=== PATIENT | male | born 1965 | race Caucasian/White ===

== ENCOUNTER 2020-05-19 10:29 | Inpatient (IN) | payer BC ==
--- NOTE | 2020-05-19 11:16 | ED ---
General Adult HPI - General Chief complaint: Upper Respiratory Infection Stated complaint: fatigue, vomiting Time Seen by Provider: 05/19/20 10:42 Source: patient Mode of arrival: ambulatory Limitations: no limitations - History of Present Illness Initial comments: 55-year-old male patient presents to the emergency department today for evaluation of chest pressure and general malaise. Patient states his been feeling unwell for the last couple of weeks. States that he initially was just feeling very fatigued, chilled, rundown. States he had some episodes of diarrhea early in the illness. States that the symptoms lasted for about a week and then started to improve. Patient states over the last few days his symptoms have worsened. States he's been having heavy chest pressure especially at night. States he does feel short of breath with this. Denies any cough or congestion. Denies any fevers but states he has been chilled. States he did have episode of vomiting last night. Does have a history of diabetes. Has extensive family history of cardiac disease. Patient denies any recent rash, abdominal pain, nausea, vomiting, back pain, numbness, tingling, dizziness, weakness, hematuria, dysuria, urinary urgency, urinary frequency, headache, visual changes, or any other complaints. - Related Data Home Medications Medication Instructions Recorded Confirmed Insulin Aspart [NovoLOG Flexpen] See Protocol SQ AC-TID 05/19/20 05/19/20 Insulin Glargine,Hum.rec.anlog 20 unit SQ DAILY 05/19/20 05/19/20 [Lantus Solostar] Allergies Allergy/AdvReac Type Severity Reaction Status Date / Time No Known Allergies Allergy Verified 05/19/20 13:06 Review of Systems ROS Statement: Those systems with pertinent positive or pertinent negative responses have been documented in the HPI. ROS Other: All systems not noted in ROS Statement are negative. Past Medical History Past Medical History: Diabetes Mellitus History of Any Multi-Drug Resistant Organisms: None Reported Past Surgical History: No Surgical Hx Reported Past Psychological History: No Psychological Hx Reported Smoking Status: Never smoker Past Alcohol Use History: Daily Past Drug Use History: None Reported General Exam Limitations: no limitations General appearance: alert, in no apparent distress, other (This is a well- developed, well-nourished adult male patient in no acute distress. Vital signs upon presentation temperature 98.9F, pulse 107, respirations 20, blood pressure 128/83, pulse ox 98% on room air.) Eye exam: Present: normal appearance, PERRL, EOMI. Absent: scleral icterus, conjunctival injection, periorbital swelling ENT exam: Present: normal exam, normal oropharynx, mucous membranes moist Respiratory exam: Present: normal lung sounds bilaterally. Absent: respiratory distress, wheezes, rales, rhonchi, stridor Cardiovascular Exam: Present: normal rhythm, tachycardia, normal heart sounds. Absent: systolic murmur, diastolic murmur, rubs, gallop, clicks GI/Abdominal exam: Present: soft, normal bowel sounds. Absent: distended, tenderness, guarding, rebound, rigid Neurological exam: Present: alert, oriented X3, CN II-XII intact Psychiatric exam: Present: normal affect, normal mood Skin exam: Present: warm, dry, intact, normal color. Absent: rash Course Vital Signs 05/19/20 05/19/20 10:32 12:47 Temperature 98.9 F Pulse Rate 107 H 105 H Respiratory 20 18 Rate Blood Pressure 128/83 137/92 O2 Sat by Pulse 98 96 Oximetry EKG Findings - EKG Comments: EKG Findings:: EKG obtained at 1122 shows sinus tachycardia with a ventricular rate of 105, WI Interval 176, QRS duration 108, QT 358, QTC 473. No evidence of ST elevation or depression. Medical Decision Making - Medical Decision Making 55-year-old male patient presents to the emergency department today for evaluation of chest pressure and shortness of breath. Patient feeling unwell for the last couple of weeks. Has history of diabetes an extensive family history of coronary artery disease. Physical examination reveals clear equal lung sounds. Abdomen soft and nontender. EKG showed some ST depression in V5 and V4. T-wave inversion in lead 3. Labs reviewed and did reveal elevated troponin 3.1. Patient symptoms and findings are consistent with NSTEMI. He'll be admitted to the hospital for further cardiac evaluation. He was given aspirin and started on heparin drip. Case discussed with my attending Dr. Fontanez. - Lab Data Result diagrams: 05/19/20 11:29 05/19/20 11:29 Lab Results 05/19/20 05/19/20 05/19/20 Range/Units 11:29 11:29 11:29 WBC 7.6 (3.8-10.6) k/uL RBC 4.62 (4.30-5.90) m/uL Hgb 14.6 (13.0-17.5) gm/dL Hct 42.5 (39.0-53.0) % MCV 92.1 (80.0-100.0) fL MCH 31.6 (25.0-35.0) pg MCHC 34.3 (31.0-37.0) g/dL RDW 12.3 (11.5-15.5) % Plt Count 347 (150-450) k/uL MPV 6.4 Neutrophils % 78 % Lymphocytes % 14 % Monocytes % 5 % Eosinophils % 2 % Basophils % 0 % Neutrophils # 6.0 (1.3-7.7) k/uL Lymphocytes # 1.0 (1.0-4.8) k/uL Monocytes # 0.4 (0-1.0) k/uL Eosinophils # 0.1 (0-0.7) k/uL Basophils # 0.0 (0-0.2) k/uL PT 10.2 (9.0-12.0) sec INR 0.9 (<1.2) APTT 23.1 (22.0-30.0) sec D-Dimer 0.59 (<0.60) mg/L FEU Sodium 137 (137-145) mmol/L Potassium 4.4 (3.5-5.1) mmol/L Chloride 102 (98-107) mmol/L Carbon Dioxide 25 (22-30) mmol/L Anion Gap 10 mmol/L BUN 20 (9-20) mg/dL Creatinine 1.02 (0.66-1.25) mg/dL Est GFR (CKD-EPI)AfAm >90 (>60 ml/min/1.73 sqM) Est GFR (CKD-EPI)NonAf 84 (>60 ml/min/1.73 sqM) Glucose 317 H (74-99) mg/dL Calcium 9.0 (8.4-10.2) mg/dL Magnesium 1.9 (1.6-2.3) mg/dL Total Bilirubin 0.5 (0.2-1.3) mg/dL AST 43 (17-59) U/L ALT 17 (4-49) U/L Alkaline Phosphatase 94 (38-126) U/L Troponin I (0.000-0.034) ng/mL NT-Pro-B Natriuret Pep pg/mL Total Protein 7.1 (6.3-8.2) g/dL Albumin 4.0 (3.5-5.0) g/dL Coronavirus (PCR) (Not Detectd) 05/19/20 05/19/20 05/19/20 Range/Units 11:29 11:29 11:29 WBC (3.8-10.6) k/uL RBC (4.30-5.90) m/uL Hgb (13.0-17.5) gm/dL Hct (39.0-53.0) % MCV (80.0-100.0) fL MCH (25.0-35.0) pg MCHC (31.0-37.0) g/dL RDW (11.5-15.5) % Plt Count (150-450) k/uL MPV Neutrophils % % Lymphocytes % % Monocytes % % Eosinophils % % Basophils % % Neutrophils # (1.3-7.7) k/uL Lymphocytes # (1.0-4.8) k/uL Monocytes # (0-1.0) k/uL Eosinophils # (0-0.7) k/uL Basophils # (0-0.2) k/uL PT (9.0-12.0) sec INR (<1.2) APTT (22.0-30.0) sec D-Dimer (<0.60) mg/L FEU Sodium (137-145) mmol/L Potassium (3.5-5.1) mmol/L Chloride (98-107) mmol/L Carbon Dioxide (22-30) mmol/L Anion Gap mmol/L BUN (9-20) mg/dL Creatinine (0.66-1.25) mg/dL Est GFR (CKD-EPI)AfAm (>60 ml/min/1.73 sqM) Est GFR (CKD-EPI)NonAf (>60 ml/min/1.73 sqM) Glucose (74-99) mg/dL Calcium (8.4-10.2) mg/dL Magnesium (1.6-2.3) mg/dL Total Bilirubin (0.2-1.3) mg/dL AST (17-59) U/L ALT (4-49) U/L Alkaline Phosphatase (38-126) U/L Troponin I 3.120 H* (0.000-0.034) ng/mL NT-Pro-B Natriuret Pep 3030 pg/mL Total Protein (6.3-8.2) g/dL Albumin (3.5-5.0) g/dL Coronavirus (PCR) Not Detected (Not Detectd) - EKG Data -: EKG Interpreted by Me EKG Comments: EKG obtained 1122 shows sinus tachycardia with a ventricular rate of 105, WI interval 176, QRS duration 108, QT 358, QTC 473. He has some ST depression noted and V4 and V5. T-wave inversion in lead 3. - Radiology Data Radiology results: report reviewed, image reviewed One view x-ray of the chest is obtained. Report reviewed in its entirety. Impression by Dr. Chaves shows patchy right perihilar infiltrate may reflect developing a morning. Correlate clinically. Disposition Clinical Impression: NSTEMI (non-ST elevated myocardial infarction) Disposition: ADMITTED IP TO THIS [facility] Condition: Serious Decision to Admit Reason: Admit from EC Decision Date: 05/19/20 Decision Time: 12:44
[2020-05-19 11:37] LABS: Basophils % (A) 0 %; Eosinophils # (A) 0.1 k/uL (0-0.7); Eosinophils % (A) 2 %; HCT 42.5 % (39.0-53.0); HGB 14.6 gm/dL (13.0-17.5); Lymphocytes % (A) 14 %; MCH 31.6 pg (25.0-35.0); MCHC 34.3 g/dL (31.0-37.0); MCV 92.1 fL (80.0-100.0); Mean Platelet Volume 6.4; Monocytes # (A) 0.4 k/uL (0-1.0); Monocytes % (A) 5 %; Neutrophils % (A) 78 %; Platelet Count 347 k/uL (150-450); RBC 4.62 m/uL (4.30-5.90); RDW 12.3 % (11.5-15.5); WBC 7.6 k/uL (3.8-10.6)
[2020-05-19 11:48] LABS: ALT 17 U/L (4-49); AST 43 U/L (17-59); African American GFR (CKD) >90 (>60 ml/min/1.73 sqM); Alkaline Phosphatase 94 U/L (38-126); Anion Gap 10 mmol/L; Blood Urea Nitrogen 20 mg/dL (9-20); Carbon Dioxide 25 mmol/L (22-30); Chloride 102 mmol/L (98-107); Glucose 317 mg/dL (74-99); Magnesium 1.9 mg/dL (1.6-2.3); Non-African American GFR(CKD) 84 (>60 ml/min/1.73 sqM); Potassium 4.4 mmol/L (3.5-5.1); Sodium 137 mmol/L (137-145); Total Bilirubin 0.5 mg/dL (0.2-1.3); Total Protein 7.1 g/dL (6.3-8.2)
[2020-05-19 11:51] LABS: D-Dimer 0.59 mg/L FEU (<0.60); INR 0.9 (<1.2); Partial Thromboplastin Time 23.1 sec (22.0-30.0); Prothrombin Time 10.2 sec (9.0-12.0)
--- NOTE | 2020-05-19 12:13 | XR ---
EXAMINATION TYPE: XR chest 1V portable DATE OF EXAM: 05/19/2020 HISTORY: Shortness of breath. COMPARISON: None. TECHNIQUE: Single view of the chest is submitted. FINDINGS: Demonstrated are scattered senescent parenchymal change. Patchy right perihilar infiltrate may reflect developing pneumonia. Correlate clinically progress jazlyn dies are recommended. The heart is stable. Hilar and mediastinal structures are within normal limits. Degenerative changes are seen of the dorsal spine. IMPRESSION: 1. Patchy right perihilar infiltrate may reflect developing pneumonia. Correlate clinically progress studies are recommended.
[2020-05-19] MEDS ORDERED: HEPARIN SODIUM,PORCINE 5,000 UNIT/ML 1 ML VIAL IV PRN (12:17)
[2020-05-19] MEDS ORDERED: HEPARIN SODIUM,PORCINE 5,000 UNIT/ML 1 ML VIAL IV ONE (12:17)
[2020-05-19] MEDS ORDERED: HEPARIN SOD,PORK IN 0.45% NACL 25,000 UNIT in 0.45% NACL 1 250ML.BAG IV SCH (12:30)
[2020-05-19] MEDS ORDERED: ASPIRIN 81 MG PO STA (12:39)
[2020-05-19] MEDS ORDERED: NITROGLYCERIN SL TABS 0.4 MG TAB SUBLINGUAL PRN (12:39)
[2020-05-19] MEDS ORDERED: MELATONIN 3 MG TABLET PO PRN (13:04)
[2020-05-19] MEDS ORDERED: NALOXONE 0.4 MG/ML 1 ML VIAL IV PRN (13:04)
[2020-05-19] MEDS ORDERED: HYDROcodone/APAP 5-325MG 1 EACH TAB PO PRN (13:04)
[2020-05-19] MEDS ORDERED: ACETAMINOPHEN TAB 325 MG TAB PO PRN (13:04)
--- NOTE | 2020-05-19 14:29 | P.HPIM ---
<Sadiq Pepper - Last Filed: 05/19/20 13:35> History of Present Illness H&P Date: 05/19/20 Chief Complaint: Fatigue and chest heaviness History of presenting illness: Patient is a 55-year-old male with a past medical history of insulin-dependent diabetes mellitus. He presented to [facility] with a chief complaint of fatigue and chest heaviness. Patient reports he initially began feeling the symptoms of fatigue on 04/30/20 accompanied by diarrhea, nausea, chills, diaphoresis, and body aches. Pt reports these symptoms lasted for appro ximately one week and then improved. Pt states this improvement only lasted a couple days and then his symptoms came back with a vengeance. Patient reports over the past few days he has felt extremely winded, fatigued, and simply run down. He has had chills and moderate diaphoresis. Patient states in addition to this he has had a constant pressure to his midsternal chest. Patient reports this chest pressure feels like a constant heaviness to his midsternal chest which seems to worsen in the evenings and at night and is accompanied by shortness of breath. Patient denies having any fevers, headache, lightheadedness, dizziness, cough or congestion, abdominal pain, or experiencing any pain/swelling/weakness/tingling in extremities. Patient denies a history of cardiac disease, but reports a significant family history of cardiac disease with both of his brothers and father requiring open heart surgery with bypasses at a young age. Patient denies history of tobacco use, drug use and denies EtOH use/abuse. Patient reports he follows with blending technician Dr. Beckman in [place]. Patient was evaluated in the emergency department found to have an elevated troponin of 3.120 with an EKG showing sinus tachycardia at 105 bpm with T-wave inversion in leads III and aVF, no signs of ST elevation. Patient given aspirin 324 mg in ED 1 dose followed by heparin bolus and infusion per ACS protocol for NSTEMI. Patient admitted under our services for continued close medical management with consult to cardiology. Review of systems: Pertinent positives and negatives as discussed in HPI, a complete review of systems was performed and all other systems are negative. Physical exam: General: non toxic, no distress, appears at stated age Derm: warm, dry Head: atraumatic, normocephalic, symmetric Eyes: EOMI, no lid lag, anicteric sclera Mouth: no lip lesion, mucus membranes moist Cardiovascular: S1S2 normal with regular rate and rhythm. No murmur, gallop, or rub noted. Posterior tibial pulses palpated bilaterally. No lower extremity edema. Lungs: Respirations even, regular, and unlabored on room air. Lungs CTA bilaterally Abdominal: soft, nontender to palpation, no guarding, no appreciable organomegaly Ext: no gross muscle atrophy, no edema, no contractures Neuro: CN II-XI grossly intact, no focal neuro deficits Psych: Alert, oriented, appropriate affect Assessment and Plan of Care: NSTEMI -Troponin 3.120 -EKG showing sinus tachycardia at 105 bpm with T-wave inversion in leads III and aVF, no signs of ST elevation. No previous EKGs available for comparison. -Patient given aspirin 324 mg in ED 1 dose followed by heparin bolus and infusion per ACS protocol for NSTEMI. -Continue heparin infusion, pharmacy to dose. -Cardiology consult. -Telemetry monitoring -Trend troponins every 3 hours 2. -Close monitoring of I's and O's -Heart healthy carb consistent diet, NPO at midnight -Patient being placed on daily aspirin, atorvastatin, and metoprolol. -Lipid profile and Hgb A1c with a.m. labs. Insulin-dependent diabetes mellitus type II -Glycemic protocol with NovoLog sliding scale and continuation of Lantus 20 units daily. -Heart healthy carb consistent diet The patient is admitted with an anticipated greater than 2 midnight stay for evaluation of NSTEMI. Surrogate decision-maker: Self CODE STATUS: Full code DVT prophylaxis: Heparin Discussed with: Patient Anticipated discharge date: Clinical course to determine Anticipated discharge place: Home A total of 45 minutes was spent on the care of this complex patient more than 50% of the time was spent in counseling and care coordination. Past Medical History Past Medical History: Diabetes Mellitus History of Any Multi-Drug Resistant Organisms: None Reported Past Surgical History: No Surgical Hx Reported Past Psychological History: No Psychological Hx Reported Smoking Status: Never smoker Past Alcohol Use History: Daily Past Drug Use History: None Reported Medications and Allergies Home Medications Medication Instructions Recorded Confirmed Type Insulin Aspart [NovoLOG Flexpen] See Protocol SQ AC-TID 05/19/20 05/19/20 History Insulin Glargine,Hum.rec.anlog 20 unit SQ DAILY 05/19/20 05/19/20 History [Hussein Moseley] Allergies Allergy/AdvReac Type Severity Reaction Status Date / Time No Known Allergies Allergy Verified 05/19/20 13:06 Physical Exam Vitals: Vital Signs Temp Pulse Resp BP Pulse Ox 05/19/20 12:47 105 H 18 137/92 96 05/19/20 10:32 98.9 F 107 H 20 128/83 98 Intake and Output 05/18/20 05/19/20 05/19/20 22:59 06:59 14:59 Other: Weight 81.647 kg Results CBC & Chem 7: 05/19/20 11:29 05/19/20 11:29 Labs: Abnormal Lab Results - Last 24 Hours (Table) 05/19/20 05/19/20 Range/Units 11:29 11:29 Glucose 317 H (74-99) mg/dL Troponin I 3.120 H* (0.000-0.034) ng/mL <Gloria House - Last Filed: 05/19/20 20:33> Physical Exam Osteopathic Statement: *. No significant issues noted on an osteopathic structural exam other than those noted in the History and Physical/Consult. Vitals: Vital Signs Temp Pulse Resp BP Pulse Ox 05/19/20 20:00 116 H 18 138/73 91 L 05/19/20 17:37 98.2 F 105 H 18 139/96 93 L 05/19/20 15:50 97 18 138/93 97 05/19/20 12:47 105 H 18 137/92 96 05/19/20 10:32 98.9 F 107 H 20 128/83 98 Intake and Output 05/19/20 05/19/20 05/19/20 06:59 14:59 22:59 Other: Weight 81.647 kg Results CBC & Chem 7: 05/19/20 11:29 05/19/20 11:29 Labs: Abnormal Lab Results - Last 24 Hours (Table) 05/19/20 05/19/20 05/19/20 Range/Units 11:29 11:29 14:09 APTT (22.0-30.0) sec Glucose 317 H (74-99) mg/dL Troponin I 3.120 H* 6.080 H* (0.000-0.034) ng/mL 05/19/20 05/19/20 Range/Units 18:38 18:38 APTT 30.1 H (22.0-30.0) sec Glucose (74-99) mg/dL Troponin I 7.840 H* (0.000-0.034) ng/mL Assessment and Plan Assessment: Patient seen and examined independently. Patient was also seen by Sadiq Pepper NP and case was discussed. I am in agreement with subjective, physical exam, assessment and plan as written above and amended below. Currently chest pain-free. No shortness of breath. No nausea. No vomiting. General: non toxic, no distress, appears at stated age Derm: warm, dry Head: atraumatic, normocephalic, symmetric Eyes: EOMI, no lid lag, anicteric sclera Mouth: no lip lesion, mucus membranes moist Cardiovascular: S1S2 reg, no murmur, positive posterior tibial pulse bilateral, Lungs: CTA bilateral, no rhonchi, no rales , no accessory muscle use Abdominal: soft, nontender to palpation, no guarding, no appreciable organomegaly Ext: no gross muscle atrophy, no edema, no contractures Neuro: CN II-XI grossly intact, no focal neuro deficits Psych: Alert, oriented, appropriate affect Non-STEMI -Heparin drip -Beta holly -Aspirin -Await cardiology recommendations -Patient would like cardiology to discuss his case with his outpatient blending technician. -Nothing by mouth after midnight in anticipation of cardiac catheterization - D/W nursing to alert cardiology of incresaed trop from earlier today.
[2020-05-19] MEDS: INSULIN ASPART (NovoLOG) 100 UNIT/ML VIAL SQ SCH ×2 (19:38→22:32)
[2020-05-19] MEDS ORDERED: ATORVASTATIN 40 MG TAB PO SCH (21:00)
[2020-05-19 22:29] LABS: Glucose,Whole Blood 302 mg/dL (75-99)
[2020-05-19] MEDS: METOPROLOL TARTRATE 25 MG TAB PO SCH (22:32)
[2020-05-20 03:35] LABS: Basophils % (A) 0 %; Eosinophils % (A) 0 %; HCT 36.2 % (39.0-53.0); HGB 12.7 gm/dL (13.0-17.5); Lymphocytes # (A) 1.1 k/uL (1.0-4.8); Lymphocytes % (A) 10 %; MCH 32.2 pg (25.0-35.0); Mean Platelet Volume 6.8; Monocytes # (A) 0.6 k/uL (0-1.0); Monocytes % (A) 5 %; Neutrophils # (A) 8.9 k/uL (1.3-7.7); Neutrophils % (A) 83 %; Platelet Count 345 k/uL (150-450); RBC 3.93 m/uL (4.30-5.90); RDW 11.8 % (11.5-15.5); WBC 10.7 k/uL (3.8-10.6)
[2020-05-20 03:49] LABS: African American GFR (CKD) >90 (>60 ml/min/1.73 sqM); Anion Gap 4 mmol/L; Blood Urea Nitrogen 21 mg/dL (9-20); Calcium 8.2 mg/dL (8.4-10.2); Carbon Dioxide 25 mmol/L (22-30); Chloride 105 mmol/L (98-107); Cholesterol 241 mg/dL (<200); Glucose 278 mg/dL (74-99); HDL Cholesterol 37 mg/dL (40-60); LDL Cholesterol,Calculated 164 mg/dL (0-99); Non-African American GFR(CKD) >90 (>60 ml/min/1.73 sqM); Potassium 4.3 mmol/L (3.5-5.1); Sodium 134 mmol/L (137-145); Triglycerides 200 mg/dL (<150)
[2020-05-20 06:37] LABS: Glucose,Whole Blood 282 mg/dL (75-99)
[2020-05-20] MEDS: INSULIN ASPART (NovoLOG) 100 UNIT/ML VIAL SQ SCH ×4 (06:41→20:17)
[2020-05-20] MEDS ORDERED: ASPIRIN 325 MG TAB PO SCH ×2 (09:00→09:15)
[2020-05-20] MEDS ORDERED: ALPRAZolam 0.5 MG TAB PO PRN (09:07)
[2020-05-20] MEDS ORDERED: ALPRAZolam 0.25 MG TAB PO PRN (09:07)
[2020-05-20] MEDS ORDERED: SODIUM CHLORIDE 0.9% 1,000 ML in EMPTY BAG 1 BAG IV ONE (09:07)
[2020-05-20] MEDS ORDERED: ASPIRIN 325 MG TAB PO ONE (09:08)
[2020-05-20] MEDS: INSULIN DETEMIR (LEVEMIR) 100 UNIT/ML SYR SQ SCH (09:15)
[2020-05-20] MEDS: ATORVASTATIN 80 MG TAB PO SCH (09:15)
[2020-05-20] MEDS ORDERED: fentaNYL (PF) 50 MCG/ML 2 ML AMP ONE (09:16)
[2020-05-20] MEDS ORDERED: VERAPAMIL 2.5 MG/ML 2 ML AMP ONE (09:16)
[2020-05-20] MEDS ORDERED: LIDOCAINE 1% INJ 10MG/ML (20 ML MDV) ONE (09:16)
[2020-05-20] MEDS: ASPIRIN 81 MG PO SCH (09:18)
[2020-05-20] MEDS: METOPROLOL TARTRATE 25 MG TAB PO SCH ×2 (09:22→20:17)
[2020-05-20] MEDS ORDERED: IV FLUID CONTINUATION 800 ML IV ONE (09:26)
[2020-05-20] MEDS ORDERED: HEPARIN SODIUM,PORCINE 10,000 UNIT in SODIUM CHLORIDE 0.9% 1,000 ML IRRIGATION PRN (09:30)
[2020-05-20] MEDS ORDERED: HEPARIN SODIUM,PORCINE 2,500 UNIT in SODIUM CHLORIDE 0.9% 250 ML IRRIGATION PRN (09:30)
[2020-05-20] MEDS ORDERED: fentaNYL (PF) 50 MCG/ML 2 ML AMP IV ONE (09:38)
[2020-05-20] MEDS ORDERED: MIDAZOLAM 2 MG/2 ML VIAL IV ONE (09:39)
[2020-05-20] MEDS ORDERED: LIDOCAINE 1% INJ 10MG/ML (20 ML MDV) SQ ONE (09:40)
[2020-05-20] MEDS ORDERED: HEPARIN SODIUM 1,000 UN/ML (10ML VL) ONE (09:42)
[2020-05-20] MEDS ORDERED: VERAPAMIL SYRINGE (5 MG/10 ML) INTRAARTER ONE (09:42)
[2020-05-20] MEDS ORDERED: HEPARIN SODIUM 1,000 UN/ML (10ML VL) IV ONE (09:43)
[2020-05-20] MEDS ORDERED: NITROGLYCERIN-D5W PMX 50 MG in DEXTROSE/WATER 1 250ML.BAG IV ONE (09:55)
[2020-05-20] MEDS ORDERED: IOPAMIDOL-370 125ML BTL INJ ONE (10:02)
--- NOTE | 2020-05-20 10:47 | P.CARDCATH ---
Description of Procedure: PROCEDURES PERFORMED: Left heart catheterization, bilateral coronary angiography INDICATION: NSTEMI HISTORY: Patient is a pleasant 55-year-old male with history of hypertension, hyperlipidemia, diabetes mellitus type 2 insulin-dependent, and strong family history of coronary artery disease who presents with symptoms of not feeling well for 3 weeks and some GI symptoms with worsened chest pressure over last few days. Patient was found to have non-STEMI and therefore heart catheterization was recommended. CONSENT:I have discussed the risks, benefits and alternative therapies for the above-mentioned procedure and for both sedation/analgesia as well as necessary blood product administration, if indicated, as they pertain to this patient. The patient has indicated understanding and acceptance of the risks and procedures discussed. PROCEDURE: After the risks, benefits and alternatives of the above mentioned procedure explained in detail with the patient, informed consent was obtained. Patient was taken to the catheterization lab and prepped and draped in usual fashion. 1% lidocaine was used to anesthetize the right radial artery. A 6- [place] sheath was placed in the right radial artery using modified Seldinger technique. Left coronary angiography was performed with a 5-[place] JL 3.5 catheter and right coronary angiography was performed with a 5-[place] JR5 catheter in various views. A 5-[place] FR5 catheter was inserted into the left ventricle and pressure measurements were obtained. The right radial sheath was removed and a TR band was placed with hemostasis achieved. The patient tolerated the procedure well. Patient was transported back to the post catheterization holding area in stable condition. Conscious Sedation: Patient was monitored under the direct supervision of vision of myself for conscious sedation using Versed and fentanyl for a total duration of 18 minutes HEMODYNAMICS: Aorta: 122/72 LV: 118/7, LVEDP 17 mmHg SELECTIVE CORONARY ARTERIOGRAPHY: LEFT MAIN: The left main is a large caliber vessel which bifurcates into the LAD and circumflex. There is a distal 20% left main stenosis. LEFT ANTERIOR DESCENDING CORONARY ARTERY: LAD is a moderatecaliber vessel which wraps around to the apex. There is a ostial 85% LAD stenosis, a 60-70% mid LAD stenosis after a diagonal 1 branch and an apical 50% stenosis. Diagonal 1 is a small caliber vessel with a proximal 80% stenosis. Diagonal 2 is small caliber with a proximal 90% stenosis. LEFT CIRCUMFLEX CORONARY ARTERY: Left circumflex is a moderate to large caliber vessel with a mid 50% stenosis and gives off a moderate to large caliber OM1. There are left to right collaterals to the PLV. RIGHT CORONARY ARTERY: The right coronary artery is a small caliber vessel which gives off a PDA and PLV branch and is the dominant vessel. There is a mid RCA 95% stenosis followed by a 100% distal RCA stenosis. FINAL IMPRESSION: 1. Multivessel CAD as described above including ostial LAD 85%, mid LAD 60-70%, apical LAD 50%, diagonal 1 80%, diagonal 2 90%, circumflex 50% stenosis and RCA 90%, 100% stenosis. 2. Mildly elevated left sided filling pressures. PLAN: 1. Aggressive risk factor modification per most recent ACC/AHA guidelines. 2. CABG evaluation.
--- NOTE | 2020-05-20 11:31 | P.PN ---
Subjective Progress Note Date: 05/20/20 Principal diagnosis: NSTEMI Hospital course: Patient is a 55-year-old male with a past medical history of insulin-dependent diabetes mellitus. He presented to [facility] with a chief complaint of fatigue and chest heaviness/pressure. Patient was evaluated in the emergency department found to have an elevated troponin of 3.120 with an EKG showing sinus tachycardia at 105 bpm with T-wave inversion in leads III and aVF, no signs of ST elevation. Patient given aspirin 324 mg in ED 1 dose followed by heparin bolus and infusion per ACS protocol for NSTEMI. Patient admitted under our services for continued close medical management with consult to cardiology. Troponins trended upward with initial troponin is 3.120 with repeats of 6.080 and 7.840. Patient taken for cardiac cath this morning with Dr. Mina. Physical exam: Patient seen and evaluated at the bedside this morning. He reports improvement of chest heaviness/pressure but reports it remains at 3 out of 10 from previous 8 out of 10. Patient scheduled for cardiac cath this morning with Dr. Mina. Patient denies any other complaints at this time including headache, lightheadedness, dizziness, palpitations, shortness of breath, abdominal pain, nausea, or experiencing any pain/tingling/numbness/weakness in extremities. General: non toxic, no distress, appears at stated age Derm: warm, dry Head: atraumatic, normocephalic, symmetric Eyes: EOMI, no lid lag, anicteric sclera Mouth: no lip lesion, mucus membranes moist Cardiovascular: S1S2 normal with regular rate and rhythm. No murmur, gallop, or rub noted. Posterior tibial pulses palpated bilaterally. No lower extremity edema. Lungs: Respirations even, regular, and unlabored on room air. Lungs CTA bilaterally Abdominal: soft, nontender to palpation, no guarding, no appreciable organomegaly Ext: no gross muscle atrophy, no edema, no contractures Neuro: CN II-XI grossly intact, no focal neuro deficits Psych: Alert, oriented, appropriate affect Assessment and Plan of Care: NSTEMI -Troponin 3.120. Troponins trended upward with initial troponin is 3.120 with repeats of 6.080 and 7.840. -EKG showing sinus tachycardia at 105 bpm with T-wave inversion in leads III and aVF, no signs of ST elevation. No previous EKGs available for comparison. -Continue heparin infusion, pharmacy to dose. -Cardiology following, patient scheduled to have cardiac cath done this morning. -Telemetry monitoring. -Trend troponins every 3 hours 2. -Close monitoring of I's and O's. -Heart healthy carb consistent diet, NPO at midnight. -Patient being placed on daily aspirin, atorvastatin, and metoprolol. -Lipid profile revealed elevation of triglycerides 200, cholesterol 241, LDL 1 64, HDL of 37. Atorvastatin increased to 80 mg nightly. -Hemoglobin A1c pending. Insulin-dependent diabetes mellitus type II -Glycemic protocol with NovoLog sliding scale and continuation of Lantus 20 units daily. -Heart healthy carb consistent diet The patient is admitted with an anticipated greater than 2 midnight stay for evaluation of NSTEMI. Surrogate decision-maker: Self CODE STATUS: Full code DVT prophylaxis: Heparin Discussed with: Patient Anticipated discharge date: Clinical course to determine Anticipated discharge place: Home A total of 45 minutes was spent on the care of this complex patient more than 50% of the time was spent in counseling and care coordination. Objective - Vital Signs Vital signs: Vital Signs Temp 99.6 F 05/20/20 08:00 Pulse 91 05/20/20 10:22 Resp 20 05/20/20 10:22 BP 117/70 05/20/20 10:22 Pulse Ox 95 05/20/20 10:22 Intake & Output 05/19/20 05/20/20 05/20/20 18:59 06:59 18:59 Intake Total 171.380 102 Balance 171.380 102 Weight 81.647 kg 84.5 kg Intake: IV 102 Intake, IV Titration 171.380 Amount Heparin Sod,Pork in 0.45% 171.380 NaCl 25,000 unit In 0.45 % NaCl 1 250ml.bag @ 12 UNITS/KG/HR 9.798 mls/hr IV .Q24H [facility] Rx#: [id number] Other: Voiding Method Urinal # Voids 1 - Labs CBC & Chem 7: 05/20/20 02:37 05/20/20 02:37 Labs: Abnormal Lab Results - Last 24 Hours (Table) 05/19/20 05/19/20 05/19/20 Range/Units 11:29 11:29 14:09 WBC (3.8-10.6) k/uL RBC (4.30-5.90) m/uL Hgb (13.0-17.5) gm/dL Hct (39.0-53.0) % Neutrophils # (1.3-7.7) k/uL APTT (22.0-30.0) sec Sodium (137-145) mmol/L BUN (9-20) mg/dL Glucose 317 H (74-99) mg/dL POC Glucose (mg/dL) (75-99) mg/dL Calcium (8.4-10.2) mg/dL Troponin I 3.120 H* 6.080 H* (0.000-0.034) ng/mL Triglycerides (<150) mg/dL Cholesterol (<200) mg/dL LDL Cholesterol, Calc (0-99) mg/dL HDL Cholesterol (40-60) mg/dL 05/19/20 05/19/20 05/19/20 Range/Units 18:38 18:38 22:26 WBC (3.8-10.6) k/uL RBC (4.30-5.90) m/uL Hgb (13.0-17.5) gm/dL Hct (39.0-53.0) % Neutrophils # (1.3-7.7) k/uL APTT 30.1 H (22.0-30.0) sec Sodium (137-145) mmol/L BUN (9-20) mg/dL Glucose (74-99) mg/dL POC Glucose (mg/dL) 302 H (75-99) mg/dL Calcium (8.4-10.2) mg/dL Troponin I 7.840 H* (0.000-0.034) ng/mL Triglycerides (<150) mg/dL Cholesterol (<200) mg/dL LDL Cholesterol, Calc (0-99) mg/dL HDL Cholesterol (40-60) mg/dL 05/20/20 05/20/20 05/20/20 Range/Units 02:37 02:37 02:37 WBC 10.7 H (3.8-10.6) k/uL RBC 3.93 L (4.30-5.90) m/uL Hgb 12.7 L (13.0-17.5) gm/dL Hct 36.2 L (39.0-53.0) % Neutrophils # 8.9 H (1.3-7.7) k/uL APTT 41.2 H (22.0-30.0) sec Sodium 134 L (137-145) mmol/L BUN 21 H (9-20) mg/dL Glucose 278 H (74-99) mg/dL POC Glucose (mg/dL) (75-99) mg/dL Calcium 8.2 L (8.4-10.2) mg/dL Troponin I (0.000-0.034) ng/mL Triglycerides 200 H (<150) mg/dL Cholesterol 241 H (<200) mg/dL LDL Cholesterol, Calc 164 H (0-99) mg/dL HDL Cholesterol 37 L (40-60) mg/dL 05/20/20 05/20/20 05/20/20 Range/Units 06:35 08:24 08:24 WBC (3.8-10.6) k/uL RBC (4.30-5.90) m/uL Hgb (13.0-17.5) gm/dL Hct (39.0-53.0) % Neutrophils # (1.3-7.7) k/uL APTT 41.4 H (22.0-30.0) sec Sodium (137-145) mmol/L BUN (9-20) mg/dL Glucose (74-99) mg/dL POC Glucose (mg/dL) 282 H (75-99) mg/dL Calcium (8.4-10.2) mg/dL Troponin I 7.700 H* (0.000-0.034) ng/mL Triglycerides (<150) mg/dL Cholesterol (<200) mg/dL LDL Cholesterol, Calc (0-99) mg/dL HDL Cholesterol (40-60) mg/dL
--- NOTE | 2020-05-20 11:40 | P.CRDCN ---
History of Present Illness Chief complaint: cp History of present illness: HISTORY OF PRESENTING ILLNESS This is a pleasant 55-year-old male past medical history significant for diabetes mellitus and daily alcohol intake. He follows in the office with Dr. Santos in [place]. We have been asked to see in consultation for NSTEMI. He states for the previous 2 weeks he has been experiencing chest heaviness int ermittently. The symptoms occur typically at rest mostly at night when he lays down and tries to sleep. When he lays down flat he feels a heaviness in his chest with some mild shortness of breath. He denies any symptoms of chest discomfort or shortness of breath with exertion. He has had some intermittent diarrhea. 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 He had no symptoms of chest discomfort throughout the day. The next morning he woke up and went out to breakfast and then had an episode of nausea and vomiting. He was concerned with possible ovarian. He came to the emergency department yesterday afternoon to be tested. We have seen and examined resting comfortably in bed in no acute distress. He has no symptoms of chest discomfort or shortness of breath. DIAGNOSTICS EKG reveals sinus mechanism with inferior deep Twave inversions. Chest xray possible developing right pneumonia. Laboratory reviewed, WBC 10.7, hemoglobin 12.7, platelets 345, d-dimer 0.59, sodium 134, potassium 4.3, creatinine 0.95, magnesium 1.9, troponin 3.12, 6.08, 7.84, 7.7, NT proBNP 3030, LDL 164 and HDL 37. He takes no daily cardiac medications. REVIEW OF SYSTEMS At the time of my exam: CONSTITUTIONAL: Denies fever or chills. CARDIOVASCULAR: Denies chest pain, shortness of breath, orthopnea, PND or palpitations. RESPIRATORY: Denies cough. GASTROINTESTINAL: Denies abdominal pain, diarrhea, constipation, nausea or vomiting. MUSCULOSKELETAL: Denies myalgias. NEUROLOGIC: Denies numbness, tingling, headacbe or weakness. ENDOCRINE: Denies fatigue, weight change, polydipsia or polyurina. GENITOURINARY: Denies burning, hematuria or urgency with micturation. HEMATOLOGIC: Denies history of anemia or bleeding. PHYSICAL EXAMINATION Blood pressure 117/70 heart rate 91 afebrile and maintaining oxygen saturation on nasal cannula. CONSTITUTIONAL: No apparent distress. HEENT: Head is normocephalic. Pupils are equal, round. Sclerae anicteric. Mucous membranes of the mouth are moist. No JVD. No carotid bruit. CHEST EXAMINATION: Lungs are clear to auscultation. No chest wall tenderness is noted on palpation or with deep breathing. HEART EXAMINATION: Regular rate and rhythm. S1, S2 heard. Systolic ejection murmur at the base, no gallops or rub. ABDOMEN: Soft, nontender. Positive bowel sounds. EXTREMITIES: 2+ peripheral pulses, no lower extremity edema and no calf tenderness. NEUROLOGIC EXAMINATION: Patient is awake, alert and oriented x3. ASSESSMENT NSTEMI Diabetes mellitus Daily alcohol intake Dyslipidemia Valvular heart disease PLAN Obtain bedside 2D echocardiogram and doppler study to assess cardiac structure and function. Decrease aspirin to 81 mg daily, increase Lipitor to 80 mg daily and continue Lopressor as previously ordered. Recommend proceeding with cardiac catheterization.I have discussed the risks, benefits and alternative therapies for the above-mentioned procedure and for both sedation/analgesia as well as necessary blood product administration, if indicated, as they pertain to this patient. The patient has indicated understanding and acceptance of the risks and procedures discussed. Questions have been answered properly and he is agreeable to move forward with the above- stated procedure. Further recommendations to follow based upon clinical course. Thank you kindly for this consultation. Nurse Practitioner note has been reviewed, I agree with a documented findings and plan of care. Patient was seen and examined. Past Medical History Past Medical History: Diabetes Mellitus History of Any Multi-Drug Resistant Organisms: None Reported Past Surgical History: No Surgical Hx Reported Past Anesthesia/Blood Transfusion Reactions: No Reported Reaction Past Psychological History: No Psychological Hx Reported Smoking Status: Never smoker Past Alcohol Use History: Daily Past Drug Use History: None Reported - Past Family History Father Family Medical History: Myocardial Infarction (AL) Additional Family Medical History / Comment(s): CABG Brother(s) Family Medical History: Myocardial Infarction (AL) Additional Family Medical History / Comment(s): CABG Medications and Allergies Home Medications Medication Instructions Recorded Confirmed Type Insulin Aspart [NovoLOG Flexpen] See Protocol SQ AC-TID 05/19/20 05/19/20 History Insulin Glargine,Hum.rec.anlog 20 unit SQ DAILY 05/19/20 05/19/20 History [Lantus Solostar] Allergies Allergy/AdvReac Type Severity Reaction Status Date / Time No Known Allergies Allergy Verified 05/19/20 13:06 Physical Exam Vitals: Vital Signs Temp Pulse Pulse Pulse Resp BP BP 05/20/20 08:00 99.6 F 97 97 16 106/59 05/20/20 04:00 98.9 F 95 18 105/56 05/20/20 00:10 98.7 F 115 H 18 135/82 05/19/20 21:10 100.3 F H 110 H 20 134/79 05/19/20 20:00 116 H 18 138/73 05/19/20 17:37 98.2 F 105 H 18 139/96 05/19/20 15:50 97 18 138/93 05/19/20 12:47 105 H 18 137/92 05/19/20 10:32 98.9 F 107 H 20 128/83 Pulse Ox 05/20/20 08:00 05/20/20 04:00 95 05/20/20 00:10 96 05/19/20 21:10 96 05/19/20 20:00 91 L 05/19/20 17:37 93 L 05/19/20 15:50 97 05/19/20 12:47 96 05/19/20 10:32 98 Intake and Output 05/19/20 05/20/20 05/20/20 22:59 06:59 14:59 Intake Total 87.692 83.688 Balance 87.692 83.688 Intake: Intake, IV Titration 87.692 83.688 Amount Heparin Sod,Pork in 0.45% 87.692 83.688 NaCl 25,000 unit In 0.45 % NaCl 1 250ml.bag @ 12 UNITS/KG/HR 9.798 mls/hr IV .Q24H [facility] Rx#: [id number] Other: Voiding Method Urinal # Voids 1 Weight 84.5 kg Results 05/20/20 02:37 05/20/20 02:37 Cardiac Enzymes 05/19/20 05/19/20 05/19/20 Range/Units 11:29 11:29 14:09 AST 43 (17-59) U/L Troponin I 3.120 H* 6.080 H* (0.000-0.034) ng/mL 05/19/20 Range/Units 18:38 AST (17-59) U/L Troponin I 7.840 H* (0.000-0.034) ng/mL Coagulation 05/19/20 05/19/20 05/20/20 Range/Units 11:29 18:38 02:37 PT 10.2 (9.0-12.0) sec APTT 23.1 30.1 H 41.2 H (22.0-30.0) sec Lipids 05/20/20 Range/Units 02:37 Triglycerides 200 H (<150) mg/dL Cholesterol 241 H (<200) mg/dL HDL Cholesterol 37 L (40-60) mg/dL CBC 05/19/20 05/20/20 Range/Units 11:29 02:37 WBC 7.6 10.7 H (3.8-10.6) k/uL RBC 4.62 3.93 L (4.30-5.90) m/uL Hgb 14.6 12.7 L (13.0-17.5) gm/dL Hct 42.5 36.2 L (39.0-53.0) % Plt Count 347 345 (150-450) k/uL Comprehensive Metabolic Panel 05/19/20 05/20/20 Range/Units 11:29 02:37 Sodium 137 134 L (137-145) mmol/L Potassium 4.4 4.3 (3.5-5.1) mmol/L Chloride 102 105 (98-107) mmol/L Carbon Dioxide 25 25 (22-30) mmol/L BUN 20 21 H (9-20) mg/dL Creatinine 1.02 0.95 (0.66-1.25) mg/dL Glucose 317 H 278 H (74-99) mg/dL Calcium 9.0 8.2 L (8.4-10.2) mg/dL AST 43 (17-59) U/L ALT 17 (4-49) U/L Alkaline Phosphatase 94 (38-126) U/L Total Protein 7.1 (6.3-8.2) g/dL Albumin 4.0 (3.5-5.0) g/dL Current Medications Generic Name Dose Route Start Last Admin Trade Name Freq PRN Reason Stop Dose Admin Acetaminophen 650 mg 05/19/20 13:04 03/22/21 22:31 Acetaminophen Tab 325 Mg Tab PO 650 mg Q6HR PRN Administration Mild Pain or Fever > 100.5 Hydrocodone Bitart/Acetaminophen 1 each 05/19/20 13:04 Hydrocodone/Apap 5-325mg 1 Each Tab PO Q4HR PRN Moderate Pain Aspirin 81 mg 05/20/20 09:00 Aspirin 81 Mg PO DAILY [facility] Atorvastatin Calcium 80 mg 05/20/20 09:00 Atorvastatin 80 Mg Tab PO DAILY [facility] Heparin Sodium (Porcine) 0 unit 05/19/20 12:17 05/19/20 21:17 Heparin Sodium,Porcine 5,000 Unit/Ml 1 Ml Vial IV 4,000 unit PER PROTOCOL PRN Administration Low PTT Protocol Heparin Sodium/Sodium Chloride 250 mls @ 9.798 mls/hr 05/19/20 12:30 05/20/20 04:12 25,000 unit/ Sodium Chloride IV 17.45 units/kg/hr .Q24H [facility] 14.247 mls/hr Titration Protocol 12 UNITS/KG/HR Insulin Aspart 0 unit 05/19/20 17:30 05/20/20 06:41 Insulin Aspart (Novolog) 100 Unit/Ml Vial SQ 4 unit ACHS [facility] Administration Protocol Insulin Detemir 20 unit 05/20/20 09:00 Insulin Detemir (Levemir) 100 Unit/Ml Syr SQ DAILY [facility] Melatonin 3 mg 05/19/20 13:04 Melatonin 3 Mg Tablet PO HS PRN Insomnia Metoprolol Tartrate 25 mg 05/19/20 21:00 05/19/20 22:32 Metoprolol Tartrate 25 Mg Tab PO 25 mg BID [facility] Administration Naloxone HCl 0.2 mg 05/19/20 13:04 Naloxone 0.4 Mg/Ml 1 Ml Vial IV Q2M PRN Opioid Reversal Nitroglycerin 0.4 mg 05/19/20 12:39 Nitroglycerin Sl Tabs 0.4 Mg Tab SUBLINGUAL Q5M PRN Chest Pain Intake and Output 05/19/20 05/20/20 05/20/20 22:59 06:59 14:59 Intake Total 87.692 83.688 Balance 87.692 83.688 Intake: Intake, IV Titration 87.692 83.688 Amount Heparin Sod,Pork in 0.45% 87.692 83.688 NaCl 25,000 unit In 0.45 % NaCl 1 250ml.bag @ 12 UNITS/KG/HR 9.798 mls/hr IV .Q24H [facility] Rx#: [id number] Other: Voiding Method Urinal # Voids 1 Weight 84.5 kg 05/20/20 02:37 05/20/20 02:37
--- NOTE | 2020-05-20 11:46 | ECHOF ---
Referral Reason:nstemi MEASUREMENTS -------- HEIGHT: 167.6 cm WEIGHT: 84.4 kg BP: RVIDd: 2.6 cm (< 3.3) IVSd: 1.2 cm (0.6 - 1.1) LVIDd: 5.6 cm (3.9 - 5.3) LVPWd: 1.3 cm (0.6 - 1.1) IVSs: 1.7 cm LVIDs: 4.4 cm LVPWs: 1.7 cm LA Diam: 3.6 cm (2.7 - 3.8) LAESV Index (A-L): 23.11 ml/m Ao Diam: 3.6 cm (2.0 - 3.7) AV Cusp: 2.0 cm (1.5 - 2.6) MV EXCURSION: 20.477 mm (> 18.000) MV EF SLOPE: 165 mm/s (70 - 150) EPSS: 1.3 cm MV E Ralph: 1.09 m/s MV DecT: 231 ms MV A Ralph: 0.52 m/s MV E/A Ratio: 2.10 RAP: 5.00 mmHg RVSP: 31.41 mmHg FINDINGS -------- Sinus rhythm. This was a technically good study. The left ventricular size is normal. There is mild concentric left ventricular hypertrophy. Overa ll left ventricular systolic function is mild-moderately impaired with, an EF between 40 - 45 %.There is generalized hypokinesiaseemed to be more pronounced in the inferobasal, lateral wall and apical s eptal area.Fndings are consistent with ischemic cardiomyopathy The right ventricle is normal in size. Normal LA size by volume 22+/-6 ml/m2. The right atrium is normal in size. Interatrial and interventricular septum intact. Trace amount of aortic regurgitation. Moderate mitral regurgitation is present. Mild tricuspid regurgitation present. There is mild pulmonary hypertension. The right ventricular systolic pressure, as measured by Doppler, is 31.41mmHg. Trace/mild (physiologic) pulmonic regurgitation. The aortic root size is normal. Normal inferior vena cava with normal inspiratory collapse consistent with estimated right atrial pre ssure of 5 mmHg. There is no pericardial effusion. CONCLUSIONS -------- 1. The left ventricular size is normal. 2. There is mild concentric left ventricular hypertrophy. 3. Overall left ventricular systolic function is mild-moderately impaired with, an EF between 40 - 45 %.there appears to be dilated generalized hypokinesia, more pronounced in the inferobasal and latera l and apical septal areas. Findings are consistent with ischemic cardiomyopathy 4. Trace amount of aortic regurgitation. 5. Moderate mitral regurgitation is present. 6. Mild tricuspid regurgitation present. 7. There is mild pulmonary hypertension. 8. The right ventricular systolic pressure, as measured by Doppler, is 31.41mmHg. 9. Trace/mild (physiologic) pulmonic regurgitation. 10. There is no pericardial effusion. [employer]ARDER OPERATOR: Lizzie Hyde RDCS
--- NOTE | 2020-05-20 11:55 | P.GSCN ---
History of Present Illness Consult date: 05/20/20 Reason for Consult: Coronary artery disease, mitral regurgitation Requesting physician: Eliot Mina History of present illness: This is a 55-year-old active gentleman who follows on an outpatient basis with Dr. Tino Krueger for primary care and Dr. Donovan Santos for cardiology. He has a known history of insulin-dependent diabetes for the last 7-8 years along with family history of premature coronary artery disease with father and 2 brothers diagnosed with CAD with subsequent CABG in their early to mid 50s. Apparently he began experiencing chest heaviness approximated 2 weeks ago primarily with laying down at night with resolution upon sitting up. He was pretty active during the day. Subsequently he began to experience generalized malaise and fatigue, diaphoresis, nausea, chills, body aches along with a couple of days of diarrhea. His symptoms did resolve for a couple of days and then returned. He was due to go to [place] and was concerned that he might have Covid so he came into the emergency room for testing which was negative. He was, however, discovered to have EKG changes with T-wave inversion in lead 3 and aVF. Troponins were elevated at 3.1 with max troponin 7.8 and he was ruled in for non-STEMI. BNP was 3030, WBC 7.6, hemoglobin 14.6, negative d-dimer, BUN 20, creatinine 1.02, and lipid panel was elevated. The patient was started on IV heparin and was admitted for evaluation and treatment with consultation placed to cardiology. He was recommended to undergo heart catheterization which was completed today by Dr. Mina and which demonstrated ostial LAD stenosis 85%, mid LAD stenosis 60-70%, first diagonal stenosis 80%, second diagonal stenosis 90%, mid RCA stenosis 95% followed by 100% distal RCA stenosis, and mid circumflex stenosis 50% with left to right collaterals to the PLV. Transthoracic echocardiogram was completed, report not finalized but the patient was noted to have 3+ mitral regurgitation. Due to these findings consultation was placed to Dr. Luna from cardiothoracic surgery for recommendations. Review of Systems - Constitutional Reports as per HPI, Reports chills, Reports fatigue, Reports malaise - Cardiovascular Cardiovascular Comment(s): Chest heaviness Reports as per HPI - Gastrointestinal Reports as per HPI, Reports diarrhea, Reports nausea - Integumentary Integumentary Comment(s): Diaphoresis Reports as per HPI Past Medical History Past Medical History: Diabetes Mellitus History of Any Multi-Drug Resistant Organisms: None Reported Past Surgical History: Tonsillectomy Past Anesthesia/Blood Transfusion Reactions: No Reported Reaction Past Psychological History: No Psychological Hx Reported Smoking Status: Never smoker Past Alcohol Use History: Daily Additional Past Alcohol Use History / Comment(s): Drinks 3-4 drinks most days; has never experienced withdrawal Past Drug Use History: None Reported - Past Family History Father Family Medical History: Coronary Artery Disease (CAD), Myocardial Infarction ([place]) Additional Family Medical History / Comment(s): CABG Brother(s) Family Medical History: Coronary Artery Disease (CAD), Myocardial Infarction ([place]) Additional Family Medical History / Comment(s): CABG Mother Family Medical History: Coronary Artery Disease (CAD) Medications and Allergies Home Medications Medication Instructions Recorded Confirmed Type Insulin Aspart [NovoLOG Flexpen] See Protocol SQ AC-TID 05/19/20 05/19/20 History Insulin Glargine,Hum.rec.anlog 20 unit SQ DAILY 05/19/20 05/19/20 History [Lantus Solostar] Allergies Allergy/AdvReac Type Severity Reaction Status Date / Time No Known Allergies Allergy Verified 05/19/20 13:06 Surgical - Exam Vital Signs Temp Pulse Resp BP Pulse Ox 98.9 F 107 H 20 128/83 98 05/19/20 10:32 05/19/20 10:32 05/19/20 10:32 05/19/20 10:32 05/19/20 10:32 CONSTITUTIONAL: Awake and alert, appears comfortable, cooperative, well-dev eloped, well-nourished, no pain, no acute distress EYES: Pupils equal, round, reactive to light, normal ocular movement ENT: Moist mucous membranes without oral lesions present NECK: No masses, no bruits, trachea midline RESPIRATORY: Lungs sounds clear to auscultation bilaterally. Respirations even, nonlabored. Currently on 2 L nasal cannula with oxygen saturation 95%. Strong cough. No chest wall deformities. No clubbing or cyanosis present CARDIOVASCULAR: S1, S2 present. Regular rate and rhythm, sinus rhythm on telemetry. Palpable peripheral pulses bilaterally. No edema present. No calf pain or tenderness noted. No significant lower extremity varicosities noted. Left radial Micah's test less than 8 seconds. GASTROINTESTINAL: Abdomen soft, nontender, nondistended without masses or organomegaly noted. There is no rebound or guarding present. Active bowel sounds present 4 quadrants. GENITOURINARY: Deferred INTEGUMENTARY: Skin is warm and dry with evidence of good perfusion. NEUROLOGIC: Cranial nerves II through XII intact, normal coordination, no obvious motor or sensory deficits, speech is normal MUSKULOSKELETAL: Able to move all extremities, strength equal bilaterally, normal posture PSYCHIATRIC: Alert and oriented to person place and time, appropriate affect, intact judgment and insight Results - Labs 05/20/20 02:37 05/20/20 02:37 Abnormal Lab Results - Last 24 Hours (Table) 05/19/20 05/19/20 05/19/20 Range/Units 11:29 11:29 14:09 WBC (3.8-10.6) k/uL RBC (4.30-5.90) m/uL Hgb (13.0-17.5) gm/dL Hct (39.0-53.0) % Neutrophils # (1.3-7.7) k/uL APTT (22.0-30.0) sec Sodium (137-145) mmol/L BUN (9-20) mg/dL Glucose 317 H (74-99) mg/dL POC Glucose (mg/dL) (75-99) mg/dL Calcium (8.4-10.2) mg/dL Troponin I 3.120 H* 6.080 H* (0.000-0.034) ng/mL Triglycerides (<150) mg/dL Cholesterol (<200) mg/dL LDL Cholesterol, Calc (0-99) mg/dL HDL Cholesterol (40-60) mg/dL 05/19/20 05/19/20 05/19/20 Range/Units 18:38 18:38 22:26 WBC (3.8-10.6) k/uL RBC (4.30-5.90) m/uL Hgb (13.0-17.5) gm/dL Hct (39.0-53.0) % Neutrophils # (1.3-7.7) k/uL APTT 30.1 H (22.0-30.0) sec Sodium (137-145) mmol/L BUN (9-20) mg/dL Glucose (74-99) mg/dL POC Glucose (mg/dL) 302 H (75-99) mg/dL Calcium (8.4-10.2) mg/dL Troponin I 7.840 H* (0.000-0.034) ng/mL Triglycerides (<150) mg/dL Cholesterol (<200) mg/dL LDL Cholesterol, Calc (0-99) mg/dL HDL Cholesterol (40-60) mg/dL 05/20/20 05/20/20 05/20/20 Range/Units 02:37 02:37 02:37 WBC 10.7 H (3.8-10.6) k/uL RBC 3.93 L (4.30-5.90) m/uL Hgb 12.7 L (13.0-17.5) gm/dL Hct 36.2 L (39.0-53.0) % Neutrophils # 8.9 H (1.3-7.7) k/uL APTT 41.2 H (22.0-30.0) sec Sodium 134 L (137-145) mmol/L BUN 21 H (9-20) mg/dL Glucose 278 H (74-99) mg/dL POC Glucose (mg/dL) (75-99) mg/dL Calcium 8.2 L (8.4-10.2) mg/dL Troponin I (0.000-0.034) ng/mL Triglycerides 200 H (<150) mg/dL Cholesterol 241 H (<200) mg/dL LDL Cholesterol, Calc 164 H (0-99) mg/dL HDL Cholesterol 37 L (40-60) mg/dL 05/20/20 05/20/20 05/20/20 Range/Units 06:35 08:24 08:24 WBC (3.8-10.6) k/uL RBC (4.30-5.90) m/uL Hgb (13.0-17.5) gm/dL Hct (39.0-53.0) % Neutrophils # (1.3-7.7) k/uL APTT 41.4 H (22.0-30.0) sec Sodium (137-145) mmol/L BUN (9-20) mg/dL Glucose (74-99) mg/dL POC Glucose (mg/dL) 282 H (75-99) mg/dL Calcium (8.4-10.2) mg/dL Troponin I 7.700 H* (0.000-0.034) ng/mL Triglycerides (<150) mg/dL Cholesterol (<200) mg/dL LDL Cholesterol, Calc (0-99) mg/dL HDL Cholesterol (40-60) mg/dL Diabetes panel 05/19/20 05/20/20 Range/Units 11:29 02:37 Sodium 137 134 L (137-145) mmol/L Potassium 4.4 4.3 (3.5-5.1) mmol/L Chloride 102 105 (98-107) mmol/L Carbon Dioxide 25 25 (22-30) mmol/L BUN 20 21 H (9-20) mg/dL Creatinine 1.02 0.95 (0.66-1.25) mg/dL Glucose 317 H 278 H (74-99) mg/dL Calcium 9.0 8.2 L (8.4-10.2) mg/dL AST 43 (17-59) U/L ALT 17 (4-49) U/L Alkaline Phosphatase 94 (38-126) U/L Total Protein 7.1 (6.3-8.2) g/dL Albumin 4.0 (3.5-5.0) g/dL Triglycerides 200 H (<150) mg/dL HDL Cholesterol 37 L (40-60) mg/dL Calcium panel 05/19/20 05/20/20 Range/Units 11:29 02:37 Calcium 9.0 8.2 L (8.4-10.2) mg/dL Albumin 4.0 (3.5-5.0) g/dL Pituitary panel 05/19/20 05/20/20 Range/Units 11:29 02:37 Sodium 137 134 L (137-145) mmol/L Potassium 4.4 4.3 (3.5-5.1) mmol/L Chloride 102 105 (98-107) mmol/L Carbon Dioxide 25 25 (22-30) mmol/L BUN 20 21 H (9-20) mg/dL Creatinine 1.02 0.95 (0.66-1.25) mg/dL Glucose 317 H 278 H (74-99) mg/dL Calcium 9.0 8.2 L (8.4-10.2) mg/dL Adrenal panel 05/19/20 05/20/20 Range/Units 11:29 02:37 Sodium 137 134 L (137-145) mmol/L Potassium 4.4 4.3 (3.5-5.1) mmol/L Chloride 102 105 (98-107) mmol/L Carbon Dioxide 25 25 (22-30) mmol/L BUN 20 21 H (9-20) mg/dL Creatinine 1.02 0.95 (0.66-1.25) mg/dL Glucose 317 H 278 H (74-99) mg/dL Calcium 9.0 8.2 L (8.4-10.2) mg/dL Total Bilirubin 0.5 (0.2-1.3) mg/dL AST 43 (17-59) U/L ALT 17 (4-49) U/L Alkaline Phosphatase 94 (38-126) U/L Total Protein 7.1 (6.3-8.2) g/dL Albumin 4.0 (3.5-5.0) g/dL - Imaging Chest x-ray: report reviewed, image reviewed EKG: image reviewed Additional studies: Heart catheterization and echocardiogram films reviewed Assessment and Plan Assessment: 1. Coronary artery disease 2. Mitral regurgitation 3. Insulin-dependent diabetes, hemoglobin A1c pending 4. Hyperlipidemia, cholesterol 241, triglyceride 200, LDL 164 5. Family history of premature coronary artery disease, father and 2 brothers diagnosed with CAD with subsequent CABG in their early to mid 50s 6. EtOH use most days without history of withdrawal Plan: The patient was seen and examined at the bedside with mother present. Chart/diagnostics reviewed. The usual perioperative course of coronary artery bypass surgery as well as mitral valve repair were discussed in detail with the patient and his mother, risks and benefits were reviewed, all questions were answered. The patient is agreeable to preoperative testing which has been ordered. The patient and his mother would prefer his usual snipper, Dr. Santos, to be called and updated with assessment and plan of care. We recommend continuing aspirin, statin, beta holly therapy. The patient will need dental clearance, he does see a dentist on a regular basis and we will attempt to contact them. We will complete 5 m walk test. Risk factor modification discussed with the patient and his mother. The patient will be seen by Dr. Luan. More recommendations to follow once the testing has been completed and the patient has met with Dr. Luna Management of other medical corpora morbidities per primary care service. Thank you Dr. Mina for this consult. Time with Patient: Greater than 30
[2020-05-20 12:33] LABS: Glucose,Whole Blood 204 mg/dL (75-99)
[2020-05-20 12:43] LABS: Hemoglobin A1C 8.2 % (4.0-6.0)
--- NOTE | 2020-05-20 13:21 | US ---
EXAMINATION TYPE: US carotid duplex BILAT DATE OF EXAM: 05/20/2020 COMPARISON: NONE CLINICAL HISTORY: preop cardiac surgery. Diabetic, Pre CABG evaluation; CAD; thick blood and on blood thinner per patient. EXAM MEASUREMENTS: RIGHT: Peak Systolic Velocity (PSV) cm/sec ----- Right CCA: 121.0 ----- Right ICA: 124.2 ----- Right ECA: 140.8 ICA/CCA ratio: 1.0 RIGHT: End Diastole cm/sec ----- Right CCA: 35.4 ----- Right ICA: 48.3 ----- Right ECA: 21.0 LEFT: Peak Systolic Velocity (PSV) cm/sec ----- Left CCA: 60.3 ----- Left ICA: 401.0 bulb ----- Left ECA: 119.7 ICA/CCA ratio: 6.6 LEFT: End Diastole cm/sec ----- Left CCA: 20.8 ----- Left ICA: 142.1 ----- Left ECA: 17.5 VERTEBRALS (direction of flow): Right Vertebral: Antegrade Left Vertebral: Antegrade Rhythm: Normal Severe stenosis is noted at Left ICA proximally with abnormally elevated PSV and EDV. Abnormal Left I CA/ CCA ratio is also documented.Tech findings reported to patient's RN, Ghada, at exam's end. JJ Grayscale, color Doppler, spectral Doppler imaging performed of the carotid arteries. Waveform analys is show significant stenosis of the proximal internal carotid artery on the left, atheromatous change present at the carotid bulbs. There is spectral broadening, loss of the systolic window in the proxi mal internal carotid artery in the left IMPRESSION: Hemodynamic significant stenosis of the proximal internal carotid artery on the left cor responding to greater than 70% diameter reduction by Doppler criteria, an indirect measurement of car otid stenosis Criteria for Assigning % of Stenosis / Diameter reduction (Estimation based on the indirect measurements of the internal carotid artery velocities (ICA PSV). 1. Normal (no stenosis)=ICA PSV < 125 cm/s: ratio < 2.0: ICA EDV<40 cm/s. 2. Less than 50% stenosis=ICA PSV < 125 cm/s: ratio < 2.0: ICA EDV<40 cm/s. 3. 50 to 69% stenosis=ICA PSV of 125 to 230 cm/s: ration 2.0 ? 4.0: ICA EDV 40-100 cm/s. 4. Greater than 70% stenosis to near occlusion= ICA PSV > 230 cm/s: ratio > 4.0: ICA EDV > 100 cm/s. 5. Near occlusion= ICA PSV velocities may be low or undetectable: variable ratio and ICA EDV. 6. Total occlusion=unable to detect flow. A Yellow level critical message alert has been initiated for Concepcion Douglass via the [employer] tical Results System on 05/20/2020 1:18 PM. This message alert has been sent to Concepcion Douglass via the pr eferences provided by the clinician for the receipt of Radiology Critical Findings. Message ID [id number].
[2020-05-20] MEDS: NITROGLYCERIN OINT 1 INCH/GM PACKET TOPICAL SCH ×2 (13:48→17:17)
[2020-05-20] MEDS: HEPARIN SOD,PORK IN 0.45% NACL 25,000 UNIT in 0.45% NACL 1 250ML.BAG IV SCH (14:26)
[2020-05-20 17:01] LABS: Glucose,Whole Blood 292 mg/dL (75-99)
[2020-05-20] MEDS ORDERED: INSULIN ASPART (NovoLOG) 100 UNIT/ML VIAL SQ ONE (17:20)
[2020-05-20 20:14] LABS: Glucose,Whole Blood 153 mg/dL (75-99)
[2020-05-21] MEDS: NITROGLYCERIN OINT 1 INCH/GM PACKET TOPICAL SCH ×4 (00:24→17:40)
[2020-05-21] MEDS: HEPARIN SODIUM,PORCINE 5,000 UNIT/ML 1 ML VIAL IV PRN ×2 (00:24→11:15)
[2020-05-21 06:02] LABS: Appearance,Urine Clear (Clear); Bilirubin,Urine Negative (Negative); Blood,Urine Negative (Negative); Color,Urine Yellow; Glucose,Urine (UA) 4+ (Negative); Ketones,Urine 1+ (Negative); Leukocyte Esterase,Urine Negative (Negative); Nitrite,Urine Negative (Negative); Protein,Urine Trace (Negative); Specific Gravity,Urine 1.034 (1.001-1.035)
[2020-05-21 06:04] LABS: Glucose,Whole Blood 224 mg/dL (75-99)
[2020-05-21] MEDS ORDERED: fentaNYL (PF) 50 MCG/ML 2 ML AMP ONE (07:17)
[2020-05-21] MEDS ORDERED: BENZOCAINE SPRAY 1 CAN MUCOUS MEM ONE ×2 (07:30→07:42)
[2020-05-21] MEDS ORDERED: PROPOFOL 10 MG/ML 20 ML VIAL IV ONE (07:36)
[2020-05-21] MEDS ORDERED: MIDAZOLAM 2 MG/2 ML VIAL ONE (07:36)
--- NOTE | 2020-05-21 07:42 | P.PN ---
Subjective Progress Note Date: 05/21/20 Principal diagnosis: Coronary artery disease, mitral regurgitation. Previous medical history of insulin-dependent diabetes, family history of premature coronary artery disease, EtOH use most days without history of withdrawal, and newly diagnosed hyperlipidemia and left carotid stenosis Patient currently laying in bed in no acute distress. Denies any chest pain or shortness of breath. He is scheduled for TOYIN as well as CTA of the neck today. Planning for surgery continues. All questions answered. No other new concerns. Objective - Vital Signs Vital signs: Vital Signs Temp 99.0 F 05/21/20 06:00 Pulse 89 05/21/20 06:00 Resp 20 05/21/20 06:00 BP 128/75 05/21/20 06:00 Pulse Ox 93 L 05/21/20 06:00 Intake & Output 05/20/20 05/21/20 05/21/20 18:59 06:59 18:59 Intake Total 342 100.293 Output Total 400 Balance 342 -299.707 Weight 86.2 kg Intake: IV 102 Intake, IV Titration 100.293 Amount Heparin Sod,Pork in 0.45% 100.293 NaCl 25,000 unit In 0.45 % NaCl 1 250ml.bag @ 11. 83 UNITS/KG/HR 9.996 mls/ hr IV .Q24H WILLIAM Rx#: [id number] Oral 240 0 Output: Urine 400 Other: Voiding Method Toilet Toilet # Voids 1 1 - Exam CONSTITUTIONAL: Appears comfortable, cooperative, no acute distress RESPIRATORY: Lungs sounds diminished bilaterally. Respirations even, nonlabored. Currently on room air with oxygen saturation 95%. Able to achieve 2500 mL on incentive spirometry. Strong cough. CARDIOVASCULAR: S1, S2 present. Regular rate and rhythm, sinus rhythm on telemetry. Sternum stable. Palpable peripheral pulses bilaterally. No edema present. No calf pain or tenderness noted. GASTROINTESTINAL: Abdomen soft, nontender, nondistended. Active bowel sounds present 4 quadrants. Currently nothing by mouth for TOYIN GENITOURINARY: Continues to void clear, yellow urine. INTEGUMENTARY: Skin is warm and dry with evidence of good perfusion. NEUROLOGIC: Cranial nerves II through XII intact MUSKULOSKELETAL: Able to move all extremities, strength equal bilaterally, gait normal PSYCHIATRIC: Alert and oriented to person place and time, appropriate affect, intact judgment and insight - Labs CBC & Chem 7: 05/20/20 02:37 05/20/20 02:37 Labs: Abnormal Lab Results - Last 24 Hours (Table) 05/20/20 05/20/20 05/20/20 Range/Units 02:37 08:24 08:24 APTT 41.4 H (22.0-30.0) sec POC Glucose (mg/dL) (75-99) mg/dL Hemoglobin A1c 8.2 H (4.0-6.0) % Troponin I 7.700 H* (0.000-0.034) ng/mL Urine Protein (Negative) Urine Glucose (UA) (Negative) Urine Ketones (Negative) 05/20/20 05/20/20 05/20/20 Range/Units 12:22 16:59 20:12 APTT (22.0-30.0) sec POC Glucose (mg/dL) 204 H 292 H 153 H (75-99) mg/dL Hemoglobin A1c (4.0-6.0) % Troponin I (0.000-0.034) ng/mL Urine Protein (Negative) Urine Glucose (UA) (Negative) Urine Ketones (Negative) 05/20/20 05/21/20 05/21/20 Range/Units 21:52 05:50 06:02 APTT 31.1 H (22.0-30.0) sec POC Glucose (mg/dL) 224 H (75-99) mg/dL Hemoglobin A1c (4.0-6.0) % Troponin I (0.000-0.034) ng/mL Urine Protein Trace H (Negative) Urine Glucose (UA) 4+ H (Negative) Urine Ketones 1+ H (Negative) Assessment and Plan Assessment: 1. Coronary artery disease 2. Mitral regurgitation 3. Insulin-dependent diabetes, hemoglobin A1c 8.2% 4. Hyperlipidemia, cholesterol 241, triglyceride 200, LDL 164 5. Left internal carotid artery stenosis, greater than 70% per carotid Doppler 6. Moderate lung disease, FEV1 58% of predicted, lifelong nonsmoker 7. Family history of premature coronary artery disease, father and 2 brothers diagnosed with CAD with subsequent CABG in their early to mid 50s 8. EtOH use most days without history of withdrawal Plan: 1. Continue aspirin, statin, beta holly therapy 2. Encourage incentive spirometry use 3. Increase activity, ambulate as tolerated 4. Continue preoperative teaching 5. Attempted to contact patient's dentist yesterday, will attempt again today 6. Await CTA of neck to determine treatment plans for left carotid stenosis 7. Await TOYIN for definitive treatment of mitral valve 8. Dr. Gallardo consulted for pulmonology management 9. Medical management of other comorbidities per primary care service 10. More recommendations to follow once testing completed, timing of surgery to be determined Time with Patient: Greater than 30
[2020-05-21] MEDS ORDERED: IV FLUID CONTINUATION 600 ML IV ONE (07:43)
--- NOTE | 2020-05-21 08:20 | P.TEE ---
Description of Procedure(s): Procedure performed: Transesophageal Echocardiogram with color flow doppler, pulsed wave doppler and continuous wave doppler Sedation: Patient was given sedation by anesthesia, see anesthesia note for full details. Complications: none Indications: Moderate mitral regurgitation, coronary artery disease with CABG evaluation History: Patient is a pleasant 55-year-old male with history of hypertension, hyperlipidemia, diabetes mellitus type 2 insulin-dependent, and strong family history of coronary artery disease who presents with symptoms of not feeling well for 3 weeks and some GI symptoms with worsened chest pressure over last few days. Patient was found to have non-STEMI and therefore heart catheterization was performed which showed multivessel disease and patient undergoing CABG workup. TTE showed EF 40-45% and moderate mitral regurgitation and therefore TOYIN was recommended. PROCEDURE: After the risks, benefits and alternatives of the above mentioned procedure was explained in detail with the patient, informed consent was obtained. Patient was brought to the lab in a fasting state. Patient was given sedation by anesthesia, see anesthesia note for full details. The throat was sprayed with Hurricane to anesthetize the throat. A lubricated Omni probe was then introduced into the esophagus and stomach and multiple views were obtained. 2D echo with color flow doppler, pulsed wave doppler and continuous wave doppler was utilized. Agitated saline bubbles were injected to assess for any intra-atrial shunt. The probe was then removed. Patient tolerated the procedure well. Patient was transferred to the post procedure area in stable and satisfactory condition. FINDINGS: 1. The aortic valve is tricuspid and function normally. No significant aortic insufficiency. 2. The mitral valve appears be structurally normal. There is mild amount of posterior leaflet tethering from inferior hypokinesis. There is moderate to severe predominantly central secondary mitral regurgitation with an additional smaller second posteriorly directed regurgitant jet related to posterior leaflet tethering. Vena contracta of 0.6cm, PISA estimated EROA of 0.39cm2. Systolic blunting of 3/4 pulmonary veins without any systolic flow reversal noted. 3. Tricuspid valve appears to be normal. 4. The interatrial septum is intact. No evidence of PFO. 5. Left atrial appendage is free of clot. 6. Left ventricular size appears normal. There is basal inferior and anteroseptal hypokinesis with an EF 40-45%. SUMMARY: 1. Moderate to severe central mitral regurgitation. No evidence of flail or prolapse and mitral regurgitation related to secondary mitral regurgitation from cardiomyopathy and mild posterior leaflet tethering. 2. Cardiomyopathy with EF 40-45%.
[2020-05-21 08:49] LABS: Basophils % (A) 0 %; Eosinophils # (A) 0.1 k/uL (0-0.7); Eosinophils % (A) 2 %; HCT 32.9 % (39.0-53.0); HGB 11.4 gm/dL (13.0-17.5); Lymphocytes # (A) 0.8 k/uL (1.0-4.8); Lymphocytes % (A) 16 %; MCH 32.5 pg (25.0-35.0); MCHC 34.7 g/dL (31.0-37.0); MCV 93.6 fL (80.0-100.0); Mean Platelet Volume 6.9; Monocytes # (A) 0.3 k/uL (0-1.0); Monocytes % (A) 6 %; Neutrophils # (A) 3.7 k/uL (1.3-7.7); Neutrophils % (A) 76 %; Platelet Count 257 k/uL (150-450); RBC 3.51 m/uL (4.30-5.90); WBC 4.9 k/uL (3.8-10.6)
[2020-05-21 09:13] LABS: African American GFR (CKD) >90 (>60 ml/min/1.73 sqM); Anion Gap 2 mmol/L; Blood Urea Nitrogen 16 mg/dL (9-20); Calcium 7.7 mg/dL (8.4-10.2); Carbon Dioxide 24 mmol/L (22-30); Chloride 108 mmol/L (98-107); Glucose 231 mg/dL (74-99); Non-African American GFR(CKD) >90 (>60 ml/min/1.73 sqM); Potassium 4.4 mmol/L (3.5-5.1); Sodium 134 mmol/L (137-145)
--- NOTE | 2020-05-21 10:02 | P.VSCSTY ---
Greater Saphenous Vein Mapping This is bilateral lower extremity greater saphenous vein mapping. Date of service: 05/20/2020 Vein quality and ultrasound appearance: We see no intraluminal thrombus or wall changes Rouleau effect noted bilaterally. Note that there are significant branchings in both calves. Vein size groin right : 5.9 x 5.1 groin left: 5.8 x 6.1 High thigh right: 6.5 x 5.2 high thigh left: 6.2 x 4.8 Mid thigh right: 5.8 x 4.5 mid thigh left: 5.7 x 5.3 Above-knee right: 6.1 x 5.3 5. above-knee left: 5.2 x 4.3 Below knee right: 6.4 x 6.0 below-knee left: 5.3 x 4.7 Mid calf right: 4.2 x 3.2 mid calf left: 4.8 x 3.8 Ankle right: 4.7 x 3.6 ankle left: 4.8 x 3.6 Impression: Usable bilateral greater saphenous vein..
[2020-05-21] MEDS: INSULIN ASPART (NovoLOG) 100 UNIT/ML VIAL SQ SCH ×6 (10:12→20:30)
--- NOTE | 2020-05-21 11:01 | CT ---
EXAMINATION TYPE: CT angio neck DATE OF EXAM: 05/21/2020 COMPARISON: HISTORY: carotid stenosis CT DLP: 587.1 mGycm CONTRAST: CTA cervical carotids is performed and with IV Contrast, patient injected with 65 mL of Isovue 370. Contrast CTA of the cervical carotids was performed 3-D reconstruction imaging obtained at a separate workstation. Right carotid system: Mild plaque is seen of the right common carotid artery. There is mild plaque a lso noted at the carotid bulb. There is luminal narrowing noted at the origin of the right ICA estima vidya at 50-60%. ECA is patent. Right vertebral artery appears unremarkable. Left carotid system: Mild plaque is seen of the left common carotid artery. There is severe soft angeli que also noted at the carotid bulb. There is high-grade stenosis involving the origin of the left ICA with luminal narrowing at greater than 90%. ECA is patent. Left vertebral artery appears unremarkabl e. Bilateral pleural effusions are incidentally noted. IMPRESSION: 1. Estimated diameter reduction Right ICA 50-60% 2. Estimated diameter reduction Left ICA greater than 90%
[2020-05-21] MEDS: ATORVASTATIN 80 MG TAB PO SCH (11:02)
[2020-05-21] MEDS: METOPROLOL TARTRATE 25 MG TAB PO SCH ×2 (11:02→20:33)
[2020-05-21] MEDS: ASPIRIN 81 MG PO SCH (11:02)
[2020-05-21] MEDS: HEPARIN SOD,PORK IN 0.45% NACL 25,000 UNIT in 0.45% NACL 1 250ML.BAG IV SCH (11:14)
[2020-05-21] MEDS: INSULIN DETEMIR (LEVEMIR) 100 UNIT/ML SYR SQ SCH (11:16)
[2020-05-21 11:22] LABS: Glucose,Whole Blood 197 mg/dL (75-99)
--- NOTE | 2020-05-21 11:33 | P.CNPUL ---
History of Present Illness Consult date: 05/21/20 Reason for consult: chest pain Chief complaint: Chest pain History of present illness: This is a 55-year-old white male patient with past medical history of diabetes mellitus, insulin dependent, and strong family history of premature coronary artery disease in his father and his brother who had coronary artery bypass g rafting surgeries in their early to mid 50s. Patient presented to the emergency department on 05/19/2020 symptoms of chest heaviness, general malaise, feeling very fatigued, chilled, run down. Patient had been feeling unwell for the last couple of weeks. He has been having chest pressure particularly at nighttime. Patient follows with a crime data specialist in [place]. His EKG showed a sinus mechani sm with inferior deep T-wave inversions, he had troponin elevation with his third troponin peaking at 7.840. Patient underwent cardiac evaluation, and had a heart catheterization on 05/20/2020 which showed ostial LAD lesion of 85%, mid LAD of 60-70%, apical LAD of 50%, diagonal branch 1 of 80%, diagonal 2 was 90%, circumflex of 50%, RCA stenosis of 90-100%. He had mildly elevated left-sided filling pressures with LVEDP of 17. Echocardiogram showed mild concentric LVH, mild to moderately impaired LV function with EF of 40-45%, there was generalized hypokinesis in the inferobasal, lateral and apical septal wall areas. There was mild pulmonary hypertension with right-sided pressure of 31.4 mmHg. ProBNP was elevated at 3030, her chest x-ray showed mild right perihilar infiltrate. No leukocytosis, hemoglobin on admission was 14.6, d-dimer was negative at 0.59 lites and renal profile were unremarkable, was checked for COVID 19 and the PCR was negative, urinalysis showed 4+ glucose and 1+ ketones but no signs of infection. Review of multivessel coronary artery disease CT surgery was consulted us ability of bypass surgery, patient underwent TOYIN today and showed no significant aortic valve insufficiency, mitral valve was structurally normal, with mild amount of posterior leaflet tethering, and there was moderate to severe predominantly central secondary mitral regurgitation. Tricuspid valve appear to be normal. There was no evidence of PFO. Left atrial appendage was free of clot. We are consulted for pulmonary/critical care management in the postoperative period, preop FEV1 was completed, and was in the order of 58% of predicted, and patient denies any chronic lung disease, and he is a lifetime nonsmoker. Patient is undergoing some additional preop testing, he was also found to have 70% stenosis of the proximal internal carotid artery on the left on the Doppler ultrasound of the carotid arteries. CT neck was completed today showing right ICA 50-60%, and left ICA of greater than 90%. During the time of our evaluation patient is sitting up in the recliner, he is on room air, breathing comfortably denies any chest pain, or difficulty breathing, or socks is 96%, he is afebrile, hemodynamically stable. Review of Systems All systems: negative Constitutional: Denies chills, Denies fever Eyes: denies blurred vision, denies pain Ears, nose, mouth and throat: Denies headache, Denies sore throat Cardiovascular: Reports chest pain, Denies shortness of breath Respiratory: Reports dyspnea, Denies cough Gastrointestinal: Denies abdominal pain, Denies diarrhea, Denies nausea, Denies vomiting Musculoskeletal: Denies myalgias Integumentary: Denies pruritus, Denies rash Neurological: Denies numbness, Denies weakness Psychiatric: Denies anxiety, Denies depression Endocrine: Denies fatigue, Denies weight change Past Medical History Past Medical History: Diabetes Mellitus History of Any Multi-Drug Resistant Organisms: None Reported Past Surgical History: Tonsillectomy Past Anesthesia/Blood Transfusion Reactions: No Reported Reaction Past Psychological History: No Psychological Hx Reported Smoking Status: Never smoker Past Alcohol Use History: Daily Additional Past Alcohol Use History / Comment(s): Drinks 3-4 drinks most days; has never experienced withdrawal Past Drug Use History: None Reported - Past Family History Father Family Medical History: Coronary Artery Disease (CAD), Myocardial Infarction (PR) Additional Family Medical History / Comment(s): CABG Brother(s) Family Medical History: Coronary Artery Disease (CAD), Myocardial Infarction (PR) Additional Family Medical History / Comment(s): CABG Mother Family Medical History: Coronary Artery Disease (CAD) Medications and Allergies Home Medications Medication Instructions Recorded Confirmed Type Insulin Aspart [NovoLOG Flexpen] See Protocol SQ AC-TID 05/19/20 05/19/20 History Insulin Glargine,Hum.rec.anlog 20 unit SQ DAILY 05/19/20 05/19/20 History [Lantus Lorelei] Allergies Allergy/AdvReac Type Severity Reaction Status Date / Time No Known Allergies Allergy Verified 05/19/20 13:06 Physical Exam Vitals: Vital Signs Temp Pulse Pulse Resp BP Pulse Ox 05/21/20 08:45 98.8 F 91 22 120/75 05/21/20 08:24 98.7 F 88 18 115/61 96 05/21/20 06:00 99.0 F 89 20 128/75 93 L 05/21/20 04:00 98.2 F 87 16 126/79 95 05/21/20 00:00 98.6 F 86 16 121/74 96 05/20/20 20:00 98.4 F 94 16 122/73 93 L 05/20/20 16:00 63 20 124/73 95 05/20/20 14:07 94 20 113/70 97 05/20/20 13:34 20 05/20/20 13:07 97 20 121/73 98 05/20/20 12:39 97 05/20/20 12:07 92 20 123/70 96 05/20/20 11:37 92 20 123/70 96 Intake and Output 05/20/20 05/21/20 05/21/20 22:59 06:59 14:59 Intake Total 240 100.293 435.001 Output Total 400 Balance 240 -299.707 435.001 Intake: IV 300 Intake, IV Titration 100.293 135.001 Amount Heparin Sod,Pork in 0.45% 100.293 135.001 NaCl 25,000 unit In 0.45 % NaCl 1 250ml.bag @ 11. 83 UNITS/KG/HR 9.996 mls/ hr IV .[facility]H [facility] Rx#: [id number] Oral 240 0 Output: Urine 400 Other: Voiding Method Toilet Toilet # Voids 1 1 Weight 86.2 kg GENERAL EXAM: Alert, very pleasant 55-year-old white male, on room air, with a pulse ox of 95%, sitting up in the recliner, breathing comfortably, comfortable in no apparent distress. HEAD: Normocephalic/atraumatic. EYES: Normal reaction of pupils, equal size. Conjunctiva pink, sclera white. NOSE: Clear with pink turbinates. THROAT: No erythema or exudates. NECK: No masses, no JVD, no thyroid enlargement, no adenopathy. CHEST: No chest wall deformity. Symmetrical expansion. LUNGS: Equal air entry with no crackles, wheeze, rhonchi or dullness. CVS: Regular rate and rhythm, normal S1 and S2, no gallops, no murmurs, no rubs ABDOMEN: Soft, nontender. No hepatosplenomegaly, normal bowel sounds, no guarding or rigidity. EXTREMITIES: No clubbing, no edema, no cyanosis, 2+ pulses and upper and lower extremities. MUSCULOSKELETAL: Muscle strength and tone normal. SPINE: No scoliosis or deformity SKIN: No rashes CENTRAL NERVOUS SYSTEM: Alert and oriented -3. No focal deficits, tone is normal in all 4 extremities. PSYCHIATRIC: Alert and oriented -3. Appropriate affect. Intact judgment and insight. Results - Laboratory Findings CBC and BMP: 05/21/20 08:33 05/21/20 08:33 PT/INR, D-dimer PT 10.2 sec (9.0-12.0) 05/19/20 11:29 INR 0.9 (<1.2) 05/19/20 11:29 D-Dimer 0.59 mg/L FEU (<0.60) 05/19/20 11:29 Abnormal lab findings: Abnormal Labs 05/19/20 05/19/20 05/19/20 11:29 11:29 14:09 WBC RBC Hgb Hct Neutrophils # Lymphocytes # APTT Sodium Chloride BUN Glucose 317 H POC Glucose (mg/dL) Hemoglobin A1c Calcium Troponin I 3.120 H* 6.080 H* Triglycerides Cholesterol LDL Cholesterol, Calc HDL Cholesterol Urine Protein Urine Glucose (UA) Urine Ketones 05/19/20 05/19/20 05/19/20 18:38 18:38 22:26 WBC RBC Hgb Hct Neutrophils # Lymphocytes # APTT 30.1 H Sodium Chloride BUN Glucose POC Glucose (mg/dL) 302 H Hemoglobin A1c Calcium Troponin I 7.840 H* Triglycerides Cholesterol LDL Cholesterol, Calc HDL Cholesterol Urine Protein Urine Glucose (UA) Urine Ketones 05/20/20 05/20/20 05/20/20 02:37 02:37 02:37 WBC 10.7 H RBC 3.93 L Hgb 12.7 L Hct 36.2 L Neutrophils # 8.9 H Lymphocytes # APTT Sodium 134 L Chloride BUN 21 H Glucose 278 H POC Glucose (mg/dL) Hemoglobin A1c 8.2 H Calcium 8.2 L Troponin I Triglycerides 200 H Cholesterol 241 H LDL Cholesterol, Calc 164 H HDL Cholesterol 37 L Urine Protein Urine Glucose (UA) Urine Ketones 05/20/20 05/20/20 05/20/20 02:37 06:35 08:24 WBC RBC Hgb Hct Neutrophils # Lymphocytes # APTT 41.2 H 41.4 H Sodium Chloride BUN Glucose POC Glucose (mg/dL) 282 H Hemoglobin A1c Calcium Troponin I Triglycerides Cholesterol LDL Cholesterol, Calc HDL Cholesterol Urine Protein Urine Glucose (UA) Urine Ketones 05/20/20 05/20/20 05/20/20 08:24 12:22 16:59 WBC RBC Hgb Hct Neutrophils # Lymphocytes # APTT Sodium Chloride BUN Glucose POC Glucose (mg/dL) 204 H 292 H Hemoglobin A1c Calcium Troponin I 7.700 H* Triglycerides Cholesterol LDL Cholesterol, Calc HDL Cholesterol Urine Protein Urine Glucose (UA) Urine Ketones 05/20/20 05/20/20 05/21/20 20:12 21:52 05:50 WBC RBC Hgb Hct Neutrophils # Lymphocytes # APTT 31.1 H Sodium Chloride BUN Glucose POC Glucose (mg/dL) 153 H Hemoglobin A1c Calcium Troponin I Triglycerides Cholesterol LDL Cholesterol, Calc HDL Cholesterol Urine Protein Trace H Urine Glucose (UA) 4+ H Urine Ketones 1+ H 05/21/20 05/21/20 05/21/20 06:02 08:33 08:33 WBC RBC 3.51 L Hgb 11.4 L Hct 32.9 L Neutrophils # Lymphocytes # 0.8 L APTT Sodium 134 L Chloride 108 H BUN Glucose 231 H POC Glucose (mg/dL) 224 H Hemoglobin A1c Calcium 7.7 L Troponin I Triglycerides Cholesterol LDL Cholesterol, Calc HDL Cholesterol Urine Protein Urine Glucose (UA) Urine Ketones 05/21/20 05/21/20 08:33 11:18 WBC RBC Hgb Hct Neutrophils # Lymphocytes # APTT 32.6 H Sodium Chloride BUN Glucose POC Glucose (mg/dL) 197 H Hemoglobin A1c Calcium Troponin I Triglycerides Cholesterol LDL Cholesterol, Calc HDL Cholesterol Urine Protein Urine Glucose (UA) Urine Ketones - Diagnostic Findings Chest x-ray: report reviewed, image reviewed Additional studies: EKG, echocardiogram, cardiac cath report, TOYIN, carotid Doppler, CTA neck results reviewed Assessment and Plan Plan: Assessment: #1. Acute non-ST elevated myocardial infarction #2. Multivessel coronary artery disease, awaiting surgery #3. Moderate to severe mitral regurgitation of 3+, being evaluated for surgery #4. Diabetes mellitus type 2, insulin dependent #5. Lifetime nonsmoker, preop FEV1 58% possibly related to restrictive alveo lar pattern, related to interstitial edema #6. Acute exacerbation of CHF with systolic dysfunction, and mild to moderate impairment of left ventricular systolic function EF of 40-45% #7. Acute ischemic cardiomyopathy EF of 40-45% #8. Left internal carotid stenosis of greater than 70% #9. Regular EtOH intake of 3-4 alcoholic drinks on a daily basis #10. Hyperlipidemia Plan: Continue encouraging deep breathing and coughing, incentive spirometry use, chest x-ray has been reviewed, all diagnostics have been reviewed, reported FEV1 was 58% of predicted, did not physically see the PFT, likely on the basis of interstitial edema. Patient is undergoing additional testing in view of carotid stenosis, we'll continue to follow closely with CT surgery. I performed a history & physical examination of the patient and discussed their management with my nurse practitioner, Felisha Block. I reviewed the nurse practitioner's note and agree with the documented findings and plan of care. Lung sounds are positive for the next breath sounds. The findings and the impression was discussed with the patient. I attest to the documentation by the nurse practitioner. Time with Patient: Greater than 30
[2020-05-21 11:59] LABS: Glucose,Whole Blood 226 mg/dL (75-99)
--- NOTE | 2020-05-21 14:25 | P.PN ---
Subjective HISTORY OF PRESENTING ILLNESS This is a pleasant 55-year-old male past medical history significant for diabetes mellitus and daily alcohol intake. He follows in the office with Dr. Santos in [place]. We have been asked to see in consultation for NSTEMI. He states for the previous 2 weeks he has been experiencing chest heaviness intermittently. The symptoms occur typically at rest mostly at night when he lays down and tries to sleep. When he lays down flat he feels a heaviness in his chest with some mild shortness of breath. He denies any symptoms of chest discomfort or shortness of breath with exertion. He has had some intermittent diarrhea. 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 He had no symptoms of chest discomfort throughout the day. The next morning he woke up and went out to breakfast and then had an episode of nausea and vomiting. He was concerned with possible ovarian. He came to the emergency department yesterday afternoon to be tested. We have seen and examined resting comfortably in bed in no acute distress. He has no symptoms of chest discomfort or shortness of breath. 05/21/2020 Pt seen and examined sitting up in the recliner in no acute distress. He underwent TOYIN today revealing structurally normal mitral valve, mild posterior leaflet tethering from the inferior hypokinesia, moderate-severe central MR. with EF 40-45%. CT angio neck reveals reduction of right ICA 50-60%, left ICA greater than 90%. Laboratory data reviewed, sodium 134, potassium 4.4, creatinine 0.88 and TSH 4.47. Blood pressure 123/75, heart rate 88 and afebrile. He denies any symptoms of chest pain or heaviness, shortness of breath, dizziness or palpitations. PHYSICAL EXAMINATION CONSTITUTIONAL: No apparent distress. HEENT: Head is normocephalic. Pupils are equal, round. Sclerae anicteric. Mucous membranes of the mouth are moist. No JVD. No carotid bruit. CHEST EXAMINATION: Lungs are clear to auscultation. No chest wall tenderness is noted on palpation or with deep breathing. HEART EXAMINATION: Regular rate and rhythm. S1, S2 heard. Systolic ejection mu rmur at the base, no gallops or rub. EXTREMITIES: 2+ peripheral pulses, no lower extremity edema and no calf tenderness. ASSESSMENT NSTEMI Diabetes mellitus Daily alcohol intake Dyslipidemia Valvular heart disease PLAN CT surgery continuing risk stratification and pre-op work-up. Continue heparin infusion, beta blockers, aspirin and atorvastatin as previously ordered. We will initiate an KWADWO/ARB post-operatively. Further recommendations to follow based on clinical course. Nurse Practitioner note has been reviewed, I agree with a documented findings and plan of care. Patient was seen and examined. Objective - Vital Signs Vital signs: Vital Signs Temp 98.8 F 05/21/20 11:47 Pulse 88 05/21/20 11:47 Resp 18 05/21/20 11:47 BP 123/75 05/21/20 11:47 Pulse Ox 95 05/21/20 11:47 Intake & Output 05/20/20 05/21/20 05/21/20 18:59 06:59 18:59 Intake Total 342 100.293 435.001 Output Total 400 Balance 342 -299.707 435.001 Weight 86.2 kg Intake: IV 102 300 Intake, IV Titration 100.293 135.001 Amount Heparin Sod,Pork in 0.45% 100.293 135.001 NaCl 25,000 unit In 0.45 % NaCl 1 250ml.bag @ 11. 83 UNITS/KG/HR 9.996 mls/ hr IV .Q24H [facility] Rx#: [id number] Oral 240 0 Output: Urine 400 Other: Voiding Method Toilet Toilet Toilet # Voids 1 1 - Labs CBC & Chem 7: 05/21/20 08:33 05/21/20 08:33 Labs: Abnormal Lab Results - Last 24 Hours (Table) 05/20/20 05/20/20 05/20/20 Range/Units 16:59 20:12 21:52 RBC (4.30-5.90) m/uL Hgb (13.0-17.5) gm/dL Hct (39.0-53.0) % Lymphocytes # (1.0-4.8) k/uL APTT 31.1 H (22.0-30.0) sec Sodium (137-145) mmol/L Chloride (98-107) mmol/L Glucose (74-99) mg/dL POC Glucose (mg/dL) 292 H 153 H (75-99) mg/dL Calcium (8.4-10.2) mg/dL Urine Protein (Negative) Urine Glucose (UA) (Negative) Urine Ketones (Negative) 05/21/20 05/21/20 05/21/20 Range/Units 05:50 06:02 08:33 RBC 3.51 L (4.30-5.90) m/uL Hgb 11.4 L (13.0-17.5) gm/dL Hct 32.9 L (39.0-53.0) % Lymphocytes # 0.8 L (1.0-4.8) k/uL APTT (22.0-30.0) sec Sodium (137-145) mmol/L Chloride (98-107) mmol/L Glucose (74-99) mg/dL POC Glucose (mg/dL) 224 H (75-99) mg/dL Calcium (8.4-10.2) mg/dL Urine Protein Trace H (Negative) Urine Glucose (UA) 4+ H (Negative) Urine Ketones 1+ H (Negative) 05/21/20 05/21/20 05/21/20 Range/Units 08:33 08:33 11:18 RBC (4.30-5.90) m/uL Hgb (13.0-17.5) gm/dL Hct (39.0-53.0) % Lymphocytes # (1.0-4.8) k/uL APTT 32.6 H (22.0-30.0) sec Sodium 134 L (137-145) mmol/L Chloride 108 H (98-107) mmol/L Glucose 231 H (74-99) mg/dL POC Glucose (mg/dL) 197 H (75-99) mg/dL Calcium 7.7 L (8.4-10.2) mg/dL Urine Protein (Negative) Urine Glucose (UA) (Negative) Urine Ketones (Negative) 05/21/20 Range/Units 11:58 RBC (4.30-5.90) m/uL Hgb (13.0-17.5) gm/dL Hct (39.0-53.0) % Lymphocytes # (1.0-4.8) k/uL APTT (22.0-30.0) sec Sodium (137-145) mmol/L Chloride (98-107) mmol/L Glucose (74-99) mg/dL POC Glucose (mg/dL) 226 H (75-99) mg/dL Calcium (8.4-10.2) mg/dL Urine Protein (Negative) Urine Glucose (UA) (Negative) Urine Ketones (Negative) Microbiology - Last 24 Hours (Table) 05/21/20 05:50 Nasal Screen MRSA/MSSA - Preliminary Nasal Swab
--- NOTE | 2020-05-21 14:57 | P.PN ---
Subjective Progress Note Date: 05/21/20 No new complaints. Plan for CABG on Tuesday. Objective - Vital Signs Vital signs: Vital Signs Temp 98.8 F 05/21/20 11:47 Pulse 88 05/21/20 11:47 Resp 18 05/21/20 11:47 BP 123/75 05/21/20 11:47 Pulse Ox 95 05/21/20 11:47 Intake & Output 05/20/20 05/21/20 05/21/20 18:59 06:59 18:59 Intake Total 342 100.293 435.001 Output Total 400 Balance 342 -299.707 435.001 Weight 86.2 kg Intake: IV 102 300 Intake, IV Titration 100.293 135.001 Amount Heparin Sod,Pork in 0.45% 100.293 135.001 NaCl 25,000 unit In 0.45 % NaCl 1 250ml.bag @ 11. 83 UNITS/KG/HR 9.996 mls/ hr IV .Q24H [facility] Rx#: [id number] Oral 240 0 Output: Urine 400 Other: Voiding Method Toilet Toilet Toilet # Voids 1 1 - Exam Gen: awake, alert HEENT: normocephalic, atraumatic, good hearing acuity, moist mucous membranes Resp: good air exchange, breathing comfortably with no accessory muscle use, clear to auscultation bilaterally without wheezes or crackles CVS: good distal perfusion x 4, regular rate and rhythm without murmurs GI: soft, NTTP, ND, appropriate bowel sounds : no SPT, no CVAT, scott catheter is not present MSK: no pitting edema, no clubbing Neuro: non-focal, moving all extremities Psych: cooperative, euthymic mood - Labs CBC & Chem 7: 05/21/20 08:33 05/21/20 08:33 Labs: Abnormal Lab Results - Last 24 Hours (Table) 05/20/20 05/20/20 05/20/20 Range/Units 16:59 20:12 21:52 RBC (4.30-5.90) m/uL Hgb (13.0-17.5) gm/dL Hct (39.0-53.0) % Lymphocytes # (1.0-4.8) k/uL APTT 31.1 H (22.0-30.0) sec Sodium (137-145) mmol/L Chloride (98-107) mmol/L Glucose (74-99) mg/dL POC Glucose (mg/dL) 292 H 153 H (75-99) mg/dL Calcium (8.4-10.2) mg/dL Urine Protein (Negative) Urine Glucose (UA) (Negative) Urine Ketones (Negative) 05/21/20 05/21/20 05/21/20 Range/Units 05:50 06:02 08:33 RBC 3.51 L (4.30-5.90) m/uL Hgb 11.4 L (13.0-17.5) gm/dL Hct 32.9 L (39.0-53.0) % Lymphocytes # 0.8 L (1.0-4.8) k/uL APTT (22.0-30.0) sec Sodium (137-145) mmol/L Chloride (98-107) mmol/L Glucose (74-99) mg/dL POC Glucose (mg/dL) 224 H (75-99) mg/dL Calcium (8.4-10.2) mg/dL Urine Protein Trace H (Negative) Urine Glucose (UA) 4+ H (Negative) Urine Ketones 1+ H (Negative) 05/21/20 05/21/20 05/21/20 Range/Units 08:33 08:33 11:18 RBC (4.30-5.90) m/uL Hgb (13.0-17.5) gm/dL Hct (39.0-53.0) % Lymphocytes # (1.0-4.8) k/uL APTT 32.6 H (22.0-30.0) sec Sodium 134 L (137-145) mmol/L Chloride 108 H (98-107) mmol/L Glucose 231 H (74-99) mg/dL POC Glucose (mg/dL) 197 H (75-99) mg/dL Calcium 7.7 L (8.4-10.2) mg/dL Urine Protein (Negative) Urine Glucose (UA) (Negative) Urine Ketones (Negative) 05/21/20 Range/Units 11:58 RBC (4.30-5.90) m/uL Hgb (13.0-17.5) gm/dL Hct (39.0-53.0) % Lymphocytes # (1.0-4.8) k/uL APTT (22.0-30.0) sec Sodium (137-145) mmol/L Chloride (98-107) mmol/L Glucose (74-99) mg/dL POC Glucose (mg/dL) 226 H (75-99) mg/dL Calcium (8.4-10.2) mg/dL Urine Protein (Negative) Urine Glucose (UA) (Negative) Urine Ketones (Negative) Microbiology - Last 24 Hours (Table) 05/21/20 05:50 Nasal Screen MRSA/MSSA - Preliminary Nasal Swab Assessment and Plan Assessment: NSTEMI -Troponin 3.120. Troponins trended upward with initial troponin is 3.120 with repeats of 6.080 and 7.840. -EKG showing sinus tachycardia at 105 bpm with T-wave inversion in leads III and aVF, no signs of ST elevation. No previous EKGs available for comparison. -Continue heparin infusion, pharmacy to dose. -Cardiology following, patient scheduled to have cardiac cath done this morning. -Telemetry monitoring. -Trend troponins every 3 hours 2. -Close monitoring of I's and O's. -Heart healthy carb consistent diet, NPO at midnight. -Patient being placed on daily aspirin, atorvastatin, and metoprolol. -Lipid profile revealed elevation of triglycerides 200, cholesterol 241, LDL 164, HDL of 37. Atorvastatin increased to 80 mg nightly. -Hemoglobin A1c = 8.2% Insulin-dependent diabetes mellitus type II -Glycemic protocol with NovoLog sliding scale and continuation of Lantus 20 units daily. -Heart healthy carb consistent diet The patient is admitted with an anticipated greater than 2 midnight stay for ev aluation of NSTEMI. Surrogate decision-maker: Self CODE STATUS: Full code DVT prophylaxis: Heparin Discussed with: Patient Anticipated discharge date: Clinical course to determine Anticipated discharge place: Home
[2020-05-21 17:07] LABS: Glucose,Whole Blood 142 mg/dL (75-99)
[2020-05-21] MEDS: FOLIC ACID 1 MG TAB PO SCH (17:39)
[2020-05-21] MEDS: THIAMINE 100 MG TAB PO SCH (17:39)
[2020-05-21 20:25] LABS: Glucose,Whole Blood 135 mg/dL (75-99)
[2020-05-22] MEDS: NITROGLYCERIN OINT 1 INCH/GM PACKET TOPICAL SCH ×5 (02:33→21:41)
[2020-05-22 06:01] LABS: Glucose,Whole Blood 276 mg/dL (75-99)
[2020-05-22] MEDS: INSULIN ASPART (NovoLOG) 100 UNIT/ML VIAL SQ SCH ×7 (06:47→21:41)
[2020-05-22] MEDS ORDERED: MD COMMUNICATION TO PHARMACY 1 EACH MISC PO ONE (07:37)
[2020-05-22 07:39] LABS: Hepatitis A Antibody IgM Non-Reactive (Non-Reactive); Hepatitis B Core IgM Non-Reactive (Non-Reactive); Hepatitis B Surface Antigen Non-Reactive (Non-Reactive); Hepatitis C IgG Antibody Non-Reactive (Non-Reactive)
[2020-05-22] MEDS: METOPROLOL TARTRATE 25 MG TAB PO SCH ×2 (08:13→20:23)
[2020-05-22] MEDS: ASPIRIN 81 MG PO SCH (08:13)
[2020-05-22] MEDS: ATORVASTATIN 80 MG TAB PO SCH (08:14)
[2020-05-22] MEDS: INSULIN DETEMIR (LEVEMIR) 100 UNIT/ML SYR SQ SCH (08:14)
[2020-05-22] MEDS: THIAMINE 100 MG TAB PO SCH (08:14)
[2020-05-22] MEDS: FOLIC ACID 1 MG TAB PO SCH (08:14)
[2020-05-22 08:43] LABS: Basophils % (A) 0 %; Eosinophils # (A) 0.1 k/uL (0-0.7); Eosinophils % (A) 2 %; HGB 11.7 gm/dL (13.0-17.5); Lymphocytes # (A) 0.7 k/uL (1.0-4.8); Lymphocytes % (A) 19 %; MCH 31.6 pg (25.0-35.0); MCHC 34.4 g/dL (31.0-37.0); MCV 91.9 fL (80.0-100.0); Mean Platelet Volume 7.2; Monocytes # (A) 0.2 k/uL (0-1.0); Monocytes % (A) 6 %; Neutrophils # (A) 2.8 k/uL (1.3-7.7); Neutrophils % (A) 72 %; Platelet Count 266 k/uL (150-450); RDW 12.1 % (11.5-15.5); WBC 3.9 k/uL (3.8-10.6)
[2020-05-22 09:30] LABS: African American GFR (CKD) >90 (>60 ml/min/1.73 sqM); Anion Gap 3 mmol/L; Blood Urea Nitrogen 14 mg/dL (9-20); Calcium 8.4 mg/dL (8.4-10.2); Carbon Dioxide 25 mmol/L (22-30); Chloride 109 mmol/L (98-107); Glucose 176 mg/dL (74-99); Non-African American GFR(CKD) >90 (>60 ml/min/1.73 sqM); Potassium 4.1 mmol/L (3.5-5.1); Sodium 137 mmol/L (137-145)
--- NOTE | 2020-05-22 10:05 | P.PN ---
Subjective Progress Note Date: 05/22/20 Principal diagnosis: Coronary artery disease, mitral regurgitation. Previous medical history of insulin-dependent diabetes, family history of premature coronary artery disease, EtOH use most days without history of withdrawal, and newly diagnosed hyperlipidemia and left carotid stenosis Patient currently sitting up in bed in no acute distress. Denies any chest pain or shortness of breath, has been ambulatory without difficulty. TOYIN and neck CTA reviewed yesterday with Dr. Dominguez. Dr. Dominguez did meet with the patient and his and discussed surgery in great detail, he also contacted the patient's primary tube builder airplane Dr. Jun garrett and all are in agreement for bypass and mitral valve repair tomorrow, left carotid artery stenosis to be tackled in the future. All questions answered. No other new concerns. Objective - Vital Signs Vital signs: Vital Signs Temp 98.6 F 05/22/20 03:20 Pulse 84 05/22/20 08:00 Resp 16 05/22/20 08:00 BP 121/73 05/22/20 08:00 Pulse Ox 96 05/22/20 08:00 Intake & Output 05/21/20 05/22/20 05/22/20 18:59 06:59 18:59 Intake Total 893.001 480 490 Balance 893.001 480 490 Weight 86.5 kg Intake: IV 300 Intake, IV Titration 135.001 250 Amount Heparin Sod,Pork in 0.45% 135.001 250 NaCl 25,000 unit In 0.45 % NaCl 1 250ml.bag @ 11. 83 UNITS/KG/HR 9.996 mls/ hr IV .Q24H [facility] Rx#: [id number] Oral 458 480 240 Other: Voiding Method Toilet Toilet # Voids 2 3 - Exam CONSTITUTIONAL: Appears comfortable, cooperative, no acute distress RESPIRATORY: Lungs sounds diminished bilaterally. Respirations even, no nlabored. Currently on room air with oxygen saturation 95%. Able to achieve 5289-1921 mL on incentive spirometry. Strong cough. CARDIOVASCULAR: S1, S2 present. Regular rate and rhythm, sinus rhythm on telemetry. Sternum stable. Palpable peripheral pulses bilaterally. No edema present. No calf pain or tenderness noted. GASTROINTESTINAL: Abdomen soft, nontender, nondistended. Active bowel sounds present 4 quadrants. Tolerating diet. Positive bowel movement yesterday per patient GENITOURINARY: Continues to void clear, yellow urine. INTEGUMENTARY: Skin is warm and dry with evidence of good perfusion. NEUROLOGIC: Cranial nerves II through XII intact MUSKULOSKELETAL: Able to move all extremities, strength equal bilaterally, gait normal PSYCHIATRIC: Alert and oriented to person place and time, appropriate affect, intact judgment and insight - Labs CBC & Chem 7: 05/22/20 08:28 05/22/20 08:28 Labs: Abnormal Lab Results - Last 24 Hours (Table) 05/21/20 05/21/20 05/21/20 Range/Units 11:18 11:58 17:06 RBC (4.30-5.90) m/uL Hgb (13.0-17.5) gm/dL Hct (39.0-53.0) % Lymphocytes # (1.0-4.8) k/uL APTT (22.0-30.0) sec Chloride (98-107) mmol/L Glucose (74-99) mg/dL POC Glucose (mg/dL) 197 H 226 H 142 H (75-99) mg/dL 05/21/20 05/21/20 05/22/20 Range/Units 17:56 20:24 06:00 RBC (4.30-5.90) m/uL Hgb (13.0-17.5) gm/dL Hct (39.0-53.0) % Lymphocytes # (1.0-4.8) k/uL APTT 47.3 H (22.0-30.0) sec Chloride (98-107) mmol/L Glucose (74-99) mg/dL POC Glucose (mg/dL) 135 H 276 H (75-99) mg/dL 05/22/20 05/22/20 05/22/20 Range/Units 08:28 08:28 08:28 RBC 3.70 L (4.30-5.90) m/uL Hgb 11.7 L (13.0-17.5) gm/dL Hct 34.0 L (39.0-53.0) % Lymphocytes # 0.7 L (1.0-4.8) k/uL APTT 42.2 H (22.0-30.0) sec Chloride 109 H (98-107) mmol/L Glucose 176 H (74-99) mg/dL POC Glucose (mg/dL) (75-99) mg/dL Microbiology - Last 24 Hours (Table) 05/21/20 05:50 Nasal Screen MRSA/MSSA - Preliminary Nasal Swab Assessment and Plan Assessment: 1. Triple-vessel coronary artery disease, non-STEMI this admission 2. Moderate to severe predominantly centrally directed mitral regurgitation 3. Insulin-dependent diabetes, hemoglobin A1c 8.2% 4. Hyperlipidemia, cholesterol 241, triglyceride 200, LDL 164 5. Left internal carotid artery stenosis, greater than 70% per carotid Doppler, greater than 90% per neck CTA 6. Lifelong nonsmoker with FEV1 58% of predicted 7. Family history of premature coronary artery disease, father and 2 brothers d iagnosed with CAD with subsequent CABG in their early to mid 50s 8. EtOH use most days without history of withdrawal Plan: 1. Continue aspirin, statin, beta holly therapy 2. Encourage incentive spirometry use 3. Increase activity, ambulate as tolerated 4. Continue preoperative teaching 5. Our plan is for myocardial revascularization, mitral valve repair possible replacement, left internal mammary artery, left radial artery, endoscopic vein harvest with intraoperative transesophageal echocardiogram and exclusion of the left atrial appendage tomorrow, 05/23/[address] Dominguez 6. NPO after midnight 7. Left carotid stenosis intervention to be completed in the future. In the meantime our plan is to avoid hypotension 8. Dr. Gallardo consulted for pulmonology management 9. Medical management of other comorbidities per primary care service 10. More recommendations to follow Time with Patient: Greater than 30
[2020-05-22] MEDS ORDERED: INSULIN DETEMIR (LEVEMIR) 100 UNIT/ML SYR SQ ONE (10:30)
[2020-05-22] MEDS ORDERED: INSULIN DETEMIR (LEVEMIR) 100 UNIT/ML SYR SQ SCH (11:00)
--- NOTE | 2020-05-22 11:45 | P.PN ---
Subjective Progress Note Date: 05/22/20 No new complaints, sugars are running high Objective - Vital Signs Vital signs: Vital Signs Temp 98.6 F 05/22/20 03:20 Pulse 84 05/22/20 08:00 Resp 16 05/22/20 08:00 BP 121/73 05/22/20 08:00 Pulse Ox 96 05/22/20 08:00 Intake & Output 05/21/20 05/22/20 05/22/20 18:59 06:59 18:59 Intake Total 893.001 480 490 Balance 893.001 480 490 Weight 86.5 kg Intake: IV 300 Intake, IV Titration 135.001 250 Amount Heparin Sod,Pork in 0.45% 135.001 250 NaCl 25,000 unit In 0.45 % NaCl 1 250ml.bag @ 11. 83 UNITS/KG/HR 9.996 mls/ hr IV .Q24H [facility] Rx#: [id number] Oral 458 480 240 Other: Voiding Method Toilet Toilet Toilet # Voids 2 3 - Exam Gen: awake, alert HEENT: normocephalic, atraumatic, good hearing acuity, moist mucous membranes Resp: good air exchange, breathing comfortably with no accessory muscle use, clear to auscultation bilaterally without wheezes or crackles CVS: good distal perfusion x 4, regular rate and rhythm without murmurs GI: soft, NTTP, ND, appropriate bowel sounds : no SPT, no CVAT, scott catheter is not present MSK: no pitting edema, no clubbing Neuro: non-focal, moving all extremities Psych: cooperative, euthymic mood - Labs CBC & Chem 7: 05/22/20 08:28 05/22/20 08:28 Labs: Abnormal Lab Results - Last 24 Hours (Table) 05/21/20 05/21/20 05/21/20 Range/Units 11:58 17:06 17:56 RBC (4.30-5.90) m/uL Hgb (13.0-17.5) gm/dL Hct (39.0-53.0) % Lymphocytes # (1.0-4.8) k/uL APTT 47.3 H (22.0-30.0) sec Chloride (98-107) mmol/L Glucose (74-99) mg/dL POC Glucose (mg/dL) 226 H 142 H (75-99) mg/dL 05/21/20 05/22/20 05/22/20 Range/Units 20:24 06:00 08:28 RBC (4.30-5.90) m/uL Hgb (13.0-17.5) gm/dL Hct (39.0-53.0) % Lymphocytes # (1.0-4.8) k/uL APTT (22.0-30.0) sec Chloride 109 H (98-107) mmol/L Glucose 176 H (74-99) mg/dL POC Glucose (mg/dL) 135 H 276 H (75-99) mg/dL 05/22/20 05/22/20 Range/Units 08:28 08:28 RBC 3.70 L (4.30-5.90) m/uL Hgb 11.7 L (13.0-17.5) gm/dL Hct 34.0 L (39.0-53.0) % Lymphocytes # 0.7 L (1.0-4.8) k/uL APTT 42.2 H (22.0-30.0) sec Chloride (98-107) mmol/L Glucose (74-99) mg/dL POC Glucose (mg/dL) (75-99) mg/dL Microbiology - Last 24 Hours (Table) 05/21/20 05:50 Nasal Screen MRSA/MSSA - Preliminary Nasal Swab Assessment and Plan Assessment: NSTEMI -Troponin 3.120. Troponins trended upward with initial troponin is 3.120 with repeats of 6.080 and 7.840. -EKG showing sinus tachycardia at 105 bpm with T-wave inversion in leads III and aVF, no signs of ST elevation. No previous EKGs available for comparison. -Continue heparin infusion, pharmacy to dose. -Cardiology following, patient scheduled to have cardiac cath = multivessel CAD; - CT surgery consulted, with plan for CABG on 05/22 -Telemetry monitoring. -Trend troponins every 3 hours 2. -Close monitoring of I's and O's. -Heart healthy carb consistent diet, NPO at midnight. -Patient being placed on daily aspirin, atorvastatin, and metoprolol. -Lipid profile revealed elevation of triglycerides 200, cholesterol 241, LDL 164, HDL of 37. Atorvastatin increased to 80 mg nightly. -Hemoglobin A1c = 8.2% Insulin-dependent diabetes mellitus type II -Glycemic protocol with NovoLog sliding scale and continuation of Lantus 20 units daily. -Heart healthy carb consistent diet The patient is admitted with an anticipated greater than 2 midnight stay for ev aluation of NSTEMI. Surrogate decision-maker: Self CODE STATUS: Full code DVT prophylaxis: Heparin Discussed with: Patient Anticipated discharge date: Clinical course to determine Anticipated discharge place: Home
[2020-05-22 12:00] LABS: Glucose,Whole Blood 142 mg/dL (75-99)
--- NOTE | 2020-05-22 12:02 | P.PN ---
Subjective HISTORY OF PRESENTING ILLNESS This is a pleasant 55-year-old male past medical history significant for diabetes mellitus and daily alcohol intake. He follows in the office with Dr. Santos in [place]. We have been asked to see in consultation for NSTEMI. He states for the previous 2 weeks he has been experiencing chest heaviness intermittently. The symptoms occur typically at rest mostly at night when he lays down and tries to sleep. When he lays down flat he feels a heaviness in his chest with some mild shortness of breath. He denies any symptoms of chest discomfort or shortness of breath with exertion. He has had some intermittent diarrhea. 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 He had no symptoms of chest discomfort throughout the day. The next morning he woke up and went out to breakfast and then had an episode of nausea and vomiting. He was concerned with possible ovarian. He came to the emergency department yesterday afternoon to be tested. We have seen and examined resting comfortably in bed in no acute distress. He has no symptoms of chest discomfort or shortness of breath. 05/21/2020 Pt seen and examined sitting up in the recliner in no acute distress. He is scheduled to undergo bypass grafting and mitral valve repair tomorrow. He has no chest pain, shortness of breath, dizziness or palpitations. Blood pressure 121/73 heart rate 84. Labs reviewed. He will undergo carotid intervention after surgery per CT surgeons. PHYSICAL EXAMINATION CONSTITUTIONAL: No apparent distress. HEENT: Head is normocephalic. Pupils are equal, round. Sclerae anicteric. Mucous membranes of the mouth are moist. No JVD. No carotid bruit. CHEST EXAMINATION: Lungs are clear to auscultation. No chest wall tenderness is noted on palpation or with deep breathing. HEART EXAMINATION: Regular rate and rhythm. S1, S2 heard. Systolic ejection murmur at the base, no gallops or rub. EXTREMITIES: 2+ peripheral pulses, no lower extremity edema and no calf tenderness. ASSESSMENT NSTEMI Diabetes mellitus Daily alcohol intake Dyslipidemia Valvular heart disease PLAN Bypass grafting scheduled for tomorrow. Continue heparin infusion, beta blockers, aspirin and atorvastatin as previously ordered. We will initiate an KWADWO/ARB post-operatively. Further recommendations to follow based on clinical course. Nurse Practitioner note has been reviewed, I agree with a documented findings and plan of care. Patient was seen and examined. Objective - Vital Signs Vital signs: Vital Signs Temp 98.6 F 05/22/20 03:20 Pulse 84 05/22/20 08:00 Resp 16 05/22/20 08:00 BP 121/73 05/22/20 08:00 Pulse Ox 96 05/22/20 08:00 Intake & Output 05/21/20 05/22/20 05/22/20 18:59 06:59 18:59 Intake Total 893.001 480 490 Balance 893.001 480 490 Weight 86.5 kg Intake: IV 300 Intake, IV Titration 135.001 250 Amount Heparin Sod,Pork in 0.45% 135.001 250 NaCl 25,000 unit In 0.45 % NaCl 1 250ml.bag @ 11. 83 UNITS/KG/HR 9.996 mls/ hr IV .Q24H [facility] Rx#: [id number] Oral 458 480 240 Other: Voiding Method Toilet Toilet Toilet # Voids 2 3 - Labs CBC & Chem 7: 05/22/20 08:28 05/22/20 08:28 Labs: Abnormal Lab Results - Last 24 Hours (Table) 05/21/20 05/21/20 05/21/20 Range/Units 17:06 17:56 20:24 RBC (4.30-5.90) m/uL Hgb (13.0-17.5) gm/dL Hct (39.0-53.0) % Lymphocytes # (1.0-4.8) k/uL APTT 47.3 H (22.0-30.0) sec Chloride (98-107) mmol/L Glucose (74-99) mg/dL POC Glucose (mg/dL) 142 H 135 H (75-99) mg/dL 05/22/20 05/22/20 05/22/20 Range/Units 06:00 08:28 08:28 RBC 3.70 L (4.30-5.90) m/uL Hgb 11.7 L (13.0-17.5) gm/dL Hct 34.0 L (39.0-53.0) % Lymphocytes # 0.7 L (1.0-4.8) k/uL APTT (22.0-30.0) sec Chloride 109 H (98-107) mmol/L Glucose 176 H (74-99) mg/dL POC Glucose (mg/dL) 276 H (75-99) mg/dL 05/22/20 05/22/20 Range/Units 08:28 11:59 RBC (4.30-5.90) m/uL Hgb (13.0-17.5) gm/dL Hct (39.0-53.0) % Lymphocytes # (1.0-4.8) k/uL APTT 42.2 H (22.0-30.0) sec Chloride (98-107) mmol/L Glucose (74-99) mg/dL POC Glucose (mg/dL) 142 H (75-99) mg/dL Microbiology - Last 24 Hours (Table) 05/21/20 05:50 Nasal Screen MRSA/MSSA - Preliminary Nasal Swab
--- NOTE | 2020-05-22 12:04 | P.PN ---
Subjective Progress Note Date: 05/22/20 This is a 55-year-old white male patient with past medical history of diabetes mellitus, insulin dependent, and strong family history of premature coronary artery disease in his father and his brother who had coronary artery bypass grafting surgeries in their early to mid 50s. Patient presented to the [facility] department on 05/19/2020 symptoms of chest heaviness, general malaise, feeling very fatigued, chilled, run down. Patient had been feeling unwell for the last couple of weeks. He has been having chest pressure particularly at nighttime. Patient follows with a internal medicine physician assistant in [place]. His EKG showed a sinus mechanism with inferior deep T-wave inversions, he had troponin elevation with his third troponin peaking at 7.840. Patient underwent cardiac evaluation, and had a heart catheterization on 05/20/2020 which showed ostial LAD lesion of 85%, mid LAD of 60-70%, apical LAD of 50%, diagonal branch 1 of 80%, diagonal 2 was 90%, circumflex of 50%, RCA stenosis of 90-100%. He had mildly elevated left-sided filling pressures with LVEDP of 17. Echocardiogram showed mild concentric LVH, mild to moderately impaired LV function with EF of 40-45%, there was generalized hypokinesis in the inferobasal, lateral and apical septal wall areas. There was mild pulmonary hypertension with right-sided pressure of 31.4 mmHg. ProBNP was elevated at 3030, her chest x-ray showed mild right perihilar infiltrate. No leukocytosis, hemoglobin on admission was 14.6, d-dimer was negative at 0.59 lites and renal profile were unremarkable, was checked for COVID 19 and the PCR was negative, urinalysis showed 4+ glucose and 1+ ketones but no signs of infection. Review of multivessel coronary artery disease CT surgery was consulted us ability of bypass surgery, patient underwent TOYIN today and showed no significant aortic valve insufficiency, mitral valve was structurally normal, with mild amount of posterior leaflet tethering, and there was moderate to severe predominantly central secondary mitral regurgitation. Tricuspid valve appear to be normal. There was no evidence of PFO. Left atrial appendage was free of clot. We are consulted for pulmonary/critical care management in the postoperative period, preop FEV1 was completed, and was in the order of 58% of predicted, and patient denies any chronic lung disease, and he is a lifetime nonsmoker. Patient is undergoing some additional preop testing, he was also found to have 70% stenosis of the proximal internal carotid artery on the left on the Doppler ultrasound of the carotid arteries. CT neck was completed today showing right ICA 50-60%, and left ICA of greater than 90%. During the time of our evaluation patient is sitting up in the recliner, he is on room air, breathing comfortably denies any chest pain, or difficulty breathing, or socks is 96%, he is afebrile, hemodynamically stable. 05/22/2020 patient seen in follow-up on selective care unit, his increased up in the recliner, in no acute distress, currently on room air, and his pulse ox is 96% on room air, he is breathing comfortable, lung sounds reveal some bibasilar crackles, no repeat chest x-ray today. Patient has been maintaining stable O2 saturations on room air, he's been ambulating in the room, tolerating it well. He is working on incentive spirometer, his creatinine FEV1 showed FEV1 of 58%. He was found to have carotid artery stenosis, the left ICA of 90%, and the right ICA 50-60%. In the plan is for left carotid endarterectomy at a later date. No complaints of chest pain, no shortness of breath, patient is on heparin infusion, no acute events overnight. Objective - Vital Signs Vital signs: Vital Signs Temp 98.6 F 05/22/20 03:20 Pulse 84 05/22/20 08:00 Resp 16 05/22/20 08:00 BP 121/73 05/22/20 08:00 Pulse Ox 96 05/22/20 08:00 Intake & Output 05/21/20 05/22/20 05/22/20 18:59 06:59 18:59 Intake Total 893.001 480 490 Balance 893.001 480 490 Weight 86.5 kg Intake: IV 300 Intake, IV Titration 135.001 250 Amount Heparin Sod,Pork in 0.45% 135.001 250 NaCl 25,000 unit In 0.45 % NaCl 1 250ml.bag @ 11. 83 UNITS/KG/HR 9.996 mls/ hr IV .Q24H [facility] Rx#: [id number] Oral 458 480 240 Other: Voiding Method Toilet Toilet Toilet # Voids 2 3 - Exam GENERAL EXAM: Alert, active, comfortable in no apparent distress. HEAD: Normocephalic/atraumatic. EYES: Normal reaction of pupils, equal size. Conjunctiva pink, sclera white. NOSE: Clear with pink turbinates. THROAT: No erythema or exudates. NECK: No masses, no JVD, no thyroid enlargement, no adenopathy. CHEST: No chest wall deformity. Symmetrical expansion. LUNGS: Equal air entry with no crackles, wheeze, rhonchi or dullness. CVS: Regular rate and rhythm, normal S1 and S2, no gallops, no murmurs, no rubs ABDOMEN: Soft, nontender. No hepatosplenomegaly, normal bowel sounds, no guarding or rigidity. EXTREMITIES: No clubbing, no edema, no cyanosis, 2+ pulses and upper and lower extremities. MUSCULOSKELETAL: Muscle strength and tone normal. SPINE: No scoliosis or deformity SKIN: No rashes CENTRAL NERVOUS SYSTEM: Alert and oriented -3. No focal deficits, tone is normal in all 4 extremities. PSYCHIATRIC: Alert and oriented -3. Appropriate affect. Intact judgment and insight. - Labs CBC & Chem 7: 05/22/20 08:28 05/22/20 08:28 Labs: Abnormal Lab Results - Last 24 Hours (Table) 05/21/20 05/21/20 05/21/20 Range/Units 17:06 17:56 20:24 RBC (4.30-5.90) m/uL Hgb (13.0-17.5) gm/dL Hct (39.0-53.0) % Lymphocytes # (1.0-4.8) k/uL APTT 47.3 H (22.0-30.0) sec Chloride (98-107) mmol/L Glucose (74-99) mg/dL POC Glucose (mg/dL) 142 H 135 H (75-99) mg/dL 05/22/20 05/22/20 05/22/20 Range/Units 06:00 08:28 08:28 RBC 3.70 L (4.30-5.90) m/uL Hgb 11.7 L (13.0-17.5) gm/dL Hct 34.0 L (39.0-53.0) % Lymphocytes # 0.7 L (1.0-4.8) k/uL APTT (22.0-30.0) sec Chloride 109 H (98-107) mmol/L Glucose 176 H (74-99) mg/dL POC Glucose (mg/dL) 276 H (75-99) mg/dL 05/22/20 05/22/20 Range/Units 08:28 11:59 RBC (4.30-5.90) m/uL Hgb (13.0-17.5) gm/dL Hct (39.0-53.0) % Lymphocytes # (1.0-4.8) k/uL APTT 42.2 H (22.0-30.0) sec Chloride (98-107) mmol/L Glucose (74-99) mg/dL POC Glucose (mg/dL) 142 H (75-99) mg/dL Microbiology - Last 24 Hours (Table) 05/21/20 05:50 Nasal Screen MRSA/MSSA - Preliminary Nasal Swab Assessment and Plan Plan: Assessment: #1. Acute non-ST elevated myocardial infarction #2. Multivessel coronary artery disease, awaiting surgery #3. Moderate to severe mitral regurgitation of 3+, being evaluated for surgery #4. Diabetes mellitus type 2, insulin dependent #5. Lifetime nonsmoker, preop FEV1 58% possibly related to restrictive alveolar pattern, related to interstitial edema #6. Acute exacerbation of CHF with systolic dysfunction, and mild to moderate impairment of left ventricular systolic function EF of 40-45% #7. Acute ischemic cardiomyopathy EF of 40-45% #8. Left internal carotid stenosis of greater than 70% #9. Regular EtOH intake of 3-4 alcoholic drinks on a daily basis #10. Hyperlipidemia Plan: Continue current medical treatment, no acute events overnight, creatinine FEV1 was reviewed, patient remains on room air, no completes of worsening dyspnea patient is maintained on room air, for surgery tomorrow, we'll continue to closely follow I performed a history & physical examination of the patient and discussed their management with my nurse practitioner, Felisha Block. I reviewed the nurse practitioner's note and agree with the documented findings and plan of care. Lung sounds are positive for the next breath sounds. The findings and the impression was discussed with the patient. I attest to the documentation by the nurse practitioner. Time with Patient: Less than 30
[2020-05-22] MEDS: MUPIROCIN 2% OINT 22 GM TUBE NASAL SCH ×2 (12:48→21:41)
--- NOTE | 2020-05-22 12:57 | XR ---
EXAMINATION TYPE: XR chest 2V DATE OF EXAM: 05/22/2020 COMPARISON: 05/19/2020 HISTORY: Shortness of breath TECHNIQUE: Frontal and lateral views of the chest are obtained. FINDINGS: Scattered senescent parenchymal changes noted. Hyperinflation compatible with COPD. Patchy density right medial lung base may reflect underlying infiltrate. Correlate clinically. Heart size is stable. Mediastinal structures are stable and grossly unremarkable. No evidence for hilar prominence. Degenerative changes dorsal spine. IMPRESSION: 1. Patchy density right medial lung base may reflect underlying infiltrate. Correlate clinically.
[2020-05-22 16:32] LABS: Glucose,Whole Blood 102 mg/dL (75-99)
[2020-05-22] MEDS: HEPARIN SOD,PORK IN 0.45% NACL 25,000 UNIT in 0.45% NACL 1 250ML.BAG IV SCH (17:14)
[2020-05-22 20:21] LABS: Glucose,Whole Blood 140 mg/dL (75-99)
[2020-05-23] MEDS ORDERED: ALBUMIN HUMAN 5% 500 ML in EMPTY BAG 1 BAG IVPB ONE ×6 (05:00)
[2020-05-23] MEDS ORDERED: PHENYLEPHRINE 10 MG/ML VIAL IV ONE (05:00)
[2020-05-23] MEDS ORDERED: INSULIN REGULAR 100 UNIT in SODIUM CHLORIDE 0.9% 100 ML IV SCH (05:00)
[2020-05-23] MEDS ORDERED: PHENYLEPHRINE 40 MG in SODIUM CHLORIDE 0.9% 250 ML IV ONE (05:00)
[2020-05-23] MEDS ORDERED: HEPARIN SODIUM,PORCINE 5,000 UNIT in SODIUM CHLORIDE 0.9% 500 ML 500 ML IV ONE (05:00)
[2020-05-23] MEDS ORDERED: TRANEXAMIC ACID 2,000 MG in SODIUM CHLORIDE 0.9% 80 ML IV ONE (05:00)
[2020-05-23] MEDS ORDERED: NITROGLYCERIN-D5W PMX 50 MG in DEXTROSE/WATER 1 250ML.BAG IV SCH ×2 (05:00→16:02)
[2020-05-23] MEDS ORDERED: CHLORHEXIDINE GLUCONATE 15 ML CUP MUCOUS MEM ONE (05:00)
[2020-05-23] MEDS ORDERED: CLEVIDIPINE BUTYRATE 25 MG in EMPTY BAG 1 BAG IV SCH ×2 (05:00→16:02)
[2020-05-23] MEDS ORDERED: PROTAMINE SULFATE 250 MG in EMPTY BAG 1 BAG IV ONE (05:00)
[2020-05-23] MEDS ORDERED: METOPROLOL TARTRATE 12.5 MG TAB PO ONE (05:00)
[2020-05-23] MEDS ORDERED: MANNITOL 25% 12.5 GM/50 ML VIAL IV ONE ×2 (05:00)
[2020-05-23] MEDS ORDERED: HEPARIN SODIUM 1,000 UN/ML (10ML VL) IV ONE (05:00)
[2020-05-23] MEDS ORDERED: NITROGLYCERIN-D5W PMX 25 MG/250 ML BTL IV ONE (05:00)
[2020-05-23] MEDS ORDERED: PROTAMINE SULFATE 10 MG/ML 25 ML VIAL IV ONE ×2 (05:00→07:41)
[2020-05-23] MEDS ORDERED: CALCIUM CHLORIDE 100 MG/ML 10 ML SYRINGE IVP ONE (05:00)
[2020-05-23] MEDS ORDERED: ASPIRIN 325 MG TAB PO ONE (05:00)
[2020-05-23] MEDS ORDERED: PAPAVERINE 360 MG in SODIUM CHLORIDE 0.9% 90 ML IV ONE (05:00)
[2020-05-23] MEDS ORDERED: DEXTROSE 5% IN WATER 1,000 ML with POTASSIUM CHLORIDE 25 MEQ, SODIUM CHLORIDE 4MEQ/ML V... IV SCH ×6 (05:00)
[2020-05-23] MEDS ORDERED: MAGNESIUM SULFATE SYG 4.06 MEQ/ML SYRINGE IV ONE (05:00)
[2020-05-23] MEDS ORDERED: DILTIAZEM 125 MG in SODIUM CHLORIDE 0.9% 100 ML IV SCH ×2 (05:00→16:30)
[2020-05-23] MEDS ORDERED: DEXTROSE 5% IN WATER 1,000 ML with POTASSIUM CHLORIDE 110 MEQ, MAGNESIUM SULFATE 16 MEQ... IV SCH ×5 (05:00)
[2020-05-23] MEDS ORDERED: ALBUMIN HUMAN 25% 50 ML in EMPTY BAG 1 BAG IVPB ONE (05:00)
[2020-05-23] MEDS ORDERED: LACTATED RINGERS 1,000 ML IV SCH (05:00)
[2020-05-23] MEDS ORDERED: SODIUM BICARB 8.4% 50 ML SYR (1 MEQ/ML) IV ONE (05:00)
[2020-05-23] MEDS ORDERED: ceFAZolin 1,000 MG in SODIUM CHLORIDE 0.9% IRRIGATIO 1,000 ML IRRIGATION ONE (05:00)
[2020-05-23] MEDS ORDERED: NOREPINEPHRINE 4 MG in SODIUM CHLORIDE 0.9% 250 ML IV SCH (05:00)
[2020-05-23 05:38] LABS: Glucose,Whole Blood 110 mg/dL (75-99)
[2020-05-23] MEDS: ATORVASTATIN 80 MG TAB PO SCH (06:17)
[2020-05-23] MEDS ORDERED: LACTATED RINGERS 1,000 ML IV ONE (06:22)
[2020-05-23 06:50] LABS: Glucose,Whole Blood 132 mg/dL (75-99)
[2020-05-23] MEDS ORDERED: VECURONIUM 10 MG VIAL IV ONE (07:41)
[2020-05-23] MEDS ORDERED: TRANEXAMIC ACID 1,000 MG/10 ML VIAL ONE (07:41)
[2020-05-23] MEDS ORDERED: NITROGLYCERIN-D5W PMX 50 MG/250 ML BOTTLE IV ONE (07:41)
[2020-05-23] MEDS ORDERED: ALBUMIN HUMAN 5% (25gm) 500 ML VIAL IVPB ONE (07:41)
[2020-05-23] MEDS ORDERED: PROPOFOL 10 MG/ML 20 ML VIAL IV ONE (07:41)
[2020-05-23] MEDS ORDERED: HEPARIN SODIUM,PORCINE 5,000 UNIT/ML 1 ML VIAL ONE (07:41)
[2020-05-23] MEDS ORDERED: LIDOCAINE 2% SYG (PF) 100 MG/5 ML ONE (07:41)
[2020-05-23] MEDS ORDERED: MIDAZOLAM 2 MG/2 ML VIAL ONE (07:41)
[2020-05-23] MEDS ORDERED: INSULIN REGULAR 100 UNIT/ML VIAL ONE (07:41)
[2020-05-23] MEDS ORDERED: SODIUM CHLORIDE 0.9% 250 ML BAG ONE (07:41)
[2020-05-23] MEDS ORDERED: MAGNESIUM SULFATE 4 MEQ/ML 10ML VIAL ONE (07:41)
[2020-05-23] MEDS ORDERED: fentaNYL (PF) 50 MCG/ML 50 ML VIAL ONE (07:41)
[2020-05-23] MEDS ORDERED: CALCIUM CHLORIDE 100 MG/ML 10 ML SYRINGE ONE (07:41)
[2020-05-23] MEDS ORDERED: fentaNYL (PF) 50 MCG/ML 2 ML AMP ONE (07:41)
[2020-05-23] MEDS ORDERED: ELECTROLYTE-R (PH 7.4) 1,000 ML IV.SOLN IV ONE (07:41)
[2020-05-23] MEDS ORDERED: SODIUM CHLORIDE 0.9% IRRIG 1,000 ML BTL IRRIGATION ONE (07:41)
[2020-05-23] MEDS ORDERED: METOCLOPRAMIDE 5 MG/ML 2 ML VIAL IVP ONE (08:03)
[2020-05-23 08:36] LABS: ABG Base Excess -0.6 mmol/L; ABG Glucose Whole Blood 154 mg/dL (75-99); ABG HCO3 24 mmol/L (21-25); ABG Hematocrit 33 % (34.0-46.0); ABG Ionized Calcium 4.5 mg/dL (4.5-5.3); ABG Lactic Acid Whole Blood 0.6 mmol/L (0.5-1.6); ABG PCO2 36 mmHg (35-45); ABG PH 7.42 (7.35-7.45); ABG PO2 307 mmHg (83-108); ABG Potassium Whole Blood 3.9 mmol/L (3.4-4.5); ABG Sodium Whole Blood 138 mmol/L (135-146); ABG TCO2 25 mmol/L (19-24)
[2020-05-23] MEDS ORDERED: INSULIN DETEMIR (LEVEMIR) 100 UNIT/ML SYR SQ SCH (09:00)
[2020-05-23 10:38] LABS: ABG Base Excess -0.7 mmol/L; ABG Glucose Whole Blood 171 mg/dL (75-99); ABG HCO3 24 mmol/L (21-25); ABG Hematocrit 30 % (34.0-46.0); ABG Ionized Calcium 4.5 mg/dL (4.5-5.3); ABG Lactic Acid Whole Blood 0.5 mmol/L (0.5-1.6); ABG Oxygen Saturation 99.2 % (94-97); ABG PCO2 37 mmHg (35-45); ABG PH 7.41 (7.35-7.45); ABG PO2 121 mmHg (83-108); ABG Sodium Whole Blood 137 mmol/L (135-146); ABG TCO2 25 mmol/L (19-24)
[2020-05-23 11:37] LABS: ABG Base Excess -1.1 mmol/L; ABG Glucose Whole Blood 183 mg/dL (75-99); ABG HCO3 23 mmol/L (21-25); ABG Hematocrit 31 % (34.0-46.0); ABG Ionized Calcium 4.5 mg/dL (4.5-5.3); ABG Lactic Acid Whole Blood 0.5 mmol/L (0.5-1.6); ABG Oxygen Saturation 99.6 % (94-97); ABG PCO2 38 mmHg (35-45); ABG PO2 142 mmHg (83-108); ABG Potassium Whole Blood 4.2 mmol/L (3.4-4.5); ABG Sodium Whole Blood 137 mmol/L (135-146); ABG TCO2 25 mmol/L (19-24)
[2020-05-23 11:51] LABS: ABG Base Excess -0.8 mmol/L; ABG Glucose Whole Blood 181 mg/dL (75-99); ABG HCO3 24 mmol/L (21-25); ABG Hematocrit 28 % (34.0-46.0); ABG Ionized Calcium 4.3 mg/dL (4.5-5.3); ABG Lactic Acid Whole Blood 0.6 mmol/L (0.5-1.6); ABG PCO2 40 mmHg (35-45); ABG PH 7.39 (7.35-7.45); ABG PO2 371 mmHg (83-108); ABG Potassium Whole Blood 4.1 mmol/L (3.4-4.5); ABG Sodium Whole Blood 138 mmol/L (135-146); ABG TCO2 25 mmol/L (19-24)
[2020-05-23 12:24] LABS: ABG Base Excess -1.8 mmol/L; ABG Glucose Whole Blood 260 mg/dL (75-99); ABG HCO3 24 mmol/L (21-25); ABG Hematocrit 25 % (34.0-46.0); ABG Ionized Calcium 4.2 mg/dL (4.5-5.3); ABG Lactic Acid Whole Blood 0.7 mmol/L (0.5-1.6); ABG PCO2 44 mmHg (35-45); ABG PH 7.34 (7.35-7.45); ABG PO2 292 mmHg (83-108); ABG Potassium Whole Blood 5.2 mmol/L (3.4-4.5); ABG Sodium Whole Blood 133 mmol/L (135-146); ABG TCO2 25 mmol/L (19-24)
[2020-05-23 12:48] LABS: ABG Base Excess -3.2 mmol/L; ABG Glucose Whole Blood 276 mg/dL (75-99); ABG HCO3 23 mmol/L (21-25); ABG Hematocrit 25 % (34.0-46.0); ABG Ionized Calcium 4.3 mg/dL (4.5-5.3); ABG Lactic Acid Whole Blood 0.9 mmol/L (0.5-1.6); ABG PCO2 47 mmHg (35-45); ABG PO2 266 mmHg (83-108); ABG Potassium Whole Blood 4.5 mmol/L (3.4-4.5); ABG Sodium Whole Blood 136 mmol/L (135-146); ABG TCO2 24 mmol/L (19-24)
[2020-05-23 13:24] LABS: ABG Base Excess -2.1 mmol/L; ABG Glucose Whole Blood 311 mg/dL (75-99); ABG HCO3 23 mmol/L (21-25); ABG Hematocrit 25 % (34.0-46.0); ABG Ionized Calcium 4.2 mg/dL (4.5-5.3); ABG Lactic Acid Whole Blood 0.9 mmol/L (0.5-1.6); ABG PCO2 41 mmHg (35-45); ABG PH 7.36 (7.35-7.45); ABG PO2 324 mmHg (83-108); ABG Potassium Whole Blood 4.4 mmol/L (3.4-4.5); ABG Sodium Whole Blood 134 mmol/L (135-146); ABG TCO2 25 mmol/L (19-24)
[2020-05-23 14:05] LABS: ABG Base Excess -1.7 mmol/L; ABG Glucose Whole Blood 301 mg/dL (75-99); ABG HCO3 24 mmol/L (21-25); ABG Ionized Calcium 4.3 mg/dL (4.5-5.3); ABG Lactic Acid Whole Blood 1.2 mmol/L (0.5-1.6); ABG PCO2 41 mmHg (35-45); ABG PH 7.36 (7.35-7.45); ABG PO2 328 mmHg (83-108); ABG Potassium Whole Blood 4.1 mmol/L (3.4-4.5); ABG Sodium Whole Blood 135 mmol/L (135-146); ABG TCO2 25 mmol/L (19-24)
[2020-05-23 14:33] LABS: ABG Base Excess -1.6 mmol/L; ABG Glucose Whole Blood 280 mg/dL (75-99); ABG HCO3 24 mmol/L (21-25); ABG Ionized Calcium 4.3 mg/dL (4.5-5.3); ABG Lactic Acid Whole Blood 1.3 mmol/L (0.5-1.6); ABG PCO2 42 mmHg (35-45); ABG PH 7.36 (7.35-7.45); ABG PO2 294 mmHg (83-108); ABG Potassium Whole Blood 3.9 mmol/L (3.4-4.5); ABG Sodium Whole Blood 135 mmol/L (135-146); ABG TCO2 25 mmol/L (19-24)
[2020-05-23] MEDS ORDERED: Potassium Replacement Protocol 1 EACH MISC MISCELLANE PRN (16:02)
[2020-05-23] MEDS ORDERED: Magnesium Replacement Protocol 1 EACH MISC MISCELLANE PRN (16:02)
[2020-05-23] MEDS ORDERED: DEXTROSE 5% IN WATER 100 ML with AMIODARONE 150 MG IV PRN (16:02)
[2020-05-23] MEDS ORDERED: IPRATROPIUM-ALBUTEROL 3 ML NEB INHALATION PRN (16:02)
[2020-05-23] MEDS ORDERED: CALCIUM GLUCONATE 2 GM in SODIUM CHLORIDE 0.9% 100 ML IVPB PRN (16:02)
[2020-05-23] MEDS ORDERED: METOCLOPRAMIDE 5 MG/ML 2 ML VIAL IVP PRN (16:02)
[2020-05-23] MEDS ORDERED: MORPHINE SULFATE 2 MG/ML SYRINGE IVP PRN (16:02)
[2020-05-23] MEDS ORDERED: AMIODARONE 450 MG in DEXTROSE 5% IN WATER 250 ML IV PRN ×2 (16:02)
[2020-05-23] MEDS ORDERED: AMIODARONE 360 MG in DEXTROSE 5% IN WATER 200 ML IV PRN ×2 (16:02)
[2020-05-23] MEDS ORDERED: Phosphorus Replacement Protoco 1 EACH MISC MISCELLANE PRN (16:02)
[2020-05-23] MEDS ORDERED: BENZOCAINE/MENTHOL LOZENG 1 EACH LOZENGE MUCOUS MEM PRN (16:02)
[2020-05-23 16:11] LABS: ABG Hematocrit 24 % (34.0-46.0)
[2020-05-23 16:12] LABS: ABG Hematocrit 24 % (34.0-46.0)
[2020-05-23] MEDS ORDERED: ALBUMIN HUMAN 5% 250 ML IVPB ONE (16:13)
[2020-05-23] MEDS: FOLIC ACID 1 MG TAB PO SCH (16:14)
[2020-05-23] MEDS: THIAMINE 100 MG TAB PO SCH (16:14)
[2020-05-23] MEDS: HEPARIN SOD,PORK IN 0.45% NACL 25,000 UNIT in 0.45% NACL 1 250ML.BAG IV SCH (16:15)
[2020-05-23] MEDS ORDERED: DEXMEDETOMIDINE/0.9% NACL(PMX) 400 MCG in EMPTY BAG 1 BAG IV SCH (16:30)
[2020-05-23 16:44] LABS: Glucose,Whole Blood 183 mg/dL (75-99)
[2020-05-23] MEDS: SODIUM CHLORIDE 0.9% 1,000 ML IV SCH (16:45)
[2020-05-23] MEDS: MILRINONE-D5W PMX 20 MG in DEXTROSE/WATER 1 100ML.BAG IV SCH (16:45)
[2020-05-23 16:59] LABS: Basophils % (A) 0 %; Eosinophils % (A) 1 %; HCT 28.3 % (39.0-53.0); Lymphocytes % (A) 12 %; MCH 31.9 pg (25.0-35.0); MCHC 34.5 g/dL (31.0-37.0); MCV 92.3 fL (80.0-100.0); Mean Platelet Volume 7.3; Monocytes # (A) 0.5 k/uL (0-1.0); Monocytes % (A) 6 %; Neutrophils # (A) 6.3 k/uL (1.3-7.7); Neutrophils % (A) 80 %; Platelet Count 168 k/uL (150-450); RBC 3.06 m/uL (4.30-5.90); RDW 12.8 % (11.5-15.5); WBC 7.9 k/uL (3.8-10.6)
--- NOTE | 2020-05-23 17:01 | P.PN ---
Subjective Progress Note Date: 05/23/20 Pt intubated and sedated, doing well s/p 4v CABG, mitral repair and left appendage clipping; has mediastinal chest tube in diaphragmatic position, draining well, [place]-marisol in good place. Objective - Vital Signs Vital signs: Vital Signs Temp 99.3 F 05/23/20 06:23 Pulse 86 05/23/20 06:23 Resp 18 05/23/20 06:23 BP 149/90 05/23/20 06:23 Pulse Ox 97 05/23/20 06:23 Intake & Output 05/22/20 05/23/20 05/23/20 18:59 06:59 18:59 Intake Total 1510 390 53 Output Total 600 3500 Balance 910 390 -3447 Weight 85.8 kg Intake: IV 100 53 Intake, IV Titration 250 Amount Heparin Sod,Pork in 0.45% 250 NaCl 25,000 unit In 0.45 % NaCl 1 250ml.bag @ 11. 83 UNITS/KG/HR 9.996 mls/ hr IV .Q24H [facility] Rx#: [id number] Oral 1260 290 Output: Urine 600 1500 Estimated Blood Loss 2000 Other: Voiding Method Toilet Toilet # Voids 3 - Exam Gen: intubated, sedated HEENT: normocephalic, atraumatic, moist mucous membranes Resp: vent - AC, 100%, 500, PEEP 5 CVS: good distal perfusion x 4, regular rate and rhythm without murmurs GI: soft, NTTP, ND, appropriate bowel sounds : no SPT, no CVAT, scott catheter is present MSK: no pitting edema, no clubbing Neuro: non-focal, moving all extremities - Labs CBC & Chem 7: 05/22/20 08:28 05/22/20 08:28 Labs: Abnormal Lab Results - Last 24 Hours (Table) 05/22/20 05/22/20 05/23/20 Range/Units 08:28 20:20 05:18 ABG pH (7.35-7.45) ABG pCO2 (35-45) mmHg ABG pO2 (83-108) mmHg ABG Total CO2 (19-24) mmol/L ABG O2 Saturation (94-97) % ABG Hematocrit (34.0-46.0) % ABG Sodium (135-146) mmol/L ABG Potassium (3.4-4.5) mmol/L ABG Ionized Calcium (4.5-5.3) mg/dL ABG Glucose (75-99) mg/dL Hemoglobin (13.0-17.5) gm/dL POC Glucose (mg/dL) 140 H 110 H (75-99) mg/dL Arterial Blood Potassium (3.4-4.5) mmol/L Arterial Blood Glucose (75-99) mg/dL Crossmatch See Detail 05/23/20 05/23/20 05/23/20 Range/Units 06:48 08:38 10:39 ABG pH (7.35-7.45) ABG pCO2 (35-45) mmHg ABG pO2 307 H 121 H (83-108) mmHg ABG Total CO2 25 H 25 H (19-24) mmol/L ABG O2 Saturation 100.0 H 99.2 H (94-97) % ABG Hematocrit 33 L 30 L (34.0-46.0) % ABG Sodium (135-146) mmol/L ABG Potassium (3.4-4.5) mmol/L ABG Ionized Calcium (4.5-5.3) mg/dL ABG Glucose 154 H 171 H (75-99) mg/dL Hemoglobin 10.8 L 9.9 L (13.0-17.5) gm/dL POC Glucose (mg/dL) 132 H (75-99) mg/dL Arterial Blood Potassium (3.4-4.5) mmol/L Arterial Blood Glucose 154 H 171 H (75-99) mg/dL Crossmatch 05/23/20 05/23/20 05/23/20 Range/Units 11:38 11:52 12:25 ABG pH 7.34 L (7.35-7.45) ABG pCO2 (35-45) mmHg ABG pO2 142 H 371 H 292 H (83-108) mmHg ABG Total CO2 25 H 25 H 25 H (19-24) mmol/L ABG O2 Saturation 99.6 H 100.0 H 100.0 H (94-97) % ABG Hematocrit 31 L 28 L 25 L (34.0-46.0) % ABG Sodium 133 L (135-146) mmol/L ABG Potassium 5.2 H (3.4-4.5) mmol/L ABG Ionized Calcium 4.3 L 4.2 L (4.5-5.3) mg/dL ABG Glucose 183 H 181 H 260 H (75-99) mg/dL Hemoglobin 10.1 L 9.3 L 8.2 L (13.0-17.5) gm/dL POC Glucose (mg/dL) (75-99) mg/dL Arterial Blood Potassium 5.2 H (3.4-4.5) mmol/L Arterial Blood Glucose 183 H 181 H 260 H (75-99) mg/dL Crossmatch 05/23/20 05/23/20 05/23/20 Range/Units 12:49 13:25 14:06 ABG pH 7.30 L (7.35-7.45) ABG pCO2 47 H (35-45) mmHg ABG pO2 266 H 324 H 328 H (83-108) mmHg ABG Total CO2 25 H 25 H (19-24) mmol/L ABG O2 Saturation 100.0 H 100.0 H 100.0 H (94-97) % ABG Hematocrit 25 L 25 L 24 L (34.0-46.0) % ABG Sodium 134 L (135-146) mmol/L ABG Potassium (3.4-4.5) mmol/L ABG Ionized Calcium 4.3 L 4.2 L 4.3 L (4.5-5.3) mg/dL ABG Glucose 276 H 311 H 301 H (75-99) mg/dL Hemoglobin 8.2 L 8.0 L 7.8 L (13.0-17.5) gm/dL POC Glucose (mg/dL) (75-99) mg/dL Arterial Blood Potassium (3.4-4.5) mmol/L Arterial Blood Glucose 276 H 311 H 301 H (75-99) mg/dL Crossmatch 05/23/20 05/23/20 Range/Units 14:33 16:43 ABG pH (7.35-7.45) ABG pCO2 (35-45) mmHg ABG pO2 294 H (83-108) mmHg ABG Total CO2 25 H (19-24) mmol/L ABG O2 Saturation 100.0 H (94-97) % ABG Hematocrit 24 L (34.0-46.0) % ABG Sodium (135-146) mmol/L ABG Potassium (3.4-4.5) mmol/L ABG Ionized Calcium 4.3 L (4.5-5.3) mg/dL ABG Glucose 280 H (75-99) mg/dL Hemoglobin 7.8 L (13.0-17.5) gm/dL POC Glucose (mg/dL) 183 H (75-99) mg/dL Arterial Blood Potassium (3.4-4.5) mmol/L Arterial Blood Glucose 280 H (75-99) mg/dL Crossmatch Assessment and Plan Assessment: NSTEMI -Troponin 3.120. Troponins trended upward with initial troponin is 3.120 with repeats of 6.080 and 7.840. -EKG showing sinus tachycardia at 105 bpm with T-wave inversion in leads III and aVF, no signs of ST elevation. No previous EKGs available for comparison. -Continue heparin infusion, pharmacy to dose. -Cardiology following, patient scheduled to have cardiac cath = multivessel CAD; - CT surgery consulted, s/p CABG 05/23 -Telemetry monitoring. -Close monitoring of I's and O's. -Patient being placed on daily aspirin, atorvastatin, and metoprolol. -Lipid profile revealed elevation of triglycerides 200, cholesterol 241, LDL 164, HDL of 37. Atorvastatin increased to 80 mg nightly. - currently on milrinone gtt, nitro gtt; has been off-titrated levophed gtt Insulin-dependent diabetes mellitus type II -Glycemic protocol with NovoLog sliding scale and continuation of Lantus 20 units daily. -Hemoglobin A1c = 8.2% The patient is admitted with an anticipated greater than 2 midnight stay for evaluation of NSTEMI. Surrogate decision-maker: Self CODE STATUS: Full code DVT prophylaxis: Heparin Discussed with: Patient Anticipated discharge date: Clinical course to determine Anticipated discharge place: Home
[2020-05-23 17:07] LABS: INR 1.2 (<1.2); Partial Thromboplastin Time 24.5 sec (22.0-30.0); Prothrombin Time 12.2 sec (9.0-12.0)
[2020-05-23 17:09] LABS: HGB 9.8 gm/dL (13.0-17.5)
[2020-05-23 17:10] LABS: Glucose,Whole Blood 171 mg/dL (75-99)
[2020-05-23 17:10] LABS: Ionized Calcium 5.2 mg/dL (4.5-5.3)
[2020-05-23] MEDS: INSULIN REGULAR 100 UNIT in SODIUM CHLORIDE 0.9% 100 ML IV SCH (17:11)
[2020-05-23] MEDS: ALBUMIN HUMAN 5% 250 ML in EMPTY BAG 1 BAG IVPB PRN ×2 (17:22→18:50)
[2020-05-23 17:34] LABS: ALT 16 U/L (4-49); AST 58 U/L (17-59); African American GFR (CKD) >90 (>60 ml/min/1.73 sqM); Albumin 2.4 g/dL (3.5-5.0); Alkaline Phosphatase 34 U/L (38-126); Anion Gap 3 mmol/L; Blood Urea Nitrogen 9 mg/dL (9-20); Calcium 7.9 mg/dL (8.4-10.2); Carbon Dioxide 26 mmol/L (22-30); Chloride 107 mmol/L (98-107); Glucose 173 mg/dL (74-99); Magnesium 2.7 mg/dL (1.6-2.3); Non-African American GFR(CKD) >90 (>60 ml/min/1.73 sqM); Potassium 4.3 mmol/L (3.5-5.1); Sodium 136 mmol/L (137-145); Total Bilirubin 0.6 mg/dL (0.2-1.3); Total Protein 4.3 g/dL (6.3-8.2)
--- NOTE | 2020-05-23 17:38 | XR ---
EXAMINATION TYPE: XR chest 1V portable DATE OF EXAM: 05/23/2020 COMPARISON: 05/22/2020 HISTORY: Postoperative cardiac surgery. TECHNIQUE: Single frontal view of the chest is obtained. FINDINGS: There are interval cardiothoracic postsurgical changes. There is placement of right IJ [place] catheter with tip overlying the right pulmonary artery, endotracheal tube terminating 3.4 cm a grabiel the eric, nasogastric tube with tip overlying the stomach and left lower chest tube. There is moderate pulmonary edema with associated hazy opacity. There are small right and trace left pleural e ffusions. No pneumothorax. Cardiomegaly is seen. IMPRESSION: Status post cardiothoracic surgery and support apparatus placement as above.
--- NOTE | 2020-05-23 17:42 | P.PN ---
Subjective Progress Note Date: 05/23/20 This is a 55-year-old white male patient with past medical history of diabetes mellitus, insulin dependent, and strong family history of premature coronary artery disease in his father and his brother who had coronary artery bypass grafting surgeries in their early to mid 50s. Patient presented to the [facility] on 05/19/2020 symptoms of chest heaviness, general malaise, feeling very fatigued, chilled, run down. Patient had been feeling unwell for the last couple of weeks. He has been having chest pressure particularly at nighttime. 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 His EKG showed a sinus mechanism with inferior deep T-wave inversions, he had troponin elevation with his third troponin peaking at 7.840. Patient underwent cardiac evaluation, and had a heart catheterization on 05/20/2020 which showed ostial LAD lesion of 85%, mid LAD of 60-70%, apical LAD of 50%, diagonal branch 1 of 80%, diagonal 2 was 90%, circumflex of 50%, RCA stenosis of 90-100%. He had mildly elevated left-sided filling pressures with LVEDP of 17. Echocardiogram showed mild concentric LVH, mild to moderately impaired LV function with EF of 40-45%, there was generalized hypokinesis in the inferobasal, lateral and apical septal wall areas. There was mild pulmonary hypertension with right-sided pressure of 31.4 mmHg. ProBNP was elevated at 3030, her chest x-ray showed mild right perihilar infiltrate. No leukocytosis, hemoglobin on admission was 14.6, d-dimer was negative at 0.59 lites and renal profile were unremarkable, was checked for COVID 19 and the PCR was negative, urinalysis showed 4+ glucose and 1+ ketones but no signs of infection. Review of multivessel coronary artery disease CT surgery was consulted us ability of bypass surgery, patient underwent TOYIN today and showed no significant aortic valve insufficiency, mitral valve was structurally normal, with mild amount of posterior leaflet tethering, and there was moderate to severe predominantly central secondary mitral regurgitation. Tricuspid valve appear to be normal. There was no evidence of PFO. Left atrial appendage was free of clot. We are consulted for pulmonary/critical care management in the postoperative period, preop FEV1 was completed, and was in the order of 58% of predicted, and patient denies any chronic lung disease, and he is a lifetime nonsmoker. Patient is undergoing some additional preop testing, he was also found to have 70% stenosis of the proximal internal carotid artery on the left on the Doppler ultrasound of the carotid arteries. CT neck was completed today showing right ICA 50-60%, and left ICA of greater than 90%. During the time of our evaluation patient is sitting up in the recliner, he is on room air, breathing comfortably denies any chest pain, or difficulty breathing, or socks is 96%, he is afebrile, hemodynamically stable. 05/22/2020 patient seen in follow-up on selective care unit, his increased up in the recliner, in no acute distress, currently on room air, and his pulse ox is 96% on room air, he is breathing comfortable, lung sounds reveal some bibasilar crackles, no repeat chest x-ray today. Patient has been maintaining stable O2 saturations on room air, he's been ambulating in the room, tolerating it well. He is working on incentive spirometer, his creatinine FEV1 showed FEV1 of 58%. He was found to have carotid artery stenosis, the left ICA of 90%, and the right ICA 50-60%. In the plan is for left carotid endarterectomy at a later date. No complaints of chest pain, no shortness of breath, patient is on heparin infusion, no acute events overnight. On 05/23/2020 patient is seen in follow-up in the intensive care unit following his bypass surgery with ZELAYA to the LAD, left radial artery graft to the circumflex, SVG to the diagonal, SVG to the RCA mitral valve repair, and left atrial appendage exclusion. Patient is sedated, on mechanical ventilator, current vent settings are assist-control with a rate of 12, tidal volume is 550, FiO2 of 100%, and PEEP of 5. Awaiting a blood gas. Chest x-ray has been completed, ET tube, [place]-Noé catheter, chest tubes are in appropriate positions. And there are persistent mild to moderate left greater than right bibasilar opacities. No significant pleural effusions or pneumothorax. Hemodynamically patient is stable, he is on 0.9 normal saline at 50 ML per hour, Primacor is at 0.25 mics per kilo per minute, nitroglycerin is a 5 mics per kilo per minute, Diprivan is at 25 mics per kilo per minute. He is in sinus mechanism with a rate of 87, AV wires in place, connected to an external pacemaker. Cardiac output is 7.2, and cardiac index is 3.5, PA pressures 20/16, with CVP of 7. Patient has [address] 2 mediastinal and one left pleural, there is 250 out of mediastinal chest tubes of single is output, and about 70 mL of cigarettes output in the left pleural. Estimated blood loss Intra-Op was around 2 L, patient received 550 in the Cell Saver. Objective - Vital Signs Vital signs: Vital Signs Temp 99.3 F 05/23/20 06:23 Pulse 86 05/23/20 06:23 Resp 18 05/23/20 06:23 BP 149/90 05/23/20 06:23 Pulse Ox 97 05/23/20 06:23 Intake & Output 05/22/20 05/23/20 05/23/20 18:59 06:59 18:59 Intake Total 1510 390 53 Output Total 600 3500 Balance 910 390 -3447 Weight 85.8 kg Intake: IV 100 53 Intake, IV Titration 250 Amount Heparin Sod,Pork in 0.45% 250 NaCl 25,000 unit In 0.45 % NaCl 1 250ml.bag @ 11. 83 UNITS/KG/HR 9.996 mls/ hr IV .Q24H [facility] Rx#: [id number] Oral 1260 290 Output: Urine 600 1500 Estimated Blood Loss 1999 Other: Voiding Method Toilet Toilet # Voids 3 - Exam GENERAL EXAM: Sedated, intubated on assist control mode of ventilation white male, 55 years old, comfortable, in no acute distress HEAD: Normocephalic/atraumatic. EYES: Normal reaction of pupils, equal size. Conjunctiva pink, sclera white. NOSE: Clear with pink turbinates. THROAT: No erythema or exudates. NECK: No masses, no JVD, no thyroid enlargement, no adenopathy. CHEST: No chest wall deformity. Symmetrical expansion. Midsternal incision is clean dry and intact, 2 mediastinal and one left pleural chest tubes in place, no air leak, there is 270 mL in the Pleur-evac connected to the 2 mediastinal chest tubes and about 70 out of the left pleural chest tube of the sanguinous output. AV wires in place, connected to an external pacemaker, intrinsic rhythm is sinus rhythm with a rate of 87 LUNGS: Equal air entry with no crackles, wheeze, rhonchi or dullness. CVS: Regular rate and rhythm, normal S1 and S2, no gallops, no murmurs, no rubs ABDOMEN: Soft, nontender. No hepatosplenomegaly, normal bowel sounds, no guarding or rigidity. EXTREMITIES: No clubbing, no edema, no cyanosis, 2+ pulses and upper and lower extremities. MUSCULOSKELETAL: Muscle strength and tone normal. Left radial artery graft site is wrapped with Damir wrapped, dated the ALCIDES drain with minimal sanguinous output, bilateral legs are Damir wrapped, and SCDs are on SPINE: No scoliosis or deformity SKIN: No rashes CENTRAL NERVOUS SYSTEM: Sedated, intubated No focal deficits, tone is normal in all 4 extremities. - Labs CBC & Chem 7: 05/23/20 16:45 05/22/20 08:28 Labs: Abnormal Lab Results - Last 24 Hours (Table) 05/22/20 05/22/20 05/23/20 Range/Units 08:28 20:20 05:18 ABG pH (7.35-7.45) ABG pCO2 (35-45) mmHg ABG pO2 (83-108) mmHg ABG Total CO2 (19-24) mmol/L ABG O2 Saturation (94-97) % ABG Hematocrit (34.0-46.0) % ABG Sodium (135-146) mmol/L ABG Potassium (3.4-4.5) mmol/L ABG Ionized Calcium (4.5-5.3) mg/dL ABG Glucose (75-99) mg/dL Hemoglobin (13.0-17.5) gm/dL POC Glucose (mg/dL) 140 H 110 H (75-99) mg/dL Arterial Blood Potassium (3.4-4.5) mmol/L Arterial Blood Glucose (75-99) mg/dL Crossmatch See Detail 05/23/20 05/23/20 05/23/20 Range/Units 06:48 08:38 10:39 ABG pH (7.35-7.45) ABG pCO2 (35-45) mmHg ABG pO2 307 H 121 H (83-108) mmHg ABG Total CO2 25 H 25 H (19-24) mmol/L ABG O2 Saturation 100.0 H 99.2 H (94-97) % ABG Hematocrit 33 L 30 L (34.0-46.0) % ABG Sodium (135-146) mmol/L ABG Potassium (3.4-4.5) mmol/L ABG Ionized Calcium (4.5-5.3) mg/dL ABG Glucose 154 H 171 H (75-99) mg/dL Hemoglobin 10.8 L 9.9 L (13.0-17.5) gm/dL POC Glucose (mg/dL) 132 H (75-99) mg/dL Arterial Blood Potassium (3.4-4.5) mmol/L Arterial Blood Glucose 154 H 171 H (75-99) mg/dL Crossmatch 05/23/20 05/23/20 05/23/20 Range/Units 11:38 11:52 12:25 ABG pH 7.34 L (7.35-7.45) ABG pCO2 (35-45) mmHg ABG pO2 142 H 371 H 292 H (83-108) mmHg ABG Total CO2 25 H 25 H 25 H (19-24) mmol/L ABG O2 Saturation 99.6 H 100.0 H 100.0 H (94-97) % ABG Hematocrit 31 L 28 L 25 L (34.0-46.0) % ABG Sodium 133 L (135-146) mmol/L ABG Potassium 5.2 H (3.4-4.5) mmol/L ABG Ionized Calcium 4.3 L 4.2 L (4.5-5.3) mg/dL ABG Glucose 183 H 181 H 260 H (75-99) mg/dL Hemoglobin 10.1 L 9.3 L 8.2 L (13.0-17.5) gm/dL POC Glucose (mg/dL) (75-99) mg/dL Arterial Blood Potassium 5.2 H (3.4-4.5) mmol/L Arterial Blood Glucose 183 H 181 H 260 H (75-99) mg/dL Crossmatch 05/23/20 05/23/20 05/23/20 Range/Units 12:49 13:25 14:06 ABG pH 7.30 L (7.35-7.45) ABG pCO2 47 H (35-45) mmHg ABG pO2 266 H 324 H 328 H (83-108) mmHg ABG Total CO2 25 H 25 H (19-24) mmol/L ABG O2 Saturation 100.0 H 100.0 H 100.0 H (94-97) % ABG Hematocrit 25 L 25 L 24 L (34.0-46.0) % ABG Sodium 134 L (135-146) mmol/L ABG Potassium (3.4-4.5) mmol/L ABG Ionized Calcium 4.3 L 4.2 L 4.3 L (4.5-5.3) mg/dL ABG Glucose 276 H 311 H 301 H (75-99) mg/dL Hemoglobin 8.2 L 8.0 L 7.8 L (13.0-17.5) gm/dL POC Glucose (mg/dL) (75-99) mg/dL Arterial Blood Potassium (3.4-4.5) mmol/L Arterial Blood Glucose 276 H 311 H 301 H (75-99) mg/dL Crossmatch 05/23/20 05/23/20 Range/Units 14:33 16:43 ABG pH (7.35-7.45) ABG pCO2 (35-45) mmHg ABG pO2 294 H (83-108) mmHg ABG Total CO2 25 H (19-24) mmol/L ABG O2 Saturation 100.0 H (94-97) % ABG Hematocrit 24 L (34.0-46.0) % ABG Sodium (135-146) mmol/L ABG Potassium (3.4-4.5) mmol/L ABG Ionized Calcium 4.3 L (4.5-5.3) mg/dL ABG Glucose 280 H (75-99) mg/dL Hemoglobin 7.8 L (13.0-17.5) gm/dL POC Glucose (mg/dL) 183 H (75-99) mg/dL Arterial Blood Potassium (3.4-4.5) mmol/L Arterial Blood Glucose 280 H (75-99) mg/dL Crossmatch Assessment and Plan Plan: Assessment: #1. Multivessel coronary artery disease, status post four-vessel coronary artery bypass grafting, with ZELAYA to the LAD, left radial artery graft to the circumflex, SVG to the diagonal, SVG to the PDA, and mitral valve repair, and left atrial appendage exclusion, postoperative day #0 #2. Routine postoperative ventilator management #3. Acute non-ST elevated myocardial infarction #4. Multivessel coronary artery disease, awaiting surgery #5. Moderate to severe mitral regurgitation of 3+, being evaluated for surgery #6. Diabetes mellitus type 2, insulin dependent #7. Lifetime nonsmoker, preop FEV1 58% possibly related to restrictive alveolar pattern, related to interstitial edema #8. Acute exacerbation of CHF with systolic dysfunction, and mild to moderate impairment of left ventricular systolic function EF of 40-45% #9. Acute ischemic cardiomyopathy EF of 40-45% #10. Left internal carotid stenosis of greater than 70% #11. Regular EtOH intake of 3-4 alcoholic drinks on a daily basis #12. Hyperlipidemia Plan: Increase the rate to 20 breaths per minute, continue weaning FiO2 per protocol, awaiting postoperative blood gas, hemodynamically patient is stable, not on any vasopressor support, no significant bleeding from the chest tubes, postoperative lab work and chest x-ray reviewed. Breathing treatments every 4 hours [id number] while on the ventilator, creased to 4 times daily once patient extubated, incentive spirometer to the bedside, encourage deep breathing and coughing, anticipate fast weaning and extubation. Follow-up labs and chest x- ray in the morning, we'll continue to closely follow with cardiothoracic surgery. GI and DVT prophylaxis per cardiothoracic surgery. Close blood sugar monitoring I performed a history & physical examination of the patient and discussed their management with my nurse practitioner, Felisha Block. I reviewed the nurse practitioner's note and agree with the documented findings and plan of care. Lung sounds are positive for the next breath sounds. The findings and the impression was discussed with the patient. I attest to the documentation by the nurse practitioner. Time with Patient: Greater than 30
[2020-05-23] MEDS: NOREPINEPHRINE 4 MG in SODIUM CHLORIDE 0.9% 250 ML IV SCH ×2 (18:06→19:57)
[2020-05-23 18:14] LABS: Glucose,Whole Blood 132 mg/dL (75-99)
[2020-05-23] MEDS: ACETAMINOPHEN IV (For NPO) 1,000 MG in EMPTY BAG 1 BAG IVPB SCH ×2 (18:19→23:44)
[2020-05-23] MEDS: KETOROLAC 15 MG/ML 1 ML VIAL IVP SCH ×2 (18:34→23:45)
--- NOTE | 2020-05-23 18:38 | OP ---
OPERATIVE REPORT DATE OF SURGERY: 05/23/2020 SURGEON: Dr. Kati Dominguez. ASSISTANTS: 1. Mark Gramajo, CAMILA. 2. CAMILA Bradley. 3. CAMILA Mehta. PREOPERATIVE DIAGNOSES: 1. Triple-vessel coronary artery disease. 2. Moderate left ventricular dysfunction. 3. Moderate to severe mitral valve regurgitation. 4. Severe left internal carotid artery stenosis. 5. Diabetes mellitus. 6. Hyperlipidemia. 7. Strong family history of coronary artery disease. POSTOPERATIVE DIAGNOSES: 1. Triple-vessel coronary artery disease. 2. Moderate left ventricular dysfunction. 3. Moderate to severe mitral valve regurgitation. 4. Severe left internal carotid artery stenosis. 5. Diabetes mellitus. 6. Hyperlipidemia. 7. Strong family history of coronary artery disease. 8. Diffuse coronary artery disease. PROCEDURE: 1. Quadruple coronary artery bypass grafting using the left internal mammary artery to the left anterior descending artery, reverse saphenous vein graft from the aorta to the first diagonal artery, left radial artery taken proximally from the previous vein graft and anastomosed distally to the distal circumflex artery, reverse saphenous vein graft from the aorta to the right coronary artery. 2. Mitral valve repair with posterior annuloplasty using a 28 mm incomplete AnnuloFlex ring. 3. Exclusion of the left atrial appendage using a 35 mm AtriClip. 4. Intraoperative graft flow measurements using the Craft Dragon system. 5. Endoscopic harvesting of the left radial artery. 6. Endoscopic harvesting of left greater saphenous vein. 7. Intraoperative transesophageal echocardiogram and epiaortic scanning. INDICATION FOR SURGERY: Patient is a 55-year-old gentleman with the above comorbidities with a very strong family history who had been complaining of malaise for several days. He came into the emergency room to rule out COVID. However, he was found to have positive troponin and EKG changes. The patient was ruled in for [id number]-[id number] myocardial infarction. Echo and cardiac catheterization as well as TOYIN concluded diffuse triple-vessel coronary artery disease, moderate left ventricular dysfunction and moderate to severe ischemic mitral valve regurgitation. The patient was optimized over several days, and at this point he has been taken for coronary artery bypass grafting as well as mitral valve repair. His carotid duplex as well as a CTA head showed 80% to 90% stenosis that is asymptomatic of the left internal carotid artery. That was discussed with his primary copy coordinator and the decision was made not to address the carotid in the same setting. That has been explained to the patient and the family. They understood all the risks and have agreed to proceed. DESCRIPTION OF PROCEDURE: With the patient in supine position, right internal jugular [place]-Noé catheter and right radial arterial line were placed. His cardiac index was 2.4 and his PA pressure was 48/28. Subsequently he was brought to the operating room, where general endotracheal anesthesia was induced uneventfully. A Preciado catheter was inserted. The chest, abdomen, both lower extremities and the left upper extremity were prepped and draped using ChloraPrep. Ioban was used to cover the skin. Patient received 2 grams of cefazolin intravenously. Midline sternotomy was performed and no bone wax was used. We used BoneSeal. The bone was mildly osteoporotic in its lower third. The left hemisternum was elevated and left internal mammary artery was harvested in a somewhat skeletonized fashion. The left pleura was intentionally opened in this process and was drained with a 19-Swiss Kip drain. The patient was given 5000 units of heparin. The mammary artery was clipped distally and transected. It had an excellent pulsatile flow in it and was around 2 mm in diameter. In the same setting, left radial artery endoscopic harvesting took place. It was initially exposed at the wrist and a clamping trial revealed preserved signal in the left index plethysmography probe. So the artery was harvested endoscopically, initially without tourniquet. Then at the end, as there was proximal branch bleeding, a tourniquet was inflated for a brief period and the proximal stump controlled. The forearm incision was closed over a drain. The radial artery was prepared by incising the fascia all along its volar aspect and clipping all its branches. It was of good quality, around 2.5 mm in diameter. Also in the same setting, the left greater saphenous vein was harvested endoscopically from groin to just below knee level. The leg incisions were closed over a drain. The vein was prepared and it had large varicosities in its lower aspect. However, we had a reasonable quality segment in the thigh level to use. Michael mitral retractor was used. Mediastinal fat was transected between 2 ties. Epiaortic scanning revealed concentric intimal thickening but no protruding atheroma in the ascending aorta. Pericardium was opened in an inverted T-fashion and a pericardial cradle was created. Findings included a normal soft aorta and enlarged heart. There was diffuse coronary artery disease. After systemic heparinization, after placement of respective pledgeted pursestrings, aortic cannulation in the proximal arch with a 21-Swiss Soft flow cannula, direct SVC cannulation with a 28-Swiss right-angle cannula and IVC cannulation at the junction with the right atrium with a 32-Swiss straight cannula were performed. Antegrade as well as retrograde cardioplegia catheters were placed. Cardiopulmonary bypass was initiated and patient's temperature was allowed to drift down to 34 degrees Celsius. With the heart empty and beating, we looked at the target. The LAD, as known on cath, was diffusely diseased. I elected to do it between the 2 diagonal arteries where it was of good caliber and thin-walled in its mid aspect. The first diagonal artery was identified before it went intramyocardial beyond the diseased segment and would be a site for bypass. The distal circumflex artery also was identified after coming off an intramyocardial course and had diffuse disease in it. Looking at the inferior wall, there was an early rising PDA and a good-sized right coronary artery leading into it. The PDA was diffusely diseased. I elected to do the soft segment of RCA. Both cavae were encircled with umbilical tape. Aorta was clamped, and during aortic clamping myocardial protection was achieved. Initial dose of 1 L of antegrade cold blood cardioplegia was followed by 500 mL of retrograde cold blood cardioplegia. All subsequent doses were given retrograde at 15- to 20-minute intervals. The first distal anastomosis was between a segment of vein of around 5 mm in diameter (however, uniform) and the 2 mm right coronary artery in its distal aspect where it was thin-walled using Prolene 7-0 in continuous fashion. When I opened the right coronary artery, I was able to pass a 1 mm probe into the PDA. The second distal anastomosis was between the radial artery and the distal obtuse marginal artery, which when opened was around 1.25 mm in diameter, thin-walled. I placed a shunt in it. Beyond the anastomosis, there was eccentric plaque. The radial artery was anastomosed to that OM using Prolene 7-0 in continuous fashion. The third distal anastomosis was between another segment of vein of reasonable quality and the 1.25 thin-walled segment of the proximal first diagonal artery using Prolene 7-0 in continuous fashion. The fourth and last distal anastomosis was between the left internal mammary artery and the mid aspect of the left anterior descending artery which when opened was around 1.75 mm in diameter with a posterior plaque; however, thin anterior and lateral wall, using Prolene 7-0 in continuous fashion. At this point, attention was moved to the mitral valve repair part. A standard transverse left atriotomy was performed. It was a bit hard to expose the mitral valve. We eventually were able to pass a total of 8 TiCron 2-0 non-pledgeted sutures from trigone to trigone posteriorly, and a 28 mm AnnuloFlex ring was used in its posterior segment only. The sutures were passed into the ring, which seated nicely. The needles were cut and the suture tied using the Core-knot device. Testing of the valve revealed no leak at this point. The left atriotomy was closed in one layer using Prolene 4-0 pledgeted on each corner and meeting in the midline. CO2 was flowing over the field as long as the left atrium was opened, and de-airing maneuvers were done before completing closure of atriotomy. Left atrial appendage had been excluded with a 35 mm AtriClip deployed at its base. At this point, rewarming was started. We punched out 2 buttons of the ascending aorta, and the 2 vein graft were anastomosed using Prolene 6-0 in a continuous fashion. The radial artery, being that it went to the distal circumflex artery in a gentleman with a short forearm, would not reach the aorta. I elected to take it as inflow from the vein graft going to the first diagonal artery. A venotomy was made around 3 cm proximal to the vein geronimo and the aorta, and the radial artery was anastomosed to that area over the pulmonary artery using Prolene 7-0 in continuous fashion. De-airing was performed. One liter of retrograde blood was given as we were performing the last anastomosis. Patient was given lidocaine and magnesium. The patient was placed in Trendelenburg position and de-airing maneuvers were performed again one more time and the aorta was unclamped. The patient regained spontaneous sinus rhythm. All anastomoses appeared hemostatic. After around 15 minutes of reperfusion and after half load of Primacor, we were able to wean off cardiopulmonary bypass with low-dose Levophed and low- dose Primacor. Echo showed improved LV function. No mitral valve regurgitation. De-airing maneuver was guided by TOYIN and it was eventually satisfactory. Eventually again we weaned off cardiopulmonary bypass. All suckers were stopped, as we gave test- dose then full-dose protamine. Decannulation followed. No reinforcement sutures were required. Two monopolar atrial pacing wires were affixed to the respective pursestrings of the right atrium and one bipolar ventricular pacing wire was driven via the inferior aspect of the right ventricle. Two 19-Swiss Kip drains were left substernally. A groove was made in the left pleuropericardial fat to accommodate the mammary artery medial to the lung and away from the posterior sternal table. The right graft coursed over the AV groove. Pericardial fat was approximated over the heart and the aorta. After ensuring adequate hemostasis and hemodynamics and after correct sponge, instrument and needle counts, the sternum was closed using 5 [id number] [place] cables after interposing Fibrillar between the sternal edges. Thorough irrigation with cefazolin followed. The rest of the closure proceeded in layers. Skin glue was applied. Patient's cardiac index was 3 and PA pressure was 40/20 with normal sinus rhythm at 80 and mean arterial pressure of 73 on low-dose Primacor and Levophed. Patient did not receive any blood bank products but received 550 mL of Cell Saver blood. MMODL / IJN: [id number] / MTDD
[2020-05-23] MEDS: IPRATROPIUM-ALBUTEROL 3 ML NEB INHALATION SCH ×3 (18:52→21:12)
[2020-05-23 18:57] LABS: Glucose,Whole Blood 133 mg/dL (75-99)
[2020-05-23 19:04] LABS: Basophils % (A) 0 %; Eosinophils % (A) 1 %; HCT 26.5 % (39.0-53.0); HGB 9.1 gm/dL (13.0-17.5); Lymphocytes # (A) 0.4 k/uL (1.0-4.8); Lymphocytes % (A) 5 %; MCH 31.5 pg (25.0-35.0); MCHC 34.4 g/dL (31.0-37.0); MCV 91.6 fL (80.0-100.0); Mean Platelet Volume 8.7; Monocytes # (A) 0.6 k/uL (0-1.0); Monocytes % (A) 8 %; Neutrophils # (A) 6.5 k/uL (1.3-7.7); Neutrophils % (A) 86 %; Platelet Count 187 k/uL (150-450); Poikilocytosis Slight; RBC 2.89 m/uL (4.30-5.90); RDW 12.9 % (11.5-15.5); WBC 7.6 k/uL (3.8-10.6)
[2020-05-23 20:08] LABS: Glucose,Whole Blood 161 mg/dL (75-99)
[2020-05-23] MEDS ORDERED: LORazepam 2 MG/ML INJ IV PRN ×3 (20:12)
[2020-05-23] MEDS: CLOPIDOGREL 75 MG TAB PO SCH (20:16)
[2020-05-23] MEDS: ASPIRIN 325 MG TAB PO SCH (20:17)
[2020-05-23] MEDS: MUPIROCIN 2% OINT 22 GM TUBE NASAL SCH (20:17)
[2020-05-23] MEDS ORDERED: METOPROLOL TARTRATE 25 MG TAB PO SCH (21:00)
[2020-05-23 21:01] LABS: Glucose,Whole Blood 152 mg/dL (75-99)
[2020-05-23 21:15] LABS: Basophils % (A) 0 %; Eosinophils % (A) 0 %; HCT 24.8 % (39.0-53.0); HGB 8.4 gm/dL (13.0-17.5); Lymphocytes # (A) 0.4 k/uL (1.0-4.8); Lymphocytes % (A) 5 %; MCH 31.1 pg (25.0-35.0); MCHC 34.1 g/dL (31.0-37.0); MCV 91.4 fL (80.0-100.0); Mean Platelet Volume 8.1; Monocytes # (A) 0.6 k/uL (0-1.0); Monocytes % (A) 7 %; Neutrophils # (A) 7.9 k/uL (1.3-7.7); Neutrophils % (A) 87 %; Platelet Count 224 k/uL (150-450); Poikilocytosis Slight; RBC 2.71 m/uL (4.30-5.90); RDW 12.8 % (11.5-15.5); WBC 9.1 k/uL (3.8-10.6)
[2020-05-23 22:04] LABS: Glucose,Whole Blood 167 mg/dL (75-99)
[2020-05-23 22:06] LABS: ABG Base Excess -0.4 mmol/L; ABG HCO3 25 mmol/L (21-25); ABG Oxygen Saturation 99.2 % (94-97); ABG PCO2 43 mmHg (35-45); ABG PH 7.37 (7.35-7.45); ABG PO2 155 mmHg (83-108); ABG TCO2 26 mmol/L (19-24); Allen Test Performed? Yes
[2020-05-23 22:08] LABS: ABG Base Excess -0.1 mmol/L; ABG HCO3 24 mmol/L (21-25); ABG Oxygen Saturation 98.6 % (94-97); ABG PCO2 37 mmHg (35-45); ABG PH 7.42 (7.35-7.45); ABG PO2 104 mmHg (83-108); ABG TCO2 26 mmol/L (19-24); Allen Test Performed? Yes
[2020-05-23 23:04] LABS: Glucose,Whole Blood 144 mg/dL (75-99)
[2020-05-23] MEDS: HEPARIN SODIUM,PORCINE 5,000 UNIT/ML 1 ML VIAL SQ SCH (23:46)
[2020-05-23] MEDS: HYDROcodone/APAP 5-325MG 1 EACH TAB PO PRN (23:58)
[2020-05-24 00:08] LABS: Glucose,Whole Blood 131 mg/dL (75-99)
[2020-05-24 01:10] LABS: Glucose,Whole Blood 133 mg/dL (75-99)
[2020-05-24] MEDS: MILRINONE-D5W PMX 20 MG in DEXTROSE/WATER 1 100ML.BAG IV SCH (03:56)
[2020-05-24] MEDS: HYDROcodone/APAP 5-325MG 1 EACH TAB PO PRN ×5 (03:57→20:51)
[2020-05-24 04:06] LABS: Glucose,Whole Blood 123 mg/dL (75-99)
[2020-05-24 04:21] LABS: Basophils % (A) 0 %; Eosinophils % (A) 0 %; HCT 24.9 % (39.0-53.0); HGB 8.8 gm/dL (13.0-17.5); Lymphocytes # (A) 0.8 k/uL (1.0-4.8); Lymphocytes % (A) 8 %; MCH 32.1 pg (25.0-35.0); MCHC 35.4 g/dL (31.0-37.0); MCV 90.6 fL (80.0-100.0); Mean Platelet Volume 8.7; Monocytes # (A) 0.7 k/uL (0-1.0); Monocytes % (A) 7 %; Neutrophils % (A) 84 %; Platelet Count 228 k/uL (150-450); Poikilocytosis Slight; RBC 2.74 m/uL (4.30-5.90); RDW 12.3 % (11.5-15.5); WBC 9.6 k/uL (3.8-10.6)
[2020-05-24 04:24] LABS: Ionized Calcium 4.7 mg/dL (4.5-5.3)
[2020-05-24 04:30] LABS: ALT 23 U/L (4-49); AST 77 U/L (17-59); African American GFR (CKD) >90 (>60 ml/min/1.73 sqM); Albumin 2.8 g/dL (3.5-5.0); Alkaline Phosphatase 38 U/L (38-126); Anion Gap 4 mmol/L; Blood Urea Nitrogen 13 mg/dL (9-20); Calcium 7.6 mg/dL (8.4-10.2); Carbon Dioxide 23 mmol/L (22-30); Chloride 108 mmol/L (98-107); Glucose 117 mg/dL (74-99); Magnesium 2.2 mg/dL (1.6-2.3); Non-African American GFR(CKD) >90 (>60 ml/min/1.73 sqM); Potassium 5.4 mmol/L (3.5-5.1); Sodium 135 mmol/L (137-145); Total Bilirubin 0.4 mg/dL (0.2-1.3); Total Protein 4.7 g/dL (6.3-8.2)
[2020-05-24] MEDS: ONDANSETRON 4 MG/2 ML VIAL IVP PRN (05:08)
[2020-05-24 05:12] LABS: Glucose,Whole Blood 129 mg/dL (75-99)
[2020-05-24] MEDS: ALBUMIN HUMAN 5% 250 ML in EMPTY BAG 1 BAG IVPB PRN ×2 (06:10→06:49)
[2020-05-24] MEDS: KETOROLAC 15 MG/ML 1 ML VIAL IVP SCH ×4 (06:11→23:12)
[2020-05-24] MEDS: NOREPINEPHRINE 4 MG in SODIUM CHLORIDE 0.9% 250 ML IV SCH ×3 (06:12→18:25)
--- NOTE | 2020-05-24 06:54 | XR ---
EXAMINATION TYPE: XR chest 1V portable DATE OF EXAM: 05/24/2020 COMPARISON: 05/23/2020 HISTORY: Shortness of breath TECHNIQUE: Single frontal view of the chest is obtained. FINDINGS: There has been interval decrease in the prominent interstitial markings seen on the prior study likel y reflecting a decrease in interstitial edema. There is a moderate retrocardiac partially consolidati ve opacity which is unchanged. There is a small focal opacity in the right lung base/infrahilar regio n which is stable. There is been interval removal of the ET tube and NG tube. The [place]-Noé catheter is unchanged in pos ition. No pneumothorax. The osseous structures are grossly intact. IMPRESSION: Interval improvement in the interstitial markings in the prior study likely reflecting decreased inte rstitial edema. Bibasilar opacities are unchanged.
--- NOTE | 2020-05-24 07:03 | P.PN ---
Subjective Progress Note Date: 05/24/20 On today's evaluation of 05/24/2020, the patient is postop day #1. The patient was brought into the intensive care unit and he was hemodynamically stable and was extubated at around 9:15 PM yesterday. This morning, the patient is able to sit up on a recliner. He remains extubated. He remains on oxygen at 2 L per minute nasal cannula. Note that since his surgery, the patient initially received 500 mL bolus of albumin 5%, after sitting up on a chair his blood pressure dropped again and we had to give another bolus of 500 mL of albumin. His urine output is improving. Overnight, he was taken off the Primacor and he was started on levo fed initially 0.05 g and currently he is running at 0.11 mcg/kg per minute. Urine output is adequate for now. BP is showing a systolic of 100-110. Cardiac output is 5.4 with an index of 2.7. No cardiac arrhythmias. No atrial fibrillation. His cardiac rhythm is sinus. Chest tubes are still in place. Output from the mediastinal was 500 mL yesterday and left pleural is 300. The patient has a total of 3 chest tubes left pleural, mediastinal 2. The patient otherwise is doing well. He did have a bout of blurred vision in his left eye yesterday without any neurologic deficit and currently is neurologically intact. No aphasia. No headaches. No altered mentation. Insulin drip is running at 1.5 units an hour and nitroglycerin drip drip is running at 5 units an hour regarding his radial artery harvest. Otherwise, no other significant events. Chest x-ray shows adequate expansion of both lungs. No evidence of any pneumothorax. There is a gastric bubble. [place]- Noé catheter is still in place. Hemoglobin today is at 8.8. Rest of the blood work is all within normal limits. Objective - Vital Signs Vital signs: Vital Signs Temp 99.5 F 05/24/20 06:00 Pulse 80 05/24/20 06:00 Resp 19 05/24/20 06:00 BP 96/63 05/24/20 06:00 Pulse Ox 97 05/24/20 06:00 Intake & Output 05/23/20 05/23/20 05/24/20 06:59 18:59 06:59 Intake Total 390 155.309 5014.583 Output Total 4340 852 Balance 390 -3865.307 660.583 Weight 85.8 kg 89.9 kg Intake: IV 100 72 918 .9NS Pressure Bag 9 108 Cardiac Output 10 160 Sodium Chloride 0.9% 1, 550 000 ml @ 50 mls/hr IV . Q20H [facility] Rx#:[id number] ceFAZolin 2 gm In Sodium 100 Chloride 0.9% 50 ml @ 100 mls/hr IVPB Q8HR [facility] Rx# :[id number] Intake, IV Titration 402.693 594.583 Amount Albumin Human 5% 250 ml @ 250 250 0 mls/hr IVPB .[facility] Rx#:[id number] Insulin Regular 100 unit 2.693 23.533 In Sodium Chloride 0.9% 100 ml @ Per Protocol IV .Q0M [facility] Rx#:[id number] Milrinone-D5w Pmx 20 mg 54.805 In Dextrose/Water 1 100ml .bag @ 0.25 MCG/KG/MIN 6. 435 mls/hr IV .[id number] [facility] Rx#:[id number] Norepinephrine 4 mg In 216.245 Sodium Chloride 0.9% 250 ml @ 0.05 MCG/KG/MIN 16. 345 mls/hr IV .[id number] [facility] Rx#:[id number] Sodium Chloride 0.9% 1, 100 50 000 ml @ 50 mls/hr IV . Q20H [facility] Rx#:[id number] ceFAZolin 2 gm In Sodium 50 Chloride 0.9% 50 ml @ 100 mls/hr IVPB Q8HR [facility] Rx# :[id number] Oral 290 Output: Chest Tube Drainage 360 422 Left Pleural Chest tube 120 182 Mediastinal Chest Tubes X 240 240 2 Drainage 0 Left Wrist 0 Urine 1980 430 Estimated Blood Loss 1999 Other: Voiding Method Toilet Indwelling Catheter # Voids 3 ABP, PAP, CO, CI - Last Documented Arterial Blood Pressure 107/58 Pulmonary Artery Pressure 43/22 Cardiac Output 5.4 Cardiac Index 2.7 - Exam Gen. appearance, comfortable not in acute distress, sitting up on a chair, communicating, no signs of any respiratory distress. The patient has a right IJ Cordis and [place]-Noé catheter in place. He is extubated. Neck was supple and without jugular venous distension, thyromegaly, or carotid bruits. Carotids were easily palpable bilaterally. There was no adenopathy. The patient has a right IJ [place]-Noé catheter in place. Lungs sounds are diminished bilaterally. The patient has 3 chest tubes, left pleural and 2 mediastinal chest tubes and all of them are in place. Sternum is stable clean and intact. Cardiac exam revealed the PMI to be normally situated and sized. The rhythm was regular and no extrasystoles were noted during several minutes of auscultation. The first and second heart sounds were normal and physiologic splitting of the second heart sound was noted. There were no murmurs, rubs, clicks, or gallops. Abdominal exam revealed normal bowel sounds. The abdomen was soft, non-tender, and without masses, organomegaly, or appreciable enlargement of the abdominal aorta. Examination of the extremities revealed easily palpable radial, femoral and pedal pulses. There was no cyanosis, clubbing or edema. Surgical wound site over the left radial area is dry clean and intact. There is a ALCIDES drain in place without any significant output. Surgical wound site over the lower extremity are also dry clean and intact. Examination of the skin revealed no evidence of significant rashes, suspicious appearing nevi or other concerning lesions. Neurologically, the patient is awake and alert and the patient does not have any focal neurological deficit. Cranial nerves are essentially intact. - Labs CBC & Chem 7: 05/24/20 04:17 05/24/20 04:17 Labs: Abnormal Lab Results - Last 24 Hours (Table) 05/22/20 05/23/20 05/23/20 Range/Units 08:28 08:38 10:39 RBC (4.30-5.90) m/uL Hgb (13.0-17.5) gm/dL Hct (39.0-53.0) % Neutrophils # (1.3-7.7) k/uL Lymphocytes # (1.0-4.8) k/uL PT (9.0-12.0) sec INR (<1.2) ABG pH (7.35-7.45) ABG pCO2 (35-45) mmHg ABG pO2 307 H 121 H (83-108) mmHg ABG Total CO2 25 H 25 H (19-24) mmol/L ABG O2 Saturation 100.0 H 99.2 H (94-97) % ABG Hematocrit 33 L 30 L (34.0-46.0) % ABG Sodium (135-146) mmol/L ABG Potassium (3.4-4.5) mmol/L ABG Ionized Calcium (4.5-5.3) mg/dL ABG Glucose 154 H 171 H (75-99) mg/dL Hemoglobin 10.8 L 9.9 L (13.0-17.5) gm/dL Sodium (137-145) mmol/L Potassium (3.5-5.1) mmol/L Chloride (98-107) mmol/L Creatinine (0.66-1.25) mg/dL Glucose (74-99) mg/dL POC Glucose (mg/dL) (75-99) mg/dL Calcium (8.4-10.2) mg/dL Magnesium (1.6-2.3) mg/dL AST (17-59) U/L Alkaline Phosphatase (38-126) U/L Total Protein (6.3-8.2) g/dL Albumin (3.5-5.0) g/dL Arterial Blood Potassium (3.4-4.5) mmol/L Arterial Blood Glucose 154 H 171 H (75-99) mg/dL Crossmatch See Detail 05/23/20 05/23/20 05/23/20 Range/Units 11:38 11:52 12:25 RBC (4.30-5.90) m/uL Hgb (13.0-17.5) gm/dL Hct (39.0-53.0) % Neutrophils # (1.3-7.7) k/uL Lymphocytes # (1.0-4.8) k/uL PT (9.0-12.0) sec INR (<1.2) ABG pH 7.34 L (7.35-7.45) ABG pCO2 (35-45) mmHg ABG pO2 142 H 371 H 292 H (83-108) mmHg ABG Total CO2 25 H 25 H 25 H (19-24) mmol/L ABG O2 Saturation 99.6 H 100.0 H 100.0 H (94-97) % ABG Hematocrit 31 L 28 L 25 L (34.0-46.0) % ABG Sodium 133 L (135-146) mmol/L ABG Potassium 5.2 H (3.4-4.5) mmol/L ABG Ionized Calcium 4.3 L 4.2 L (4.5-5.3) mg/dL ABG Glucose 183 H 181 H 260 H (75-99) mg/dL Hemoglobin 10.1 L 9.3 L 8.2 L (13.0-17.5) gm/dL Sodium (137-145) mmol/L Potassium (3.5-5.1) mmol/L Chloride (98-107) mmol/L Creatinine (0.66-1.25) mg/dL Glucose (74-99) mg/dL POC Glucose (mg/dL) (75-99) mg/dL Calcium (8.4-10.2) mg/dL Magnesium (1.6-2.3) mg/dL AST (17-59) U/L Alkaline Phosphatase (38-126) U/L Total Protein (6.3-8.2) g/dL Albumin (3.5-5.0) g/dL Arterial Blood Potassium 5.2 H (3.4-4.5) mmol/L Arterial Blood Glucose 183 H 181 H 260 H (75-99) mg/dL Crossmatch 05/23/20 05/23/20 05/23/20 Range/Units 12:49 13:25 14:06 RBC (4.30-5.90) m/uL Hgb (13.0-17.5) gm/dL Hct (39.0-53.0) % Neutrophils # (1.3-7.7) k/uL Lymphocytes # (1.0-4.8) k/uL PT (9.0-12.0) sec INR (<1.2) ABG pH 7.30 L (7.35-7.45) ABG pCO2 47 H (35-45) mmHg ABG pO2 266 H 324 H 328 H (83-108) mmHg ABG Total CO2 25 H 25 H (19-24) mmol/L ABG O2 Saturation 100.0 H 100.0 H 100.0 H (94-97) % ABG Hematocrit 25 L 25 L 24 L (34.0-46.0) % ABG Sodium 134 L (135-146) mmol/L ABG Potassium (3.4-4.5) mmol/L ABG Ionized Calcium 4.3 L 4.2 L 4.3 L (4.5-5.3) mg/dL ABG Glucose 276 H 311 H 301 H (75-99) mg/dL Hemoglobin 8.2 L 8.0 L 7.8 L (13.0-17.5) gm/dL Sodium (137-145) mmol/L Potassium (3.5-5.1) mmol/L Chloride (98-107) mmol/L Creatinine (0.66-1.25) mg/dL Glucose (74-99) mg/dL POC Glucose (mg/dL) (75-99) mg/dL Calcium (8.4-10.2) mg/dL Magnesium (1.6-2.3) mg/dL AST (17-59) U/L Alkaline Phosphatase (38-126) U/L Total Protein (6.3-8.2) g/dL Albumin (3.5-5.0) g/dL Arterial Blood Potassium (3.4-4.5) mmol/L Arterial Blood Glucose 276 H 311 H 301 H (75-99) mg/dL Crossmatch 05/23/20 05/23/20 05/23/20 Range/Units 14:33 16:43 16:45 RBC 3.06 L (4.30-5.90) m/uL Hgb 9.8 L D (13.0-17.5) gm/dL Hct 28.3 L (39.0-53.0) % Neutrophils # (1.3-7.7) k/uL Lymphocytes # (1.0-4.8) k/uL PT (9.0-12.0) sec INR (<1.2) ABG pH (7.35-7.45) ABG pCO2 (35-45) mmHg ABG pO2 294 H (83-108) mmHg ABG Total CO2 25 H (19-24) mmol/L ABG O2 Saturation 100.0 H (94-97) % ABG Hematocrit 24 L (34.0-46.0) % ABG Sodium (135-146) mmol/L ABG Potassium (3.4-4.5) mmol/L ABG Ionized Calcium 4.3 L (4.5-5.3) mg/dL ABG Glucose 280 H (75-99) mg/dL Hemoglobin 7.8 L (13.0-17.5) gm/dL Sodium (137-145) mmol/L Potassium (3.5-5.1) mmol/L Chloride (98-107) mmol/L Creatinine (0.66-1.25) mg/dL Glucose (74-99) mg/dL POC Glucose (mg/dL) 183 H (75-99) mg/dL Calcium (8.4-10.2) mg/dL Magnesium (1.6-2.3) mg/dL AST (17-59) U/L Alkaline Phosphatase (38-126) U/L Total Protein (6.3-8.2) g/dL Albumin (3.5-5.0) g/dL Arterial Blood Potassium (3.4-4.5) mmol/L Arterial Blood Glucose 280 H (75-99) mg/dL Crossmatch 05/23/20 05/23/20 05/23/20 Range/Units 16:45 16:45 17:09 RBC (4.30-5.90) m/uL Hgb (13.0-17.5) gm/dL Hct (39.0-53.0) % Neutrophils # (1.3-7.7) k/uL Lymphocytes # (1.0-4.8) k/uL PT 12.2 H (9.0-12.0) sec INR 1.2 H (<1.2) ABG pH (7.35-7.45) ABG pCO2 (35-45) mmHg ABG pO2 (83-108) mmHg ABG Total CO2 (19-24) mmol/L ABG O2 Saturation (94-97) % ABG Hematocrit (34.0-46.0) % ABG Sodium (135-146) mmol/L ABG Potassium (3.4-4.5) mmol/L ABG Ionized Calcium (4.5-5.3) mg/dL ABG Glucose (75-99) mg/dL Hemoglobin (13.0-17.5) gm/dL Sodium 136 L (137-145) mmol/L Potassium (3.5-5.1) mmol/L Chloride (98-107) mmol/L Creatinine 0.63 L (0.66-1.25) mg/dL Glucose 173 H (74-99) mg/dL POC Glucose (mg/dL) 171 H (75-99) mg/dL Calcium 7.9 L (8.4-10.2) mg/dL Magnesium 2.7 H (1.6-2.3) mg/dL AST (17-59) U/L Alkaline Phosphatase 34 L (38-126) U/L Total Protein 4.3 L (6.3-8.2) g/dL Albumin 2.4 L (3.5-5.0) g/dL Arterial Blood Potassium (3.4-4.5) mmol/L Arterial Blood Glucose (75-99) mg/dL Crossmatch 05/23/20 05/23/20 05/23/20 Range/Units 17:27 18:13 18:56 RBC (4.30-5.90) m/uL Hgb (13.0-17.5) gm/dL Hct (39.0-53.0) % Neutrophils # (1.3-7.7) k/uL Lymphocytes # (1.0-4.8) k/uL PT (9.0-12.0) sec INR (<1.2) ABG pH (7.35-7.45) ABG pCO2 (35-45) mmHg ABG pO2 155 H (83-108) mmHg ABG Total CO2 26 H (19-24) mmol/L ABG O2 Saturation 99.2 H (94-97) % ABG Hematocrit (34.0-46.0) % ABG Sodium (135-146) mmol/L ABG Potassium (3.4-4.5) mmol/L ABG Ionized Calcium (4.5-5.3) mg/dL ABG Glucose (75-99) mg/dL Hemoglobin (13.0-17.5) gm/dL Sodium (137-145) mmol/L Potassium (3.5-5.1) mmol/L Chloride (98-107) mmol/L Creatinine (0.66-1.25) mg/dL Glucose (74-99) mg/dL POC Glucose (mg/dL) 132 H 133 H (75-99) mg/dL Calcium (8.4-10.2) mg/dL Magnesium (1.6-2.3) mg/dL AST (17-59) U/L Alkaline Phosphatase (38-126) U/L Total Protein (6.3-8.2) g/dL Albumin (3.5-5.0) g/dL Arterial Blood Potassium (3.4-4.5) mmol/L Arterial Blood Glucose (75-99) mg/dL Crossmatch 05/23/20 05/23/20 05/23/20 Range/Units 18:57 20:06 20:55 RBC 2.89 L (4.30-5.90) m/uL Hgb 9.1 L (13.0-17.5) gm/dL Hct 26.5 L (39.0-53.0) % Neutrophils # (1.3-7.7) k/uL Lymphocytes # 0.4 L (1.0-4.8) k/uL PT (9.0-12.0) sec INR (<1.2) ABG pH (7.35-7.45) ABG pCO2 (35-45) mmHg ABG pO2 (83-108) mmHg ABG Total CO2 26 H (19-24) mmol/L ABG O2 Saturation 98.6 H (94-97) % ABG Hematocrit (34.0-46.0) % ABG Sodium (135-146) mmol/L ABG Potassium (3.4-4.5) mmol/L ABG Ionized Calcium (4.5-5.3) mg/dL ABG Glucose (75-99) mg/dL Hemoglobin (13.0-17.5) gm/dL Sodium (137-145) mmol/L Potassium (3.5-5.1) mmol/L Chloride (98-107) mmol/L Creatinine (0.66-1.25) mg/dL Glucose (74-99) mg/dL POC Glucose (mg/dL) 161 H (75-99) mg/dL Calcium (8.4-10.2) mg/dL Magnesium (1.6-2.3) mg/dL AST (17-59) U/L Alkaline Phosphatase (38-126) U/L Total Protein (6.3-8.2) g/dL Albumin (3.5-5.0) g/dL Arterial Blood Potassium (3.4-4.5) mmol/L Arterial Blood Glucose (75-99) mg/dL Crossmatch 05/23/20 05/23/20 05/23/20 Range/Units 20:57 20:59 22:03 RBC 2.71 L (4.30-5.90) m/uL Hgb 8.4 L (13.0-17.5) gm/dL Hct 24.8 L (39.0-53.0) % Neutrophils # 7.9 H (1.3-7.7) k/uL Lymphocytes # 0.4 L (1.0-4.8) k/uL PT (9.0-12.0) sec INR (<1.2) ABG pH (7.35-7.45) ABG pCO2 (35-45) mmHg ABG pO2 (83-108) mmHg ABG Total CO2 (19-24) mmol/L ABG O2 Saturation (94-97) % ABG Hematocrit (34.0-46.0) % ABG Sodium (135-146) mmol/L ABG Potassium (3.4-4.5) mmol/L ABG Ionized Calcium (4.5-5.3) mg/dL ABG Glucose (75-99) mg/dL Hemoglobin (13.0-17.5) gm/dL Sodium (137-145) mmol/L Potassium (3.5-5.1) mmol/L Chloride (98-107) mmol/L Creatinine (0.66-1.25) mg/dL Glucose (74-99) mg/dL POC Glucose (mg/dL) 152 H 167 H (75-99) mg/dL Calcium (8.4-10.2) mg/dL Magnesium (1.6-2.3) mg/dL AST (17-59) U/L Alkaline Phosphatase (38-126) U/L Total Protein (6.3-8.2) g/dL Albumin (3.5-5.0) g/dL Arterial Blood Potassium (3.4-4.5) mmol/L Arterial Blood Glucose (75-99) mg/dL Crossmatch 05/23/20 05/24/20 05/24/20 Range/Units 23:02 00:06 01:09 RBC (4.30-5.90) m/uL Hgb (13.0-17.5) gm/dL Hct (39.0-53.0) % Neutrophils # (1.3-7.7) k/uL Lymphocytes # (1.0-4.8) k/uL PT (9.0-12.0) sec INR (<1.2) ABG pH (7.35-7.45) ABG pCO2 (35-45) mmHg ABG pO2 (83-108) mmHg ABG Total CO2 (19-24) mmol/L ABG O2 Saturation (94-97) % ABG Hematocrit (34.0-46.0) % ABG Sodium (135-146) mmol/L ABG Potassium (3.4-4.5) mmol/L ABG Ionized Calcium (4.5-5.3) mg/dL ABG Glucose (75-99) mg/dL Hemoglobin (13.0-17.5) gm/dL Sodium (137-145) mmol/L Potassium (3.5-5.1) mmol/L Chloride (98-107) mmol/L Creatinine (0.66-1.25) mg/dL Glucose (74-99) mg/dL POC Glucose (mg/dL) 144 H 131 H 133 H (75-99) mg/dL Calcium (8.4-10.2) mg/dL Magnesium (1.6-2.3) mg/dL AST (17-59) U/L Alkaline Phosphatase (38-126) U/L Total Protein (6.3-8.2) g/dL Albumin (3.5-5.0) g/dL Arterial Blood Potassium (3.4-4.5) mmol/L Arterial Blood Glucose (75-99) mg/dL Crossmatch 05/24/20 05/24/20 05/24/20 Range/Units 04:05 04:17 04:17 RBC 2.74 L (4.30-5.90) m/uL Hgb 8.8 L (13.0-17.5) gm/dL Hct 24.9 L (39.0-53.0) % Neutrophils # 8.0 H (1.3-7.7) k/uL Lymphocytes # 0.8 L (1.0-4.8) k/uL PT (9.0-12.0) sec INR (<1.2) ABG pH (7.35-7.45) ABG pCO2 (35-45) mmHg ABG pO2 (83-108) mmHg ABG Total CO2 (19-24) mmol/L ABG O2 Saturation (94-97) % ABG Hematocrit (34.0-46.0) % ABG Sodium (135-146) mmol/L ABG Potassium (3.4-4.5) mmol/L ABG Ionized Calcium (4.5-5.3) mg/dL ABG Glucose (75-99) mg/dL Hemoglobin (13.0-17.5) gm/dL Sodium 135 L (137-145) mmol/L Potassium 5.4 H (3.5-5.1) mmol/L Chloride 108 H (98-107) mmol/L Creatinine (0.66-1.25) mg/dL Glucose 117 H (74-99) mg/dL POC Glucose (mg/dL) 123 H (75-99) mg/dL Calcium 7.6 L (8.4-10.2) mg/dL Magnesium (1.6-2.3) mg/dL AST 77 H (17-59) U/L Alkaline Phosphatase (38-126) U/L Total Protein 4.7 L (6.3-8.2) g/dL Albumin 2.8 L (3.5-5.0) g/dL Arterial Blood Potassium (3.4-4.5) mmol/L Arterial Blood Glucose (75-99) mg/dL Crossmatch 05/24/20 Range/Units 05:11 RBC (4.30-5.90) m/uL Hgb (13.0-17.5) gm/dL Hct (39.0-53.0) % Neutrophils # (1.3-7.7) k/uL Lymphocytes # (1.0-4.8) k/uL PT (9.0-12.0) sec INR (<1.2) ABG pH (7.35-7.45) ABG pCO2 (35-45) mmHg ABG pO2 (83-108) mmHg ABG Total CO2 (19-24) mmol/L ABG O2 Saturation (94-97) % ABG Hematocrit (34.0-46.0) % ABG Sodium (135-146) mmol/L ABG Potassium (3.4-4.5) mmol/L ABG Ionized Calcium (4.5-5.3) mg/dL ABG Glucose (75-99) mg/dL Hemoglobin (13.0-17.5) gm/dL Sodium (137-145) mmol/L Potassium (3.5-5.1) mmol/L Chloride (98-107) mmol/L Creatinine (0.66-1.25) mg/dL Glucose (74-99) mg/dL POC Glucose (mg/dL) 129 H (75-99) mg/dL Calcium (8.4-10.2) mg/dL Magnesium (1.6-2.3) mg/dL AST (17-59) U/L Alkaline Phosphatase (38-126) U/L Total Protein (6.3-8.2) g/dL Albumin (3.5-5.0) g/dL Arterial Blood Potassium (3.4-4.5) mmol/L Arterial Blood Glucose (75-99) mg/dL Crossmatch Assessment and Plan Plan: #1. Multivessel coronary artery disease, status post four-vessel coronary artery bypass grafting, with ZELAYA to the LAD, left radial artery graft to the circumflex, SVG to the diagonal, SVG to the PDA, and mitral valve repair, and le ft atrial appendage exclusion, postoperative day #1 the patient was extubated on 9:15 PM. He is doing well. He is hemodynamically requiring some pressors and is currently on norepinephrine infusion and symptom is receiving IV albumin another 500 mL bolus. His cardiac output is at 5.7 with an index of 2.7. Adequate urine output for now. Output from the chest tubes are minimal. Neurologically intact. He did have a episodes of blurred vision and is being monitored. His vision is improved. Cardiac rhythm is still sinus for now. The patient is also on a nitroglycerin drip running at 5 g per minute and norepinephrine infusion running at 0.1 mcg/kg per minute. Note that the patient has a carotid artery stenosis on 70% and the vision impairment of hurting on the left could be related to low flow state or lower blood pressure in the setting of bypass and carotid artery stenosis. #2. Thoracotomy, chest tubes are all in place. Currently on 2 L about 2 by nasal cannula. Using I asked pulling approximately 7 50 mL. #3. Acute non-ST elevated myocardial infarction #4. Multivessel coronary artery disease, #5. Moderate to severe mitral regurgitation of 3+, posterior repair #6. Diabetes mellitus type 2, insulin dependent, currently on insulin drip at 1.5 units an hour #7. Lifetime nonsmoker, preop FEV1 58% possibly related to restrictive alveolar pattern, related to interstitial edema #8. CHF with systolic dysfunction, and mild to moderate impairment of left ve ntricular systolic function EF of 40-45% #9. Anemia with a postoperative drop in hemoglobin down to 8.8, expected outcome of surgery #10. Left internal carotid stenosis of greater than 70% #11. Regular EtOH intake of 3-4 alcoholic drinks on a daily basis and no signs of any delirium tremens for now #12. Hyperlipidemia Plan Complete the bolus with albumin Monitor blood pressure and urine output. Maintain a systolic blood pressure was around 110 above and monitor the neurologic function including the liver's vision that occurred earlier He is on aspirin and Plavix for now Gradually wean off norepinephrine infusion and Metamucil drip can be discontinued today [place]-Noé management per cardiothoracic surgery. Hemodynamic parameters are adequate for now and a cardiac rhythm is sinus Keep the chest tubes in place for today Continue with insulin drip for today. Encouraged use of incentive spirometer Monitor the output from the ALCIDES drain [facility] for pain control and continue using incentive spirometer Obviously give the patient ICU for today. Chest x-ray was noted. Critically care evaluation, > 30 min Time with Patient: Greater than 30
[2020-05-24 07:08] LABS: Glucose,Whole Blood 171 mg/dL (75-99)
[2020-05-24] MEDS ORDERED: CLOPIDOGREL 75 MG TAB PO STA (07:54)
[2020-05-24 08:09] LABS: Glucose,Whole Blood 171 mg/dL (75-99)
[2020-05-24] MEDS: CLOPIDOGREL 75 MG TAB PO SCH (08:31)
[2020-05-24] MEDS: HEPARIN SODIUM,PORCINE 5,000 UNIT/ML 1 ML VIAL SQ SCH ×3 (08:31→23:11)
[2020-05-24] MEDS: ATORVASTATIN 80 MG TAB PO SCH (08:32)
[2020-05-24] MEDS: FOLIC ACID 1 MG TAB PO SCH (08:32)
[2020-05-24] MEDS: ASPIRIN 325 MG TAB PO SCH (08:32)
[2020-05-24] MEDS: METOPROLOL TARTRATE 12.5 MG TAB PO SCH ×2 (08:33→20:51)
[2020-05-24] MEDS: IPRATROPIUM-ALBUTEROL 3 ML NEB INHALATION SCH ×4 (08:33→20:29)
[2020-05-24] MEDS: THIAMINE 100 MG TAB PO SCH (08:36)
--- NOTE | 2020-05-24 08:36 | P.PN ---
Subjective Progress Note Date: 05/24/20 Principal diagnosis: Coronary artery disease, mitral regurgitation. Previous medical history of insulin-dependent diabetes, family history of premature coronary artery disease, EtOH use most days without history of withdrawal, and newly diagnosed hyperlipidemia and left carotid stenosis POD #1 coronary artery bypass grafting 4 vessels with the left internal mammary artery to the left anterior descending artery, left radial artery to the distal circumflex, reverse saphenous vein graft from the aorta to the first diagonal artery, reverse saphenous vein graft from the aorta to the right coronary artery, mitral valve repair with #28 [employer] AnnuloFlex ring, exclusion of the left atrial appendage with a 35 mm AtriClip, graft flow measurements using the Medistim system, left radial artery and left endoscopic vein harvest, intraoperative transesophageal echocardiogram and epi-aortic scanning. Postoperative acute blood loss anemia, expected given hemodilution and ca rdiopulmonary bypass pump Patient currently sitting up in bed in a recliner in the intensive care unit no acute distress. He was successfully extubated last night at 21:15. Complains of postoperative chest pain with difficulty taking a deep breath, actively attempting incentive spirometry. Currently in sinus rhythm. Did have a bit of hypotension this morning when getting up to chair due to expected fluid shifts post cardiac surgery, was initiated on IV levo and given volume resuscitation, c urrently normotensive. Did complain of seeing some spots this morning when getting up to chair, currently resolved. Mediastinal chest tubes, left pleural chest tube, right internal jugular [place]/Cordis, right radial arterial line, left arm ALCIDES drain all remain present. No other new concerns. Objective - Vital Signs Vital signs: Vital Signs Temp 99.5 F 05/24/20 06:00 Pulse 75 05/24/20 07:00 Resp 21 05/24/20 07:00 BP 96/63 05/24/20 06:00 Pulse Ox 93 L 05/24/20 07:00 Intake & Output 05/23/20 05/24/20 05/24/20 18:59 06:59 18:59 Intake Total 390.643 2677.583 313.57 Output Total 4340 852 20 Balance -3865.307 910.583 293.57 Weight 89.9 kg Intake: IV 72 918 59 .9NS Pressure Bag 9 108 9 Cardiac Output 10 160 Sodium Chloride 0.9% 1, 550 50 000 ml @ 50 mls/hr IV . Q20H [facility] Rx#:[id number] ceFAZolin 2 gm In Sodium 100 Chloride 0.9% 50 ml @ 100 mls/hr IVPB Q8HR [facility] Rx# :[id number] Intake, IV Titration 402.693 844.583 254.57 Amount Albumin Human 5% 250 ml @ 250 500 250 0 mls/hr IVPB .[facility] Rx#:[id number] Insulin Regular 100 unit 2.693 23.533 4.57 In Sodium Chloride 0.9% 100 ml @ Per Protocol IV .Q0M [facility] Rx#:[id number] Milrinone-D5w Pmx 20 mg 54.805 In Dextrose/Water 1 100ml .bag @ 0.25 MCG/KG/MIN 6. 435 mls/hr IV .[id number] [facility] Rx#:[id number] Norepinephrine 4 mg In 216.245 Sodium Chloride 0.9% 250 ml @ 0.05 MCG/KG/MIN 16. 345 mls/hr IV .[id number] [facility] Rx#:[id number] Sodium Chloride 0.9% 1, 100 50 000 ml @ 50 mls/hr IV . Q20H [facility] Rx#:[id number] ceFAZolin 2 gm In Sodium 50 Chloride 0.9% 50 ml @ 100 mls/hr IVPB Q8HR [facility] Rx# :[id number] Output: Chest Tube Drainage 360 422 0 Left Pleural Chest tube 120 182 0 Mediastinal Chest Tubes X 240 240 0 2 Drainage 0 0 Left Wrist 0 0 Urine 1980 430 20 Estimated Blood Loss 1999 Other: Voiding Method Indwelling Catheter ABP, PAP, CO, CI - Last Documented Arterial Blood Pressure 106/62 Pulmonary Artery Pressure 46/22 Cardiac Output 5.4 Cardiac Index 2.7 - Exam CONSTITUTIONAL: Appears comfortable, cooperative, no acute distress RESPIRATORY: Lungs sounds diminished bilaterally. Respirations even, nonlabored. Currently on 2 L nasal cannula with oxygen saturation 99%. Able to achieve 500-600 mL on incentive spirometry. Strong cough. CARDIOVASCULAR: S1, S2 present. Regular rate and rhythm, sinus rhythm on telemetry. Sternum stable. Palpable peripheral pulses bilaterally. Generalized edema present. No calf pain or tenderness noted. Heart hugger in place with patient demonstrating appropriate use. Antiembolism stockings, SCDs present. GASTROINTESTINAL: Abdomen soft, nontender, nondistended. Hypoactive bowel sounds present 4 quadrants. Tolerating clear liquid diet. Positive belching, negative flatus. GENITOURINARY: Preciado present draining clear, yellow urine. Output overnight 20-30 mL per hour INTEGUMENTARY: Skin is warm and dry with evidence of good perfusion. Anterior chest incision well approximated and covered with dry intact dressing. EVH site well approximated without redness or drainage. 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 NEUROLOGIC: Cranial nerves II through XII intact MUSKULOSKELETAL: Able to move all extremities, strength equal bilaterally PSYCHIATRIC: Alert and oriented to person place and time, appropriate affect, intact judgment and insight INVASIVE LINES AND TUBES: Mediastinal/left/right pleural chest tubes present a nd connected to wall suction, no air leaks present. Mediastinal tube with 170 mL serosanguineous drainage overnight, 520 mL since surgery. Left pleural chest tube with 125 mL serosanguineous drainage overnight, 320 mL since surgery. A/V epicardial pacemaker wires present, connected to generator, backup rate 50 bpm. Right internal jugular [place]/Cordis, right radial arterial line present. Last C O/CI 5.4/2.7, PA 39/18, CVP 18. - Labs CBC & Chem 7: 05/24/20 04:17 05/24/20 04:17 Labs: Abnormal Lab Results - Last 24 Hours (Table) 05/22/20 05/23/20 05/23/20 Range/Units 08:28 08:38 10:39 RBC (4.30-5.90) m/uL Hgb (13.0-17.5) gm/dL Hct (39.0-53.0) % Neutrophils # (1.3-7.7) k/uL Lymphocytes # (1.0-4.8) k/uL PT (9.0-12.0) sec INR (<1.2) ABG pH (7.35-7.45) ABG pCO2 (35-45) mmHg ABG pO2 307 H 121 H (83-108) mmHg ABG Total CO2 25 H 25 H (19-24) mmol/L ABG O2 Saturation 100.0 H 99.2 H (94-97) % ABG Hematocrit 33 L 30 L (34.0-46.0) % ABG Sodium (135-146) mmol/L ABG Potassium (3.4-4.5) mmol/L ABG Ionized Calcium (4.5-5.3) mg/dL ABG Glucose 154 H 171 H (75-99) mg/dL Hemoglobin 10.8 L 9.9 L (13.0-17.5) gm/dL Sodium (137-145) mmol/L Potassium (3.5-5.1) mmol/L Chloride (98-107) mmol/L Creatinine (0.66-1.25) mg/dL Glucose (74-99) mg/dL POC Glucose (mg/dL) (75-99) mg/dL Calcium (8.4-10.2) mg/dL Magnesium (1.6-2.3) mg/dL AST (17-59) U/L Alkaline Phosphatase (38-126) U/L Total Protein (6.3-8.2) g/dL Albumin (3.5-5.0) g/dL Arterial Blood Potassium (3.4-4.5) mmol/L Arterial Blood Glucose 154 H 171 H (75-99) mg/dL Crossmatch See Detail 05/23/20 05/23/20 05/23/20 Range/Units 11:38 11:52 12:25 RBC (4.30-5.90) m/uL Hgb (13.0-17.5) gm/dL Hct (39.0-53.0) % Neutrophils # (1.3-7.7) k/uL Lymphocytes # (1.0-4.8) k/uL PT (9.0-12.0) sec INR (<1.2) ABG pH 7.34 L (7.35-7.45) ABG pCO2 (35-45) mmHg ABG pO2 142 H 371 H 292 H (83-108) mmHg ABG Total CO2 25 H 25 H 25 H (19-24) mmol/L ABG O2 Saturation 99.6 H 100.0 H 100.0 H (94-97) % ABG Hematocrit 31 L 28 L 25 L (34.0-46.0) % ABG Sodium 133 L (135-146) mmol/L ABG Potassium 5.2 H (3.4-4.5) mmol/L ABG Ionized Calcium 4.3 L 4.2 L (4.5-5.3) mg/dL ABG Glucose 183 H 181 H 260 H (75-99) mg/dL Hemoglobin 10.1 L 9.3 L 8.2 L (13.0-17.5) gm/dL Sodium (137-145) mmol/L Potassium (3.5-5.1) mmol/L Chloride (98-107) mmol/L Creatinine (0.66-1.25) mg/dL Glucose (74-99) mg/dL POC Glucose (mg/dL) (75-99) mg/dL Calcium (8.4-10.2) mg/dL Magnesium (1.6-2.3) mg/dL AST (17-59) U/L Alkaline Phosphatase (38-126) U/L Total Protein (6.3-8.2) g/dL Albumin (3.5-5.0) g/dL Arterial Blood Potassium 5.2 H (3.4-4.5) mmol/L Arterial Blood Glucose 183 H 181 H 260 H (75-99) mg/dL Crossmatch 05/23/20 05/23/20 05/23/20 Range/Units 12:49 13:25 14:06 RBC (4.30-5.90) m/uL Hgb (13.0-17.5) gm/dL Hct (39.0-53.0) % Neutrophils # (1.3-7.7) k/uL Lymphocytes # (1.0-4.8) k/uL PT (9.0-12.0) sec INR (<1.2) ABG pH 7.30 L (7.35-7.45) ABG pCO2 47 H (35-45) mmHg ABG pO2 266 H 324 H 328 H (83-108) mmHg ABG Total CO2 25 H 25 H (19-24) mmol/L ABG O2 Saturation 100.0 H 100.0 H 100.0 H (94-97) % ABG Hematocrit 25 L 25 L 24 L (34.0-46.0) % ABG Sodium 134 L (135-146) mmol/L ABG Potassium (3.4-4.5) mmol/L ABG Ionized Calcium 4.3 L 4.2 L 4.3 L (4.5-5.3) mg/dL ABG Glucose 276 H 311 H 301 H (75-99) mg/dL Hemoglobin 8.2 L 8.0 L 7.8 L (13.0-17.5) gm/dL Sodium (137-145) mmol/L Potassium (3.5-5.1) mmol/L Chloride (98-107) mmol/L Creatinine (0.66-1.25) mg/dL Glucose (74-99) mg/dL POC Glucose (mg/dL) (75-99) mg/dL Calcium (8.4-10.2) mg/dL Magnesium (1.6-2.3) mg/dL AST (17-59) U/L Alkaline Phosphatase (38-126) U/L Total Protein (6.3-8.2) g/dL Albumin (3.5-5.0) g/dL Arterial Blood Potassium (3.4-4.5) mmol/L Arterial Blood Glucose 276 H 311 H 301 H (75-99) mg/dL Crossmatch 05/23/20 05/23/20 05/23/20 Range/Units 14:33 16:43 16:45 RBC 3.06 L (4.30-5.90) m/uL Hgb 9.8 L D (13.0-17.5) gm/dL Hct 28.3 L (39.0-53.0) % Neutrophils # (1.3-7.7) k/uL Lymphocytes # (1.0-4.8) k/uL PT (9.0-12.0) sec INR (<1.2) ABG pH (7.35-7.45) ABG pCO2 (35-45) mmHg ABG pO2 294 H (83-108) mmHg ABG Total CO2 25 H (19-24) mmol/L ABG O2 Saturation 100.0 H (94-97) % ABG Hematocrit 24 L (34.0-46.0) % ABG Sodium (135-146) mmol/L ABG Potassium (3.4-4.5) mmol/L ABG Ionized Calcium 4.3 L (4.5-5.3) mg/dL ABG Glucose 280 H (75-99) mg/dL Hemoglobin 7.8 L (13.0-17.5) gm/dL Sodium (137-145) mmol/L Potassium (3.5-5.1) mmol/L Chloride (98-107) mmol/L Creatinine (0.66-1.25) mg/dL Glucose (74-99) mg/dL POC Glucose (mg/dL) 183 H (75-99) mg/dL Calcium (8.4-10.2) mg/dL Magnesium (1.6-2.3) mg/dL AST (17-59) U/L Alkaline Phosphatase (38-126) U/L Total Protein (6.3-8.2) g/dL Albumin (3.5-5.0) g/dL Arterial Blood Potassium (3.4-4.5) mmol/L Arterial Blood Glucose 280 H (75-99) mg/dL Crossmatch 05/23/20 05/23/20 05/23/20 Range/Units 16:45 16:45 17:09 RBC (4.30-5.90) m/uL Hgb (13.0-17.5) gm/dL Hct (39.0-53.0) % Neutrophils # (1.3-7.7) k/uL Lymphocytes # (1.0-4.8) k/uL PT 12.2 H (9.0-12.0) sec INR 1.2 H (<1.2) ABG pH (7.35-7.45) ABG pCO2 (35-45) mmHg ABG pO2 (83-108) mmHg ABG Total CO2 (19-24) mmol/L ABG O2 Saturation (94-97) % ABG Hematocrit (34.0-46.0) % ABG Sodium (135-146) mmol/L ABG Potassium (3.4-4.5) mmol/L ABG Ionized Calcium (4.5-5.3) mg/dL ABG Glucose (75-99) mg/dL Hemoglobin (13.0-17.5) gm/dL Sodium 136 L (137-145) mmol/L Potassium (3.5-5.1) mmol/L Chloride (98-107) mmol/L Creatinine 0.63 L (0.66-1.25) mg/dL Glucose 173 H (74-99) mg/dL POC Glucose (mg/dL) 171 H (75-99) mg/dL Calcium 7.9 L (8.4-10.2) mg/dL Magnesium 2.7 H (1.6-2.3) mg/dL AST (17-59) U/L Alkaline Phosphatase 34 L (38-126) U/L Total Protein 4.3 L (6.3-8.2) g/dL Albumin 2.4 L (3.5-5.0) g/dL Arterial Blood Potassium (3.4-4.5) mmol/L Arterial Blood Glucose (75-99) mg/dL Crossmatch 05/23/20 05/23/20 05/23/20 Range/Units 17:27 18:13 18:56 RBC (4.30-5.90) m/uL Hgb (13.0-17.5) gm/dL Hct (39.0-53.0) % Neutrophils # (1.3-7.7) k/uL Lymphocytes # (1.0-4.8) k/uL PT (9.0-12.0) sec INR (<1.2) ABG pH (7.35-7.45) ABG pCO2 (35-45) mmHg ABG pO2 155 H (83-108) mmHg ABG Total CO2 26 H (19-24) mmol/L ABG O2 Saturation 99.2 H (94-97) % ABG Hematocrit (34.0-46.0) % ABG Sodium (135-146) mmol/L ABG Potassium (3.4-4.5) mmol/L ABG Ionized Calcium (4.5-5.3) mg/dL ABG Glucose (75-99) mg/dL Hemoglobin (13.0-17.5) gm/dL Sodium (137-145) mmol/L Potassium (3.5-5.1) mmol/L Chloride (98-107) mmol/L Creatinine (0.66-1.25) mg/dL Glucose (74-99) mg/dL POC Glucose (mg/dL) 132 H 133 H (75-99) mg/dL Calcium (8.4-10.2) mg/dL Magnesium (1.6-2.3) mg/dL AST (17-59) U/L Alkaline Phosphatase (38-126) U/L Total Protein (6.3-8.2) g/dL Albumin (3.5-5.0) g/dL Arterial Blood Potassium (3.4-4.5) mmol/L Arterial Blood Glucose (75-99) mg/dL Crossmatch 05/23/20 05/23/20 05/23/20 Range/Units 18:57 20:06 20:55 RBC 2.89 L (4.30-5.90) m/uL Hgb 9.1 L (13.0-17.5) gm/dL Hct 26.5 L (39.0-53.0) % Neutrophils # (1.3-7.7) k/uL Lymphocytes # 0.4 L (1.0-4.8) k/uL PT (9.0-12.0) sec INR (<1.2) ABG pH (7.35-7.45) ABG pCO2 (35-45) mmHg ABG pO2 (83-108) mmHg ABG Total CO2 26 H (19-24) mmol/L ABG O2 Saturation 98.6 H (94-97) % ABG Hematocrit (34.0-46.0) % ABG Sodium (135-146) mmol/L ABG Potassium (3.4-4.5) mmol/L ABG Ionized Calcium (4.5-5.3) mg/dL ABG Glucose (75-99) mg/dL Hemoglobin (13.0-17.5) gm/dL Sodium (137-145) mmol/L Potassium (3.5-5.1) mmol/L Chloride (98-107) mmol/L Creatinine (0.66-1.25) mg/dL Glucose (74-99) mg/dL POC Glucose (mg/dL) 161 H (75-99) mg/dL Calcium (8.4-10.2) mg/dL Magnesium (1.6-2.3) mg/dL AST (17-59) U/L Alkaline Phosphatase (38-126) U/L Total Protein (6.3-8.2) g/dL Albumin (3.5-5.0) g/dL Arterial Blood Potassium (3.4-4.5) mmol/L Arterial Blood Glucose (75-99) mg/dL Crossmatch 05/23/20 05/23/20 05/23/20 Range/Units 20:57 20:59 22:03 RBC 2.71 L (4.30-5.90) m/uL Hgb 8.4 L (13.0-17.5) gm/dL Hct 24.8 L (39.0-53.0) % Neutrophils # 7.9 H (1.3-7.7) k/uL Lymphocytes # 0.4 L (1.0-4.8) k/uL PT (9.0-12.0) sec INR (<1.2) ABG pH (7.35-7.45) ABG pCO2 (35-45) mmHg ABG pO2 (83-108) mmHg ABG Total CO2 (19-24) mmol/L ABG O2 Saturation (94-97) % ABG Hematocrit (34.0-46.0) % ABG Sodium (135-146) mmol/L ABG Potassium (3.4-4.5) mmol/L ABG Ionized Calcium (4.5-5.3) mg/dL ABG Glucose (75-99) mg/dL Hemoglobin (13.0-17.5) gm/dL Sodium (137-145) mmol/L Potassium (3.5-5.1) mmol/L Chloride (98-107) mmol/L Creatinine (0.66-1.25) mg/dL Glucose (74-99) mg/dL POC Glucose (mg/dL) 152 H 167 H (75-99) mg/dL Calcium (8.4-10.2) mg/dL Magnesium (1.6-2.3) mg/dL AST (17-59) U/L Alkaline Phosphatase (38-126) U/L Total Protein (6.3-8.2) g/dL Albumin (3.5-5.0) g/dL Arterial Blood Potassium (3.4-4.5) mmol/L Arterial Blood Glucose (75-99) mg/dL Crossmatch 05/23/20 05/24/20 05/24/20 Range/Units 23:02 00:06 01:09 RBC (4.30-5.90) m/uL Hgb (13.0-17.5) gm/dL Hct (39.0-53.0) % Neutrophils # (1.3-7.7) k/uL Lymphocytes # (1.0-4.8) k/uL PT (9.0-12.0) sec INR (<1.2) ABG pH (7.35-7.45) ABG pCO2 (35-45) mmHg ABG pO2 (83-108) mmHg ABG Total CO2 (19-24) mmol/L ABG O2 Saturation (94-97) % ABG Hematocrit (34.0-46.0) % ABG Sodium (135-146) mmol/L ABG Potassium (3.4-4.5) mmol/L ABG Ionized Calcium (4.5-5.3) mg/dL ABG Glucose (75-99) mg/dL Hemoglobin (13.0-17.5) gm/dL Sodium (137-145) mmol/L Potassium (3.5-5.1) mmol/L Chloride (98-107) mmol/L Creatinine (0.66-1.25) mg/dL Glucose (74-99) mg/dL POC Glucose (mg/dL) 144 H 131 H 133 H (75-99) mg/dL Calcium (8.4-10.2) mg/dL Magnesium (1.6-2.3) mg/dL AST (17-59) U/L Alkaline Phosphatase (38-126) U/L Total Protein (6.3-8.2) g/dL Albumin (3.5-5.0) g/dL Arterial Blood Potassium (3.4-4.5) mmol/L Arterial Blood Glucose (75-99) mg/dL Crossmatch 05/24/20 05/24/20 05/24/20 Range/Units 04:05 04:17 04:17 RBC 2.74 L (4.30-5.90) m/uL Hgb 8.8 L (13.0-17.5) gm/dL Hct 24.9 L (39.0-53.0) % Neutrophils # 8.0 H (1.3-7.7) k/uL Lymphocytes # 0.8 L (1.0-4.8) k/uL PT (9.0-12.0) sec INR (<1.2) ABG pH (7.35-7.45) ABG pCO2 (35-45) mmHg ABG pO2 (83-108) mmHg ABG Total CO2 (19-24) mmol/L ABG O2 Saturation (94-97) % ABG Hematocrit (34.0-46.0) % ABG Sodium (135-146) mmol/L ABG Potassium (3.4-4.5) mmol/L ABG Ionized Calcium (4.5-5.3) mg/dL ABG Glucose (75-99) mg/dL Hemoglobin (13.0-17.5) gm/dL Sodium 135 L (137-145) mmol/L Potassium 5.4 H (3.5-5.1) mmol/L Chloride 108 H (98-107) mmol/L Creatinine (0.66-1.25) mg/dL Glucose 117 H (74-99) mg/dL POC Glucose (mg/dL) 123 H (75-99) mg/dL Calcium 7.6 L (8.4-10.2) mg/dL Magnesium (1.6-2.3) mg/dL AST 77 H (17-59) U/L Alkaline Phosphatase (38-126) U/L Total Protein 4.7 L (6.3-8.2) g/dL Albumin 2.8 L (3.5-5.0) g/dL Arterial Blood Potassium (3.4-4.5) mmol/L Arterial Blood Glucose (75-99) mg/dL Crossmatch 05/24/20 05/24/20 Range/Units 05:11 07:07 RBC (4.30-5.90) m/uL Hgb (13.0-17.5) gm/dL Hct (39.0-53.0) % Neutrophils # (1.3-7.7) k/uL Lymphocytes # (1.0-4.8) k/uL PT (9.0-12.0) sec INR (<1.2) ABG pH (7.35-7.45) ABG pCO2 (35-45) mmHg ABG pO2 (83-108) mmHg ABG Total CO2 (19-24) mmol/L ABG O2 Saturation (94-97) % ABG Hematocrit (34.0-46.0) % ABG Sodium (135-146) mmol/L ABG Potassium (3.4-4.5) mmol/L ABG Ionized Calcium (4.5-5.3) mg/dL ABG Glucose (75-99) mg/dL Hemoglobin (13.0-17.5) gm/dL Sodium (137-145) mmol/L Potassium (3.5-5.1) mmol/L Chloride (98-107) mmol/L Creatinine (0.66-1.25) mg/dL Glucose (74-99) mg/dL POC Glucose (mg/dL) 129 H 171 H (75-99) mg/dL Calcium (8.4-10.2) mg/dL Magnesium (1.6-2.3) mg/dL AST (17-59) U/L Alkaline Phosphatase (38-126) U/L Total Protein (6.3-8.2) g/dL Albumin (3.5-5.0) g/dL Arterial Blood Potassium (3.4-4.5) mmol/L Arterial Blood Glucose (75-99) mg/dL Crossmatch Assessment and Plan Assessment: 1. Triple-vessel coronary artery disease, non-STEMI this admission, status post four-vessel CABG 2. Moderate to severe predominantly centrally directed mitral regurgitation, status post mitral valve repair 3. Insulin-dependent diabetes, hemoglobin A1c 8.2% 4. Hyperlipidemia, cholesterol 241, triglyceride 200, LDL 164 5. Left internal carotid artery stenosis, greater than 70% per carotid Doppler, greater than 90% per neck CTA 6. Lifelong nonsmoker with FEV1 58% of predicted 7. Family history of premature coronary artery disease, father and 2 brothers diagnosed with CAD with subsequent CABG in their early to mid 50s 8. EtOH use most days without history of withdrawal 9. Postoperative acute blood loss anemia, expected Plan: 1. Continue aspirin, statin, Plavix, beta holly therapy. Will increase beta holly therapy as tolerated. Will give extra Plavix today secondary to left carotid stenosis 2. Wean levo as tolerated 3. Will discontinue IV nitro and add oral CCB for radial artery spasm 4. Wean O2 as tolerated. Encourage incentive spirometry use 10 times every hour while awake 5. Increase activity, ambulate as tolerated. PT/OT/cardiac rehab consulted 6. Will monitor daily labs and x-rays. Electrolyte replacement per protocol. No transfusion 7. GI/DVT prophylaxis 8. Pain control with current medication regimen 9. Insulin management per primary care service. Patient to remain on insulin drip for 24 hours minimum. Needs tight blood sugar control for healing 10. [facility] protocol to monitor for alcohol withdrawal. Continue thiamine, folic acid 11. Left carotid stenosis intervention to be completed in the future. Avoid hypotension 12. Discontinue [place]. Connect Cordis to continue CVP monitoring 13. Will discontinue left forearm ALCIDES drain. Continue mediastinal, left pleural chest tubes for 24 hours 14. Continue Preciado for another 24 hours for strict accurate intake and output. Daily weights. 15. More recommendations to follow depending on patient's progress Time with Patient: Greater than 30
[2020-05-24] MEDS: MUPIROCIN 2% OINT 22 GM TUBE NASAL SCH ×2 (08:47→20:51)
[2020-05-24] MEDS ORDERED: bisacodyL 10 MG SUPP RECTAL PRN (09:00)
[2020-05-24] MEDS ORDERED: PANTOPRAZOLE 40 MG/10 ML VIAL IVP SCH (09:00)
[2020-05-24] MEDS ORDERED: METOPROLOL TARTRATE 12.5 MG TAB PO SCH (09:00)
[2020-05-24] MEDS ORDERED: CLOPIDOGREL 75 MG TAB PO SCH (09:00)
[2020-05-24] MEDS ORDERED: ASPIRIN 325 MG TAB PO SCH (09:00)
[2020-05-24 09:21] LABS: Glucose,Whole Blood 247 mg/dL (75-99)
[2020-05-24 10:15] LABS: Glucose,Whole Blood 206 mg/dL (75-99)
[2020-05-24] MEDS ORDERED: FUROSEMIDE 10 MG/ML 2 ML VIAL IV ONE (10:30)
[2020-05-24] MEDS ORDERED: ALBUMIN HUMAN 25% 50 ML in EMPTY BAG 1 BAG IVPB ONE (10:30)
[2020-05-24 11:08] LABS: Glucose,Whole Blood 173 mg/dL (75-99)
[2020-05-24] MEDS: amLODIPine 2.5 MG TAB PO SCH (11:55)
--- NOTE | 2020-05-24 12:34 | P.PN ---
Subjective Progress Note Date: 05/24/20 HISTORY OF PRESENT ILLNESS: Patient is status post CABG 4: left internal mammary artery to the left anterior descending artery, left radial artery to the distal circumflex, reverse saphenous vein graft from the aorta to the first diagonal artery, reverse saphenous vein graft from the aorta to the right coronary artery. patient examined this morning the intensive care unit. Patient was extubated yesterday. He is currently sitting up in the chair. Patient did become slightly h ypotensive this morning and is on vasopressors. Patient reports mild surgical discomfort in the chest. He states his breathing does not feel labored. He does not get short of breath. Patient does report difficulty taking a deep breath due to pain. He is pulling 5007 150 mL on his incentive spirometer. he is maintaining sinus mechanism on telemetry. PHYSICAL EXAM: VITAL SIGNS: Reviewed. GENERAL: Well-developed in no acute distress. NECK: Supple. No JVD or thyromegaly LUNGS: Respirations even and unlabored. Lung sounds diminished bilaterally HEART: Regular rate and rhythm. S1 and S2 heard. Chest tubes noted. EXTREMITIES: Normal range of motion. No clubbing or cyanosis. Peripheral pulses intact. trace bilateral lower extremity edema ASSESSMENT: Non-STEMI, triple vessel coronary artery disease status post CABG 4 Moderate to severe mitral regurgitation, status post mitral valve repair Left internal carotid artery stenosis, greater than 70% per carotid Doppler, greater than 90% per neck CTA Diabetes mellitus Daily alcohol intake Dyslipidemia Family history of premature coronary artery disease Acute blood loss anemia PLAN: Continue postoperative management per CTS wean vasopressors as tolerated amlodipine added per CTS Continue aspirin, plavix, metoprolol, and atorvastatin increase activity as tolerated Encourage use of incentive spirometry further recommendations pending patient's course Nurse practitioner note has been reviewed by physician. Signing provider agrees with the documented findings, assessment, and plan of care. Objective - Vital Signs Vital signs: Vital Signs Temp 37.2 F L 05/24/20 08:00 Pulse 73 05/24/20 11:00 Resp 11 L 05/24/20 11:00 BP 104/69 05/24/20 10:15 Pulse Ox 96 05/24/20 11:00 Intake & Output 05/23/20 05/24/20 05/24/20 18:59 06:59 18:59 Intake Total 509.079 5873.583 887.840 Output Total 4340 852 227 Balance -3865.307 910.583 660.840 Weight 89.9 kg 89.9 kg Intake: IV 72 918 395 .9NS Pressure Bag 9 108 45 Cardiac Output 10 160 50 Sodium Chloride 0.9% 1, 550 250 000 ml @ 20 mls/hr IV . Q24H [facility] Rx#:[id number] ceFAZolin 2 gm In Sodium 100 50 Chloride 0.9% 50 ml @ 100 mls/hr IVPB Q8HR [facility] Rx# :[id number] Intake, IV Titration 402.693 844.583 372.840 Amount Albumin Human 5% 250 ml @ 250 500 250 0 mls/hr IVPB [facility] Rx#:[id number] Insulin Regular 100 unit 2.693 23.533 26.622 In Sodium Chloride 0.9% 100 ml @ Per Protocol IV .Q0M [facility] Rx#:[id number] Milrinone-D5w Pmx 20 mg 54.805 In Dextrose/Water 1 100ml .bag @ 0.25 MCG/KG/MIN 6. 435 mls/hr IV .[id number] [facility] Rx#:[id number] Norepinephrine 4 mg In 216.245 96.218 Sodium Chloride 0.9% 250 ml @ 0.05 MCG/KG/MIN 16. 345 mls/hr IV .[id number] [facility] Rx#:[id number] Sodium Chloride 0.9% 1, 100 50 000 ml @ 20 mls/hr IV . Q24H [facility] Rx#:[id number] ceFAZolin 2 gm In Sodium 50 Chloride 0.9% 50 ml @ 100 mls/hr IVPB Q8HR [facility] Rx# :[id number] Oral 120 Output: Chest Tube Drainage 360 422 120 Left Pleural Chest tube 120 182 100 Mediastinal Chest Tubes X 240 240 20 2 Drainage 0 0 Left Wrist 0 0 Urine 1980 430 107 Estimated Blood Loss 1999 Other: Voiding Method Indwelling Catheter Indwelling Catheter ABP, PAP, CO, CI - Last Documented Arterial Blood Pressure 91/45 Pulmonary Artery Pressure 27/7 Cardiac Output 4.4 Cardiac Index 2.2 - Labs CBC & Chem 7: 05/24/20 04:17 05/24/20 04:17 Labs: Abnormal Lab Results - Last 24 Hours (Table) 05/22/20 05/23/20 05/23/20 Range/Units 08:28 08:38 10:39 RBC (4.30-5.90) m/uL Hgb (13.0-17.5) gm/dL Hct (39.0-53.0) % Neutrophils # (1.3-7.7) k/uL Lymphocytes # (1.0-4.8) k/uL PT (9.0-12.0) sec INR (<1.2) ABG pH (7.35-7.45) ABG pCO2 (35-45) mmHg ABG pO2 307 H 121 H (83-108) mmHg ABG Total CO2 25 H 25 H (19-24) mmol/L ABG O2 Saturation 100.0 H 99.2 H (94-97) % ABG Hematocrit 33 L 30 L (34.0-46.0) % ABG Sodium (135-146) mmol/L ABG Potassium (3.4-4.5) mmol/L ABG Ionized Calcium (4.5-5.3) mg/dL ABG Glucose 154 H 171 H (75-99) mg/dL Hemoglobin 10.8 L 9.9 L (13.0-17.5) gm/dL Sodium (137-145) mmol/L Potassium (3.5-5.1) mmol/L Chloride (98-107) mmol/L Creatinine (0.66-1.25) mg/dL Glucose (74-99) mg/dL POC Glucose (mg/dL) (75-99) mg/dL Calcium (8.4-10.2) mg/dL Magnesium (1.6-2.3) mg/dL AST (17-59) U/L Alkaline Phosphatase (38-126) U/L Total Protein (6.3-8.2) g/dL Albumin (3.5-5.0) g/dL Arterial Blood Potassium (3.4-4.5) mmol/L Arterial Blood Glucose 154 H 171 H (75-99) mg/dL Crossmatch See Detail 05/23/20 05/23/20 05/23/20 Range/Units 11:38 11:52 12:25 RBC (4.30-5.90) m/uL Hgb (13.0-17.5) gm/dL Hct (39.0-53.0) % Neutrophils # (1.3-7.7) k/uL Lymphocytes # (1.0-4.8) k/uL PT (9.0-12.0) sec INR (<1.2) ABG pH 7.34 L (7.35-7.45) ABG pCO2 (35-45) mmHg ABG pO2 142 H 371 H 292 H (83-108) mmHg ABG Total CO2 25 H 25 H 25 H (19-24) mmol/L ABG O2 Saturation 99.6 H 100.0 H 100.0 H (94-97) % ABG Hematocrit 31 L 28 L 25 L (34.0-46.0) % ABG Sodium 133 L (135-146) mmol/L ABG Potassium 5.2 H (3.4-4.5) mmol/L ABG Ionized Calcium 4.3 L 4.2 L (4.5-5.3) mg/dL ABG Glucose 183 H 181 H 260 H (75-99) mg/dL Hemoglobin 10.1 L 9.3 L 8.2 L (13.0-17.5) gm/dL Sodium (137-145) mmol/L Potassium (3.5-5.1) mmol/L Chloride (98-107) mmol/L Creatinine (0.66-1.25) mg/dL Glucose (74-99) mg/dL POC Glucose (mg/dL) (75-99) mg/dL Calcium (8.4-10.2) mg/dL Magnesium (1.6-2.3) mg/dL AST (17-59) U/L Alkaline Phosphatase (38-126) U/L Total Protein (6.3-8.2) g/dL Albumin (3.5-5.0) g/dL Arterial Blood Potassium 5.2 H (3.4-4.5) mmol/L Arterial Blood Glucose 183 H 181 H 260 H (75-99) mg/dL Crossmatch 05/23/20 05/23/20 05/23/20 Range/Units 12:49 13:25 14:06 RBC (4.30-5.90) m/uL Hgb (13.0-17.5) gm/dL Hct (39.0-53.0) % Neutrophils # (1.3-7.7) k/uL Lymphocytes # (1.0-4.8) k/uL PT (9.0-12.0) sec INR (<1.2) ABG pH 7.30 L (7.35-7.45) ABG pCO2 47 H (35-45) mmHg ABG pO2 266 H 324 H 328 H (83-108) mmHg ABG Total CO2 25 H 25 H (19-24) mmol/L ABG O2 Saturation 100.0 H 100.0 H 100.0 H (94-97) % ABG Hematocrit 25 L 25 L 24 L (34.0-46.0) % ABG Sodium 134 L (135-146) mmol/L ABG Potassium (3.4-4.5) mmol/L ABG Ionized Calcium 4.3 L 4.2 L 4.3 L (4.5-5.3) mg/dL ABG Glucose 276 H 311 H 301 H (75-99) mg/dL Hemoglobin 8.2 L 8.0 L 7.8 L (13.0-17.5) gm/dL Sodium (137-145) mmol/L Potassium (3.5-5.1) mmol/L Chloride (98-107) mmol/L Creatinine (0.66-1.25) mg/dL Glucose (74-99) mg/dL POC Glucose (mg/dL) (75-99) mg/dL Calcium (8.4-10.2) mg/dL Magnesium (1.6-2.3) mg/dL AST (17-59) U/L Alkaline Phosphatase (38-126) U/L Total Protein (6.3-8.2) g/dL Albumin (3.5-5.0) g/dL Arterial Blood Potassium (3.4-4.5) mmol/L Arterial Blood Glucose 276 H 311 H 301 H (75-99) mg/dL Crossmatch 05/23/20 05/23/20 05/23/20 Range/Units 14:33 16:43 16:45 RBC 3.06 L (4.30-5.90) m/uL Hgb 9.8 L D (13.0-17.5) gm/dL Hct 28.3 L (39.0-53.0) % Neutrophils # (1.3-7.7) k/uL Lymphocytes # (1.0-4.8) k/uL PT (9.0-12.0) sec INR (<1.2) ABG pH (7.35-7.45) ABG pCO2 (35-45) mmHg ABG pO2 294 H (83-108) mmHg ABG Total CO2 25 H (19-24) mmol/L ABG O2 Saturation 100.0 H (94-97) % ABG Hematocrit 24 L (34.0-46.0) % ABG Sodium (135-146) mmol/L ABG Potassium (3.4-4.5) mmol/L ABG Ionized Calcium 4.3 L (4.5-5.3) mg/dL ABG Glucose 280 H (75-99) mg/dL Hemoglobin 7.8 L (13.0-17.5) gm/dL Sodium (137-145) mmol/L Potassium (3.5-5.1) mmol/L Chloride (98-107) mmol/L Creatinine (0.66-1.25) mg/dL Glucose (74-99) mg/dL POC Glucose (mg/dL) 183 H (75-99) mg/dL Calcium (8.4-10.2) mg/dL Magnesium (1.6-2.3) mg/dL AST (17-59) U/L Alkaline Phosphatase (38-126) U/L Total Protein (6.3-8.2) g/dL Albumin (3.5-5.0) g/dL Arterial Blood Potassium (3.4-4.5) mmol/L Arterial Blood Glucose 280 H (75-99) mg/dL Crossmatch 05/23/20 05/23/20 05/23/20 Range/Units 16:45 16:45 17:09 RBC (4.30-5.90) m/uL Hgb (13.0-17.5) gm/dL Hct (39.0-53.0) % Neutrophils # (1.3-7.7) k/uL Lymphocytes # (1.0-4.8) k/uL PT 12.2 H (9.0-12.0) sec INR 1.2 H (<1.2) ABG pH (7.35-7.45) ABG pCO2 (35-45) mmHg ABG pO2 (83-108) mmHg ABG Total CO2 (19-24) mmol/L ABG O2 Saturation (94-97) % ABG Hematocrit (34.0-46.0) % ABG Sodium (135-146) mmol/L ABG Potassium (3.4-4.5) mmol/L ABG Ionized Calcium (4.5-5.3) mg/dL ABG Glucose (75-99) mg/dL Hemoglobin (13.0-17.5) gm/dL Sodium 136 L (137-145) mmol/L Potassium (3.5-5.1) mmol/L Chloride (98-107) mmol/L Creatinine 0.63 L (0.66-1.25) mg/dL Glucose 173 H (74-99) mg/dL POC Glucose (mg/dL) 171 H (75-99) mg/dL Calcium 7.9 L (8.4-10.2) mg/dL Magnesium 2.7 H (1.6-2.3) mg/dL AST (17-59) U/L Alkaline Phosphatase 34 L (38-126) U/L Total Protein 4.3 L (6.3-8.2) g/dL Albumin 2.4 L (3.5-5.0) g/dL Arterial Blood Potassium (3.4-4.5) mmol/L Arterial Blood Glucose (75-99) mg/dL Crossmatch 05/23/20 05/23/20 05/23/20 Range/Units 17:27 18:13 18:56 RBC (4.30-5.90) m/uL Hgb (13.0-17.5) gm/dL Hct (39.0-53.0) % Neutrophils # (1.3-7.7) k/uL Lymphocytes # (1.0-4.8) k/uL PT (9.0-12.0) sec INR (<1.2) ABG pH (7.35-7.45) ABG pCO2 (35-45) mmHg ABG pO2 155 H (83-108) mmHg ABG Total CO2 26 H (19-24) mmol/L ABG O2 Saturation 99.2 H (94-97) % ABG Hematocrit (34.0-46.0) % ABG Sodium (135-146) mmol/L ABG Potassium (3.4-4.5) mmol/L ABG Ionized Calcium (4.5-5.3) mg/dL ABG Glucose (75-99) mg/dL Hemoglobin (13.0-17.5) gm/dL Sodium (137-145) mmol/L Potassium (3.5-5.1) mmol/L Chloride (98-107) mmol/L Creatinine (0.66-1.25) mg/dL Glucose (74-99) mg/dL POC Glucose (mg/dL) 132 H 133 H (75-99) mg/dL Calcium (8.4-10.2) mg/dL Magnesium (1.6-2.3) mg/dL AST (17-59) U/L Alkaline Phosphatase (38-126) U/L Total Protein (6.3-8.2) g/dL Albumin (3.5-5.0) g/dL Arterial Blood Potassium (3.4-4.5) mmol/L Arterial Blood Glucose (75-99) mg/dL Crossmatch 05/23/20 05/23/20 05/23/20 Range/Units 18:57 20:06 20:55 RBC 2.89 L (4.30-5.90) m/uL Hgb 9.1 L (13.0-17.5) gm/dL Hct 26.5 L (39.0-53.0) % Neutrophils # (1.3-7.7) k/uL Lymphocytes # 0.4 L (1.0-4.8) k/uL PT (9.0-12.0) sec INR (<1.2) ABG pH (7.35-7.45) ABG pCO2 (35-45) mmHg ABG pO2 (83-108) mmHg ABG Total CO2 26 H (19-24) mmol/L ABG O2 Saturation 98.6 H (94-97) % ABG Hematocrit (34.0-46.0) % ABG Sodium (135-146) mmol/L ABG Potassium (3.4-4.5) mmol/L ABG Ionized Calcium (4.5-5.3) mg/dL ABG Glucose (75-99) mg/dL Hemoglobin (13.0-17.5) gm/dL Sodium (137-145) mmol/L Potassium (3.5-5.1) mmol/L Chloride (98-107) mmol/L Creatinine (0.66-1.25) mg/dL Glucose (74-99) mg/dL POC Glucose (mg/dL) 161 H (75-99) mg/dL Calcium (8.4-10.2) mg/dL Magnesium (1.6-2.3) mg/dL AST (17-59) U/L Alkaline Phosphatase (38-126) U/L Total Protein (6.3-8.2) g/dL Albumin (3.5-5.0) g/dL Arterial Blood Potassium (3.4-4.5) mmol/L Arterial Blood Glucose (75-99) mg/dL Crossmatch 05/23/20 05/23/20 05/23/20 Range/Units 20:57 20:59 22:03 RBC 2.71 L (4.30-5.90) m/uL Hgb 8.4 L (13.0-17.5) gm/dL Hct 24.8 L (39.0-53.0) % Neutrophils # 7.9 H (1.3-7.7) k/uL Lymphocytes # 0.4 L (1.0-4.8) k/uL PT (9.0-12.0) sec INR (<1.2) ABG pH (7.35-7.45) ABG pCO2 (35-45) mmHg ABG pO2 (83-108) mmHg ABG Total CO2 (19-24) mmol/L ABG O2 Saturation (94-97) % ABG Hematocrit (34.0-46.0) % ABG Sodium (135-146) mmol/L ABG Potassium (3.4-4.5) mmol/L ABG Ionized Calcium (4.5-5.3) mg/dL ABG Glucose (75-99) mg/dL Hemoglobin (13.0-17.5) gm/dL Sodium (137-145) mmol/L Potassium (3.5-5.1) mmol/L Chloride (98-107) mmol/L Creatinine (0.66-1.25) mg/dL Glucose (74-99) mg/dL POC Glucose (mg/dL) 152 H 167 H (75-99) mg/dL Calcium (8.4-10.2) mg/dL Magnesium (1.6-2.3) mg/dL AST (17-59) U/L Alkaline Phosphatase (38-126) U/L Total Protein (6.3-8.2) g/dL Albumin (3.5-5.0) g/dL Arterial Blood Potassium (3.4-4.5) mmol/L Arterial Blood Glucose (75-99) mg/dL Crossmatch 05/23/20 05/24/20 05/24/20 Range/Units 23:02 00:06 01:09 RBC (4.30-5.90) m/uL Hgb (13.0-17.5) gm/dL Hct (39.0-53.0) % Neutrophils # (1.3-7.7) k/uL Lymphocytes # (1.0-4.8) k/uL PT (9.0-12.0) sec INR (<1.2) ABG pH (7.35-7.45) ABG pCO2 (35-45) mmHg ABG pO2 (83-108) mmHg ABG Total CO2 (19-24) mmol/L ABG O2 Saturation (94-97) % ABG Hematocrit (34.0-46.0) % ABG Sodium (135-146) mmol/L ABG Potassium (3.4-4.5) mmol/L ABG Ionized Calcium (4.5-5.3) mg/dL ABG Glucose (75-99) mg/dL Hemoglobin (13.0-17.5) gm/dL Sodium (137-145) mmol/L Potassium (3.5-5.1) mmol/L Chloride (98-107) mmol/L Creatinine (0.66-1.25) mg/dL Glucose (74-99) mg/dL POC Glucose (mg/dL) 144 H 131 H 133 H (75-99) mg/dL Calcium (8.4-10.2) mg/dL Magnesium (1.6-2.3) mg/dL AST (17-59) U/L Alkaline Phosphatase (38-126) U/L Total Protein (6.3-8.2) g/dL Albumin (3.5-5.0) g/dL Arterial Blood Potassium (3.4-4.5) mmol/L Arterial Blood Glucose (75-99) mg/dL Crossmatch 05/24/20 05/24/20 05/24/20 Range/Units 04:05 04:17 04:17 RBC 2.74 L (4.30-5.90) m/uL Hgb 8.8 L (13.0-17.5) gm/dL Hct 24.9 L (39.0-53.0) % Neutrophils # 8.0 H (1.3-7.7) k/uL Lymphocytes # 0.8 L (1.0-4.8) k/uL PT (9.0-12.0) sec INR (<1.2) ABG pH (7.35-7.45) ABG pCO2 (35-45) mmHg ABG pO2 (83-108) mmHg ABG Total CO2 (19-24) mmol/L ABG O2 Saturation (94-97) % ABG Hematocrit (34.0-46.0) % ABG Sodium (135-146) mmol/L ABG Potassium (3.4-4.5) mmol/L ABG Ionized Calcium (4.5-5.3) mg/dL ABG Glucose (75-99) mg/dL Hemoglobin (13.0-17.5) gm/dL Sodium 135 L (137-145) mmol/L Potassium 5.4 H (3.5-5.1) mmol/L Chloride 108 H (98-107) mmol/L Creatinine (0.66-1.25) mg/dL Glucose 117 H (74-99) mg/dL POC Glucose (mg/dL) 123 H (75-99) mg/dL Calcium 7.6 L (8.4-10.2) mg/dL Magnesium (1.6-2.3) mg/dL AST 77 H (17-59) U/L Alkaline Phosphatase (38-126) U/L Total Protein 4.7 L (6.3-8.2) g/dL Albumin 2.8 L (3.5-5.0) g/dL Arterial Blood Potassium (3.4-4.5) mmol/L Arterial Blood Glucose (75-99) mg/dL Crossmatch 05/24/20 05/24/20 05/24/20 Range/Units 05:11 07:07 08:07 RBC (4.30-5.90) m/uL Hgb (13.0-17.5) gm/dL Hct (39.0-53.0) % Neutrophils # (1.3-7.7) k/uL Lymphocytes # (1.0-4.8) k/uL PT (9.0-12.0) sec INR (<1.2) ABG pH (7.35-7.45) ABG pCO2 (35-45) mmHg ABG pO2 (83-108) mmHg ABG Total CO2 (19-24) mmol/L ABG O2 Saturation (94-97) % ABG Hematocrit (34.0-46.0) % ABG Sodium (135-146) mmol/L ABG Potassium (3.4-4.5) mmol/L ABG Ionized Calcium (4.5-5.3) mg/dL ABG Glucose (75-99) mg/dL Hemoglobin (13.0-17.5) gm/dL Sodium (137-145) mmol/L Potassium (3.5-5.1) mmol/L Chloride (98-107) mmol/L Creatinine (0.66-1.25) mg/dL Glucose (74-99) mg/dL POC Glucose (mg/dL) 129 H 171 H 171 H (75-99) mg/dL Calcium (8.4-10.2) mg/dL Magnesium (1.6-2.3) mg/dL AST (17-59) U/L Alkaline Phosphatase (38-126) U/L Total Protein (6.3-8.2) g/dL Albumin (3.5-5.0) g/dL Arterial Blood Potassium (3.4-4.5) mmol/L Arterial Blood Glucose (75-99) mg/dL Crossmatch 05/24/20 05/24/20 05/24/20 Range/Units 09:19 10:15 11:07 RBC (4.30-5.90) m/uL Hgb (13.0-17.5) gm/dL Hct (39.0-53.0) % Neutrophils # (1.3-7.7) k/uL Lymphocytes # (1.0-4.8) k/uL PT (9.0-12.0) sec INR (<1.2) ABG pH (7.35-7.45) ABG pCO2 (35-45) mmHg ABG pO2 (83-108) mmHg ABG Total CO2 (19-24) mmol/L ABG O2 Saturation (94-97) % ABG Hematocrit (34.0-46.0) % ABG Sodium (135-146) mmol/L ABG Potassium (3.4-4.5) mmol/L ABG Ionized Calcium (4.5-5.3) mg/dL ABG Glucose (75-99) mg/dL Hemoglobin (13.0-17.5) gm/dL Sodium (137-145) mmol/L Potassium (3.5-5.1) mmol/L Chloride (98-107) mmol/L Creatinine (0.66-1.25) mg/dL Glucose (74-99) mg/dL POC Glucose (mg/dL) 247 H 206 H 173 H (75-99) mg/dL Calcium (8.4-10.2) mg/dL Magnesium (1.6-2.3) mg/dL AST (17-59) U/L Alkaline Phosphatase (38-126) U/L Total Protein (6.3-8.2) g/dL Albumin (3.5-5.0) g/dL Arterial Blood Potassium (3.4-4.5) mmol/L Arterial Blood Glucose (75-99) mg/dL Crossmatch
[2020-05-24 13:21] LABS: Glucose,Whole Blood 146 mg/dL (75-99)
[2020-05-24 14:03] LABS: Glucose,Whole Blood 154 mg/dL (75-99)
[2020-05-24 15:19] LABS: Glucose,Whole Blood 138 mg/dL (75-99)
--- NOTE | 2020-05-24 15:51 | P.PN ---
Subjective Progress Note Date: 05/24/20 Principal diagnosis: Myocardial infarction Patient feeling well. He denied chest pain or shortness of breath. No fevers or chills. No other complaints. No overnight events. Objective - Vital Signs Vital signs: Vital Signs Temp 37.2 F L 05/24/20 08:00 Pulse 84 05/24/20 15:00 Resp 15 05/24/20 15:00 BP 104/69 05/24/20 10:15 Pulse Ox 96 05/24/20 15:00 Intake & Output 05/23/20 05/24/20 05/24/20 18:59 06:59 18:59 Intake Total 179.645 8620.583 1381.760 Output Total 4340 852 502 Balance -3865.307 910.583 879.760 Weight 89.9 kg 89.9 kg Intake: IV 72 918 601 .9NS Pressure Bag 9 108 81 Cardiac Output 10 160 50 Sodium Chloride 0.9% 1, 550 420 000 ml @ 20 mls/hr IV . Q24H [facility] Rx#:[id number] ceFAZolin 2 gm In Sodium 100 50 Chloride 0.9% 50 ml @ 100 mls/hr IVPB Q8HR [facility] Rx# :[id number] Intake, IV Titration 402.693 844.583 540.760 Amount Albumin Human 5% 250 ml @ 250 500 250 0 mls/hr IVPB .[facility] Rx#:[id number] Insulin Regular 100 unit 2.693 23.533 48.093 In Sodium Chloride 0.9% 100 ml @ Per Protocol IV .Q0M [facility] Rx#:[id number] Milrinone-D5w Pmx 20 mg 54.805 In Dextrose/Water 1 100ml .bag @ 0.25 MCG/KG/MIN 6. 435 mls/hr IV .[id number] [facility] Rx#:[id number] Norepinephrine 4 mg In 216.245 242.667 Sodium Chloride 0.9% 250 ml @ 0.05 MCG/KG/MIN 16. 345 mls/hr IV .[id number] [facility] Rx#:[id number] Sodium Chloride 0.9% 1, 100 50 000 ml @ 20 mls/hr IV . Q24H [facility] Rx#:[id number] ceFAZolin 2 gm In Sodium 50 Chloride 0.9% 50 ml @ 100 mls/hr IVPB Q8HR [facility] Rx# :[id number] Oral 240 Output: Chest Tube Drainage 360 422 140 Left Pleural Chest tube 120 182 110 Mediastinal Chest Tubes X 240 240 30 2 Drainage 0 0 Left Wrist 0 0 Urine 1980 430 362 Estimated Blood Loss 1999 Other: Voiding Method Indwelling Catheter Indwelling Catheter ABP, PAP, CO, CI - Last Documented Arterial Blood Pressure 114/53 Pulmonary Artery Pressure 28/10 Cardiac Output 4.4 Cardiac Index 2.2 - Exam Gen: No acute distress, extubated HEENT: normocephalic, atraumatic, moist mucous membranes Resp: Clear bilaterally CVS: good distal perfusion x 4, regular rate and rhythm without murmurs GI: soft, NTTP, ND, appropriate bowel sounds : no SPT, no CVAT, scott catheter is present MSK: no pitting edema, no clubbing Neuro: non-focal, moving all extremities - Labs CBC & Chem 7: 05/24/20 04:17 05/24/20 04:17 Labs: Abnormal Lab Results - Last 24 Hours (Table) 05/22/20 05/23/20 05/23/20 Range/Units 08:28 12:49 13:25 RBC (4.30-5.90) m/uL Hgb (13.0-17.5) gm/dL Hct (39.0-53.0) % Neutrophils # (1.3-7.7) k/uL Lymphocytes # (1.0-4.8) k/uL PT (9.0-12.0) sec INR (<1.2) ABG pH 7.30 L (7.35-7.45) ABG pCO2 47 H (35-45) mmHg ABG pO2 266 H 324 H (83-108) mmHg ABG Total CO2 25 H (19-24) mmol/L ABG O2 Saturation 100.0 H 100.0 H (94-97) % ABG Hematocrit 25 L 25 L (34.0-46.0) % ABG Sodium 134 L (135-146) mmol/L ABG Ionized Calcium 4.3 L 4.2 L (4.5-5.3) mg/dL ABG Glucose 276 H 311 H (75-99) mg/dL Hemoglobin 8.2 L 8.0 L (13.0-17.5) gm/dL Sodium (137-145) mmol/L Potassium (3.5-5.1) mmol/L Chloride (98-107) mmol/L Creatinine (0.66-1.25) mg/dL Glucose (74-99) mg/dL POC Glucose (mg/dL) (75-99) mg/dL Calcium (8.4-10.2) mg/dL Magnesium (1.6-2.3) mg/dL AST (17-59) U/L Alkaline Phosphatase (38-126) U/L Total Protein (6.3-8.2) g/dL Albumin (3.5-5.0) g/dL Arterial Blood Glucose 276 H 311 H (75-99) mg/dL Crossmatch See Detail 05/23/20 05/23/20 05/23/20 Range/Units 14:06 14:33 16:43 RBC (4.30-5.90) m/uL Hgb (13.0-17.5) gm/dL Hct (39.0-53.0) % Neutrophils # (1.3-7.7) k/uL Lymphocytes # (1.0-4.8) k/uL PT (9.0-12.0) sec INR (<1.2) ABG pH (7.35-7.45) ABG pCO2 (35-45) mmHg ABG pO2 328 H 294 H (83-108) mmHg ABG Total CO2 25 H 25 H (19-24) mmol/L ABG O2 Saturation 100.0 H 100.0 H (94-97) % ABG Hematocrit 24 L 24 L (34.0-46.0) % ABG Sodium (135-146) mmol/L ABG Ionized Calcium 4.3 L 4.3 L (4.5-5.3) mg/dL ABG Glucose 301 H 280 H (75-99) mg/dL Hemoglobin 7.8 L 7.8 L (13.0-17.5) gm/dL Sodium (137-145) mmol/L Potassium (3.5-5.1) mmol/L Chloride (98-107) mmol/L Creatinine (0.66-1.25) mg/dL Glucose (74-99) mg/dL POC Glucose (mg/dL) 183 H (75-99) mg/dL Calcium (8.4-10.2) mg/dL Magnesium (1.6-2.3) mg/dL AST (17-59) U/L Alkaline Phosphatase (38-126) U/L Total Protein (6.3-8.2) g/dL Albumin (3.5-5.0) g/dL Arterial Blood Glucose 301 H 280 H (75-99) mg/dL Crossmatch 05/23/20 05/23/20 05/23/20 Range/Units 16:45 16:45 16:45 RBC 3.06 L (4.30-5.90) m/uL Hgb 9.8 L D (13.0-17.5) gm/dL Hct 28.3 L (39.0-53.0) % Neutrophils # (1.3-7.7) k/uL Lymphocytes # (1.0-4.8) k/uL PT 12.2 H (9.0-12.0) sec INR 1.2 H (<1.2) ABG pH (7.35-7.45) ABG pCO2 (35-45) mmHg ABG pO2 (83-108) mmHg ABG Total CO2 (19-24) mmol/L ABG O2 Saturation (94-97) % ABG Hematocrit (34.0-46.0) % ABG Sodium (135-146) mmol/L ABG Ionized Calcium (4.5-5.3) mg/dL ABG Glucose (75-99) mg/dL Hemoglobin (13.0-17.5) gm/dL Sodium 136 L (137-145) mmol/L Potassium (3.5-5.1) mmol/L Chloride (98-107) mmol/L Creatinine 0.63 L (0.66-1.25) mg/dL Glucose 173 H (74-99) mg/dL POC Glucose (mg/dL) (75-99) mg/dL Calcium 7.9 L (8.4-10.2) mg/dL Magnesium 2.7 H (1.6-2.3) mg/dL AST (17-59) U/L Alkaline Phosphatase 34 L (38-126) U/L Total Protein 4.3 L (6.3-8.2) g/dL Albumin 2.4 L (3.5-5.0) g/dL Arterial Blood Glucose (75-99) mg/dL Crossmatch 05/23/20 05/23/20 05/23/20 Range/Units 17:09 17:27 18:13 RBC (4.30-5.90) m/uL Hgb (13.0-17.5) gm/dL Hct (39.0-53.0) % Neutrophils # (1.3-7.7) k/uL Lymphocytes # (1.0-4.8) k/uL PT (9.0-12.0) sec INR (<1.2) ABG pH (7.35-7.45) ABG pCO2 (35-45) mmHg ABG pO2 155 H (83-108) mmHg ABG Total CO2 26 H (19-24) mmol/L ABG O2 Saturation 99.2 H (94-97) % ABG Hematocrit (34.0-46.0) % ABG Sodium (135-146) mmol/L ABG Ionized Calcium (4.5-5.3) mg/dL ABG Glucose (75-99) mg/dL Hemoglobin (13.0-17.5) gm/dL Sodium (137-145) mmol/L Potassium (3.5-5.1) mmol/L Chloride (98-107) mmol/L Creatinine (0.66-1.25) mg/dL Glucose (74-99) mg/dL POC Glucose (mg/dL) 171 H 132 H (75-99) mg/dL Calcium (8.4-10.2) mg/dL Magnesium (1.6-2.3) mg/dL AST (17-59) U/L Alkaline Phosphatase (38-126) U/L Total Protein (6.3-8.2) g/dL Albumin (3.5-5.0) g/dL Arterial Blood Glucose (75-99) mg/dL Crossmatch 05/23/20 05/23/20 05/23/20 Range/Units 18:56 18:57 20:06 RBC 2.89 L (4.30-5.90) m/uL Hgb 9.1 L (13.0-17.5) gm/dL Hct 26.5 L (39.0-53.0) % Neutrophils # (1.3-7.7) k/uL Lymphocytes # 0.4 L (1.0-4.8) k/uL PT (9.0-12.0) sec INR (<1.2) ABG pH (7.35-7.45) ABG pCO2 (35-45) mmHg ABG pO2 (83-108) mmHg ABG Total CO2 (19-24) mmol/L ABG O2 Saturation (94-97) % ABG Hematocrit (34.0-46.0) % ABG Sodium (135-146) mmol/L ABG Ionized Calcium (4.5-5.3) mg/dL ABG Glucose (75-99) mg/dL Hemoglobin (13.0-17.5) gm/dL Sodium (137-145) mmol/L Potassium (3.5-5.1) mmol/L Chloride (98-107) mmol/L Creatinine (0.66-1.25) mg/dL Glucose (74-99) mg/dL POC Glucose (mg/dL) 133 H 161 H (75-99) mg/dL Calcium (8.4-10.2) mg/dL Magnesium (1.6-2.3) mg/dL AST (17-59) U/L Alkaline Phosphatase (38-126) U/L Total Protein (6.3-8.2) g/dL Albumin (3.5-5.0) g/dL Arterial Blood Glucose (75-99) mg/dL Crossmatch 05/23/20 05/23/20 05/23/20 Range/Units 20:55 20:57 20:59 RBC 2.71 L (4.30-5.90) m/uL Hgb 8.4 L (13.0-17.5) gm/dL Hct 24.8 L (39.0-53.0) % Neutrophils # 7.9 H (1.3-7.7) k/uL Lymphocytes # 0.4 L (1.0-4.8) k/uL PT (9.0-12.0) sec INR (<1.2) ABG pH (7.35-7.45) ABG pCO2 (35-45) mmHg ABG pO2 (83-108) mmHg ABG Total CO2 26 H (19-24) mmol/L ABG O2 Saturation 98.6 H (94-97) % ABG Hematocrit (34.0-46.0) % ABG Sodium (135-146) mmol/L ABG Ionized Calcium (4.5-5.3) mg/dL ABG Glucose (75-99) mg/dL Hemoglobin (13.0-17.5) gm/dL Sodium (137-145) mmol/L Potassium (3.5-5.1) mmol/L Chloride (98-107) mmol/L Creatinine (0.66-1.25) mg/dL Glucose (74-99) mg/dL POC Glucose (mg/dL) 152 H (75-99) mg/dL Calcium (8.4-10.2) mg/dL Magnesium (1.6-2.3) mg/dL AST (17-59) U/L Alkaline Phosphatase (38-126) U/L Total Protein (6.3-8.2) g/dL Albumin (3.5-5.0) g/dL Arterial Blood Glucose (75-99) mg/dL Crossmatch 05/23/20 05/23/20 05/24/20 Range/Units 22:03 23:02 00:06 RBC (4.30-5.90) m/uL Hgb (13.0-17.5) gm/dL Hct (39.0-53.0) % Neutrophils # (1.3-7.7) k/uL Lymphocytes # (1.0-4.8) k/uL PT (9.0-12.0) sec INR (<1.2) ABG pH (7.35-7.45) ABG pCO2 (35-45) mmHg ABG pO2 (83-108) mmHg ABG Total CO2 (19-24) mmol/L ABG O2 Saturation (94-97) % ABG Hematocrit (34.0-46.0) % ABG Sodium (135-146) mmol/L ABG Ionized Calcium (4.5-5.3) mg/dL ABG Glucose (75-99) mg/dL Hemoglobin (13.0-17.5) gm/dL Sodium (137-145) mmol/L Potassium (3.5-5.1) mmol/L Chloride (98-107) mmol/L Creatinine (0.66-1.25) mg/dL Glucose (74-99) mg/dL POC Glucose (mg/dL) 167 H 144 H 131 H (75-99) mg/dL Calcium (8.4-10.2) mg/dL Magnesium (1.6-2.3) mg/dL AST (17-59) U/L Alkaline Phosphatase (38-126) U/L Total Protein (6.3-8.2) g/dL Albumin (3.5-5.0) g/dL Arterial Blood Glucose (75-99) mg/dL Crossmatch 05/24/20 05/24/20 05/24/20 Range/Units 01:09 04:05 04:17 RBC 2.74 L (4.30-5.90) m/uL Hgb 8.8 L (13.0-17.5) gm/dL Hct 24.9 L (39.0-53.0) % Neutrophils # 8.0 H (1.3-7.7) k/uL Lymphocytes # 0.8 L (1.0-4.8) k/uL PT (9.0-12.0) sec INR (<1.2) ABG pH (7.35-7.45) ABG pCO2 (35-45) mmHg ABG pO2 (83-108) mmHg ABG Total CO2 (19-24) mmol/L ABG O2 Saturation (94-97) % ABG Hematocrit (34.0-46.0) % ABG Sodium (135-146) mmol/L ABG Ionized Calcium (4.5-5.3) mg/dL ABG Glucose (75-99) mg/dL Hemoglobin (13.0-17.5) gm/dL Sodium (137-145) mmol/L Potassium (3.5-5.1) mmol/L Chloride (98-107) mmol/L Creatinine (0.66-1.25) mg/dL Glucose (74-99) mg/dL POC Glucose (mg/dL) 133 H 123 H (75-99) mg/dL Calcium (8.4-10.2) mg/dL Magnesium (1.6-2.3) mg/dL AST (17-59) U/L Alkaline Phosphatase (38-126) U/L Total Protein (6.3-8.2) g/dL Albumin (3.5-5.0) g/dL Arterial Blood Glucose (75-99) mg/dL Crossmatch 05/24/20 05/24/20 05/24/20 Range/Units 04:17 05:11 07:07 RBC (4.30-5.90) m/uL Hgb (13.0-17.5) gm/dL Hct (39.0-53.0) % Neutrophils # (1.3-7.7) k/uL Lymphocytes # (1.0-4.8) k/uL PT (9.0-12.0) sec INR (<1.2) ABG pH (7.35-7.45) ABG pCO2 (35-45) mmHg ABG pO2 (83-108) mmHg ABG Total CO2 (19-24) mmol/L ABG O2 Saturation (94-97) % ABG Hematocrit (34.0-46.0) % ABG Sodium (135-146) mmol/L ABG Ionized Calcium (4.5-5.3) mg/dL ABG Glucose (75-99) mg/dL Hemoglobin (13.0-17.5) gm/dL Sodium 135 L (137-145) mmol/L Potassium 5.4 H (3.5-5.1) mmol/L Chloride 108 H (98-107) mmol/L Creatinine (0.66-1.25) mg/dL Glucose 117 H (74-99) mg/dL POC Glucose (mg/dL) 129 H 171 H (75-99) mg/dL Calcium 7.6 L (8.4-10.2) mg/dL Magnesium (1.6-2.3) mg/dL AST 77 H (17-59) U/L Alkaline Phosphatase (38-126) U/L Total Protein 4.7 L (6.3-8.2) g/dL Albumin 2.8 L (3.5-5.0) g/dL Arterial Blood Glucose (75-99) mg/dL Crossmatch 05/24/20 05/24/20 05/24/20 Range/Units 08:07 09:19 10:15 RBC (4.30-5.90) m/uL Hgb (13.0-17.5) gm/dL Hct (39.0-53.0) % Neutrophils # (1.3-7.7) k/uL Lymphocytes # (1.0-4.8) k/uL PT (9.0-12.0) sec INR (<1.2) ABG pH (7.35-7.45) ABG pCO2 (35-45) mmHg ABG pO2 (83-108) mmHg ABG Total CO2 (19-24) mmol/L ABG O2 Saturation (94-97) % ABG Hematocrit (34.0-46.0) % ABG Sodium (135-146) mmol/L ABG Ionized Calcium (4.5-5.3) mg/dL ABG Glucose (75-99) mg/dL Hemoglobin (13.0-17.5) gm/dL Sodium (137-145) mmol/L Potassium (3.5-5.1) mmol/L Chloride (98-107) mmol/L Creatinine (0.66-1.25) mg/dL Glucose (74-99) mg/dL POC Glucose (mg/dL) 171 H 247 H 206 H (75-99) mg/dL Calcium (8.4-10.2) mg/dL Magnesium (1.6-2.3) mg/dL AST (17-59) U/L Alkaline Phosphatase (38-126) U/L Total Protein (6.3-8.2) g/dL Albumin (3.5-5.0) g/dL Arterial Blood Glucose (75-99) mg/dL Crossmatch 05/24/20 05/24/20 05/24/20 Range/Units 11:07 13:19 14:02 RBC (4.30-5.90) m/uL Hgb (13.0-17.5) gm/dL Hct (39.0-53.0) % Neutrophils # (1.3-7.7) k/uL Lymphocytes # (1.0-4.8) k/uL PT (9.0-12.0) sec INR (<1.2) ABG pH (7.35-7.45) ABG pCO2 (35-45) mmHg ABG pO2 (83-108) mmHg ABG Total CO2 (19-24) mmol/L ABG O2 Saturation (94-97) % ABG Hematocrit (34.0-46.0) % ABG Sodium (135-146) mmol/L ABG Ionized Calcium (4.5-5.3) mg/dL ABG Glucose (75-99) mg/dL Hemoglobin (13.0-17.5) gm/dL Sodium (137-145) mmol/L Potassium (3.5-5.1) mmol/L Chloride (98-107) mmol/L Creatinine (0.66-1.25) mg/dL Glucose (74-99) mg/dL POC Glucose (mg/dL) 173 H 146 H 154 H (75-99) mg/dL Calcium (8.4-10.2) mg/dL Magnesium (1.6-2.3) mg/dL AST (17-59) U/L Alkaline Phosphatase (38-126) U/L Total Protein (6.3-8.2) g/dL Albumin (3.5-5.0) g/dL Arterial Blood Glucose (75-99) mg/dL Crossmatch 05/24/20 Range/Units 15:17 RBC (4.30-5.90) m/uL Hgb (13.0-17.5) gm/dL Hct (39.0-53.0) % Neutrophils # (1.3-7.7) k/uL Lymphocytes # (1.0-4.8) k/uL PT (9.0-12.0) sec INR (<1.2) ABG pH (7.35-7.45) ABG pCO2 (35-45) mmHg ABG pO2 (83-108) mmHg ABG Total CO2 (19-24) mmol/L ABG O2 Saturation (94-97) % ABG Hematocrit (34.0-46.0) % ABG Sodium (135-146) mmol/L ABG Ionized Calcium (4.5-5.3) mg/dL ABG Glucose (75-99) mg/dL Hemoglobin (13.0-17.5) gm/dL Sodium (137-145) mmol/L Potassium (3.5-5.1) mmol/L Chloride (98-107) mmol/L Creatinine (0.66-1.25) mg/dL Glucose (74-99) mg/dL POC Glucose (mg/dL) 138 H (75-99) mg/dL Calcium (8.4-10.2) mg/dL Magnesium (1.6-2.3) mg/dL AST (17-59) U/L Alkaline Phosphatase (38-126) U/L Total Protein (6.3-8.2) g/dL Albumin (3.5-5.0) g/dL Arterial Blood Glucose (75-99) mg/dL Crossmatch Assessment and Plan Plan: NSTEMI -Troponin 3.120. Troponins trended upward with initial troponin is 3.120 with repeats of 6.080 and 7.840. -EKG showing sinus tachycardia at 105 bpm with T-wave inversion in leads III and aVF, no signs of ST elevation. No previous EKGs available for comparison. -Continue heparin infusion, pharmacy to dose. 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 -Close monitoring of I's and O's. -Continue daily aspirin, atorvastatin, and metoprolol. -Lipid profile revealed elevation of triglycerides 200, cholesterol 241, LDL 164, HDL of 37. Atorvastatin increased to 80 mg nightly. Insulin-dependent diabetes mellitus type II -Glycemic protocol with insulin drip -Will resume home NovoLog sliding scale and continuation of Lantus 20 units daily once more stable and able to eat.. -Hemoglobin A1c = 8.2% CODE STATUS: Full code DVT prophylaxis: Heparin Discussed with: Patient Anticipated discharge date: Clinical course to determine Anticipated discharge place: Home
[2020-05-24 16:21] LABS: Glucose,Whole Blood 145 mg/dL (75-99)
[2020-05-24 17:13] LABS: Glucose,Whole Blood 156 mg/dL (75-99)
[2020-05-24 18:31] LABS: Glucose,Whole Blood 194 mg/dL (75-99)
[2020-05-24] MEDS: INSULIN REGULAR 100 UNIT in SODIUM CHLORIDE 0.9% 100 ML IV SCH (19:08)
[2020-05-24] MEDS: SODIUM CHLORIDE 0.9% 1,000 ML IV SCH (19:10)
[2020-05-24] MEDS: SENNOSIDES-DOCUSATE SODIUM 1 EACH TAB PO SCH (20:51)
[2020-05-24 20:58] LABS: Glucose,Whole Blood 160 mg/dL (75-99)
[2020-05-24 23:25] LABS: Glucose,Whole Blood 141 mg/dL (75-99)
[2020-05-25] MEDS: HYDROcodone/APAP 5-325MG 1 EACH TAB PO PRN ×6 (01:03→21:26)
[2020-05-25 01:08] LABS: Glucose,Whole Blood 132 mg/dL (75-99)
[2020-05-25] MEDS: SODIUM CHLORIDE 0.9% 1,000 ML IV SCH (01:11)
[2020-05-25] MEDS: NOREPINEPHRINE 4 MG in SODIUM CHLORIDE 0.9% 250 ML IV SCH (01:17)
[2020-05-25 03:43] LABS: Glucose,Whole Blood 133 mg/dL (75-99)
[2020-05-25 04:10] LABS: Basophils % (A) 0 %; Eosinophils # (A) 0.1 k/uL (0-0.7); Eosinophils % (A) 1 %; HCT 22.2 % (39.0-53.0); HGB 7.8 gm/dL (13.0-17.5); Lymphocytes % (A) 10 %; MCH 32.2 pg (25.0-35.0); MCHC 34.9 g/dL (31.0-37.0); MCV 92.1 fL (80.0-100.0); Mean Platelet Volume 8.2; Monocytes # (A) 0.6 k/uL (0-1.0); Monocytes % (A) 6 %; Neutrophils % (A) 81 %; Platelet Count 193 k/uL (150-450); Poikilocytosis Slight; RBC 2.41 m/uL (4.30-5.90); RDW 12.7 % (11.5-15.5); WBC 9.8 k/uL (3.8-10.6)
[2020-05-25 04:14] LABS: Ionized Calcium 4.5 mg/dL (4.5-5.3)
[2020-05-25 04:27] LABS: Calcium 7.5 mg/dL (8.4-10.2); Potassium 4.6 mmol/L (3.5-5.1); Total Bilirubin 0.8 mg/dL (0.2-1.3); Total Protein 5.2 g/dL (6.3-8.2)
[2020-05-25] MEDS: PANTOPRAZOLE 40 MG TABLET PO SCH (05:04)
[2020-05-25] MEDS: KETOROLAC 15 MG/ML 1 ML VIAL IVP SCH ×3 (05:30→17:27)
[2020-05-25 06:22] LABS: Glucose,Whole Blood 148 mg/dL (75-99)
[2020-05-25] MEDS: IPRATROPIUM-ALBUTEROL 3 ML NEB INHALATION SCH ×4 (07:05→20:23)
--- NOTE | 2020-05-25 07:22 | XR ---
EXAMINATION TYPE: XR chest 1V portable DATE OF EXAM: 05/25/2020 HISTORY: Shortness of breath. COMPARISON: 05/24/2020 TECHNIQUE: Single view of the chest is submitted. FINDINGS: [place] catheter has been removed. Left basilar chest tube is in place. No evidence for pneumothora x. Changes of median sternotomy. Cardiomegaly. Mild pulmonary venous congestion with basilar atelectasis and possible small left effusion. Hilar and mediastinal structures are within normal limits. Degenerative changes are seen of the dorsal spine. IMPRESSION: 1. Postoperative changes as noted.
--- NOTE | 2020-05-25 07:34 | P.PN ---
Subjective Progress Note Date: 05/25/20 Principal diagnosis: Triple vessel diffuse coronary artery disease, moderate to severe mitral regurgitation, moderate left ventricular dysfunction. Previous medical history of insulin-dependent diabetes, family history of premature coronary artery disease, EtOH use most days without history of withdrawal, and newly diagnosed hyperlipidemia and severe left carotid stenosis POD #2 coronary artery bypass grafting 4 vessels with the left internal mammary artery to the left anterior descending artery, reverse saphenous vein graft from the aorta to the first diagonal artery, left radial artery taken proximally from the previous vein graft and anastomosed distally to the distal circumflex artery, reverse saphenous vein graft from the aorta to the right coronary artery, mitral valve repair with posterior annuloplasty using a #28 incomplete AnnuloFlex ring, exclusion of the left atrial appendage with a 35 mm AtriClip, graft flow measurements using the [employer] system, endoscopic harvesting of the left radial artery, endoscopic harvesting of the left greater saphenous vein from the groin to just below the knee level, intraoperative transesophageal echocardiogram and epi-aortic scanning. Postoperative acute blood loss anemia, expected given hemodilution and cardiopul monary bypass pump Patient currently sitting up in bed in a recliner in the intensive care unit no acute distress. Complains of postoperative chest pain with difficulty taking a deep breath, actively attempting incentive spirometry, strong productive cough. Remains in sinus rhythm. Remains on low-dose levo for blood pressure. Mediastinal chest tubes, left pleural chest tube, right internal jugular Cordis, right radial arterial line remain. Patient needs a lot of encouragement to cough and deep breathe, ambulate. No other new concerns. Objective - Vital Signs Vital signs: Vital Signs Temp 98 F 05/25/20 04:00 Pulse 81 05/25/20 07:06 Resp 18 05/25/20 07:06 BP 103/70 05/25/20 06:00 Pulse Ox 98 05/25/20 07:06 Intake & Output 05/24/20 05/25/20 05/25/20 18:59 06:59 18:59 Intake Total 1830.688 502.571 Output Total 652 570 Balance 1178.688 -67.429 Weight 89.9 kg 88.6 kg Intake: IV 788 312 .9NS Pressure Bag 108 72 Cardiac Output 90 Sodium Chloride 0.9% 1, 540 240 000 ml @ 20 mls/hr IV . Q24H [facility] Rx#:[id number] ceFAZolin 2 gm In Sodium 50 Chloride 0.9% 50 ml @ 100 mls/hr IVPB Q8HR [facility] Rx# :[id number] Intake, IV Titration 802.688 190.571 Amount Albumin Human 5% 250 ml @ 250 0 mls/hr IVPB .[facility] Rx#:[id number] Insulin Regular 100 unit 56.021 63.571 In Sodium Chloride 0.9% 100 ml @ Per Protocol IV .Q0M [facility] Rx#:[id number] Norepinephrine 4 mg In 496.667 127.000 Sodium Chloride 0.9% 250 ml @ 0.05 MCG/KG/MIN 16. 345 mls/hr IV .[id number] [facility] Rx#:[id number] Oral 240 Output: Chest Tube Drainage 180 280 Left Pleural Chest tube 130 250 Mediastinal Chest Tubes X 50 30 2 Drainage 0 Left Wrist 0 Urine 472 290 Other: Voiding Method Indwelling Catheter Indwelling Catheter ABP, PAP, CO, CI - Last Documented Arterial Blood Pressure 109/55 Pulmonary Artery Pressure 30/15 Cardiac Output 5.3 Cardiac Index 2.6 - Exam CONSTITUTIONAL: Appears comfortable, cooperative, no acute distress RESPIRATORY: Lungs sounds diminished bilaterally. Respirations even, nonla bored. Currently on 2 L nasal cannula with oxygen saturation 97%. Able to achieve 750-1000 mL on incentive spirometry. Strong productive cough. CARDIOVASCULAR: S1, S2 present. Regular rate and rhythm, sinus rhythm on telemetry. Sternum stable. Palpable peripheral pulses bilaterally. Gener alized edema present. No calf pain or tenderness noted. Heart hugger in place with patient demonstrating appropriate use. Antiembolism stockings, SCDs present. GASTROINTESTINAL: Abdomen soft, nontender, nondistended. Hypoactive bowel sounds present 4 quadrants. Tolerating diet. Positive flatus. GENITOURINARY: Preciado present draining clear, yellow urine. Output overnight 20-40 mL per hour INTEGUMENTARY: Skin is warm and dry with evidence of good perfusion. Anterior chest incision well approximated and covered with dry intact dressing. EVH site well approximated without redness or drainage. 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 NEUROLOGIC: Cranial nerves II through XII intact MUSKULOSKELETAL: Able to move all extremities, strength equal bilaterally PSYCHIATRIC: Alert and oriented to person place and time, appropriate affect, intact judgment and insight INVASIVE LINES AND TUBES: Mediastinal/left/right pleural chest tubes present and connected to wall suction, no air leaks present. Mediastinal tube with 10 mL serosanguineous drainage overnight, 100 mL in the last 24 hours. Left pleural chest tube with 110 mL serosanguineous drainage overnight, 700 mL in the last 24 hours. A/V epicardial pacemaker wires present, connected to generator, backup rate 50 bpm. Right internal jugular Cordis, right radial arterial line present. Last CVP 10. - Labs CBC & Chem 7: 05/25/20 03:46 05/25/20 03:46 Labs: Abnormal Lab Results - Last 24 Hours (Table) 05/24/20 05/24/20 05/24/20 Range/Units 08:07 09:19 10:15 RBC (4.30-5.90) m/uL Hgb (13.0-17.5) gm/dL Hct (39.0-53.0) % Neutrophils # (1.3-7.7) k/uL Sodium (137-145) mmol/L Chloride (98-107) mmol/L Carbon Dioxide (22-30) mmol/L BUN (9-20) mg/dL Glucose (74-99) mg/dL POC Glucose (mg/dL) 171 H 247 H 206 H (75-99) mg/dL Calcium (8.4-10.2) mg/dL Total Protein (6.3-8.2) g/dL Albumin (3.5-5.0) g/dL 05/24/20 05/24/20 05/24/20 Range/Units 11:07 13:19 14:02 RBC (4.30-5.90) m/uL Hgb (13.0-17.5) gm/dL Hct (39.0-53.0) % Neutrophils # (1.3-7.7) k/uL Sodium (137-145) mmol/L Chloride (98-107) mmol/L Carbon Dioxide (22-30) mmol/L BUN (9-20) mg/dL Glucose (74-99) mg/dL POC Glucose (mg/dL) 173 H 146 H 154 H (75-99) mg/dL Calcium (8.4-10.2) mg/dL Total Protein (6.3-8.2) g/dL Albumin (3.5-5.0) g/dL 05/24/20 05/24/20 05/24/20 Range/Units 15:17 16:19 17:11 RBC (4.30-5.90) m/uL Hgb (13.0-17.5) gm/dL Hct (39.0-53.0) % Neutrophils # (1.3-7.7) k/uL Sodium (137-145) mmol/L Chloride (98-107) mmol/L Carbon Dioxide (22-30) mmol/L BUN (9-20) mg/dL Glucose (74-99) mg/dL POC Glucose (mg/dL) 138 H 145 H 156 H (75-99) mg/dL Calcium (8.4-10.2) mg/dL Total Protein (6.3-8.2) g/dL Albumin (3.5-5.0) g/dL 05/24/20 05/24/20 05/24/20 Range/Units 18:29 20:57 23:24 RBC (4.30-5.90) m/uL Hgb (13.0-17.5) gm/dL Hct (39.0-53.0) % Neutrophils # (1.3-7.7) k/uL Sodium (137-145) mmol/L Chloride (98-107) mmol/L Carbon Dioxide (22-30) mmol/L BUN (9-20) mg/dL Glucose (74-99) mg/dL POC Glucose (mg/dL) 194 H 160 H 141 H (75-99) mg/dL Calcium (8.4-10.2) mg/dL Total Protein (6.3-8.2) g/dL Albumin (3.5-5.0) g/dL 05/25/20 05/25/20 05/25/20 Range/Units 01:07 03:42 03:46 RBC 2.41 L (4.30-5.90) m/uL Hgb 7.8 L (13.0-17.5) gm/dL Hct 22.2 L (39.0-53.0) % Neutrophils # 8.0 H (1.3-7.7) k/uL Sodium (137-145) mmol/L Chloride (98-107) mmol/L Carbon Dioxide (22-30) mmol/L BUN (9-20) mg/dL Glucose (74-99) mg/dL POC Glucose (mg/dL) 132 H 133 H (75-99) mg/dL Calcium (8.4-10.2) mg/dL Total Protein (6.3-8.2) g/dL Albumin (3.5-5.0) g/dL 05/25/20 05/25/20 Range/Units 03:46 06:22 RBC (4.30-5.90) m/uL Hgb (13.0-17.5) gm/dL Hct (39.0-53.0) % Neutrophils # (1.3-7.7) k/uL Sodium 136 L (137-145) mmol/L Chloride 108 H (98-107) mmol/L Carbon Dioxide 21 L (22-30) mmol/L BUN 21 H (9-20) mg/dL Glucose 126 H (74-99) mg/dL POC Glucose (mg/dL) 148 H (75-99) mg/dL Calcium 7.5 L (8.4-10.2) mg/dL Total Protein 5.2 L (6.3-8.2) g/dL Albumin 3.0 L (3.5-5.0) g/dL - Imaging and Cardiology Chest x-ray: image reviewed Assessment and Plan Assessment: 1. Triple-vessel diffuse coronary artery disease, non-STEMI this admission, status post four-vessel CABG 2. Moderate to severe predominantly centrally directed mitral regurgitation, status post mitral valve repair 3. Insulin-dependent diabetes, hemoglobin A1c 8.2% 4. Hyperlipidemia, cholesterol 241, triglyceride 200, LDL 164 5. Left internal carotid artery stenosis, greater than 70% per carotid Doppler, greater than 90% per neck CTA 6. Lifelong nonsmoker with FEV1 58% of predicted 7. Family history of premature coronary artery disease, father and 2 brothers diagnosed with CAD with subsequent CABG in their early to mid 50s 8. EtOH use most days without history of withdrawal 9. Postoperative acute blood loss anemia, expected Plan: 1. Continue aspirin, statin, Plavix, beta holly therapy. Will increase beta holly therapy as tolerated. 2. Wean levo as tolerated 3. Continue low-dose CCB for radial artery spasm 4. Wean O2 as tolerated. Encourage incentive spirometry use 10 times every hour while awake 5. Increase activity, ambulate as tolerated. PT/OT/cardiac rehab consulted 6. Will monitor daily labs and x-rays. Electrolyte replacement per protocol. No transfusion 7. GI/DVT prophylaxis 8. Pain control with current medication regimen 9. Insulin management per primary care service. Needs tight blood sugar control for healing 10. [facility] protocol to monitor for alcohol withdrawal. Continue thiamine, folic acid 11. Left carotid stenosis intervention to be completed in the future. Avoid hypotension 12. Will discontinue mediastinal chest tubes, continue left pleural chest tubes for 24 hours 13. Discontinue Preciado. May bladder scan and straight cath for greater than 300 mL residual 14. Strict accurate intake and output. Daily weights. 15. More recommendations to follow depending on patient's progress Time with Patient: Greater than 30
--- NOTE | 2020-05-25 07:39 | P.PN ---
Subjective Progress Note Date: 05/25/20 On today's evaluation of 05/24/2020, the patient is postop day #1. The patient was brought into the intensive care unit and he was hemodynamically stable and was extubated at around 9:15 PM yesterday. This morning, the patient is able to sit up on a recliner. He remains extubated. He remains on oxygen at 2 L per minute nasal cannula. Note that since his surgery, the patient initially received 500 mL bolus of albumin 5%, after sitting up on a chair his blood pressure dropped again and we had to give another bolus of 500 mL of albumin. His urine output is improving. Overnight, he was taken off the Primacor and he was started on levo fed initially 0.05 g and currently he is running at 0.11 mcg/kg per minute. Urine output is adequate for now. BP is showing a systolic of 100-110. Cardiac output is 5.4 with an index of 2.7. No cardiac arrhythmias. No atrial fibrillation. His cardiac rhythm is sinus. Chest tubes are still in place. Output from the mediastinal was 500 mL yesterday and left pleural is 300. The patient has a total of 3 chest tubes left pleural, mediastinal 2. The patient otherwise is doing well. He did have a bout of blurred vision in his left eye yesterday without any neurologic deficit and currently is neurologically intact. No aphasia. No headaches. No altered mentation. Insulin drip is running at 1.5 units an hour and nitroglycerin drip drip is running at 5 units an hour regarding his radial artery harvest. Otherwise, no other significant events. Chest x-ray shows adequate expansion of both lungs. No evidence of any pneumothorax. There is a gastric bubble. Concord- Noé catheter is still in place. Hemoglobin today is at 8.8. Rest of the blood work is all within normal limits. On 05/25/2020 the patient is postop day #1. Is able to sit up on a chair. The Concord-Noé catheter has been removed. The patient has the lower limb mediastinal chest tubes still in place and output has been noted and output has considerably dropped since yesterday. He is hemodynamically requiring some pressors still and the patient is on 0.04 g kilogram per minute of norepinephrine infusion. Urine output is in order of 20 mL an hour. The patient remains on insulin drip at 4.5 units an hour. Blood sugars of been under adequate control. Pulmonary status is stable. He is on oxygen at 2 L, and he was transitioned to room air oxygen. He has adequate pain control for now and this morning he refers this pain as being around 7 out of 10. The chest x-ray from today showing a small pleural effusion on the left. Right lung is showing some fluid within the fissure. No consolidation. No pneumothorax. Chest tubes are all in place. There is some gastric bubble and the patient is passing gas and he is tolerating his diet without any major difficulties. Hemoglobin from today is 7.8 Objective - Vital Signs Vital signs: Vital Signs Temp 98 F 05/25/20 04:00 Pulse 86 05/25/20 07:18 Resp 20 05/25/20 07:18 BP 103/70 05/25/20 06:00 Pulse Ox 98 05/25/20 07:06 Intake & Output 05/24/20 05/25/20 05/25/20 18:59 06:59 18:59 Intake Total 1830.688 502.571 26 Output Total 652 570 20 Balance 1178.688 -67.429 6 Weight 89.9 kg 88.6 kg Intake: IV 788 312 26 .9NS Pressure Bag 108 72 6 Cardiac Output 90 Sodium Chloride 0.9% 1, 540 240 20 000 ml @ 20 mls/hr IV . Q24H [facility] Rx#:[id number] ceFAZolin 2 gm In Sodium 50 Chloride 0.9% 50 ml @ 100 mls/hr IVPB Q8HR [facility] Rx# :[id number] Intake, IV Titration 802.688 190.571 Amount Albumin Human 5% 250 ml @ 250 0 mls/hr IVPB .[facility] Rx#:[id number] Insulin Regular 100 unit 56.021 63.571 In Sodium Chloride 0.9% 100 ml @ Per Protocol IV .Q0M [facility] Rx#:[id number] Norepinephrine 4 mg In 496.667 127.000 Sodium Chloride 0.9% 250 ml @ 0.05 MCG/KG/MIN 16. 345 mls/hr IV .[id number] [facility] Rx#:[id number] Oral 240 Output: Chest Tube Drainage 180 280 Left Pleural Chest tube 130 250 Mediastinal Chest Tubes X 50 30 2 Drainage 0 Left Wrist 0 Urine 472 290 20 Other: Voiding Method Indwelling Catheter Indwelling Catheter ABP, PAP, CO, CI - Last Documented Arterial Blood Pressure 126/58 Pulmonary Artery Pressure 30/15 Cardiac Output 5.3 Cardiac Index 2.6 - Exam Gen. appearance, comfortable not in acute distress, sitting up on a chair, communicating, no signs of any respiratory distress. The patient has a right IJ Cordis and Concord-Noé catheter was removed and the patient is currently on room air oxygen Neck was supple and without jugular venous distension, thyromegaly, or carotid bruits. Carotids were easily palpable bilaterally. There was no adenopathy. The patient has a right IJ Concord-Noé catheter in place. Lungs sounds are diminished bilaterally. The patient has 3 chest tubes, left pleural and 2 mediastinal chest tubes and all of them are in place. Sternum is stable clean and intact. Cardiac exam revealed the PMI to be normally situated and sized. The rhythm was regular and no extrasystoles were noted during several minutes of auscultation. The first and second heart sounds were normal and physiologic splitting of the second heart sound was noted. There were no murmurs, rubs, clicks, or gallops. Abdominal exam revealed normal bowel sounds. The abdomen was soft, non-tender, and without masses, organomegaly, or appreciable enlargement of the abdominal aorta. Examination of the extremities revealed easily palpable radial, femoral and pedal pulses. There was no cyanosis, clubbing or edema. Surgical wound site over the left radial area is dry clean and intact. There is a ALCIDES drain in place without any significant output. Surgical wound site over the lower extremity are also dry clean and intact. Examination of the skin revealed no evidence of significant rashes, suspicious appearing nevi or other concerning lesions. Neurologically, the patient is awake and alert and the patient does not have any focal neurological deficit. Cranial nerves are essentially intact. - Labs CBC & Chem 7: 05/25/20 03:46 05/25/20 03:46 Labs: Abnormal Lab Results - Last 24 Hours (Table) 05/24/20 05/24/20 05/24/20 Range/Units 08:07 09:19 10:15 RBC (4.30-5.90) m/uL Hgb (13.0-17.5) gm/dL Hct (39.0-53.0) % Neutrophils # (1.3-7.7) k/uL Sodium (137-145) mmol/L Chloride (98-107) mmol/L Carbon Dioxide (22-30) mmol/L BUN (9-20) mg/dL Glucose (74-99) mg/dL POC Glucose (mg/dL) 171 H 247 H 206 H (75-99) mg/dL Calcium (8.4-10.2) mg/dL Total Protein (6.3-8.2) g/dL Albumin (3.5-5.0) g/dL 05/24/20 05/24/20 05/24/20 Range/Units 11:07 13:19 14:02 RBC (4.30-5.90) m/uL Hgb (13.0-17.5) gm/dL Hct (39.0-53.0) % Neutrophils # (1.3-7.7) k/uL Sodium (137-145) mmol/L Chloride (98-107) mmol/L Carbon Dioxide (22-30) mmol/L BUN (9-20) mg/dL Glucose (74-99) mg/dL POC Glucose (mg/dL) 173 H 146 H 154 H (75-99) mg/dL Calcium (8.4-10.2) mg/dL Total Protein (6.3-8.2) g/dL Albumin (3.5-5.0) g/dL 05/24/20 05/24/20 05/24/20 Range/Units 15:17 16:19 17:11 RBC (4.30-5.90) m/uL Hgb (13.0-17.5) gm/dL Hct (39.0-53.0) % Neutrophils # (1.3-7.7) k/uL Sodium (137-145) mmol/L Chloride (98-107) mmol/L Carbon Dioxide (22-30) mmol/L BUN (9-20) mg/dL Glucose (74-99) mg/dL POC Glucose (mg/dL) 138 H 145 H 156 H (75-99) mg/dL Calcium (8.4-10.2) mg/dL Total Protein (6.3-8.2) g/dL Albumin (3.5-5.0) g/dL 0305/24/20 05/24/20 Range/Units 18:29 20:57 23:24 RBC (4.30-5.90) m/uL Hgb (13.0-17.5) gm/dL Hct (39.0-53.0) % Neutrophils # (1.3-7.7) k/uL Sodium (137-145) mmol/L Chloride (98-107) mmol/L Carbon Dioxide (22-30) mmol/L BUN (9-20) mg/dL Glucose (74-99) mg/dL POC Glucose (mg/dL) 194 H 160 H 141 H (75-99) mg/dL Calcium (8.4-10.2) mg/dL Total Protein (6.3-8.2) g/dL Albumin (3.5-5.0) g/dL 05/25/20 05/25/20 05/25/20 Range/Units 01:07 03:42 03:46 RBC 2.41 L (4.30-5.90) m/uL Hgb 7.8 L (13.0-17.5) gm/dL Hct 22.2 L (39.0-53.0) % Neutrophils # 8.0 H (1.3-7.7) k/uL Sodium (137-145) mmol/L Chloride (98-107) mmol/L Carbon Dioxide (22-30) mmol/L BUN (9-20) mg/dL Glucose (74-99) mg/dL POC Glucose (mg/dL) 132 H 133 H (75-99) mg/dL Calcium (8.4-10.2) mg/dL Total Protein (6.3-8.2) g/dL Albumin (3.5-5.0) g/dL 05/25/20 05/25/20 Range/Units 03:46 06:22 RBC (4.30-5.90) m/uL Hgb (13.0-17.5) gm/dL Hct (39.0-53.0) % Neutrophils # (1.3-7.7) k/uL Sodium 136 L (137-145) mmol/L Chloride 108 H (98-107) mmol/L Carbon Dioxide 21 L (22-30) mmol/L BUN 21 H (9-20) mg/dL Glucose 126 H (74-99) mg/dL POC Glucose (mg/dL) 148 H (75-99) mg/dL Calcium 7.5 L (8.4-10.2) mg/dL Total Protein 5.2 L (6.3-8.2) g/dL Albumin 3.0 L (3.5-5.0) g/dL Assessment and Plan Plan: #1. Multivessel coronary artery disease, status post four-vessel coronary artery bypass grafting, with ZELAYA to the LAD, left radial artery graft to the circumflex, SVG to the diagonal, SVG to the PDA, and mitral valve repair, and left atrial appendage exclusion, postoperative day #2 the patient was extubated , currently on room air oxygen. The patient did have some low cardiac output postop which gradually improved and the patient's Concord-Noé catheter was removed and is running a very low dose of norepinephrine feeding infusion for now which will be hopefully weaned off and removed. His blood pressure has improved. Is producing adequate amount of urine output. He is able to sit up on a chair. No active issues for now Chest x-ray was reviewed and the chest tube output was noted. #2. Thoracotomy, chest tubes are all in place. Currently on RA. IS pulling approximately 7 50 mL-1000cc #3. Acute non-ST elevated myocardial infarction #4. Multivessel coronary artery disease, #5. Moderate to severe mitral regurgitation of 3+, posterior repair #6. Diabetes mellitus type 2, insulin dependent, currently on insulin drip at 4.5 units an hour #7. Lifetime nonsmoker, preop FEV1 58% possibly related to restrictive alveolar pattern, related to interstitial edema #8. CHF with systolic dysfunction, and mild to moderate impairment of left ventricular systolic function EF of 40-45% #9. Anemia with a postoperative drop in hemoglobin down to 8.8, expected outcome of surgery #10. Left internal carotid stenosis of greater than 70% #11. Regular EtOH intake of 3-4 alcoholic drinks on a daily basis and no signs of any delirium tremens for now #12. Hyperlipidemia Plan Monitor blood pressure and urine output. Wean off norepinephrine for now. Would like to keep systolic above 110. No issues with any focal neurological deficit at this point in time. He is on aspirin and Plavix for now Gradually wean off norepinephrine infusion and Metamucil drip can be discontinued today Hemodynamic parameters are adequate for now and a cardiac rhythm is sinus chest tubes management per surgery Continue with insulin drip for today. Encouraged use of incentive spirometer Holden for pain control and continue using incentive spirometer Vital breakfast, start the patient on 20 units of Lantus insulin plus a scale and discontinue the insulin drip Obviously keep the patient ICU for today. Chest x-ray was noted.
[2020-05-25] MEDS: ASPIRIN 325 MG TAB PO SCH (08:07)
[2020-05-25] MEDS: HEPARIN SODIUM,PORCINE 5,000 UNIT/ML 1 ML VIAL SQ SCH ×2 (08:07→15:57)
[2020-05-25] MEDS: ATORVASTATIN 80 MG TAB PO SCH (08:11)
[2020-05-25] MEDS: FOLIC ACID 1 MG TAB PO SCH (08:11)
[2020-05-25] MEDS: CLOPIDOGREL 75 MG TAB PO SCH (08:11)
[2020-05-25] MEDS: MUPIROCIN 2% OINT 22 GM TUBE NASAL SCH ×2 (08:14→21:26)
[2020-05-25] MEDS: THIAMINE 100 MG TAB PO SCH (08:17)
[2020-05-25] MEDS ORDERED: INSULIN DETEMIR (LEVEMIR) 100 UNIT/ML SYR SQ ONE (09:00)
[2020-05-25] MEDS: METOPROLOL TARTRATE 12.5 MG TAB PO SCH ×2 (09:02→21:25)
[2020-05-25] MEDS: INSULIN ASPART (NovoLOG) 100 UNIT/ML VIAL SQ SCH ×6 (09:10→22:00)
[2020-05-25] MEDS: ONDANSETRON 4 MG/2 ML VIAL IVP PRN (10:09)
[2020-05-25 11:55] LABS: Glucose,Whole Blood 244 mg/dL (75-99)
[2020-05-25] MEDS: amLODIPine 2.5 MG TAB PO SCH (12:23)
--- NOTE | 2020-05-25 13:06 | P.PN ---
Subjective Progress Note Date: 05/25/20 HISTORY OF PRESENT ILLNESS: 05/24/2020 Patient is status post CABG 4: left internal mammary artery to the left anterior descending artery, left radial artery to the distal circumflex, reverse saphenous vein graft from the aorta to the first diagonal artery, reverse saphenous vein graft from the aorta to the right coronary artery. patient examined this morning the intensive care unit. Patient was extubated yesterday. He is currently sitting up in the chair. Patient did become slightly hypotensive this morning and is on vasopressors. Patient reports mild surgical discomfort in the chest. He states his breathing does not feel labored. He does not get short of breath. Patient does report difficulty taking a deep breath due to pain. He is pulling 5007 150 mL on his incentive spirometer. he is maintaining sinus mechanism on telemetry. 05/25/2020 Patient examined this morning in the intensive care unit. Patient is sitting up in the chair. He continues to report post surgical pain but states it is tolerable at this time. He reports using his incentive spirometer and pulling 653841 mL. He remains in sinus mechanism on telemetry. He has been weaned off of his vasopressors. PHYSICAL EXAM: VITAL SIGNS: Reviewed. GENERAL: Well-developed in no acute distress. NECK: Supple. No JVD or thyromegaly LUNGS: Respirations even and unlabored. Lung sounds diminished bilaterally HEART: Regular rate and rhythm. S1 and S2 heard. Chest tubes noted. EXTREMITIES: Normal range of motion. No clubbing or cyanosis. Peripheral pulses intact. trace bilateral lower extremity edema ASSESSMENT: Non-STEMI, triple vessel coronary artery disease status post CABG 4 Moderate to severe mitral regurgitation, status post mitral valve repair Left internal carotid artery stenosis, greater than 70% per carotid Doppler, greater than 90% per neck CTA Diabetes mellitus Daily alcohol intake Dyslipidemia Family history of premature coronary artery disease Acute blood loss anemia PLAN: Continue postoperative management per CTS Continue aspirin, plavix, metoprolol, atorvastatin, and amlodipine increase activity as tolerated Encourage use of incentive spirometry further recommendations pending patient's course Nurse practitioner note has been reviewed by physician. Signing provider agrees with the documented findings, assessment, and plan of care. Objective - Vital Signs Vital signs: Vital Signs Temp 98.3 F 05/25/20 07:30 Pulse 84 05/25/20 11:08 Resp 15 05/25/20 11:08 BP 106/71 05/25/20 11:00 Pulse Ox 99 05/25/20 11:00 Intake & Output 05/24/20 05/25/20 05/25/20 18:59 06:59 18:59 Intake Total 1830.688 502.571 124 Output Total 652 570 183 Balance 1178.688 -67.429 -59 Weight 89.9 kg 88.6 kg Intake: IV 788 312 124 .9NS Pressure Bag 108 72 24 Cardiac Output 90 Sodium Chloride 0.9% 1, 540 240 100 000 ml @ 20 mls/hr IV . Q24H [facility] Rx#:[id number] ceFAZolin 2 gm In Sodium 50 Chloride 0.9% 50 ml @ 100 mls/hr IVPB Q8HR [facility] Rx# :[id number] Intake, IV Titration 802.688 190.571 Amount Albumin Human 5% 250 ml @ 250 0 mls/hr IVPB [facility] Rx#:[id number] Insulin Regular 100 unit 56.021 63.571 In Sodium Chloride 0.9% 100 ml @ Per Protocol IV .Q0M [facility] Rx#:[id number] Norepinephrine 4 mg In 496.667 127.000 Sodium Chloride 0.9% 250 ml @ 0.05 MCG/KG/MIN 16. 345 mls/hr IV .[id number] [facility] Rx#:[id number] Oral 240 Output: Chest Tube Drainage 180 280 80 Left Pleural Chest tube 130 250 80 Mediastinal Chest Tubes X 50 30 0 2 Drainage 0 Left Wrist 0 Urine 472 290 103 Other: Voiding Method Indwelling Catheter Indwelling Catheter ABP, PAP, CO, CI - Last Documented Arterial Blood Pressure 81/54 Pulmonary Artery Pressure 30/15 Cardiac Output 5.3 Cardiac Index 2.6 - Labs CBC & Chem 7: 05/25/20 03:46 05/25/20 03:46 Labs: Abnormal Lab Results - Last 24 Hours (Table) 05/24/20 05/24/20 05/24/20 Range/Units 13:19 14:02 15:17 RBC (4.30-5.90) m/uL Hgb (13.0-17.5) gm/dL Hct (39.0-53.0) % Neutrophils # (1.3-7.7) k/uL Sodium (137-145) mmol/L Chloride (98-107) mmol/L Carbon Dioxide (22-30) mmol/L BUN (9-20) mg/dL Glucose (74-99) mg/dL POC Glucose (mg/dL) 146 H 154 H 138 H (75-99) mg/dL Calcium (8.4-10.2) mg/dL Total Protein (6.3-8.2) g/dL Albumin (3.5-5.0) g/dL 05/24/20 05/24/20 05/24/20 Range/Units 16:19 17:11 18:29 RBC (4.30-5.90) m/uL Hgb (13.0-17.5) gm/dL Hct (39.0-53.0) % Neutrophils # (1.3-7.7) k/uL Sodium (137-145) mmol/L Chloride (98-107) mmol/L Carbon Dioxide (22-30) mmol/L BUN (9-20) mg/dL Glucose (74-99) mg/dL POC Glucose (mg/dL) 145 H 156 H 194 H (75-99) mg/dL Calcium (8.4-10.2) mg/dL Total Protein (6.3-8.2) g/dL Albumin (3.5-5.0) g/dL 05/24/20 05/24/20 05/25/20 Range/Units 20:57 23:24 01:07 RBC (4.30-5.90) m/uL Hgb (13.0-17.5) gm/dL Hct (39.0-53.0) % Neutrophils # (1.3-7.7) k/uL Sodium (137-145) mmol/L Chloride (98-107) mmol/L Carbon Dioxide (22-30) mmol/L BUN (9-20) mg/dL Glucose (74-99) mg/dL POC Glucose (mg/dL) 160 H 141 H 132 H (75-99) mg/dL Calcium (8.4-10.2) mg/dL Total Protein (6.3-8.2) g/dL Albumin (3.5-5.0) g/dL 05/25/20 05/25/20 05/25/20 Range/Units 03:42 03:46 03:46 RBC 2.41 L (4.30-5.90) m/uL Hgb 7.8 L (13.0-17.5) gm/dL Hct 22.2 L (39.0-53.0) % Neutrophils # 8.0 H (1.3-7.7) k/uL Sodium 136 L (137-145) mmol/L Chloride 108 H (98-107) mmol/L Carbon Dioxide 21 L (22-30) mmol/L BUN 21 H (9-20) mg/dL Glucose 126 H (74-99) mg/dL POC Glucose (mg/dL) 133 H (75-99) mg/dL Calcium 7.5 L (8.4-10.2) mg/dL Total Protein 5.2 L (6.3-8.2) g/dL Albumin 3.0 L (3.5-5.0) g/dL 05/25/20 05/25/20 Range/Units 06:22 11:53 RBC (4.30-5.90) m/uL Hgb (13.0-17.5) gm/dL Hct (39.0-53.0) % Neutrophils # (1.3-7.7) k/uL Sodium (137-145) mmol/L Chloride (98-107) mmol/L Carbon Dioxide (22-30) mmol/L BUN (9-20) mg/dL Glucose (74-99) mg/dL POC Glucose (mg/dL) 148 H 244 H (75-99) mg/dL Calcium (8.4-10.2) mg/dL Total Protein (6.3-8.2) g/dL Albumin (3.5-5.0) g/dL
--- NOTE | 2020-05-25 13:50 | P.PN ---
Subjective Progress Note Date: 05/25/20 Principal diagnosis: Myocardial infarction Feeling well. No complaints. No pain or sob. No overnight events. He was taken off levo gtt today per nursing. Objective - Vital Signs Vital signs: Vital Signs Temp 98 F 05/25/20 12:00 Pulse 86 05/25/20 13:00 Resp 17 05/25/20 13:00 BP 110/64 05/25/20 13:00 Pulse Ox 90 L 05/25/20 13:00 Intake & Output 05/24/20 05/25/20 05/25/20 18:59 06:59 18:59 Intake Total 1830.688 502.571 170 Output Total 652 570 265 Balance 1178.688 -67.429 -95 Weight 89.9 kg 88.6 kg Intake: IV 788 312 170 .9NS Pressure Bag 108 72 30 Cardiac Output 90 Sodium Chloride 0.9% 1, 540 240 140 000 ml @ 20 mls/hr IV . Q24H [facility] Rx#:[id number] ceFAZolin 2 gm In Sodium 50 Chloride 0.9% 50 ml @ 100 mls/hr IVPB Q8HR [facility] Rx# :[id number] Intake, IV Titration 802.688 190.571 Amount Albumin Human 5% 250 ml @ 250 0 mls/hr IVPB [facility] Rx#:[id number] Insulin Regular 100 unit 56.021 63.571 In Sodium Chloride 0.9% 100 ml @ Per Protocol IV .Q0M [facility] Rx#:[id number] Norepinephrine 4 mg In 496.667 127.000 Sodium Chloride 0.9% 250 ml @ 0.05 MCG/KG/MIN 16. 345 mls/hr IV .[id number] [facility] Rx#:[id number] Oral 240 Output: Chest Tube Drainage 180 280 100 Left Pleural Chest tube 130 250 100 Mediastinal Chest Tubes X 50 30 0 2 Drainage 0 Left Wrist 0 Urine 472 290 165 Other: Voiding Method Indwelling Catheter Indwelling Catheter ABP, PAP, CO, CI - Last Documented Arterial Blood Pressure 81/54 Pulmonary Artery Pressure 30/15 Cardiac Output 5.3 Cardiac Index 2.6 - Exam Gen: No acute distress, extubated HEENT: normocephalic, atraumatic, moist mucous membranes Resp: Clear bilaterally CVS: good distal perfusion x 4, regular rate and rhythm without murmurs GI: soft, NTTP, ND, appropriate bowel sounds : no SPT, no CVAT, scott catheter is present MSK: no pitting edema, no clubbing Neuro: non-focal, moving all extremities - Labs CBC & Chem 7: 05/25/20 03:46 05/25/20 03:46 Labs: Abnormal Lab Results - Last 24 Hours (Table) 05/24/20 05/24/20 05/24/20 Range/Units 14:02 15:17 16:19 RBC (4.30-5.90) m/uL Hgb (13.0-17.5) gm/dL Hct (39.0-53.0) % Neutrophils # (1.3-7.7) k/uL Sodium (137-145) mmol/L Chloride (98-107) mmol/L Carbon Dioxide (22-30) mmol/L BUN (9-20) mg/dL Glucose (74-99) mg/dL POC Glucose (mg/dL) 154 H 138 H 145 H (75-99) mg/dL Calcium (8.4-10.2) mg/dL Total Protein (6.3-8.2) g/dL Albumin (3.5-5.0) g/dL 05/24/20 05/24/20 05/24/20 Range/Units 17:11 18:29 20:57 RBC (4.30-5.90) m/uL Hgb (13.0-17.5) gm/dL Hct (39.0-53.0) % Neutrophils # (1.3-7.7) k/uL Sodium (137-145) mmol/L Chloride (98-107) mmol/L Carbon Dioxide (22-30) mmol/L BUN (9-20) mg/dL Glucose (74-99) mg/dL POC Glucose (mg/dL) 156 H 194 H 160 H (75-99) mg/dL Calcium (8.4-10.2) mg/dL Total Protein (6.3-8.2) g/dL Albumin (3.5-5.0) g/dL 05/24/20 05/25/20 05/25/20 Range/Units 23:24 01:07 03:42 RBC (4.30-5.90) m/uL Hgb (13.0-17.5) gm/dL Hct (39.0-53.0) % Neutrophils # (1.3-7.7) k/uL Sodium (137-145) mmol/L Chloride (98-107) mmol/L Carbon Dioxide (22-30) mmol/L BUN (9-20) mg/dL Glucose (74-99) mg/dL POC Glucose (mg/dL) 141 H 132 H 133 H (75-99) mg/dL Calcium (8.4-10.2) mg/dL Total Protein (6.3-8.2) g/dL Albumin (3.5-5.0) g/dL 05/25/20 05/25/20 05/25/20 Range/Units 03:46 03:46 06:22 RBC 2.41 L (4.30-5.90) m/uL Hgb 7.8 L (13.0-17.5) gm/dL Hct 22.2 L (39.0-53.0) % Neutrophils # 8.0 H (1.3-7.7) k/uL Sodium 136 L (137-145) mmol/L Chloride 108 H (98-107) mmol/L Carbon Dioxide 21 L (22-30) mmol/L BUN 21 H (9-20) mg/dL Glucose 126 H (74-99) mg/dL POC Glucose (mg/dL) 148 H (75-99) mg/dL Calcium 7.5 L (8.4-10.2) mg/dL Total Protein 5.2 L (6.3-8.2) g/dL Albumin 3.0 L (3.5-5.0) g/dL 05/25/20 Range/Units 11:53 RBC (4.30-5.90) m/uL Hgb (13.0-17.5) gm/dL Hct (39.0-53.0) % Neutrophils # (1.3-7.7) k/uL Sodium (137-145) mmol/L Chloride (98-107) mmol/L Carbon Dioxide (22-30) mmol/L BUN (9-20) mg/dL Glucose (74-99) mg/dL POC Glucose (mg/dL) 244 H (75-99) mg/dL Calcium (8.4-10.2) mg/dL Total Protein (6.3-8.2) g/dL Albumin (3.5-5.0) g/dL Assessment and Plan Plan: NSTEMI S/P CABGX4 05/23 -Cardio and CT surgery following -Telemetry monitoring. -Continue daily aspirin, atorvastatin, and metoprolol. -Lipid profile revealed elevation of triglycerides 200, cholesterol 241, LDL 164, HDL of 37. Atorvastatin increased to 80 mg nightly. Insulin-dependent diabetes mellitus type II -D/c insulin drip -Start SSI and lantus 20 units daily -Hemoglobin A1c = 8.2% CODE STATUS: Full code DVT prophylaxis: Heparin Discussed with: Patient Anticipated discharge date: 3-[address]: Home
[2020-05-25 17:25] LABS: Glucose,Whole Blood 302 mg/dL (75-99)
[2020-05-25 20:05] LABS: Glucose,Whole Blood 287 mg/dL (75-99)
[2020-05-25] MEDS: SENNOSIDES-DOCUSATE SODIUM 1 EACH TAB PO SCH (21:26)
[2020-05-26] MEDS: HEPARIN SODIUM,PORCINE 5,000 UNIT/ML 1 ML VIAL SQ SCH ×4 (00:04→22:53)
[2020-05-26] MEDS: KETOROLAC 15 MG/ML 1 ML VIAL IVP SCH (00:04)
[2020-05-26 03:42] LABS: Glucose,Whole Blood 218 mg/dL (75-99)
--- NOTE | 2020-05-26 04:24 | CT ---
EXAM: CT Head Without Intravenous Contrast CLINICAL HISTORY: ITS.REASON CT Reason: Neuro deficit, acute, stroke suspected TECHNIQUE: Axial computed tomography images of the head/brain without intravenous contrast. CTDI is 14.5 mGy and DLP is 607.7 mGy-cm. This CT exam was performed using one or more of the following dose reduction techniques: automated exposure control, adjustment of the mA and/or kV according to patient size, and/or use of iterative reconstruction technique. COMPARISON: No relevant prior studies available. FINDINGS: Brain: No hemorrhage or mass effect. Ventricles: No hydrocephalus. Bones/joints: Unremarkable. Soft tissues: Unremarkable. Sinuses: Unremarkable. Mastoid air cells: Clear. IMPRESSION: No acute hemorrhage, hydrocephalus, or mass effect.
--- NOTE | 2020-05-26 04:28 | CT ---
EXAM: CT Angiography Head With Intravenous Contrast CLINICAL HISTORY: ITS.REASON CT Reason: CODE STROKE TECHNIQUE: Axial computed tomographic angiography images of the head with intravenous contrast. CTDI is 14.5 mGy and DLP is 607.7 mGy-cm. This CT exam was performed using one or more of the following dose reduction techniques: automated exposure control, adjustment of the mA and/or kV according to patient size, and/or use of iterative reconstruction technique. MIP reconstructed images were created and reviewed. COMPARISON: No relevant prior studies available. FINDINGS: Right internal carotid artery: Intracranial segment is patent with no significant stenosis. No aneurysm. Right anterior cerebral artery: No occlusion or significant stenosis. No aneurysm. Right middle cerebral artery: No occlusion or significant stenosis. No aneurysm. Right posterior cerebral artery: No occlusion or significant stenosis. No aneurysm. Right vertebral artery: Unremarkable. Left internal carotid artery: Intracranial segment is patent with no significant stenosis. No aneurysm. Left anterior cerebral artery: No occlusion or significant stenosis. No aneurysm. Left middle cerebral artery: No occlusion or significant stenosis. No aneurysm. Left posterior cerebral artery: No occlusion or significant stenosis. No aneurysm. Left vertebral artery: Unremarkable. Basilar artery: No occlusion or significant stenosis. No aneurysm. IMPRESSION: No significant stenosis. EXAM: CT Angiography Neck With Intravenous Contrast CLINICAL HISTORY: ITS.REASON CT Reason: CODE STROKE TECHNIQUE: Axial computed tomographic angiography images of the neck with intravenous contrast. CTDI is 14.5 mGy and DLP is 607.7 mGy-cm. This CT exam was performed using one or more of the following dose reduction techniques: automated exposure control, adjustment of the mA and/or kV according to patient size, and/or use of iterative reconstruction technique. MIP reconstructed images were created and reviewed. COMPARISON: 05/21/2020 FINDINGS: VASCULATURE: Right common carotid artery: No significant stenosis. No dissection. Right internal carotid artery: No significant stenosis. No dissection. Right vertebral artery: No significant stenosis. No dissection. Left common carotid artery: No significant stenosis. No dissection. Left internal carotid artery: Severe left proximal ICA stenosis. No dissection. Left vertebral artery: No significant stenosis. No dissection. NECK: Bones/joints: No acute fracture. No dislocation. Soft tissue emphysema along the chest wall. Worsened right-sided pleural effusion. Trace left apical pneumothorax. Median sternotomy wires are in place. CAROTID STENOSIS REFERENCE USING NASCET CRITERIA: % ICA stenosis = (1 - narrowest ICA diameter/diameter of distal cervical ICA) x 100. Mild - <50% stenosis. Moderate - 50-69% stenosis. Severe - 70-94% stenosis. Near occlusion - 95-99% stenosis. Occluded - 100% stenosis. IMPRESSION: 1. Unchanged severe left proximal ICA stenosis. 2. Postsurgical changes with soft tissue emphysema along the anterior chest wall, worsened right-sided pleural effusion, and trace left apical pneumothorax.
[2020-05-26 04:45] LABS: Basophils % (A) 0 %; Eosinophils # (A) 0.1 k/uL (0-0.7); Eosinophils % (A) 2 %; HCT 20.5 % (39.0-53.0); Lymphocytes # (A) 0.5 k/uL (1.0-4.8); Lymphocytes % (A) 9 %; MCH 32.5 pg (25.0-35.0); MCHC 34.2 g/dL (31.0-37.0); Mean Platelet Volume 7.6; Monocytes # (A) 0.3 k/uL (0-1.0); Monocytes % (A) 5 %; Neutrophils # (A) 5.3 k/uL (1.3-7.7); Neutrophils % (A) 83 %; Platelet Count 154 k/uL (150-450); Poikilocytosis Slight; RBC 2.16 m/uL (4.30-5.90); RDW 12.9 % (11.5-15.5); WBC 6.3 k/uL (3.8-10.6)
--- NOTE | 2020-05-26 04:53 | P.EN ---
Code stroke note Code stroke activated at 3:33 am. Arrived on the scene shortly after. Last well known time was 2 am. The patient's RN noted that upon entering the room, she noted that he had a slight R facial droop. He was also slurring his words and subsequently noted to be confused with R arm weakness. NIH score was calculated to be 7. The patient underwent a stat CTA head and neck revealed no acute changes. Following the CT scan, the patient's NIH improved to 5. Neuro- rivet machine operator was notified. The patient reported feeling okay with no active complaints with neglect noted. Upon examination, the patient is an obese M in NAD. Chest hugger in place. EOMI with anisocoria R pupil 3 mm and L pupil 2.5 mm. Head atraumatic normocephalic. Strength 5/5 throughout with sensation intact to light touch throughout. R facial droop was noted. CN II-XII intact aside from facial droop and anisocoria. Finger to nose wnl. Patient alert, oriented to person and place only. Blood glucose 218 at bedside. Assessment/Plan Evolving non-major vessel CVA -Neurochecks ordered. Neurology consult placed -Aspiration and fall precautions -Patient receiving Aspirin and Plavix -Neuro rivet machine operator noted that patient not a candidate for tPA. Recommended continuing ASA and Plavix.
[2020-05-26 04:57] LABS: Prothrombin Time 10.8 sec (9.0-12.0)
[2020-05-26] MEDS: ASPIRIN 325 MG TAB PO SCH (05:32)
[2020-05-26] MEDS: CLOPIDOGREL 75 MG TAB PO SCH (05:32)
[2020-05-26 05:39] LABS: Albumin 2.9 g/dL (3.5-5.0); Calcium 7.4 mg/dL (8.4-10.2); Potassium 4.9 mmol/L (3.5-5.1); Total Bilirubin 0.6 mg/dL (0.2-1.3); Total Protein 5.1 g/dL (6.3-8.2)
[2020-05-26] MEDS ORDERED: CLOPIDOGREL 75 MG TAB PO STA (05:50)
[2020-05-26 06:10] LABS: Glucose,Whole Blood 218 mg/dL (75-99)
[2020-05-26] MEDS: HYDROcodone/APAP 5-325MG 1 EACH TAB PO PRN ×3 (06:59→14:38)
[2020-05-26] MEDS: PANTOPRAZOLE 40 MG TABLET PO SCH (06:59)
--- NOTE | 2020-05-26 07:34 | XR ---
EXAMINATION TYPE: XR chest 1V portable DATE OF EXAM: 05/26/2020 Comparison: 05/25/2020 Clinical History: 55-year-old male post cardiac surgery Findings: Median sternotomy wires with postoperative clips in the mediastinum. Heart remains mildly enlarged. M ild interstitial prominence similar. Left basilar chest tube remains in place. No appreciable pneumot horax. Impression: Stable exam. Left basilar chest tube. No appreciable pneumothorax. There may be similar mild pulmonar y vascular congestion.
--- NOTE | 2020-05-26 07:47 | P.PN ---
Subjective Progress Note Date: 05/26/20 Principal diagnosis: Triple vessel diffuse coronary artery disease, moderate to severe mitral regurgitation, moderate left ventricular dysfunction. Previous medical history of insulin-dependent diabetes, family history of premature coronary artery disease, EtOH use most days without history of withdrawal, and newly diagnosed hyperlipidemia and severe left carotid stenosis. Preop nasal swab positive for MSSA POD #3 coronary artery bypass grafting 4 vessels with the left internal mammary artery to the left anterior descending artery, reverse saphenous vein graft from the aorta to the first diagonal artery, left radial artery taken proximally from the previous vein graft and anastomosed distally to the distal circumflex artery, reverse saphenous vein graft from the aorta to the right coronary artery, mitral valve repair with posterior annuloplasty using a #28 incomplete AnnuloFlex ring, exclusion of the left atrial appendage with a 35 mm AtriClip, graft flow measurements using the Fixes 4 Kids[employer] system, endoscopic harvesting of the left radial artery, endoscopic harvesting of the left greater saphenous vein from the groin to just below the knee level, intraoperative transesophageal echocardiogram and epi-aortic scanning. Postoperative acute blood loss anemia, expected given hemodilution and cardiopulmonary bypass pump Patient currently sitting up in bed on the cardiac stepdown unit no acute distress. Complains of postoperative chest pain controlled with current medication regimen, actively using incentive spirometry, strong productive cough. Remains in sinus rhythm, hemodynamically stable. Left pleural chest tube, epicardial pacemaker wires remain. Apparently this morning patient had an episode of right-sided facial droop, slurring of words, and right arm weakness. Code stroke was called, patient had stat CT of the brain and CTA of the head and neck demonstrating no acute changes. Neuro-interventionalist was contacted, recommendations were made for no thrombolytics. Patient did receive his a.m. dose of aspirin and Plavix early. Currently he is completely neurologically intact, no facial droop is present, he is oriented 3, and his speech is appropriate. Neurology and speech therapy were consulted, patient remains nothing by mouth for swallow evaluation. Objective - Vital Signs Vital signs: Vital Signs Temp 98.7 F 05/26/20 00:00 Pulse 86 05/26/20 00:00 Resp 18 05/26/20 00:00 BP 100/60 05/26/20 00:00 Pulse Ox 95 05/26/20 00:00 Intake & Output 05/25/20 05/26/20 05/26/20 18:59 06:59 18:59 Intake Total 476 Output Total 370 800 Balance 106 -800 Intake: IV 236 .9NS Pressure Bag 36 Sodium Chloride 0.9% 1, 200 000 ml @ 20 mls/hr IV . Q24H [facility] Rx#:[id number] Oral 240 Output: Chest Tube Drainage 100 200 Left Pleural Chest tube 100 200 Mediastinal Chest Tubes X 0 2 Urine 270 600 Other: Voiding Method Indwelling Catheter Indwelling Catheter ABP, PAP, CO, CI - Last Documented Arterial Blood Pressure 81/54 Pulmonary Artery Pressure 30/15 Cardiac Output 5.3 Cardiac Index 2.6 - Exam CONSTITUTIONAL: Appears comfortable, cooperative, no acute distress RESPIRATORY: Lungs sounds diminished bilaterally. Respirations even, nonlabored. Currently on 2 L nasal cannula with oxygen saturation 95%. Able to achieve 750-1000 mL on incentive spirometry. Strong productive cough. CARDIOVASCULAR: S1, S2 present. Regular rate and rhythm, sinus rhythm on telemetry. Sternum stable. Palpable peripheral pulses bilaterally. Generalized edema present. No calf pain or tenderness noted. Heart hugger in place with patient demonstrating appropriate use. Antiembolism stockings, SCDs present. GASTROINTESTINAL: Abdomen soft, nontender, nondistended. Hypoactive bowel sounds present 4 quadrants. Currently NPO. Positive flatus. GENITOURINARY: [place] present draining clear, yellow urine. Output overnight 600 mL INTEGUMENTARY: Skin is warm and dry with evidence of good perfusion. Anterior chest incision well approximated and covered with dry intact dressing. EVH site well approximated without redness or drainage. Left radial artery harvest site well approximated, patient denies numbness or tingling, able to wiggle all fingers and shoe stainer appropriately, good cap refill. NEUROLOGIC: Cranial nerves II through XII intact MUSKULOSKELETAL: Able to move all extremities, strength equal bilaterally PSYCHIATRIC: Alert and oriented to person place and time, appropriate affect, intact judgment and insight INVASIVE LINES AND TUBES: Left pleural chest tube present and connected to wall suction, no air leak present. Left pleural chest tube with 200 mL serosanguineous drainage overnight, 300 mL in the last 24 hours. A/V epicardial pacemaker wires present, grounded. - Allied health notes Allied health notes reviewed: nursing - Labs CBC & Chem 7: 05/26/20 04:26 05/26/20 04:26 Labs: Abnormal Lab Results - Last 24 Hours (Table) 05/25/20 05/25/20 05/25/20 Range/Units 11:53 17:24 20:01 RBC (4.30-5.90) m/uL Hgb (13.0-17.5) gm/dL Hct (39.0-53.0) % Lymphocytes # (1.0-4.8) k/uL Sodium (137-145) mmol/L Carbon Dioxide (22-30) mmol/L BUN (9-20) mg/dL Creatinine (0.66-1.25) mg/dL Glucose (74-99) mg/dL POC Glucose (mg/dL) 244 H 302 H 287 H (75-99) mg/dL Calcium (8.4-10.2) mg/dL Troponin I (0.000-0.034) ng/mL Total Protein (6.3-8.2) g/dL Albumin (3.5-5.0) g/dL 05/26/20 05/26/20 05/26/20 Range/Units 03:31 04:26 04:26 RBC 2.16 L (4.30-5.90) m/uL Hgb 7.0 L (13.0-17.5) gm/dL Hct 20.5 L (39.0-53.0) % Lymphocytes # 0.5 L (1.0-4.8) k/uL Sodium 131 L (137-145) mmol/L Carbon Dioxide 18 L (22-30) mmol/L BUN 36 H (9-20) mg/dL Creatinine 1.55 H (0.66-1.25) mg/dL Glucose 214 H (74-99) mg/dL POC Glucose (mg/dL) 218 H (75-99) mg/dL Calcium 7.4 L (8.4-10.2) mg/dL Troponin I (0.000-0.034) ng/mL Total Protein 5.1 L (6.3-8.2) g/dL Albumin 2.9 L (3.5-5.0) g/dL 05/26/20 05/26/20 Range/Units 04:26 06:06 RBC (4.30-5.90) m/uL Hgb (13.0-17.5) gm/dL Hct (39.0-53.0) % Lymphocytes # (1.0-4.8) k/uL Sodium (137-145) mmol/L Carbon Dioxide (22-30) mmol/L BUN (9-20) mg/dL Creatinine (0.66-1.25) mg/dL Glucose (74-99) mg/dL POC Glucose (mg/dL) 218 H (75-99) mg/dL Calcium (8.4-10.2) mg/dL Troponin I 4.180 H* (0.000-0.034) ng/mL Total Protein (6.3-8.2) g/dL Albumin (3.5-5.0) g/dL - Imaging and Cardiology Chest x-ray: report reviewed, image reviewed Assessment and Plan Assessment: 1. Triple-vessel diffuse coronary artery disease, non-STEMI this admission, status post four-vessel CABG 2. Moderate to severe predominantly centrally directed mitral regurgitation, status post mitral valve repair 3. Insulin-dependent diabetes, hemoglobin A1c 8.2% 4. Hyperlipidemia, cholesterol 241, triglyceride 200, LDL 164 5. Left internal carotid artery stenosis, greater than 70% per carotid Doppler, greater than 90% per neck CTA 6. Lifelong nonsmoker with FEV1 58% of predicted 7. Family history of premature coronary artery disease, father and 2 brothers diagnosed with CAD with subsequent CABG in their early to mid 50s 8. EtOH use most days without history of withdrawal 9. Preop nasal swab positive for MSSA 10. Postoperative acute blood loss anemia, expected Plan: 1. Continue aspirin, statin, beta holly therapy. Will increase beta holly therapy as tolerated. Change Plavix to brilinta 2. Will stop norvasc 3. Wean O2 as tolerated. Encourage incentive spirometry use 10 times every hour while awake 4. Increase activity, ambulate as tolerated. PT/OT/cardiac rehab consulted 5. Will monitor daily labs and x-rays. Electrolyte replacement per protocol. Will transfuse 1 unit prbc followed by lasix 6. GI/DVT prophylaxis 7. Pain control with current medication regimen 8. Insulin management per primary care service. Needs tight blood sugar control for healing 9. [facility] protocol to monitor for alcohol withdrawal. Continue thiamine, folic acid 10. Left carotid stenosis intervention to be completed in the future. Avoid hypotension 11. Likely will discontinue left pleural chest tubes 12. Continue neuro checks 13. Strict accurate intake and output. Daily weights. 14. More recommendations to follow depending on patient's progress Time with Patient: Greater than 30
[2020-05-26] MEDS: IPRATROPIUM-ALBUTEROL 3 ML NEB INHALATION SCH ×4 (08:10→21:42)
[2020-05-26] MEDS: INSULIN DETEMIR (LEVEMIR) 100 UNIT/ML SYR SQ SCH (08:17)
[2020-05-26] MEDS: FOLIC ACID 1 MG TAB PO SCH (08:17)
[2020-05-26] MEDS: ATORVASTATIN 80 MG TAB PO SCH (08:17)
[2020-05-26] MEDS: THIAMINE 100 MG TAB PO SCH (08:18)
[2020-05-26 08:21] LABS: Glucose,Whole Blood 279 mg/dL (75-99)
[2020-05-26] MEDS ORDERED: METOCLOPRAMIDE 5 MG/ML 2 ML VIAL IVP STA (10:06)
[2020-05-26] MEDS ORDERED: FUROSEMIDE 10 MG/ML 2 ML VIAL IV ONE (10:21)
[2020-05-26] MEDS: INSULIN ASPART (NovoLOG) 100 UNIT/ML VIAL SQ SCH ×8 (10:34→21:02)
[2020-05-26] MEDS: METOPROLOL TARTRATE 12.5 MG TAB PO SCH ×2 (10:39→21:03)
--- NOTE | 2020-05-26 11:00 | P.CNNES ---
History of Present Illness Consult date: 05/26/20 Requesting physician: Mateusz Mason Reason for Consult: right facial droop, arm weakness and slurring speech History of Present Illness: This is a 55-year-old gentleman with medical history of insulin-dependent diabetes, multiple vessel CAD, alcohol use, newly diagnosed hyperlipidemia who presented to the emgeregeny department on 05/19/2020 for chest heaviness, general malaise, fatigue. neurology is consulted for stroke. During hopsital stay patient underwent CABG on 05/23/2020. On 05/26/2020 at around 3:33 AM stroke code was activated since the patient's nurse noted that the patient had the slight right facial droop, right arm weakness and slurring the speech. NIH stroke scale was a 7. The patient underwent a CT of the head it is reported as no acute hemorrhage, hydrocephalus or mass effect. CT angiography of the head and neck was reported as unchanged severe left proximal internal carotid artery stenosis. Postsurgical changes with a soft tissue emphysema along the anterior chest wall, worsened the right side the pleural effusion, and trace left apical pneumothorax. Patient NIH stroke scale improved down to a 5. Was noted that the patient had neglect. Was felt the patient had right pupil 3 mm and left pupil 2.5 mm but that's normal. The patient's weakness resolved except for the right facial droop as well as decreased sensation to touch. Patient blood glucose was 218 at bedside. Stroke attending stated the patient is not TPA candidate. And to continue aspirin and Plavix. He has currently on aspirin 325, Plavix 75 mg a daily, and Lipitor 80 mg daily. Upon seeing the patient today, he feels better compared to yesterday but has generalized weakness. She stated that yesterday he had an episode that he could not get the words out even though he knew what he wanted to say. Per the nurse she feels the patient is back to baseline. Patient denies tobacco use. But drink 3-4 cans of beers/daily. Patient is not on any antiplatelets at home or anticoagulation. Patient stated he is not on statin at home. Patient underwent left heart catheterization as well as bilateral coronary angio graphy on 05/20/2020 which showed multiple vessel coronary artery disease as well as mildly elevated left-sided that filling pressure. Patient had a transesophageal echocardiogram on 05/21/2020 and a showed moderate to severe central mitral regurgitation. Cardiomyopathy with ejection fraction of 40-45%. Left atrial appendage was free of clot. No evidence of PFO. The intra-atrial septum is intact. During the hospital stay the patient was on aspirin as well as Plavix. Seems that the patient had the coronary artery bypass grafting on 05/23/2020. It is noted that the patient had carotid stenosis on the left ICA was 90% and the right was 50-60%. Also during the hospital stay it shows that the patient had left internal carotid artery stenosis greater than 70% per carotid Doppler (05/20/20), greater than 90% per CTA and right ICA is 50-60%. As documented that the plan was for left carotid endarterectomy at a later date. Lipid panel:TG 200, cholesterol 241, LDL is 164, HDL is 37. TSH is 4.47 which is normal. Hemoglobin A1c is 8.2. The patient blood sugar during the hospital stay has b een in the range and the last 24 hours between 210 and 302. Of note patient has family history of premature coronary artery disease. Review of Systems Review of system: The 12 point system was reviewed and apparent positive and negative per HPI. Past Medical History Past Medical History: Diabetes Mellitus History of Any Multi-Drug Resistant Organisms: None Reported Past Surgical History: Tonsillectomy Past Anesthesia/Blood Transfusion Reactions: No Reported Reaction Past Psychological History: No Psychological Hx Reported Smoking Status: Never smoker Past Alcohol Use History: Daily Additional Past Alcohol Use History / Comment(s): Drinks 3-4 drinks most days; has never experienced withdrawal Past Drug Use History: None Reported - Past Family History Father Family Medical History: Coronary Artery Disease (CAD), Myocardial Infarction ([place]) Additional Family Medical History / Comment(s): CABG Brother(s) Family Medical History: Coronary Artery Disease (CAD), Myocardial Infarction ([place]) Additional Family Medical History / Comment(s): CABG Mother Family Medical History: Coronary Artery Disease (CAD) Medications and Allergies Home Medications Medication Instructions Recorded Confirmed Type Insulin Aspart [NovoLOG Flexpen] See Protocol SQ AC-TID 05/19/20 05/19/20 History Insulin Glargine,Hum.rec.anlog 20 unit SQ DAILY 05/19/20 05/19/20 History [Lantus Solostar] Allergies Allergy/AdvReac Type Severity Reaction Status Date / Time No Known Allergies Allergy Verified 05/19/20 13:06 Physical Examination - Vital Signs Vital Signs: Vital Signs Temp Pulse Pulse Pulse Resp BP BP 05/26/20 08:21 82 05/26/20 08:13 86 05/26/20 08:10 99 F 88 20 05/26/20 04:00 05/26/20 03:39 18 05/26/20 03:28 93 18 05/26/20 00:00 98.7 F 86 18 100/60 05/25/20 21:20 108/60 05/25/20 20:34 78 05/25/20 20:23 80 05/25/20 20:00 98.4 F 84 18 97/61 05/25/20 16:32 98.1 F 89 18 110/58 05/25/20 16:00 90 19 96/63 05/25/20 15:52 22 05/25/20 15:40 86 22 05/25/20 15:29 81 19 05/25/20 15:00 81 23 100/65 05/25/20 14:00 84 16 98/59 05/25/20 13:00 86 17 110/64 05/25/20 12:00 98 F 90 16 102/83 05/25/20 11:08 84 15 05/25/20 11:00 82 21 106/71 05/25/20 10:58 82 23 05/25/20 10:00 86 22 91/60 BP Pulse Ox 05/26/20 08:21 05/26/20 08:13 05/26/20 08:10 133/69 97 05/26/20 04:00 150/65 98 05/26/20 03:39 126/71 97 05/26/20 03:28 105/60 88 L 05/26/20 00:00 95 05/25/20 21:20 05/25/20 20:34 05/25/20 20:23 05/25/20 20:00 96 05/25/20 16:32 94 L 05/25/20 16:00 99 05/25/20 15:52 05/25/20 15:40 05/25/20 15:29 05/25/20 15:00 97 05/25/20 14:00 97 05/25/20 13:00 90 L 05/25/20 12:00 95 05/25/20 11:08 05/25/20 11:00 99 05/25/20 10:58 05/25/20 10:00 100 Intake and Output 05/25/20 05/26/20 05/26/20 22:59 06:59 14:59 Intake Total 43 Output Total 670 200 Balance -627 -200 Intake: IV 43 .9NS Pressure Bag 3 Sodium Chloride 0.9% 1, 40 000 ml @ 20 mls/hr IV . Q24H [facility] Rx#:[id number] Output: Chest Tube Drainage 200 Left Pleural Chest tube 200 Urine 670 Other: Voiding Method Indwelling Catheter Indwelling Catheter GENERAL: The patient is lying in bed and is not in acute distress. CHEST: The heart rate is regular rate rhythm. No murmurs to auscultation. Left carotid bruit over the left. LUNG: Clear to auscultation bilaterally no wheezing noted throughout. Not labored breathing. ABDOMEN/GI: Bowel sounds present in all 4 quadrants. No tenderness to palpation throughout. NEUROLOGICAL: Higher mental function: The patient is awake, alert, oriented to self, place and time. Patient is following commands. No aphasia and no neglect. Cranial nerves: The pupils are round, equal and reactive to light and accommodation. Visual gates are full to confrontation throughout. Extraocular movement is intact no nystagmus is noted. Facial sensation is normal to touch throughout. The facial strength is right nasolabial flattening. Hearing is normal bilaterally to hand rub. Tongue is midline and moved [id number] without any difficulty. No dysarthria is noted. Shoulder shrug is normal bilaterally. Motor: Gait is deferred. The strength is rigth elbow flexion is 5-. Otherwise 5/5 in upper. Lower is bilateral above gravity and had 4+ bilaterally (limited because of pain). Normal tone and bulk. Cerebellum: Normal finger to nose bilaterally. Sensation: Sensation is normal to touch throughout. Reflexes (right/left): 1+ throughout. Plantars are mute bilaterally. Results Last coagulation study: PT of 10.4, INR is 1.0, PTT of 25.0. Hyman virus PCR is nondetected. - Laboratory Findings CBC and BMP: 05/26/20 04:26 05/26/20 04:26 Abnormal Lab Findings: Abnormal Labs 05/19/20 05/19/20 05/19/20 11:29 11:29 14:09 WBC RBC Hgb Hct Neutrophils # Lymphocytes # PT INR APTT ABG pH ABG pCO2 ABG pO2 ABG Total CO2 ABG O2 Saturation ABG Hematocrit ABG Sodium ABG Potassium ABG Ionized Calcium ABG Glucose Hemoglobin Sodium Potassium Chloride Carbon Dioxide BUN Creatinine Glucose 317 H POC Glucose (mg/dL) Hemoglobin A1c Calcium Magnesium AST Alkaline Phosphatase Troponin I 3.120 H* 6.080 H* Total Protein Albumin Triglycerides Cholesterol LDL Cholesterol, Calc HDL Cholesterol Arterial Blood Potassium Arterial Blood Glucose Urine Protein Urine Glucose (UA) Urine Ketones Crossmatch 05/19/20 05/19/20 05/19/20 18:38 18:38 22:26 WBC RBC Hgb Hct Neutrophils # Lymphocytes # PT INR APTT 30.1 H ABG pH ABG pCO2 ABG pO2 ABG Total CO2 ABG O2 Saturation ABG Hematocrit ABG Sodium ABG Potassium ABG Ionized Calcium ABG Glucose Hemoglobin Sodium Potassium Chloride Carbon Dioxide BUN Creatinine Glucose POC Glucose (mg/dL) 302 H Hemoglobin A1c Calcium Magnesium AST Alkaline Phosphatase Troponin I 7.840 H* Total Protein Albumin Triglycerides Cholesterol LDL Cholesterol, Calc HDL Cholesterol Arterial Blood Potassium Arterial Blood Glucose Urine Protein Urine Glucose (UA) Urine Ketones Crossmatch 05/20/20 05/20/20 05/20/20 02:37 02:37 02:37 WBC 10.7 H RBC 3.93 L Hgb 12.7 L Hct 36.2 L Neutrophils # 8.9 H Lymphocytes # PT INR APTT ABG pH ABG pCO2 ABG pO2 ABG Total CO2 ABG O2 Saturation ABG Hematocrit ABG Sodium ABG Potassium ABG Ionized Calcium ABG Glucose Hemoglobin Sodium 134 L Potassium Chloride Carbon Dioxide BUN 21 H Creatinine Glucose 278 H POC Glucose (mg/dL) Hemoglobin A1c 8.2 H Calcium 8.2 L Magnesium AST Alkaline Phosphatase Troponin I Total Protein Albumin Triglycerides 200 H Cholesterol 241 H LDL Cholesterol, Calc 164 H HDL Cholesterol 37 L Arterial Blood Potassium Arterial Blood Glucose Urine Protein Urine Glucose (UA) Urine Ketones Crossmatch 05/20/20 05/20/20 05/20/20 02:37 06:35 08:24 WBC RBC Hgb Hct Neutrophils # Lymphocytes # PT INR APTT 41.2 H 41.4 H ABG pH ABG pCO2 ABG pO2 ABG Total CO2 ABG O2 Saturation ABG Hematocrit ABG Sodium ABG Potassium ABG Ionized Calcium ABG Glucose Hemoglobin Sodium Potassium Chloride Carbon Dioxide BUN Creatinine Glucose POC Glucose (mg/dL) 282 H Hemoglobin A1c Calcium Magnesium AST Alkaline Phosphatase Troponin I Total Protein Albumin Triglycerides Cholesterol LDL Cholesterol, Calc HDL Cholesterol Arterial Blood Potassium Arterial Blood Glucose Urine Protein Urine Glucose (UA) Urine Ketones Crossmatch 05/20/20 05/20/20 05/20/20 08:24 12:22 16:59 WBC RBC Hgb Hct Neutrophils # Lymphocytes # PT INR APTT ABG pH ABG pCO2 ABG pO2 ABG Total CO2 ABG O2 Saturation ABG Hematocrit ABG Sodium ABG Potassium ABG Ionized Calcium ABG Glucose Hemoglobin Sodium Potassium Chloride Carbon Dioxide BUN Creatinine Glucose POC Glucose (mg/dL) 204 H 292 H Hemoglobin A1c Calcium Magnesium AST Alkaline Phosphatase Troponin I 7.700 H* Total Protein Albumin Triglycerides Cholesterol LDL Cholesterol, Calc HDL Cholesterol Arterial Blood Potassium Arterial Blood Glucose Urine Protein Urine Glucose (UA) Urine Ketones Crossmatch 05/20/20 05/20/20 05/21/20 20:12 21:52 05:50 WBC RBC Hgb Hct Neutrophils # Lymphocytes # PT INR APTT 31.1 H ABG pH ABG pCO2 ABG pO2 ABG Total CO2 ABG O2 Saturation ABG Hematocrit ABG Sodium ABG Potassium ABG Ionized Calcium ABG Glucose Hemoglobin Sodium Potassium Chloride Carbon Dioxide BUN Creatinine Glucose POC Glucose (mg/dL) 153 H Hemoglobin A1c Calcium Magnesium AST Alkaline Phosphatase Troponin I Total Protein Albumin Triglycerides Cholesterol LDL Cholesterol, Calc HDL Cholesterol Arterial Blood Potassium Arterial Blood Glucose Urine Protein Trace H Urine Glucose (UA) 4+ H Urine Ketones 1+ H Crossmatch 05/21/20 05/21/20 05/21/20 06:02 08:33 08:33 WBC RBC 3.51 L Hgb 11.4 L Hct 32.9 L Neutrophils # Lymphocytes # 0.8 L PT INR APTT ABG pH ABG pCO2 ABG pO2 ABG Total CO2 ABG O2 Saturation ABG Hematocrit ABG Sodium ABG Potassium ABG Ionized Calcium ABG Glucose Hemoglobin Sodium 134 L Potassium Chloride 108 H Carbon Dioxide BUN Creatinine Glucose 231 H POC Glucose (mg/dL) 224 H Hemoglobin A1c Calcium 7.7 L Magnesium AST Alkaline Phosphatase Troponin I Total Protein Albumin Triglycerides Cholesterol LDL Cholesterol, Calc HDL Cholesterol Arterial Blood Potassium Arterial Blood Glucose Urine Protein Urine Glucose (UA) Urine Ketones Crossmatch 05/21/20 05/21/20 05/21/20 08:33 11:18 11:58 WBC RBC Hgb Hct Neutrophils # Lymphocytes # PT INR APTT 32.6 H ABG pH ABG pCO2 ABG pO2 ABG Total CO2 ABG O2 Saturation ABG Hematocrit ABG Sodium ABG Potassium ABG Ionized Calcium ABG Glucose Hemoglobin Sodium Potassium Chloride Carbon Dioxide BUN Creatinine Glucose POC Glucose (mg/dL) 197 H 226 H Hemoglobin A1c Calcium Magnesium AST Alkaline Phosphatase Troponin I Total Protein Albumin Triglycerides Cholesterol LDL Cholesterol, Calc HDL Cholesterol Arterial Blood Potassium Arterial Blood Glucose Urine Protein Urine Glucose (UA) Urine Ketones Crossmatch 05/21/20 05/21/20 05/21/20 17:06 17:56 20:24 WBC RBC Hgb Hct Neutrophils # Lymphocytes # PT INR APTT 47.3 H ABG pH ABG pCO2 ABG pO2 ABG Total CO2 ABG O2 Saturation ABG Hematocrit ABG Sodium ABG Potassium ABG Ionized Calcium ABG Glucose Hemoglobin Sodium Potassium Chloride Carbon Dioxide BUN Creatinine Glucose POC Glucose (mg/dL) 142 H 135 H Hemoglobin A1c Calcium Magnesium AST Alkaline Phosphatase Troponin I Total Protein Albumin Triglycerides Cholesterol LDL Cholesterol, Calc HDL Cholesterol Arterial Blood Potassium Arterial Blood Glucose Urine Protein Urine Glucose (UA) Urine Ketones Crossmatch 05/22/20 05/22/20 05/22/20 06:00 08:28 08:28 WBC RBC Hgb Hct Neutrophils # Lymphocytes # PT INR APTT ABG pH ABG pCO2 ABG pO2 ABG Total CO2 ABG O2 Saturation ABG Hematocrit ABG Sodium ABG Potassium ABG Ionized Calcium ABG Glucose Hemoglobin Sodium Potassium Chloride 109 H Carbon Dioxide BUN Creatinine Glucose 176 H POC Glucose (mg/dL) 276 H Hemoglobin A1c Calcium Magnesium AST Alkaline Phosphatase Troponin I Total Protein Albumin Triglycerides Cholesterol LDL Cholesterol, Calc HDL Cholesterol Arterial Blood Potassium Arterial Blood Glucose Urine Protein Urine Glucose (UA) Urine Ketones Crossmatch See Detail 05/22/20 05/22/20 05/22/20 08:28 08:28 11:59 WBC RBC 3.70 L Hgb 11.7 L Hct 34.0 L Neutrophils # Lymphocytes # 0.7 L PT INR APTT 42.2 H ABG pH ABG pCO2 ABG pO2 ABG Total CO2 ABG O2 Saturation ABG Hematocrit ABG Sodium ABG Potassium ABG Ionized Calcium ABG Glucose Hemoglobin Sodium Potassium Chloride Carbon Dioxide BUN Creatinine Glucose POC Glucose (mg/dL) 142 H Hemoglobin A1c Calcium Magnesium AST Alkaline Phosphatase Troponin I Total Protein Albumin Triglycerides Cholesterol LDL Cholesterol, Calc HDL Cholesterol Arterial Blood Potassium Arterial Blood Glucose Urine Protein Urine Glucose (UA) Urine Ketones Crossmatch 05/22/20 05/22/20 05/22/20 16:01 16:30 20:20 WBC RBC Hgb Hct Neutrophils # Lymphocytes # PT INR APTT 47.2 H ABG pH ABG pCO2 ABG pO2 ABG Total CO2 ABG O2 Saturation ABG Hematocrit ABG Sodium ABG Potassium ABG Ionized Calcium ABG Glucose Hemoglobin Sodium Potassium Chloride Carbon Dioxide BUN Creatinine Glucose POC Glucose (mg/dL) 102 H 140 H Hemoglobin A1c Calcium Magnesium AST Alkaline Phosphatase Troponin I Total Protein Albumin Triglycerides Cholesterol LDL Cholesterol, Calc HDL Cholesterol Arterial Blood Potassium Arterial Blood Glucose Urine Protein Urine Glucose (UA) Urine Ketones Crossmatch 05/23/20 05/23/20 05/23/20 05:18 06:48 08:38 WBC RBC Hgb Hct Neutrophils # Lymphocytes # PT INR APTT ABG pH ABG pCO2 ABG pO2 307 H ABG Total CO2 25 H ABG O2 Saturation 100.0 H ABG Hematocrit 33 L ABG Sodium ABG Potassium ABG Ionized Calcium ABG Glucose 154 H Hemoglobin 10.8 L Sodium Potassium Chloride Carbon Dioxide BUN Creatinine Glucose POC Glucose (mg/dL) 110 H 132 H Hemoglobin A1c Calcium Magnesium AST Alkaline Phosphatase Troponin I Total Protein Albumin Triglycerides Cholesterol LDL Cholesterol, Calc HDL Cholesterol Arterial Blood Potassium Arterial Blood Glucose 154 H Urine Protein Urine Glucose (UA) Urine Ketones Crossmatch 05/23/20 05/23/20 05/23/20 10:39 11:38 11:52 WBC RBC Hgb Hct Neutrophils # Lymphocytes # PT INR APTT ABG pH ABG pCO2 ABG pO2 121 H 142 H 371 H ABG Total CO2 25 H 25 H 25 H ABG O2 Saturation 99.2 H 99.6 H 100.0 H ABG Hematocrit 30 L 31 L 28 L ABG Sodium ABG Potassium ABG Ionized Calcium 4.3 L ABG Glucose 171 H 183 H 181 H Hemoglobin 9.9 L 10.1 L 9.3 L Sodium Potassium Chloride Carbon Dioxide BUN Creatinine Glucose POC Glucose (mg/dL) Hemoglobin A1c Calcium Magnesium AST Alkaline Phosphatase Troponin I Total Protein Albumin Triglycerides Cholesterol LDL Cholesterol, Calc HDL Cholesterol Arterial Blood Potassium Arterial Blood Glucose 171 H 183 H 181 H Urine Protein Urine Glucose (UA) Urine Ketones Crossmatch 05/23/20 05/23/20 05/23/20 12:25 12:49 13:25 WBC RBC Hgb Hct Neutrophils # Lymphocytes # PT INR APTT ABG pH 7.34 L 7.30 L ABG pCO2 47 H ABG pO2 292 H 266 H 324 H ABG Total CO2 25 H 25 H ABG O2 Saturation 100.0 H 100.0 H 100.0 H ABG Hematocrit 25 L 25 L 25 L ABG Sodium 133 L 134 L ABG Potassium 5.2 H ABG Ionized Calcium 4.2 L 4.3 L 4.2 L ABG Glucose 260 H 276 H 311 H Hemoglobin 8.2 L 8.2 L 8.0 L Sodium Potassium Chloride Carbon Dioxide BUN Creatinine Glucose POC Glucose (mg/dL) Hemoglobin A1c Calcium Magnesium AST Alkaline Phosphatase Troponin I Total Protein Albumin Triglycerides Cholesterol LDL Cholesterol, Calc HDL Cholesterol Arterial Blood Potassium 5.2 H Arterial Blood Glucose 260 H 276 H 311 H Urine Protein Urine Glucose (UA) Urine Ketones Crossmatch 05/23/20 05/23/20 05/23/20 14:06 14:33 16:43 WBC RBC Hgb Hct Neutrophils # Lymphocytes # PT INR APTT ABG pH ABG pCO2 ABG pO2 328 H 294 H ABG Total CO2 25 H 25 H ABG O2 Saturation 100.0 H 100.0 H ABG Hematocrit 24 L 24 L ABG Sodium ABG Potassium ABG Ionized Calcium 4.3 L 4.3 L ABG Glucose 301 H 280 H Hemoglobin 7.8 L 7.8 L Sodium Potassium Chloride Carbon Dioxide BUN Creatinine Glucose POC Glucose (mg/dL) 183 H Hemoglobin A1c Calcium Magnesium AST Alkaline Phosphatase Troponin I Total Protein Albumin Triglycerides Cholesterol LDL Cholesterol, Calc HDL Cholesterol Arterial Blood Potassium Arterial Blood Glucose 301 H 280 H Urine Protein Urine Glucose (UA) Urine Ketones Crossmatch 05/23/20 05/23/20 05/23/20 16:45 16:45 16:45 WBC RBC 3.06 L Hgb 9.8 L D Hct 28.3 L Neutrophils # Lymphocytes # PT 12.2 H INR 1.2 H APTT ABG pH ABG pCO2 ABG pO2 ABG Total CO2 ABG O2 Saturation ABG Hematocrit ABG Sodium ABG Potassium ABG Ionized Calcium ABG Glucose Hemoglobin Sodium 136 L Potassium Chloride Carbon Dioxide BUN Creatinine 0.63 L Glucose 173 H POC Glucose (mg/dL) Hemoglobin A1c Calcium 7.9 L Magnesium 2.7 H AST Alkaline Phosphatase 34 L Troponin I Total Protein 4.3 L Albumin 2.4 L Triglycerides Cholesterol LDL Cholesterol, Calc HDL Cholesterol Arterial Blood Potassium Arterial Blood Glucose Urine Protein Urine Glucose (UA) Urine Ketones Crossmatch 05/23/20 05/23/20 05/23/20 17:09 17:27 18:13 WBC RBC Hgb Hct Neutrophils # Lymphocytes # PT INR APTT ABG pH ABG pCO2 ABG pO2 155 H ABG Total CO2 26 H ABG O2 Saturation 99.2 H ABG Hematocrit ABG Sodium ABG Potassium ABG Ionized Calcium ABG Glucose Hemoglobin Sodium Potassium Chloride Carbon Dioxide BUN Creatinine Glucose POC Glucose (mg/dL) 171 H 132 H Hemoglobin A1c Calcium Magnesium AST Alkaline Phosphatase Troponin I Total Protein Albumin Triglycerides Cholesterol LDL Cholesterol, Calc HDL Cholesterol Arterial Blood Potassium Arterial Blood Glucose Urine Protein Urine Glucose (UA) Urine Ketones Crossmatch 05/23/20 05/23/20 05/23/20 18:56 18:57 20:06 WBC RBC 2.89 L Hgb 9.1 L Hct 26.5 L Neutrophils # Lymphocytes # 0.4 L PT INR APTT ABG pH ABG pCO2 ABG pO2 ABG Total CO2 ABG O2 Saturation ABG Hematocrit ABG Sodium ABG Potassium ABG Ionized Calcium ABG Glucose Hemoglobin Sodium Potassium Chloride Carbon Dioxide BUN Creatinine Glucose POC Glucose (mg/dL) 133 H 161 H Hemoglobin A1c Calcium Magnesium AST Alkaline Phosphatase Troponin I Total Protein Albumin Triglycerides Cholesterol LDL Cholesterol, Calc HDL Cholesterol Arterial Blood Potassium Arterial Blood Glucose Urine Protein Urine Glucose (UA) Urine Ketones Crossmatch 05/23/20 05/23/20 05/23/20 20:55 20:57 20:59 WBC RBC 2.71 L Hgb 8.4 L Hct 24.8 L Neutrophils # 7.9 H Lymphocytes # 0.4 L PT INR APTT ABG pH ABG pCO2 ABG pO2 ABG Total CO2 26 H ABG O2 Saturation 98.6 H ABG Hematocrit ABG Sodium ABG Potassium ABG Ionized Calcium ABG Glucose Hemoglobin Sodium Potassium Chloride Carbon Dioxide BUN Creatinine Glucose POC Glucose (mg/dL) 152 H Hemoglobin A1c Calcium Magnesium AST Alkaline Phosphatase Troponin I Total Protein Albumin Triglycerides Cholesterol LDL Cholesterol, Calc HDL Cholesterol Arterial Blood Potassium Arterial Blood Glucose Urine Protein Urine Glucose (UA) Urine Ketones Crossmatch 05/23/20 05/23/20 05/24/20 22:03 23:02 00:06 WBC RBC Hgb Hct Neutrophils # Lymphocytes # PT INR APTT ABG pH ABG pCO2 ABG pO2 ABG Total CO2 ABG O2 Saturation ABG Hematocrit ABG Sodium ABG Potassium ABG Ionized Calcium ABG Glucose Hemoglobin Sodium Potassium Chloride Carbon Dioxide BUN Creatinine Glucose POC Glucose (mg/dL) 167 H 144 H 131 H Hemoglobin A1c Calcium Magnesium AST Alkaline Phosphatase Troponin I Total Protein Albumin Triglycerides Cholesterol LDL Cholesterol, Calc HDL Cholesterol Arterial Blood Potassium Arterial Blood Glucose Urine Protein Urine Glucose (UA) Urine Ketones Crossmatch 05/24/20 05/24/20 05/24/20 01:09 04:05 04:17 WBC RBC 2.74 L Hgb 8.8 L Hct 24.9 L Neutrophils # 8.0 H Lymphocytes # 0.8 L PT INR APTT ABG pH ABG pCO2 ABG pO2 ABG Total CO2 ABG O2 Saturation ABG Hematocrit ABG Sodium ABG Potassium ABG Ionized Calcium ABG Glucose Hemoglobin Sodium Potassium Chloride Carbon Dioxide BUN Creatinine Glucose POC Glucose (mg/dL) 133 H 123 H Hemoglobin A1c Calcium Magnesium AST Alkaline Phosphatase Troponin I Total Protein Albumin Triglycerides Cholesterol LDL Cholesterol, Calc HDL Cholesterol Arterial Blood Potassium Arterial Blood Glucose Urine Protein Urine Glucose (UA) Urine Ketones Crossmatch 05/24/20 05/24/20 05/24/20 04:17 05:11 07:07 WBC RBC Hgb Hct Neutrophils # Lymphocytes # PT INR APTT ABG pH ABG pCO2 ABG pO2 ABG Total CO2 ABG O2 Saturation ABG Hematocrit ABG Sodium ABG Potassium ABG Ionized Calcium ABG Glucose Hemoglobin Sodium 135 L Potassium 5.4 H Chloride 108 H Carbon Dioxide BUN Creatinine Glucose 117 H POC Glucose (mg/dL) 129 H 171 H Hemoglobin A1c Calcium 7.6 L Magnesium AST 77 H Alkaline Phosphatase Troponin I Total Protein 4.7 L Albumin 2.8 L Triglycerides Cholesterol LDL Cholesterol, Calc HDL Cholesterol Arterial Blood Potassium Arterial Blood Glucose Urine Protein Urine Glucose (UA) Urine Ketones Crossmatch 05/24/20 05/24/20 05/24/20 08:07 09:19 10:15 WBC RBC Hgb Hct Neutrophils # Lymphocytes # PT INR APTT ABG pH ABG pCO2 ABG pO2 ABG Total CO2 ABG O2 Saturation ABG Hematocrit ABG Sodium ABG Potassium ABG Ionized Calcium ABG Glucose Hemoglobin Sodium Potassium Chloride Carbon Dioxide BUN Creatinine Glucose POC Glucose (mg/dL) 171 H 247 H 206 H Hemoglobin A1c Calcium Magnesium AST Alkaline Phosphatase Troponin I Total Protein Albumin Triglycerides Cholesterol LDL Cholesterol, Calc HDL Cholesterol Arterial Blood Potassium Arterial Blood Glucose Urine Protein Urine Glucose (UA) Urine Ketones Crossmatch 05/24/20 05/24/20 05/24/20 11:07 13:19 14:02 WBC RBC Hgb Hct Neutrophils # Lymphocytes # PT INR APTT ABG pH ABG pCO2 ABG pO2 ABG Total CO2 ABG O2 Saturation ABG Hematocrit ABG Sodium ABG Potassium ABG Ionized Calcium ABG Glucose Hemoglobin Sodium Potassium Chloride Carbon Dioxide BUN Creatinine Glucose POC Glucose (mg/dL) 173 H 146 H 154 H Hemoglobin A1c Calcium Magnesium AST Alkaline Phosphatase Troponin I Total Protein Albumin Triglycerides Cholesterol LDL Cholesterol, Calc HDL Cholesterol Arterial Blood Potassium Arterial Blood Glucose Urine Protein Urine Glucose (UA) Urine Ketones Crossmatch 05/24/20 05/24/20 05/24/20 15:17 16:19 17:11 WBC RBC Hgb Hct Neutrophils # Lymphocytes # PT INR APTT ABG pH ABG pCO2 ABG pO2 ABG Total CO2 ABG O2 Saturation ABG Hematocrit ABG Sodium ABG Potassium ABG Ionized Calcium ABG Glucose Hemoglobin Sodium Potassium Chloride Carbon Dioxide BUN Creatinine Glucose POC Glucose (mg/dL) 138 H 145 H 156 H Hemoglobin A1c Calcium Magnesium AST Alkaline Phosphatase Troponin I Total Protein Albumin Triglycerides Cholesterol LDL Cholesterol, Calc HDL Cholesterol Arterial Blood Potassium Arterial Blood Glucose Urine Protein Urine Glucose (UA) Urine Ketones Crossmatch 05/24/20 05/24/20 05/24/20 18:29 20:57 23:24 WBC RBC Hgb Hct Neutrophils # Lymphocytes # PT INR APTT ABG pH ABG pCO2 ABG pO2 ABG Total CO2 ABG O2 Saturation ABG Hematocrit ABG Sodium ABG Potassium ABG Ionized Calcium ABG Glucose Hemoglobin Sodium Potassium Chloride Carbon Dioxide BUN Creatinine Glucose POC Glucose (mg/dL) 194 H 160 H 141 H Hemoglobin A1c Calcium Magnesium AST Alkaline Phosphatase Troponin I Total Protein Albumin Triglycerides Cholesterol LDL Cholesterol, Calc HDL Cholesterol Arterial Blood Potassium Arterial Blood Glucose Urine Protein Urine Glucose (UA) Urine Ketones Crossmatch 05/25/20 05/25/20 05/25/20 01:07 03:42 03:46 WBC RBC 2.41 L Hgb 7.8 L Hct 22.2 L Neutrophils # 8.0 H Lymphocytes # PT INR APTT ABG pH ABG pCO2 ABG pO2 ABG Total CO2 ABG O2 Saturation ABG Hematocrit ABG Sodium ABG Potassium ABG Ionized Calcium ABG Glucose Hemoglobin Sodium Potassium Chloride Carbon Dioxide BUN Creatinine Glucose POC Glucose (mg/dL) 132 H 133 H Hemoglobin A1c Calcium Magnesium AST Alkaline Phosphatase Troponin I Total Protein Albumin Triglycerides Cholesterol LDL Cholesterol, Calc HDL Cholesterol Arterial Blood Potassium Arterial Blood Glucose Urine Protein Urine Glucose (UA) Urine Ketones Crossmatch 05/25/20 05/25/20 05/25/20 03:46 06:22 11:53 WBC RBC Hgb Hct Neutrophils # Lymphocytes # PT INR APTT ABG pH ABG pCO2 ABG pO2 ABG Total CO2 ABG O2 Saturation ABG Hematocrit ABG Sodium ABG Potassium ABG Ionized Calcium ABG Glucose Hemoglobin Sodium 136 L Potassium Chloride 108 H Carbon Dioxide 21 L BUN 21 H Creatinine Glucose 126 H POC Glucose (mg/dL) 148 H 244 H Hemoglobin A1c Calcium 7.5 L Magnesium AST Alkaline Phosphatase Troponin I Total Protein 5.2 L Albumin 3.0 L Triglycerides Cholesterol LDL Cholesterol, Calc HDL Cholesterol Arterial Blood Potassium Arterial Blood Glucose Urine Protein Urine Glucose (UA) Urine Ketones Crossmatch 05/25/20 05/25/20 05/26/20 17:24 20:01 03:31 WBC RBC Hgb Hct Neutrophils # Lymphocytes # PT INR APTT ABG pH ABG pCO2 ABG pO2 ABG Total CO2 ABG O2 Saturation ABG Hematocrit ABG Sodium ABG Potassium ABG Ionized Calcium ABG Glucose Hemoglobin Sodium Potassium Chloride Carbon Dioxide BUN Creatinine Glucose POC Glucose (mg/dL) 302 H 287 H 218 H Hemoglobin A1c Calcium Magnesium AST Alkaline Phosphatase Troponin I Total Protein Albumin Triglycerides Cholesterol LDL Cholesterol, Calc HDL Cholesterol Arterial Blood Potassium Arterial Blood Glucose Urine Protein Urine Glucose (UA) Urine Ketones Crossmatch 05/26/20 05/26/20 05/26/20 04:26 04:26 04:26 WBC RBC 2.16 L Hgb 7.0 L Hct 20.5 L Neutrophils # Lymphocytes # 0.5 L PT INR APTT ABG pH ABG pCO2 ABG pO2 ABG Total CO2 ABG O2 Saturation ABG Hematocrit ABG Sodium ABG Potassium ABG Ionized Calcium ABG Glucose Hemoglobin Sodium 131 L Potassium Chloride Carbon Dioxide 18 L BUN 36 H Creatinine 1.55 H Glucose 214 H POC Glucose (mg/dL) Hemoglobin A1c Calcium 7.4 L Magnesium AST Alkaline Phosphatase Troponin I 4.180 H* Total Protein 5.1 L Albumin 2.9 L Triglycerides Cholesterol LDL Cholesterol, Calc HDL Cholesterol Arterial Blood Potassium Arterial Blood Glucose Urine Protein Urine Glucose (UA) Urine Ketones Crossmatch 05/26/20 05/26/20 06:06 08:19 WBC RBC Hgb Hct Neutrophils # Lymphocytes # PT INR APTT ABG pH ABG pCO2 ABG pO2 ABG Total CO2 ABG O2 Saturation ABG Hematocrit ABG Sodium ABG Potassium ABG Ionized Calcium ABG Glucose Hemoglobin Sodium Potassium Chloride Carbon Dioxide BUN Creatinine Glucose POC Glucose (mg/dL) 218 H 279 H Hemoglobin A1c Calcium Magnesium AST Alkaline Phosphatase Troponin I Total Protein Albumin Triglycerides Cholesterol LDL Cholesterol, Calc HDL Cholesterol Arterial Blood Potassium Arterial Blood Glucose Urine Protein Urine Glucose (UA) Urine Ketones Crossmatch Assessment and Plan Assessment: This is a 55-year-old gentleman with multiple medical problems who presented to the emgeregeny department on 05/19/2020 for chest heaviness, general malaise, fatigue. Patient had multiple CAD and underwent CABG on 05/23/20. On 05/26/20 patient had stroke like symptoms (right facial droop, right arm weakness and decreased sensation). NO IV tpa since recent surgery. Right facial droop, weakness arm, numbness and broca aphasia--->resolved to right facial droop and arm weakness Seems possible TIA vs acute ischemic stroke. Seems embolic due to symptomatic left carotid stenosis another possibility but seems unlikely could be cardioembolic. Symptomatic left internal carotid artery (per CTA >70% per carotid duplex but 90% per CTA) Right internal carotid artery is about 50-60% per CTA Non-STEMI, triple-vessel coronary artery disease status post CABG 4 Diabetes mellitus that seems to be poorly controlled Daily alcohol intake Dyslipidemia Family history of premature coronary artery disease Plan: Contiue dual antiplatelete, currently on aspirin 325, Plavix 75 mg a daily. Also continue Lipitor 80 mg daily. PT, OT and COMPUTER SYSTEMS ENGINEER are consulted. Ordered every 4 hours neuro checks. Continue cardiac monitoring Cardiology team does not want vascular surgical team involved and they was notified by nurse they want to take care of carotid stenosis. I ordered MRI the brain. Regarding when the carotid stenosis should be done will hold off until we get the MRI the brain then will recommend time frame to get surgery. Continue thiamine 100 mg daily. She is also on folic acid 1mg daily. Please avoid any hypotensive episodes. Recommend blood pressure systolic 120- 140. The patient is on CIWA protocol and will defer management to primary team. Will defer the rest of medical management to the primary team. Patient was counseled on alcohol cessation. Plan was discussed with the patient as well as the patient's nurse. UPDATE: Patient mother was at bedside and as patient stated earlier, discussed the surgical procedure for carotid stenosis and the patient and the mother are in agreement for surgery. I discussed with surgery (which I would recommend carotid stenting) there is increased risk of complication stroke and cardiovascular risk factor and they would like to proceed. Thank you for the consultation. Unruly Osei M.D. Neuro-hospitalist Time with Patient: Greater than 30
--- NOTE | 2020-05-26 11:05 | P.PN ---
Subjective HISTORY OF PRESENTING ILLNESS This is a pleasant 55-year-old male past medical history significant for diabetes mellitus and daily alcohol intake. He follows in the office with Dr. Santos in [place]. We have been asked to see in consultation for NSTEMI. He states for the previous 2 weeks he has been experiencing chest heaviness intermittently. The symptoms occur typically at rest mostly at night when he lays down and tries to sleep. When he lays down flat he feels a heaviness in his chest with some mild shortness of breath. He denies any symptoms of chest discomfort or shortness of breath with exertion. He has had some intermittent diarrhea. 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 He had no symptoms of chest discomfort throughout the day. The next morning he woke up and went out to breakfast and then had an episode of nausea and vomiting. He was concerned with possible ovarian. He came to the emergency department yesterday afternoon to be tested. We have seen and examined resting comfortably in bed in no acute distress. He has no symptoms of chest discomfort or shortness of breath. 05/26/2020 Pt is seen and examined resting comfortably in no acute distress. He is POD#3 bypass grafting and mitral valve repair with LMIA-LAD, RSVG-D1, ZELAYA-Cx and RSVG-RCA. He denies chest pain or shortness of breath. He had an episode of right sided facial droop, right arm weakness and confusion around 0300. Code stroke called. Symptoms have resolved. CT brain negative for an acute process. CTA head/neck reveals unchanged severe left proximal stenosis. Chest xray this morning reveals no appreciable pneumothorax with some mild vascular congestion. Blood pressure 133/69 heart rate 88 afebrile and maintaining oxygen saturation on nasal cannula. Maintaining sinus mechanism on telemetry. PHYSICAL EXAMINATION CONSTITUTIONAL: No apparent distress. HEENT: Head is normocephalic. Pupils are equal, round. Sclerae anicteric. Mucous membranes of the mouth are moist. No JVD. Left carotid bruit, no bruit on the right. CHEST EXAMINATION: Lungs are clear to auscultation. No chest wall tenderness is noted on palpation or with deep breathing. Left chest tube in place. Epicardial wires present. HEART EXAMINATION: Regular rate and rhythm. S1, S2 heard. Systolic ejection murmur at the base, no gallops or rub. EXTREMITIES: 2+ peripheral pulses, no lower extremity edema and no calf tenderness. ASSESSMENT NSTEMI Coronary artery disease s/p 4V bypass grafting POD#3 TIA Carotid stenosis Acute blood loss anemia Diabetes mellitus Daily alcohol intake Dyslipidemia Valvular heart disease s/p mitral valve repair PLAN The patient has been seen in evaluation by neurology and they are recommending an MRI and close clinical observation for another 24 hours. He does recommend carotid intervention on this admission pre interventional cardiology, ideally within 7 [address]. We will discuss CT surgery is changing his anti-platelet to brilinta and will load him appropriately. Repeat EKG today and limited echocardiogram. Further recommendations to follow based on clinical course. Nurse Practitioner note has been reviewed, I agree with a documented findings and plan of care. Patient was seen and examined. Objective - Vital Signs Vital signs: Vital Signs Temp 99 F 05/26/20 08:10 Pulse 82 05/26/20 08:21 Resp 20 05/26/20 08:10 BP 133/69 05/26/20 08:10 Pulse Ox 97 05/26/20 08:10 Intake & Output 05/25/20 05/26/20 05/26/20 18:59 06:59 18:59 Intake Total 476 Output Total 370 800 475 Balance 106 -800 -475 Intake: IV 236 .9NS Pressure Bag 36 Sodium Chloride 0.9% 1, 200 000 ml @ 20 mls/hr IV . Q24H [facility] Rx#:[id number] Oral 240 Output: Chest Tube Drainage 100 200 Left Pleural Chest tube 100 200 Mediastinal Chest Tubes X 0 2 Urine 270 600 475 Other: Voiding Method Indwelling Catheter Indwelling Catheter ABP, PAP, CO, CI - Last Documented Arterial Blood Pressure 81/54 Pulmonary Artery Pressure 30/15 Cardiac Output 5.3 Cardiac Index 2.6 - Labs CBC & Chem 7: 05/26/20 04:26 05/26/20 04:26 Labs: Abnormal Lab Results - Last 24 Hours (Table) 05/25/20 05/25/20 05/25/20 Range/Units 11:53 17:24 20:01 RBC (4.30-5.90) m/uL Hgb (13.0-17.5) gm/dL Hct (39.0-53.0) % Lymphocytes # (1.0-4.8) k/uL Sodium (137-145) mmol/L Carbon Dioxide (22-30) mmol/L BUN (9-20) mg/dL Creatinine (0.66-1.25) mg/dL Glucose (74-99) mg/dL POC Glucose (mg/dL) 244 H 302 H 287 H (75-99) mg/dL Calcium (8.4-10.2) mg/dL Troponin I (0.000-0.034) ng/mL Total Protein (6.3-8.2) g/dL Albumin (3.5-5.0) g/dL Crossmatch 05/26/20 05/26/20 05/26/20 Range/Units 03:31 04:26 04:26 RBC 2.16 L (4.30-5.90) m/uL Hgb 7.0 L (13.0-17.5) gm/dL Hct 20.5 L (39.0-53.0) % Lymphocytes # 0.5 L (1.0-4.8) k/uL Sodium (137-145) mmol/L Carbon Dioxide (22-30) mmol/L BUN (9-20) mg/dL Creatinine (0.66-1.25) mg/dL Glucose (74-99) mg/dL POC Glucose (mg/dL) 218 H (75-99) mg/dL Calcium (8.4-10.2) mg/dL Troponin I (0.000-0.034) ng/mL Total Protein (6.3-8.2) g/dL Albumin (3.5-5.0) g/dL Crossmatch See Detail 05/26/20 05/26/20 05/26/20 Range/Units 04:26 04:26 06:06 RBC (4.30-5.90) m/uL Hgb (13.0-17.5) gm/dL Hct (39.0-53.0) % Lymphocytes # (1.0-4.8) k/uL Sodium 131 L (137-145) mmol/L Carbon Dioxide 18 L (22-30) mmol/L BUN 36 H (9-20) mg/dL Creatinine 1.55 H (0.66-1.25) mg/dL Glucose 214 H (74-99) mg/dL POC Glucose (mg/dL) 218 H (75-99) mg/dL Calcium 7.4 L (8.4-10.2) mg/dL Troponin I 4.180 H* (0.000-0.034) ng/mL Total Protein 5.1 L (6.3-8.2) g/dL Albumin 2.9 L (3.5-5.0) g/dL Crossmatch 05/26/20 Range/Units 08:19 RBC (4.30-5.90) m/uL Hgb (13.0-17.5) gm/dL Hct (39.0-53.0) % Lymphocytes # (1.0-4.8) k/uL Sodium (137-145) mmol/L Carbon Dioxide (22-30) mmol/L BUN (9-20) mg/dL Creatinine (0.66-1.25) mg/dL Glucose (74-99) mg/dL POC Glucose (mg/dL) 279 H (75-99) mg/dL Calcium (8.4-10.2) mg/dL Troponin I (0.000-0.034) ng/mL Total Protein (6.3-8.2) g/dL Albumin (3.5-5.0) g/dL Crossmatch
--- NOTE | 2020-05-26 11:37 | ECHOF ---
Referral Reason:LV function MEASUREMENTS -------- HEIGHT: 167.6 cm WEIGHT: 86.2 kg BP: RAP: 5.00 mmHg RVSP: 33.95 mmHg FINDINGS -------- Sinus rhythm. This was a technically adequate study. Limited Study Overall left ventricular systolic function is mildly impaired with, an EF between 45 - 50 %. Basal inferior LV wall motion is hypokinetic. Basal inferoseptal LV wall motion is hypokinetic. Mild tricuspid regurgitation present. There is borderline pulmonary hypertension. The right ventr icular systolic pressure, as measured by Doppler, is 33.95mmHg. There is no pericardial effusion. CONCLUSIONS -------- 1. This was a technically adequate study. 2. Limited Study 3. Overall left ventricular systolic function is mildly impaired with, an EF between 45 - 50 %. 4. Basal inferior LV wall motion is hypokinetic. 5. Basal inferoseptal LV wall motion is hypokinetic. 6. Mild tricuspid regurgitation present. 7. There is borderline pulmonary hypertension. 8. The right ventricular systolic pressure, as measured by Doppler, is 33.95mmHg. 9. There is no pericardial effusion. LOAN SERVICE OFFICER: Lizzie Hyde [facility]
[2020-05-26 11:42] LABS: Glucose,Whole Blood 282 mg/dL (75-99)
[2020-05-26 14:44] VITALS: BMI 31.5
[2020-05-26] MEDS: HYDROcodone/APAP 7.5-325MG 1 EACH TAB PO PRN ×3 (14:51→22:53)
--- NOTE | 2020-05-26 15:50 | P.PN ---
Subjective Progress Note Date: 05/26/20 Principal diagnosis: Myocardial infarction Overnight events noted, patient had a right-sided facial droop as well as right arm weakness. No focal numbness. No blurred vision. Objective - Vital Signs Vital signs: Vital Signs Temp 99 F 05/26/20 15:25 Pulse 97 05/26/20 15:25 Resp 16 05/26/20 15:25 BP 132/75 05/26/20 15:25 Pulse Ox 99 05/26/20 15:25 Intake & Output 05/25/20 05/26/20 05/26/20 18:59 06:59 18:59 Intake Total 476 0 Output Total 370 800 475 Balance 106 -800 -475 Weight 88.6 kg Intake: IV 236 .9NS Pressure Bag 36 Sodium Chloride 0.9% 1, 200 000 ml @ 20 mls/hr IV . Q24H [facility] Rx#:[id number] Oral 240 Blood Product 0 Rc Pheresis 2 As3 Unit 0 [id number] Output: Chest Tube Drainage 100 200 Left Pleural Chest tube 100 200 Mediastinal Chest Tubes X 0 2 Urine 270 600 475 Other: Voiding Method Indwelling Catheter Indwelling Catheter Indwelling Catheter ABP, PAP, CO, CI - Last Documented Arterial Blood Pressure 81/54 Pulmonary Artery Pressure 30/15 Cardiac Output 5.3 Cardiac Index 2.6 - Exam Gen: No acute distress, extubated HEENT: normocephalic, atraumatic, moist mucous membranes Resp: Clear bilaterally CVS: good distal perfusion x 4, regular rate and rhythm without murmurs GI: soft, NTTP, ND, appropriate bowel sounds : no SPT, no CVAT, scott catheter is present MSK: no pitting edema, no clubbing Neuro: non-focal, moving all extremities - Labs CBC & Chem 7: 05/26/20 04:26 05/26/20 04:26 Labs: Abnormal Lab Results - Last 24 Hours (Table) 05/25/20 05/25/20 05/26/20 Range/Units 17:24 20:01 03:31 RBC (4.30-5.90) m/uL Hgb (13.0-17.5) gm/dL Hct (39.0-53.0) % Lymphocytes # (1.0-4.8) k/uL Sodium (137-145) mmol/L Carbon Dioxide (22-30) mmol/L BUN (9-20) mg/dL Creatinine (0.66-1.25) mg/dL Glucose (74-99) mg/dL POC Glucose (mg/dL) 302 H 287 H 218 H (75-99) mg/dL Calcium (8.4-10.2) mg/dL Troponin I (0.000-0.034) ng/mL Total Protein (6.3-8.2) g/dL Albumin (3.5-5.0) g/dL Crossmatch 05/26/20 05/26/20 05/26/20 Range/Units 04:26 04:26 04:26 RBC 2.16 L (4.30-5.90) m/uL Hgb 7.0 L (13.0-17.5) gm/dL Hct 20.5 L (39.0-53.0) % Lymphocytes # 0.5 L (1.0-4.8) k/uL Sodium 131 L (137-145) mmol/L Carbon Dioxide 18 L (22-30) mmol/L BUN 36 H (9-20) mg/dL Creatinine 1.55 H (0.66-1.25) mg/dL Glucose 214 H (74-99) mg/dL POC Glucose (mg/dL) (75-99) mg/dL Calcium 7.4 L (8.4-10.2) mg/dL Troponin I (0.000-0.034) ng/mL Total Protein 5.1 L (6.3-8.2) g/dL Albumin 2.9 L (3.5-5.0) g/dL Crossmatch See Detail 05/26/20 05/26/20 05/26/20 Range/Units 04:26 06:06 08:19 RBC (4.30-5.90) m/uL Hgb (13.0-17.5) gm/dL Hct (39.0-53.0) % Lymphocytes # (1.0-4.8) k/uL Sodium (137-145) mmol/L Carbon Dioxide (22-30) mmol/L BUN (9-20) mg/dL Creatinine (0.66-1.25) mg/dL Glucose (74-99) mg/dL POC Glucose (mg/dL) 218 H 279 H (75-99) mg/dL Calcium (8.4-10.2) mg/dL Troponin I 4.180 H* (0.000-0.034) ng/mL Total Protein (6.3-8.2) g/dL Albumin (3.5-5.0) g/dL Crossmatch 05/26/20 Range/Units 11:40 RBC (4.30-5.90) m/uL Hgb (13.0-17.5) gm/dL Hct (39.0-53.0) % Lymphocytes # (1.0-4.8) k/uL Sodium (137-145) mmol/L Carbon Dioxide (22-30) mmol/L BUN (9-20) mg/dL Creatinine (0.66-1.25) mg/dL Glucose (74-99) mg/dL POC Glucose (mg/dL) 282 H (75-99) mg/dL Calcium (8.4-10.2) mg/dL Troponin I (0.000-0.034) ng/mL Total Protein (6.3-8.2) g/dL Albumin (3.5-5.0) g/dL Crossmatch Assessment and Plan Plan: NSTEMI S/P [id number] 05/23 -Cardio and CT surgery following -Telemetry monitoring. -Continue daily aspirin, atorvastatin, and metoprolol. -Lipid profile revealed elevation of triglycerides 200, cholesterol 241, LDL 164, HDL of 37. Atorvastatin increased to 80 mg nightly. TIA -Neurology consulted -Continue aspirin, switch plavix to brilinta Insulin-dependent diabetes mellitus type II -D/c insulin drip -Continue SSI and lantus 20 units daily -Hemoglobin A1c = 8.2% CODE STATUS: Full code DVT prophylaxis: Heparin Discussed with: Patient Anticipated discharge date: 3-[address]: Home
[2020-05-26 16:34] LABS: Glucose,Whole Blood 144 mg/dL (75-99)
[2020-05-26] MEDS: MUPIROCIN 2% OINT 22 GM TUBE NASAL SCH ×2 (17:18→21:03)
--- NOTE | 2020-05-26 17:22 | P.PN ---
Subjective Progress Note Date: 05/26/20 Principal diagnosis: Multivessel coronary artery disease, status post CABG, postoperative day #3. On today's evaluation of 05/24/2020, the patient is postop day #1. The patient was brought into the intensive care unit and he was hemodynamically stable and was extubated at around 9:15 PM yesterday. This morning, the patient is able to sit up on a recliner. He remains extubated. He remains on oxygen at 2 L per minute nasal cannula. Note that since his surgery, the patient initially received 500 mL bolus of albumin 5%, after sitting up on a chair his blood pressure dropped again and we had to give another bolus of 500 mL of albumin. His urine output is improving. Overnight, he was taken off the Primacor and he was started on levo fed initially 0.05 g and currently he is running at 0.11 mcg/kg per minute. Urine output is adequate for now. BP is showing a systolic of 100-110. Cardiac output is 5.4 with an index of 2.7. No cardiac arrhythmias. No atrial fibrillation. His cardiac rhythm is sinus. Chest tubes are still in place. Output from the mediastinal was 500 mL yesterday and left pleural is 300. The patient has a total of 3 chest tubes left pleural, mediastinal 2. The patient otherwise is doing well. He did have a bout of blurred vision in his left eye yesterday without any neurologic deficit and currently is neurologically intact. No aphasia. No headaches. No altered mentation. Insulin drip is running at 1.5 units an hour and nitroglycerin drip drip is running at 5 units an hour regarding his radial artery harvest. Otherwise, no other significant events. Chest x-ray shows adequate expansion of both lungs. No evidence of any pneumothorax. There is a gastric bubble. Hermleigh- Noé catheter is still in place. Hemoglobin today is at 8.8. Rest of the blood work is all within normal limits. On 05/25/2020 the patient is postop day #2. Is able to sit up on a chair. The Hermleigh-Noé catheter has been removed. The patient has the lower limb mediastinal chest tubes still in place and output has been noted and output has considerably dropped since yesterday. He is hemodynamically requiring some pressors still and the patient is on 0.04 g kilogram per minute of norepinephrine infusion. Urine output is in order of 20 mL an hour. The patient remains on insulin drip at 4.5 units an hour. Blood sugars of been under adequate control. Pulmonary status is stable. He is on oxygen at 2 L, and he was transitioned to room air o xygen. He has adequate pain control for now and this morning he refers this pain as being around 7 out of 10. The chest x-ray from today showing a small pleural effusion on the left. Right lung is showing some fluid within the fissure. No consolidation. No pneumothorax. Chest tubes are all in place. There is some gastric bubble and the patient is passing gas and he is tolerating his diet without any major difficulties. Hemoglobin from today is 7.8 Patient was reevaluated today on 05/26/2020, he is postoperative day #3, CABG 4 vessels, patient is sitting in bed, he is in the cardiac stepdown unit, not in any distress, receiving a unit of packed RBCs as we speak. Apparently his hemog lobin was low, and he'll be receiving Lasix after his packed RBC transfusion. Patient has a strong productive cough, he is compliant with his incentive spirometry, continues to have left pleural chest tube in place, he also had right sided facial droop with slurring words and right arm weakness hence code stroke was called, but his CT of the chest showed no acute change. Neurology is following. Chest x-ray showed bibasilar atelectasis especially at the left base, and possibly a small left pleural effusion. Hemoglobin today was 7 and the WBC count was 6.3. Electrolytes are normal bicarb is a bit low at 18. Slight worsening of renal status is noted with a BUN of 36 creatinine is 1.55. Troponin is 4.180. Objective - Vital Signs Vital signs: Vital Signs Temp 99 F 05/26/20 15:25 Pulse 94 05/26/20 16:07 Resp 16 05/26/20 15:25 BP 132/75 05/26/20 15:25 Pulse Ox 97 05/26/20 15:55 Intake & Output 05/25/20 05/26/20 05/26/20 18:59 06:59 18:59 Intake Total 476 0 Output Total 370 800 475 Balance 106 800 -475 Weight 88.6 kg Intake: IV 236 .9NS Pressure Bag 36 Sodium Chloride 0.9% 1, 200 000 ml @ 20 mls/hr IV . Q24H [facility] Rx#:[id number] Oral 240 Blood Product 0 Rc Pheresis 2 As3 Unit 0 [id number] Output: Chest Tube Drainage 100 200 Left Pleural Chest tube 100 200 Mediastinal Chest Tubes X 0 2 Urine 270 600 475 Other: Voiding Method Indwelling Catheter Indwelling Catheter Indwelling Catheter ABP, PAP, CO, CI - Last Documented Arterial Blood Pressure 81/54 Pulmonary Artery Pressure 30/15 Cardiac Output 5.3 Cardiac Index 2.6 - Exam CONSTITUTIONAL: Revealed a 55-year-old white male in no distress. RESPIRATORY: Crackles at the left base, no rhonchi no wheezes, symmetrical chest expansion. CARDIOVASCULAR: Normal S1 and S2, no S3 gallop. GASTROINTESTINAL: Abdomen is soft nontender no megaly no rebound no guarding. Skin: No rashes. NEUROLOGIC: Alert oriented 3 focal deficits. MUSKULOSKELETAL: Equal strength bilaterally, no deformities. PSYCHIATRIC: Normal mood, affect and normal mental status examination. - Labs CBC & Chem 7: 05/26/20 04:26 05/26/20 04:26 Labs: Abnormal Lab Results - Last 24 Hours (Table) 05/25/20 05/25/20 05/26/20 Range/Units 17:24 20:01 03:31 RBC (4.30-5.90) m/uL Hgb (13.0-17.5) gm/dL Hct (39.0-53.0) % Lymphocytes # (1.0-4.8) k/uL Sodium (137-145) mmol/L Carbon Dioxide (22-30) mmol/L BUN (9-20) mg/dL Creatinine (0.66-1.25) mg/dL Glucose (74-99) mg/dL POC Glucose (mg/dL) 302 H 287 H 218 H (75-99) mg/dL Calcium (8.4-10.2) mg/dL Troponin I (0.000-0.034) ng/mL Total Protein (6.3-8.2) g/dL Albumin (3.5-5.0) g/dL Crossmatch 05/26/20 05/26/20 05/26/20 Range/Units 04:26 04:26 04:26 RBC 2.16 L (4.30-5.90) m/uL Hgb 7.0 L (13.0-17.5) gm/dL Hct 20.5 L (39.0-53.0) % Lymphocytes # 0.5 L (1.0-4.8) k/uL Sodium 131 L (137-145) mmol/L Carbon Dioxide 18 L (22-30) mmol/L BUN 36 H (9-20) mg/dL Creatinine 1.55 H (0.66-1.25) mg/dL Glucose 214 H (74-99) mg/dL POC Glucose (mg/dL) (75-99) mg/dL Calcium 7.4 L (8.4-10.2) mg/dL Troponin I (0.000-0.034) ng/mL Total Protein 5.1 L (6.3-8.2) g/dL Albumin 2.9 L (3.5-5.0) g/dL Crossmatch See Detail 05/26/20 05/26/20 05/26/20 Range/Units 04:26 06:06 08:19 RBC (4.30-5.90) m/uL Hgb (13.0-17.5) gm/dL Hct (39.0-53.0) % Lymphocytes # (1.0-4.8) k/uL Sodium (137-145) mmol/L Carbon Dioxide (22-30) mmol/L BUN (9-20) mg/dL Creatinine (0.66-1.25) mg/dL Glucose (74-99) mg/dL POC Glucose (mg/dL) 218 H 279 H (75-99) mg/dL Calcium (8.4-10.2) mg/dL Troponin I 4.180 H* (0.000-0.034) ng/mL Total Protein (6.3-8.2) g/dL Albumin (3.5-5.0) g/dL Crossmatch 05/26/20 05/26/20 Range/Units 11:40 16:31 RBC (4.30-5.90) m/uL Hgb (13.0-17.5) gm/dL Hct (39.0-53.0) % Lymphocytes # (1.0-4.8) k/uL Sodium (137-145) mmol/L Carbon Dioxide (22-30) mmol/L BUN (9-20) mg/dL Creatinine (0.66-1.25) mg/dL Glucose (74-99) mg/dL POC Glucose (mg/dL) 282 H 144 H (75-99) mg/dL Calcium (8.4-10.2) mg/dL Troponin I (0.000-0.034) ng/mL Total Protein (6.3-8.2) g/dL Albumin (3.5-5.0) g/dL Crossmatch Assessment and Plan Assessment: Impression: Status post CABG for triple-vessel coronary artery disease, patient had a four- vessel CABG. Status post mitral valve repair. Postoperative acute blood loss anemia, expected. Postoperative atelectasis and small left pleural effusion Acute kidney injury Life long nonsmoker Acute TIA versus acute ischemic stroke, being addressed by neurology History of carotid artery disease. Recommendation: Continue present supportive care measures. Continue GI and DVT prophylaxis Continue incentive spirometry Continue CIWA protocol since the patient has history of alcohol abuse. Continue strict I's and O's. Continue aspirin statins and beta blockers and brilinta Increase activity as tolerated Incentive spirometry Early ambulation Wean oxygen as tolerated Monitor daily labs. We'll continue to follow Time with Patient: Less than 30
[2020-05-26 20:23] LABS: Glucose,Whole Blood 155 mg/dL (75-99)
[2020-05-26] MEDS: SENNOSIDES-DOCUSATE SODIUM 1 EACH TAB PO SCH (21:02)
[2020-05-27] MEDS: HYDROcodone/APAP 7.5-325MG 1 EACH TAB PO PRN ×4 (03:14→22:54)
[2020-05-27 06:12] LABS: Glucose,Whole Blood 117 mg/dL (75-99)
[2020-05-27] MEDS: PANTOPRAZOLE 40 MG TABLET PO SCH (06:17)
[2020-05-27] MEDS: INSULIN DETEMIR (LEVEMIR) 100 UNIT/ML SYR SQ SCH (06:39)
[2020-05-27] MEDS: INSULIN ASPART (NovoLOG) 100 UNIT/ML VIAL SQ SCH ×8 (06:56→20:41)
[2020-05-27] MEDS ORDERED: MAGNESIUM HYDROXIDE 2,400 MG/10 ML CUP PO ONE (07:58)
[2020-05-27] MEDS ORDERED: ACETAMINOPHEN TAB 325 MG TAB PO PRN (08:04)
[2020-05-27] MEDS: IPRATROPIUM-ALBUTEROL 3 ML NEB INHALATION SCH ×4 (08:08→20:11)
--- NOTE | 2020-05-27 08:08 | P.PN ---
Subjective Progress Note Date: 05/27/20 Principal diagnosis: Triple vessel diffuse coronary artery disease, moderate to severe mitral regurgitation, moderate left ventricular dysfunction. Previous medical history of insulin-dependent diabetes, family history of premature coronary artery disease, EtOH use most days without history of withdrawal, and newly diagnosed hyperlipidemia and severe left carotid stenosis. Preop nasal swab positive for MSSA POD #4 coronary artery bypass grafting 4 vessels with the left internal mammary artery to the left anterior descending artery, reverse saphenous vein graft from the aorta to the first diagonal artery, left radial artery taken proximally from the previous vein graft and anastomosed distally to the distal circumflex artery, reverse saphenous vein graft from the aorta to the right coronary artery, mitral valve repair with posterior annuloplasty using a #28 incomplete AnnuloFlex ring, exclusion of the left atrial appendage with a 35 mm AtriClip, graft flow measurements using the QuickMobilestim system, endoscopic harvesting of the left radial artery, endoscopic harvesting of the left greater saphenous vein from the groin to just below the knee level, intraoperative transesophageal echocardiogram and epi-aortic scanning. Postoperative acute blood loss anemia, expected given hemodilution and cardiopulmonary bypass pump Facial droop, slurred speech, right arm weakness with resolution less than 3 hours, likely TIA with no residual and no further occurrence of symptoms Patient currently sitting up in a recliner on the cardiac stepdown unit no acute distress. Complains of postoperative chest pain controlled with current medication regimen, actively using incentive spirometry, strong productive cough. Remains in sinus rhythm, hemodynamically stable. Left pleural chest tube remains. Yesterday morning patient had an episode of right-sided facial droop, slurring of words, and right arm weakness. Code stroke was called, patient had stat CT of the brain and CTA of the head and neck demonstrating no acute changes. Neuro-interventionalist was contacted, recommendations were made for no thrombolytics. Patient's symptoms resolved in less than 3 hours and has had no recurrence. Currently he is completely neurologically intact, no facial droop is present, he is oriented 3, his speech is appropriate and he has equal strength bilaterally. He did ambulate in the hallway yesterday with standby assist. He has been tolerating diet without any episodes of choking. Hemoglobin 7.0 yesterday, patient did receive 1 unit packed red blood cells, labs pending for follow-up hemoglobin. No other further concerns. Objective - Vital Signs Vital signs: Vital Signs Temp 98.1 F 05/27/20 04:00 Pulse 61 05/27/20 04:00 Resp 18 05/27/20 04:00 BP 131/75 05/27/20 04:00 Pulse Ox 94 L 05/27/20 04:00 Intake & Output 05/26/20 05/27/20 05/27/20 18:59 06:59 18:59 Intake Total 761 660 Output Total 650 1144 Balance 111 -484 Weight 88.6 kg 91 kg Intake: Oral 480 660 Blood Product 281 Rc Pheresis 2 As3 Unit 281 [id number] Output: Chest Tube Drainage 50 Left Pleural Chest tube 50 Urine 650 975 Post Void Residual 119 Other: Voiding Method Indwelling Catheter Urinal # Voids 1 ABP, PAP, CO, CI - Last Documented Arterial Blood Pressure 81/54 Pulmonary Artery Pressure 30/15 Cardiac Output 5.3 Cardiac Index 2.6 - Exam CONSTITUTIONAL: Appears comfortable, cooperative, no acute distress RESPIRATORY: Lungs sounds diminished bilaterally. Respirations even, nonlabored. Currently on 2 L nasal cannula with oxygen saturation 94%. Able to achieve 750-1000 mL on incentive spirometry. Strong productive cough. CARDIOVASCULAR: S1, S2 present. Regular rate and rhythm, sinus rhythm on telemetry. Sternum stable. Palpable peripheral pulses bilaterally. Generalized edema present. No calf pain or tenderness noted. Heart hugger in place with patient demonstrating appropriate use. Antiembolism stockings, SCDs present. GASTROINTESTINAL: Abdomen soft, nontender, nondistended. Active bowel sounds p resent 4 quadrants. Positive flatus. GENITOURINARY: Preciado discontinued yesterday, continues to void 200-250 mL at a time, postvoid residual via bladder scan 119 mL INTEGUMENTARY: Skin is warm and dry with evidence of good perfusion. Anterior chest incision well approximated and covered with dry intact dressing. EVH site well approximated without redness or drainage. 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 NEUROLOGIC: Cranial nerves II through XII intact MUSKULOSKELETAL: Able to move all extremities, strength equal bilaterally PSYCHIATRIC: Alert and oriented to person place and time, appropriate affect, intact judgment and insight INVASIVE LINES AND TUBES: Left pleural chest tube present and connected to wall suction, no air leak present. Left pleural chest tube with 50 mL serous drainage overnight, 400 mL in the last 24 hours. - Allied health notes Allied health notes reviewed: nursing - Labs CBC & Chem 7: 05/26/20 04:26 05/26/20 04:26 Labs: Abnormal Lab Results - Last 24 Hours (Table) 05/26/20 05/26/20 05/26/20 Range/Units 04:26 08:19 11:40 POC Glucose (mg/dL) 279 H 282 H (75-99) mg/dL Crossmatch See Detail 05/26/20 05/26/20 05/27/20 Range/Units 16:31 20:22 06:11 POC Glucose (mg/dL) 144 H 155 H 117 H (75-99) mg/dL Crossmatch - Imaging and Cardiology Chest x-ray: image reviewed Assessment and Plan Assessment: 1. Triple-vessel diffuse coronary artery disease, non-STEMI this admission, status post four-vessel CABG 2. Moderate to severe predominantly centrally directed mitral regurgitation, status post mitral valve repair 3. Insulin-dependent diabetes, hemoglobin A1c 8.2% 4. Hyperlipidemia, cholesterol 241, triglyceride 200, LDL 164 5. Left internal carotid artery stenosis, greater than 70% per carotid Doppler, greater than 90% per neck CTA 6. Lifelong nonsmoker with FEV1 58% of predicted 7. Family history of premature coronary artery disease, father and 2 brothers diagnosed with CAD with subsequent CABG in their early to mid 50s 8. EtOH use most days without history of withdrawal 9. Preop nasal swab positive for MSSA 10. Postoperative acute blood loss anemia, expected 11. TIA with symptom resolution less than 3 hours and no recurrence Plan: 1. Continue aspirin, statin, beta holly therapy. Will increase beta holly therapy as tolerated. Load with Brill into this morning then twice daily 2. Wean O2 as tolerated. Encourage incentive spirometry use 10 times every hour while awake 3. Increase activity, ambulate as tolerated, out of bed to chair for breakfast until bedtime. PT/OT/cardiac rehab consulted 4. Will monitor daily labs and x-rays. Electrolyte replacement per protocol. 5. GI/DVT prophylaxis 6. Pain control with current medication regimen 7. Insulin management per primary care service. Needs tight blood sugar c ontrol for healing 8. [facility] protocol to monitor for alcohol withdrawal. Continue thiamine, folic acid 9. Left carotid stenosis intervention to be completed in the future. Avoid hypotension 10. Likely will discontinue left pleural chest tubes 11. Continue neuro checks every 4 hours 12. MRI not recommended per Dr. Dominguez in view of risk of dislodging recent clips on conduits as well as no academic benefit 13. Strict accurate intake and output. Daily weights. 14. More recommendations to follow depending on patient's progress Time with Patient: Greater than 30
[2020-05-27] MEDS: ASPIRIN 81 MG PO SCH (08:09)
[2020-05-27] MEDS: HEPARIN SODIUM,PORCINE 5,000 UNIT/ML 1 ML VIAL SQ SCH ×3 (08:09→22:55)
[2020-05-27] MEDS: FOLIC ACID 1 MG TAB PO SCH (08:09)
[2020-05-27] MEDS: METOPROLOL TARTRATE 12.5 MG TAB PO SCH ×2 (08:09→20:40)
[2020-05-27] MEDS: ATORVASTATIN 80 MG TAB PO SCH (08:09)
[2020-05-27] MEDS: THIAMINE 100 MG TAB PO SCH (08:09)
[2020-05-27 08:39] LABS: Basophils % (A) 0 %; Eosinophils # (A) 0.1 k/uL (0-0.7); Eosinophils % (A) 2 %; HCT 27.1 % (39.0-53.0); HGB 8.8 gm/dL (13.0-17.5); Hypochromasia Slight; Lymphocytes # (A) 0.9 k/uL (1.0-4.8); Lymphocytes % (A) 13 %; MCH 30.8 pg (25.0-35.0); MCHC 32.6 g/dL (31.0-37.0); MCV 94.5 fL (80.0-100.0); Mean Platelet Volume 7.2; Monocytes # (A) 0.5 k/uL (0-1.0); Monocytes % (A) 7 %; Neutrophils # (A) 4.9 k/uL (1.3-7.7); Neutrophils % (A) 75 %; Platelet Count 236 k/uL (150-450); Poikilocytosis Slight; RBC 2.86 m/uL (4.30-5.90); RDW 14.1 % (11.5-15.5); WBC 6.4 k/uL (3.8-10.6)
[2020-05-27] MEDS ORDERED: TICAGRELOR 90 MG TAB PO ONE (09:00)
[2020-05-27 09:03] LABS: ALT 22 U/L (4-49); AST 45 U/L (17-59); African American GFR (CKD) >90 (>60 ml/min/1.73 sqM); Albumin 3.1 g/dL (3.5-5.0); Alkaline Phosphatase 69 U/L (38-126); Anion Gap 8 mmol/L; Blood Urea Nitrogen 28 mg/dL (9-20); Carbon Dioxide 21 mmol/L (22-30); Chloride 106 mmol/L (98-107); Glucose 113 mg/dL (74-99); Magnesium 2.6 mg/dL (1.6-2.3); Non-African American GFR(CKD) >90 (>60 ml/min/1.73 sqM); Potassium 4.2 mmol/L (3.5-5.1); Sodium 135 mmol/L (137-145); Total Bilirubin 0.6 mg/dL (0.2-1.3); Total Protein 5.8 g/dL (6.3-8.2)
[2020-05-27 11:44] LABS: Glucose,Whole Blood 173 mg/dL (75-99)
--- NOTE | 2020-05-27 11:54 | P.PN ---
Subjective HISTORY OF PRESENTING ILLNESS This is a pleasant 55-year-old male past medical history significant for diabetes mellitus and daily alcohol intake. He follows in the office with Dr. Santos in [place]. We have been asked to see in consultation for NSTEMI. He states for the previous 2 weeks he has been experiencing chest heaviness intermittently. The symptoms occur typically at rest mostly at night when he lays down and tries to sleep. When he lays down flat he feels a heaviness in his chest with some mild shortness of breath. He denies any symptoms of chest discomfort or shortness of breath with exertion. He has had some intermittent diarrhea. 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 He had no symptoms of chest discomfort throughout the day. The next morning he woke up and went out to breakfast and then had an episode of nausea and vomiting. He was concerned with possible ovarian. He came to the emergency department yesterday afternoon to be tested. We have seen and examined resting comfortably in bed in no acute distress. He has no symptoms of chest discomfort or shortness of breath. 05/27/2020 Pt seen and examined sitting up in recliner in no acute distress. He feels like his breathing is getting better each day. He feels some pain at the site of his surgery, but no significant exertional chest pain. His facial droop and right sided weakness has resolved completely. Blood pressure 132/71 heart rate 97 afebrile and maintaining oxygen saturation on nasal cannula. Laboratory data reviewed, WBC 6.4, hemoglobin to 8.8, platelets 236, sodium 135, potassium 4.2 and creatinine 0.96. PHYSICAL EXAMINATION CONSTITUTIONAL: No apparent distress. HEENT: Head is normocephalic. Pupils are equal, round. Sclerae anicteric. Mucous membranes of the mouth are moist. No JVD. Left carotid bruit, no bruit on the right. CHEST EXAMINATION: Lungs are clear to auscultation. No chest wall tenderness is noted on palpation or with deep breathing. Left chest tube in place. HEART EXAMINATION: Regular rate and rhythm. S1, S2 heard. Systolic ejection murmur at the base, no gallops or rub. Heart hugger in place. Mid-sternal dressing in place with no significant drainage noted. EXTREMITIES: 2+ peripheral pulses, no lower extremity edema and no calf tenderness. ASSESSMENT NSTEMI Coronary artery disease s/p 4V bypass grafting POD#3 TIA Carotid stenosis Acute blood loss anemia Diabetes mellitus Daily alcohol intake Dyslipidemia Valvular heart disease s/p mitral valve repair PLAN Continue current medical regimen. MR brain pending. Further discussion with the patient regarding his carotid disease and he would prefer to have this handled as an outpatient by his primary talent buyer. Further recommendations to follow based on clinical course. Nurse Practitioner note has been reviewed, I agree with a documented findings and plan of care. Patient was seen and examined. Objective - Vital Signs Vital signs: Vital Signs Temp 97.9 F 05/27/20 11:42 Pulse 97 05/27/20 11:42 Resp 20 05/27/20 11:42 BP 132/71 05/27/20 11:42 Pulse Ox 99 05/27/20 11:42 Intake & Output 05/26/20 05/27/20 05/27/20 18:59 06:59 18:59 Intake Total 761 660 400 Output Total 650 1144 200 Balance 111 -484 200 Weight 88.6 kg 91 kg Intake: Oral 480 660 400 Blood Product 281 Rc Pheresis 2 As3 Unit 281 [id number] Output: Chest Tube Drainage 50 Left Pleural Chest tube 50 Urine 650 975 200 Post Void Residual 119 Other: Voiding Method Indwelling Catheter Urinal Urinal # Voids 1 ABP, PAP, CO, CI - Last Documented Arterial Blood Pressure 81/54 Pulmonary Artery Pressure 30/15 Cardiac Output 5.3 Cardiac Index 2.6 - Labs CBC & Chem 7: 05/27/20 07:58 05/27/20 07:58 Labs: Abnormal Lab Results - Last 24 Hours (Table) 05/26/20 05/26/20 05/26/20 Range/Units 04:26 16:31 20:22 RBC (4.30-5.90) m/uL Hgb (13.0-17.5) gm/dL Hct (39.0-53.0) % Lymphocytes # (1.0-4.8) k/uL Sodium (137-145) mmol/L Carbon Dioxide (22-30) mmol/L BUN (9-20) mg/dL Glucose (74-99) mg/dL POC Glucose (mg/dL) 144 H 155 H (75-99) mg/dL Calcium (8.4-10.2) mg/dL Magnesium (1.6-2.3) mg/dL Total Protein (6.3-8.2) g/dL Albumin (3.5-5.0) g/dL Crossmatch See Detail 05/27/20 05/27/20 05/27/20 Range/Units 06:11 07:58 07:58 RBC 2.86 L (4.30-5.90) m/uL Hgb 8.8 L D (13.0-17.5) gm/dL Hct 27.1 L (39.0-53.0) % Lymphocytes # 0.9 L (1.0-4.8) k/uL Sodium 135 L (137-145) mmol/L Carbon Dioxide 21 L (22-30) mmol/L BUN 28 H (9-20) mg/dL Glucose 113 H (74-99) mg/dL POC Glucose (mg/dL) 117 H (75-99) mg/dL Calcium 8.0 L (8.4-10.2) mg/dL Magnesium 2.6 H (1.6-2.3) mg/dL Total Protein 5.8 L (6.3-8.2) g/dL Albumin 3.1 L (3.5-5.0) g/dL Crossmatch 05/27/20 Range/Units 11:43 RBC (4.30-5.90) m/uL Hgb (13.0-17.5) gm/dL Hct (39.0-53.0) % Lymphocytes # (1.0-4.8) k/uL Sodium (137-145) mmol/L Carbon Dioxide (22-30) mmol/L BUN (9-20) mg/dL Glucose (74-99) mg/dL POC Glucose (mg/dL) 173 H (75-99) mg/dL Calcium (8.4-10.2) mg/dL Magnesium (1.6-2.3) mg/dL Total Protein (6.3-8.2) g/dL Albumin (3.5-5.0) g/dL Crossmatch
--- NOTE | 2020-05-27 12:28 | XR ---
EXAMINATION TYPE: XR chest 2V DATE OF EXAM: 05/27/2020 COMPARISON: 05/26/2020 HISTORY: 55-year-old male postcardiac surgery TECHNIQUE: PA and lateral views FINDINGS: Median sternotomy wires are present with post-CABG clips in the mediastinum. Left-sided chest tube in place. Heart mildly enlarged. No appreciable pneumothorax. There does seem to be a new pleural-based density along the periphery of the left upper to midlung measuring 4.5 x 1.6 cm. Trace left effusion and patchy retrocardiac opacity. Right lung and pleural space appear clear. IMPRESSION: 1. Mild cardiomegaly with median sternotomy changes. Left-sided chest tube in place without appreciab le pneumothorax. 2. Trace left effusion and patchy retrocardiac atelectasis. 3. A 4.5 x 1.6 cm pleural-based density along the lateral left midlung probably represents some locul ated pleural fluid. Short interval follow-up recommended.
--- NOTE | 2020-05-27 14:54 | P.PN ---
Subjective Progress Note Date: 05/27/20 Principal diagnosis: Myocardial infarction Patient is doing well, currently no complaints. No further episodes of weakness or numbness. No speech or visual abnormalities. Objective - Vital Signs Vital signs: Vital Signs Temp 97.9 F 05/27/20 11:42 Pulse 84 05/27/20 12:15 Resp 20 05/27/20 11:42 BP 132/71 05/27/20 11:42 Pulse Ox 99 05/27/20 11:42 Intake & Output 05/26/20 05/27/20 05/27/20 18:59 06:59 18:59 Intake Total 761 660 400 Output Total 650 1144 200 Balance 111 -484 200 Weight 88.6 kg 91 kg Intake: Oral 480 660 400 Blood Product 281 Rc Pheresis 2 As3 Unit 281 [id number] Output: Chest Tube Drainage 50 Left Pleural Chest tube 50 Urine 650 975 200 Post Void Residual 119 Other: Voiding Method Indwelling Catheter Urinal Urinal # Voids 1 ABP, PAP, CO, CI - Last Documented Arterial Blood Pressure 81/54 Pulmonary Artery Pressure 30/15 Cardiac Output 5.3 Cardiac Index 2.6 - Exam Gen: No acute distress, extubated HEENT: normocephalic, atraumatic, moist mucous membranes Resp: Clear bilaterally CVS: good distal perfusion x 4, regular rate and rhythm without murmurs GI: soft, NTTP, ND, appropriate bowel sounds : no SPT, no CVAT, scott catheter is present MSK: no pitting edema, no clubbing Neuro: non-focal, moving all extremities - Labs CBC & Chem 7: 05/27/20 07:58 05/27/20 07:58 Labs: Abnormal Lab Results - Last 24 Hours (Table) 05/26/20 05/26/20 05/26/20 Range/Units 04:26 16:31 20:22 RBC (4.30-5.90) m/uL Hgb (13.0-17.5) gm/dL Hct (39.0-53.0) % Lymphocytes # (1.0-4.8) k/uL Sodium (137-145) mmol/L Carbon Dioxide (22-30) mmol/L BUN (9-20) mg/dL Glucose (74-99) mg/dL POC Glucose (mg/dL) 144 H 155 H (75-99) mg/dL Calcium (8.4-10.2) mg/dL Magnesium (1.6-2.3) mg/dL Total Protein (6.3-8.2) g/dL Albumin (3.5-5.0) g/dL Crossmatch See Detail 05/27/20 05/27/20 05/27/20 Range/Units 06:11 07:58 07:58 RBC 2.86 L (4.30-5.90) m/uL Hgb 8.8 L D (13.0-17.5) gm/dL Hct 27.1 L (39.0-53.0) % Lymphocytes # 0.9 L (1.0-4.8) k/uL Sodium 135 L (137-145) mmol/L Carbon Dioxide 21 L (22-30) mmol/L BUN 28 H (9-20) mg/dL Glucose 113 H (74-99) mg/dL POC Glucose (mg/dL) 117 H (75-99) mg/dL Calcium 8.0 L (8.4-10.2) mg/dL Magnesium 2.6 H (1.6-2.3) mg/dL Total Protein 5.8 L (6.3-8.2) g/dL Albumin 3.1 L (3.5-5.0) g/dL Crossmatch 05/27/20 Range/Units 11:43 RBC (4.30-5.90) m/uL Hgb (13.0-17.5) gm/dL Hct (39.0-53.0) % Lymphocytes # (1.0-4.8) k/uL Sodium (137-145) mmol/L Carbon Dioxide (22-30) mmol/L BUN (9-20) mg/dL Glucose (74-99) mg/dL POC Glucose (mg/dL) 173 H (75-99) mg/dL Calcium (8.4-10.2) mg/dL Magnesium (1.6-2.3) mg/dL Total Protein (6.3-8.2) g/dL Albumin (3.5-5.0) g/dL Crossmatch Assessment and Plan Plan: NSTEMI S/P CABGX4 05/23 -Cardio and CT surgery following -Telemetry monitoring. -Continue daily aspirin, atorvastatin, and metoprolol. -Lipid profile revealed elevation of triglycerides 200, cholesterol 241, LDL 164, HDL of 37. Atorvastatin increased to 80 mg nightly. TIA -Resolved -Neurology following -Continue aspirin, switch plavix to brilinta Insulin-dependent diabetes mellitus type II -Blood sugars controlled -Continue SSI and lantus 20 units daily -Hemoglobin A1c = 8.2% CODE STATUS: Full code DVT prophylaxis: Heparin Discussed with: Patient Anticipated discharge date: 3-[address]: Home
--- NOTE | 2020-05-27 16:41 | P.PN ---
Subjective Progress Note Date: 05/27/20 Patient was seen at bedside and he stated that he is doing better today compared to yesterday. He denies of any further weakness or numbness. MRI of the brain was this continued by the cardiothoracic team, per risk of dislodgin recent clips on conduits as well as they felt there is no academic benefits to the MRI. The Plavix was stopped and the patient was started on Brilinta 90 mg 1 tablet twice a day, patient continues to be on aspirin and high dose Lipitor 80 mg daily per the cardiothoracic team. Limited 2-D echo was done and was reported as mildly impaired with ejection fraction of 45-50% at. Basal inferior left ventricle wall motion is hypokinetic. Basal inferior septal left ventricle wall motion is hypokinetic. Objective - Vital Signs Vital signs: Vital Signs Temp 98.9 F 05/27/20 15:57 Pulse 94 05/27/20 15:57 Resp 18 05/27/20 15:57 BP 117/66 05/27/20 15:57 Pulse Ox 95 05/27/20 15:57 Intake & Output 05/26/20 05/27/20 05/27/20 18:59 06:59 18:59 Intake Total 761 660 400 Output Total 650 1144 200 Balance 111 -484 200 Weight 88.6 kg 91 kg Intake: Oral 480 660 400 Blood Product 281 Rc Pheresis 2 As3 Unit 281 [id number] Output: Chest Tube Drainage 50 Left Pleural Chest tube 50 Urine 650 975 200 Post Void Residual 119 Other: Voiding Method Indwelling Catheter Urinal Urinal # Voids 1 ABP, PAP, CO, CI - Last Documented Arterial Blood Pressure 81/54 Pulmonary Artery Pressure 30/15 Cardiac Output 5.3 Cardiac Index 2.6 - Exam GENERAL: The patient is lying in bed and is not in acute distress. NEUROLOGICAL: Higher mental function: The patient is awake, alert, oriented to self, place and time. Patient is following commands. No aphasia and no neglect. Cranial nerves: The pupils are round, equal and reactive to light and accommo dation. Visual gates are full to confrontation throughout. Extraocular movement is intact no nystagmus is noted. Facial sensation is normal to touch throughout. Normal facial strength. Hearing is normal bilaterally to hand rub. Tongue is midline and moved [id number] without any difficulty. No dysarthria is noted. Shoulder shrug is normal bilaterally. Motor: Gait is deferred. The strength is 5/5 in uppers. Bilatera lower strength: Above gravity and had 4+ bilaterally (limited because of pain). Normal tone and bulk. Cerebellum: Normal finger to nose bilaterally. Sensation: Sensation is normal to touch throughout. Reflexes (right/left): 1+ throughout. Plantars are mute bilaterally. - Labs CBC & Chem 7: 05/27/20 07:58 05/27/20 07:58 Labs: Abnormal Lab Results - Last 24 Hours (Table) 05/26/20 05/26/20 05/26/20 Range/Units 04:26 16:31 20:22 RBC (4.30-5.90) m/uL Hgb (13.0-17.5) gm/dL Hct (39.0-53.0) % Lymphocytes # (1.0-4.8) k/uL Sodium (137-145) mmol/L Carbon Dioxide (22-30) mmol/L BUN (9-20) mg/dL Glucose (74-99) mg/dL POC Glucose (mg/dL) 144 H 155 H (75-99) mg/dL Calcium (8.4-10.2) mg/dL Magnesium (1.6-2.3) mg/dL Total Protein (6.3-8.2) g/dL Albumin (3.5-5.0) g/dL Crossmatch See Detail 05/27/20 05/27/20 05/27/20 Range/Units 06:11 07:58 07:58 RBC 2.86 L (4.30-5.90) m/uL Hgb 8.8 L D (13.0-17.5) gm/dL Hct 27.1 L (39.0-53.0) % Lymphocytes # 0.9 L (1.0-4.8) k/uL Sodium 135 L (137-145) mmol/L Carbon Dioxide 21 L (22-30) mmol/L BUN 28 H (9-20) mg/dL Glucose 113 H (74-99) mg/dL POC Glucose (mg/dL) 117 H (75-99) mg/dL Calcium 8.0 L (8.4-10.2) mg/dL Magnesium 2.6 H (1.6-2.3) mg/dL Total Protein 5.8 L (6.3-8.2) g/dL Albumin 3.1 L (3.5-5.0) g/dL Crossmatch 05/27/20 Range/Units 11:43 RBC (4.30-5.90) m/uL Hgb (13.0-17.5) gm/dL Hct (39.0-53.0) % Lymphocytes # (1.0-4.8) k/uL Sodium (137-145) mmol/L Carbon Dioxide (22-30) mmol/L BUN (9-20) mg/dL Glucose (74-99) mg/dL POC Glucose (mg/dL) 173 H (75-99) mg/dL Calcium (8.4-10.2) mg/dL Magnesium (1.6-2.3) mg/dL Total Protein (6.3-8.2) g/dL Albumin (3.5-5.0) g/dL Crossmatch Assessment and Plan Assessment: This is a 55-year-old gentleman with multiple medical problems who presented to the emgeregeny department on 05/19/2020 for chest heaviness, general malaise, fatigue. Patient had multiple CAD and underwent CABG on 05/23/20. On 05/26/20 patient had stroke like symptoms (right facial droop, right arm weakness and decreased sensation). NO IV tpa since recent surgery. Transient ischemic attack (with right facial droop, weakness arm, numbness and broca aphasia). Seems embolic due to symptomatic left carotid stenosis another possibility but seems unlikely could be cardioembolic. Symptomatic left internal carotid artery (per CTA >70% per carotid duplex but 90% per CTA) Right internal carotid artery is about 50-60% per CTA Non-STEMI, triple-vessel coronary artery disease status post CABG 4 Diabetes mellitus that seems to be poorly controlled Daily alcohol intake Dyslipidemia Family history of premature coronary artery disease Plan: MRI of the brain was this continued by the cardiothoracic team, per risk of dislodgin recent clips on conduits as well as they felt there is no academic benefits to the MRI. The Plavix was stopped and the patient was started on Brilinta 90 mg 1 tablet twice a day, patient continues to be on aspirin 81mg daily and high dose Lipitor 80 mg daily per the cardiothoracic team. Limited 2-D echo was done and was reported as mildly impaired with ejection fraction of 45-50% at. Basal inferior left ventricle wall motion is hypo kinetic. Basal inferior septal left ventricle wall motion is hypokinetic. PT, OT and [facility] are consulted. On q4 hours neuro checks. Continue cardiac monitoring Cardiology team does not want vascular surgical team involved and they was notified by nurse they want to take care of carotid stenosis. Continue thiamine 100 mg daily. He is also on folic acid 1mg daily. In My opinion the patient will benefit from left carotid stenting within a week from 05/26/2020 (06/02/2020). Please avoid any hypotensive episodes. Recommend blood pressure systolic 120- 140. The patient is on CIWA protocol and will defer management to primary team. Will defer the rest of medical management to the primary team. Patient was counseled on alcohol cessation. Neurology will sign off. Please reconsult if needed. Plan was discussed with the patient as well as the patient's nurse. Unruly Osei M.D. Neuro-hospitalist Time with Patient: Less than 30
[2020-05-27 16:50] LABS: Glucose,Whole Blood 182 mg/dL (75-99)
--- NOTE | 2020-05-27 18:34 | P.PN ---
Subjective Progress Note Date: 05/27/20 Principal diagnosis: Multivessel coronary artery disease, status post CABG, postoperative day #4 On today's evaluation of 05/24/2020, the patient is postop day #1. The patient was brought into the intensive care unit and he was hemodynamically stable and was extubated at around 9:15 PM yesterday. This morning, the patient is able to sit up on a recliner. He remains extubated. He remains on oxygen at 2 L per minute nasal cannula. Note that since his surgery, the patient initially received 500 mL bolus of albumin 5%, after sitting up on a chair his blood pressure dropped again and we had to give another bolus of 500 mL of albumin. His urine output is improving. Overnight, he was taken off the Primacor and he was started on levo fed initially 0.05 g and currently he is running at 0.11 mcg/kg per minute. Urine output is adequate for now. BP is showing a systolic of 100-110. Cardiac output is 5.4 with an index of 2.7. No cardiac arrhythmias. No atrial fibrillation. His cardiac rhythm is sinus. Chest tubes are still in place. Output from the mediastinal was 500 mL yesterday and left pleural is 300. The patient has a total of 3 chest tubes left pleural, mediastinal 2. The patient otherwise is doing well. He did have a bout of blurred vision in his left eye yesterday without any neurologic deficit and currently is neurologically intact. No aphasia. No headaches. No altered mentation. Insulin drip is running at 1.5 units an hour and nitroglycerin drip drip is running at 5 units an hour regarding his radial artery harvest. Otherwise, no other significant events. Chest x-ray shows adequate expansion of both lungs. No evidence of any pneumothorax. There is a gastric bubble. [place]- [place] catheter is still in place. Hemoglobin today is at 8.8. Rest of the blood work is all within normal limits. On 05/25/2020 the patient is postop day #2. Is able to sit up on a chair. The [place] catheter has been removed. The patient has the lower limb mediastinal chest tubes still in place and output has been noted and output has considerably dropped since yesterday. He is hemodynamically requiring some pressors still and the patient is on 0.04 g kilogram per minute of norepinephrine infusion. Urine output is in order of 20 mL an hour. The patient remains on insulin drip at 4.5 units an hour. Blood sugars of been under adequate control. Pulmonary status is stable. He is on oxygen at 2 L, and he was transitioned to room air oxygen. He has adequate pain control for now and this morning he refers this pain as being around 7 out of 10. The chest x-ray from today showing a small pleural effusion on the left. Right lung is showing some fluid within the fissure. No consolidation. No pneumothorax. Chest tubes are all in place. There is some gastric bubble and the patient is passing gas and he is tolerating his diet without any major difficulties. Hemoglobin from today is 7.8 Patient was reevaluated today on 05/26/2020, he is postoperative day #3, CABG 4 vessels, patient is sitting in bed, he is in the cardiac stepdown unit, not in any distress, receiving a unit of packed RBCs as we speak. Apparently his hemoglobin was low, and he'll be receiving Lasix after his packed RBC transfusion. Patient has a strong productive cough, he is compliant with his incentive spirometry, continues to have left pleural chest tube in place, he also had right sided facial droop with slurring words and right arm weakness hence code stroke was called, but his CT of the chest showed no acute change. Neurology is following. Chest x-ray showed bibasilar atelectasis especially at the left base, and possibly a small left pleural effusion. Hemoglobin today was 7 and the WBC count was 6.3. Electrolytes are normal bicarb is a bit low at 18. Slight worsening of renal status is noted with a BUN of 36 creatinine is 1.55. Troponin is 4.180. Patient was reevaluated today on 05/27/2020, patient is sitting in a bedside chair, on room air, doing great, patient is relatively asymptomatic, and his chest x-ray showed significant improvement in his left lower lobe atelectasis and pleural effusion. Denies any cough no wheezing no shortness of breath. His chest x-ray also showed a lateral left midlung loculated pleural effusion. Not large enough and not serious enough to consider thoracentesis, we will need to have mostly outpatient follow-up. Chest x-ray also showed left retrocardiac atelectasis and small effusion. Labs were reviewed hemoglobin is holding at 8.80 left lites are normal renal profile is normal Objective - Vital Signs Vital signs: Vital Signs Temp 98.8 F 05/27/20 16:15 Pulse 101 H 05/27/20 16:15 Resp 17 05/27/20 16:15 BP 121/71 05/27/20 16:15 Pulse Ox 96 05/27/20 16:15 Intake & Output 05/26/20 05/27/20 05/27/20 18:59 06:59 18:59 Intake Total 761 660 400 Output Total 650 1144 400 Balance 111 -484 0 Weight 88.6 kg 91 kg Intake: Oral 480 660 400 Blood Product 281 Rc Pheresis 2 As3 Unit 281 [id number] Output: Chest Tube Drainage 50 Left Pleural Chest tube 50 Urine 650 975 400 Post Void Residual 119 Other: Voiding Method Indwelling Catheter Urinal Urinal # Voids 1 ABP, PAP, CO, CI - Last Documented Arterial Blood Pressure 81/54 Pulmonary Artery Pressure 30/15 Cardiac Output 5.3 Cardiac Index 2.6 - Exam CONSTITUTIONAL: Revealed a 55-year-old white male in no distress. RESPIRATORY: Crackles at the left base, no rhonchi no wheezes, symmetrical chest expansion. CARDIOVASCULAR: Normal S1 and S2, no S3 gallop. GASTROINTESTINAL: Abdomen is soft nontender no megaly no rebound no guarding. Skin: No rashes. NEUROLOGIC: Alert oriented 3 focal deficits. MUSKULOSKELETAL: Equal strength bilaterally, no deformities. PSYCHIATRIC: Normal mood, affect and normal mental status examination. - Labs CBC & Chem 7: 05/27/20 07:58 05/27/20 07:58 Labs: Abnormal Lab Results - Last 24 Hours (Table) 05/26/20 05/26/20 05/27/20 Range/Units 04:26 20:22 06:11 RBC (4.30-5.90) m/uL Hgb (13.0-17.5) gm/dL Hct (39.0-53.0) % Lymphocytes # (1.0-4.8) k/uL Sodium (137-145) mmol/L Carbon Dioxide (22-30) mmol/L BUN (9-20) mg/dL Glucose (74-99) mg/dL POC Glucose (mg/dL) 155 H 117 H (75-99) mg/dL Calcium (8.4-10.2) mg/dL Magnesium (1.6-2.3) mg/dL Total Protein (6.3-8.2) g/dL Albumin (3.5-5.0) g/dL Crossmatch See Detail 05/27/20 05/27/20 05/27/20 Range/Units 07:58 07:58 11:43 RBC 2.86 L (4.30-5.90) m/uL Hgb 8.8 L D (13.0-17.5) gm/dL Hct 27.1 L (39.0-53.0) % Lymphocytes # 0.9 L (1.0-4.8) k/uL Sodium 135 L (137-145) mmol/L Carbon Dioxide 21 L (22-30) mmol/L BUN 28 H (9-20) mg/dL Glucose 113 H (74-99) mg/dL POC Glucose (mg/dL) 173 H (75-99) mg/dL Calcium 8.0 L (8.4-10.2) mg/dL Magnesium 2.6 H (1.6-2.3) mg/dL Total Protein 5.8 L (6.3-8.2) g/dL Albumin 3.1 L (3.5-5.0) g/dL Crossmatch 05/27/20 Range/Units 16:49 RBC (4.30-5.90) m/uL Hgb (13.0-17.5) gm/dL Hct (39.0-53.0) % Lymphocytes # (1.0-4.8) k/uL Sodium (137-145) mmol/L Carbon Dioxide (22-30) mmol/L BUN (9-20) mg/dL Glucose (74-99) mg/dL POC Glucose (mg/dL) 182 H (75-99) mg/dL Calcium (8.4-10.2) mg/dL Magnesium (1.6-2.3) mg/dL Total Protein (6.3-8.2) g/dL Albumin (3.5-5.0) g/dL Crossmatch Assessment and Plan Assessment: Impression: Status post CABG for triple-vessel coronary artery disease, patient had a four- vessel CABG. postoperative day #4 Status post mitral valve repair. Postoperative acute blood loss anemia, expected. Postoperative atelectasis and small left pleural effusion Acute kidney injury Life long nonsmoker Acute TIA versus acute ischemic stroke, being addressed by neurology History of carotid artery disease. Recommendation: Continue present supportive care measures. Continue GI and DVT prophylaxis Continue incentive spirometry Continue CIWA protocol since the patient has history of alcohol abuse. Continue strict I's and O's. Continue aspirin statins and beta blockers and brilinta Increase activity as tolerated Incentive spirometry Continue ambulation. Will follow as needed. Time with Patient: Less than 30
[2020-05-27 20:14] LABS: Glucose,Whole Blood 225 mg/dL (75-99)
[2020-05-27] MEDS: SENNOSIDES-DOCUSATE SODIUM 1 EACH TAB PO SCH (20:39)
[2020-05-27] MEDS: TICAGRELOR 90 MG TAB PO SCH (20:39)
[2020-05-27] MEDS: MAGNESIUM HYDROXIDE 2,400 MG/10 ML CUP PO PRN (22:55)
[2020-05-28] MEDS: HYDROcodone/APAP 7.5-325MG 1 EACH TAB PO PRN ×4 (03:17→21:39)
[2020-05-28 07:28] LABS: Glucose,Whole Blood 189 mg/dL (75-99)
[2020-05-28 07:36] LABS: HCT 23.4 % (39.0-53.0); HGB 8.1 gm/dL (13.0-17.5); Hypochromasia Slight; MCHC 34.7 g/dL (31.0-37.0); MCV 92.2 fL (80.0-100.0); Mean Platelet Volume 7.2; Platelet Count 229 k/uL (150-450); Poikilocytosis Slight; RBC 2.54 m/uL (4.30-5.90); RDW 13.5 % (11.5-15.5); WBC 4.8 k/uL (3.8-10.6)
[2020-05-28] MEDS: ASPIRIN 81 MG PO SCH (07:38)
[2020-05-28] MEDS: ATORVASTATIN 80 MG TAB PO SCH (07:38)
[2020-05-28] MEDS: FOLIC ACID 1 MG TAB PO SCH (07:38)
[2020-05-28] MEDS: TICAGRELOR 90 MG TAB PO SCH ×2 (07:39→21:39)
[2020-05-28] MEDS: INSULIN DETEMIR (LEVEMIR) 100 UNIT/ML SYR SQ SCH (07:39)
[2020-05-28] MEDS: HEPARIN SODIUM,PORCINE 5,000 UNIT/ML 1 ML VIAL SQ SCH ×3 (07:39→23:11)
[2020-05-28] MEDS: METOPROLOL TARTRATE 12.5 MG TAB PO SCH ×2 (07:39→21:38)
[2020-05-28] MEDS: THIAMINE 100 MG TAB PO SCH (07:39)
[2020-05-28] MEDS: PANTOPRAZOLE 40 MG TABLET PO SCH (07:39)
[2020-05-28] MEDS: INSULIN ASPART (NovoLOG) 100 UNIT/ML VIAL SQ SCH ×8 (07:39→21:41)
[2020-05-28] MEDS: MAGNESIUM HYDROXIDE 2,400 MG/10 ML CUP PO PRN (07:53)
[2020-05-28 07:54] LABS: African American GFR (CKD) >90 (>60 ml/min/1.73 sqM); Anion Gap 8 mmol/L; Blood Urea Nitrogen 23 mg/dL (9-20); Calcium 7.6 mg/dL (8.4-10.2); Carbon Dioxide 20 mmol/L (22-30); Chloride 104 mmol/L (98-107); Glucose 176 mg/dL (74-99); Non-African American GFR(CKD) >90 (>60 ml/min/1.73 sqM); Potassium 4.3 mmol/L (3.5-5.1); Sodium 132 mmol/L (137-145)
--- NOTE | 2020-05-28 08:20 | P.PN ---
Subjective Progress Note Date: 05/28/20 Principal diagnosis: Triple vessel diffuse coronary artery disease, moderate to severe mitral regurgitation, moderate left ventricular dysfunction. Previous medical history of insulin-dependent diabetes, family history of premature coronary artery disease, EtOH use most days without history of withdrawal, and newly diagnosed hyperlipidemia and severe left carotid stenosis. Preop nasal swab positive for MSSA POD #5 coronary artery bypass grafting 4 vessels with the left internal mammary artery to the left anterior descending artery, reverse saphenous vein graft from the aorta to the first diagonal artery, left radial artery taken proximally from the previous vein graft and anastomosed distally to the distal circumflex artery, reverse saphenous vein graft from the aorta to the right coronary artery, mitral valve repair with posterior annuloplasty using a #28 incomplete AnnuloFlex ring, exclusion of the left atrial appendage with a 35 mm AtriClip, graft flow measurements using the [employer]stim system, endoscopic harvesting of the left radial artery, endoscopic harvesting of the left greater saphenous vein from the groin to just below the knee level, intraoperative transesophageal echocardiogram and epi-aortic scanning. Postoperative acute blood loss anemia, expected given hemodilution and cardiopulmonary bypass pump Facial droop, slurred speech, right arm weakness with resolution less than 3 hours, likely TIA with no residual and no further occurrence of symptoms Patient currently sitting up in a recliner on the cardiac stepdown unit no acute distress. Complains of postoperative chest pain controlled with current medication regimen, actively using incentive spirometry, strong productive cough. Patient had nosebleed last night, resolved this morning. Remains in sinus rhythm, hemodynamically stable. Remains completely neurologically intact, no facial droop is present, he is oriented 3, his speech is appropriate and he has equal strength bilaterally, no further incidence of previous TIA symptoms. He did ambulate in the hallway yesterday with standby assist. He has been tolerating diet. Left pleural chest tube was discontinued yesterday. No other further concerns. Objective - Vital Signs Vital signs: Vital Signs Temp 98.7 F 05/28/20 07:43 Pulse 94 05/28/20 07:43 Resp 18 05/28/20 07:43 BP 124/65 05/28/20 07:43 Pulse Ox 97 05/28/20 07:43 Intake & Output 05/27/20 05/28/20 05/28/20 18:59 06:59 18:59 Intake Total 400 Output Total 400 500 Balance 0 -500 Weight 90.5 kg Intake: Oral 400 Output: Urine 400 500 Other: Voiding Method Urinal Urinal ABP, PAP, CO, CI - Last Documented Arterial Blood Pressure 81/54 Pulmonary Artery Pressure 30/15 Cardiac Output 5.3 Cardiac Index 2.6 - Exam CONSTITUTIONAL: Appears comfortable, cooperative, no acute distress RESPIRATORY: Lungs sounds diminished bilaterally. Respirations even, nonlabored. Currently on room air with oxygen saturation 95%. Able to achieve 1000 mL on incentive spirometry. Strong productive cough. CARDIOVASCULAR: S1, S2 present. Regular rate and rhythm, sinus rhythm on telemetry. Sternum stable. Palpable peripheral pulses bilaterally. Trace upper extremity edema present. No calf pain or tenderness noted. Heart hugger in place with patient demonstrating appropriate use. Antiembolism stockings, SCDs present. GASTROINTESTINAL: Abdomen soft, nontender, nondistended. Active bowel sounds present 4 quadrants. Positive flatus, negative bowel movement since surgery. GENITOURINARY: Continues to void 200-250 mL at a time INTEGUMENTARY: Skin is warm and dry with evidence of good perfusion. Anterior chest incision well approximated and covered with dry intact dressing. EVH site well approximated without redness or drainage. Left radial artery harvest site well approximated, patient denies numbness or tingling, able to wiggle all fing ers and live study manager appropriately, good cap refill. NEUROLOGIC: Cranial nerves II through XII intact MUSKULOSKELETAL: Able to move all extremities, strength equal bilaterally PSYCHIATRIC: Alert and oriented to person place and time, appropriate affect, intact judgment and insight - Allied health notes Allied health notes reviewed: nursing - Labs CBC & Chem 7: 05/28/20 06:51 05/28/20 06:51 Labs: Abnormal Lab Results - Last 24 Hours (Table) 05/27/20 05/27/20 05/27/20 Range/Units 07:58 07:58 11:43 RBC 2.86 L (4.30-5.90) m/uL Hgb 8.8 L D (13.0-17.5) gm/dL Hct 27.1 L (39.0-53.0) % Lymphocytes # 0.9 L (1.0-4.8) k/uL Sodium 135 L (137-145) mmol/L Carbon Dioxide 21 L (22-30) mmol/L BUN 28 H (9-20) mg/dL Glucose 113 H (74-99) mg/dL POC Glucose (mg/dL) 173 H (75-99) mg/dL Calcium 8.0 L (8.4-10.2) mg/dL Magnesium 2.6 H (1.6-2.3) mg/dL Total Protein 5.8 L (6.3-8.2) g/dL Albumin 3.1 L (3.5-5.0) g/dL 05/27/20 05/27/20 05/28/20 Range/Units 16:49 20:12 06:51 RBC 2.54 L (4.30-5.90) m/uL Hgb 8.1 L (13.0-17.5) gm/dL Hct 23.4 L (39.0-53.0) % Lymphocytes # (1.0-4.8) k/uL Sodium (137-145) mmol/L Carbon Dioxide (22-30) mmol/L BUN (9-20) mg/dL Glucose (74-99) mg/dL POC Glucose (mg/dL) 182 H 225 H (75-99) mg/dL Calcium (8.4-10.2) mg/dL Magnesium (1.6-2.3) mg/dL Total Protein (6.3-8.2) g/dL Albumin (3.5-5.0) g/dL 05/28/20 05/28/20 Range/Units 06:51 07:26 RBC (4.30-5.90) m/uL Hgb (13.0-17.5) gm/dL Hct (39.0-53.0) % Lymphocytes # (1.0-4.8) k/uL Sodium 132 L (137-145) mmol/L Carbon Dioxide 20 L (22-30) mmol/L BUN 23 H (9-20) mg/dL Glucose 176 H (74-99) mg/dL POC Glucose (mg/dL) 189 H (75-99) mg/dL Calcium 7.6 L (8.4-10.2) mg/dL Magnesium (1.6-2.3) mg/dL Total Protein (6.3-8.2) g/dL Albumin (3.5-5.0) g/dL - Imaging and Cardiology Chest x-ray: image reviewed Assessment and Plan Assessment: 1. Triple-vessel diffuse coronary artery disease, non-STEMI this admission, status post four-vessel CABG 2. Moderate to severe predominantly centrally directed mitral regurgitation, status post mitral valve repair 3. Insulin-dependent diabetes, hemoglobin A1c 8.2% 4. Hyperlipidemia, cholesterol 241, triglyceride 200, LDL 164 5. Left internal carotid artery stenosis, greater than 70% per carotid Doppler, greater than 90% per neck CTA 6. Lifelong nonsmoker with FEV1 58% of predicted 7. Family history of premature coronary artery disease, father and 2 brothers diagnosed with CAD with subsequent CABG in their early to mid 50s 8. EtOH use most days without history of withdrawal 9. Preop nasal swab positive for MSSA 10. Postoperative acute blood loss anemia, expected 11. TIA with symptom resolution less than 3 hours and no recurrence Plan: 1. Continue aspirin, statin, Brilinta, beta holly therapy. Will increase beta holly therapy as tolerated. 2. Encourage incentive spirometry use 10 times every hour while awake 3. Increase activity, ambulate as tolerated, out of bed to chair for breakfast until bedtime. PT/OT/cardiac rehab following. First postoperative shower today 4. Will monitor daily labs and x-rays. Electrolyte replacement per protocol. 5. GI/DVT prophylaxis 6. Pain control with current medication regimen 7. Insulin management per primary care service. Needs tight blood sugar control for healing 8. [facility] protocol to monitor for alcohol withdrawal. Continue thiamine, folic acid 9. Left carotid stenosis intervention to be completed in the future, neurology recommending within the next week. Avoid hypotension 10. Continue neuro checks every 4 hours 11. MRI not recommended per Dr. Dominguez in view of risk of dislodging recent clips on conduits as well as no academic benefit 12. Strict accurate intake and output. Daily weights. 13. Discharge planning in progress. Anticipate discharge to home with home care in the next 24 hours. Will arrange quick follow-up with Dr. Santos for management of left ICA stenosis 14. More recommendations to follow depending on patient's progress Time with Patient: Greater than 30
--- NOTE | 2020-05-28 08:57 | XR ---
EXAMINATION TYPE: XR chest 2V DATE OF EXAM: 05/28/2020 COMPARISON: 05/27/2020 INDICATION: Postop TECHNIQUE: Frontal and lateral views of the chest are obtained. FINDINGS: The heart size is mildly prominent. The pulmonary vasculature is normal. There is a small left pleural effusion. Sternotomy wires are present from CABG. Mild subsegmental ate lectasis may be on the left. Findings appear improved.. IMPRESSION: 1. Mild left lower lobe pleural effusion with scattered small infiltrates. 2. There is continuing improvement from comparison. 3. Cardiomegaly
[2020-05-28] MEDS: IPRATROPIUM-ALBUTEROL 3 ML NEB INHALATION SCH ×4 (09:06→19:42)
--- NOTE | 2020-05-28 11:27 | P.PN ---
Subjective HISTORY OF PRESENTING ILLNESS This is a pleasant 55-year-old male past medical history significant for diabetes mellitus and daily alcohol intake. He follows in the office with Dr. Santos in [place]. We have been asked to see in consultation for NSTEMI. He states for the previous 2 weeks he has been experiencing chest heaviness intermittently. The symptoms occur typically at rest mostly at night when he lays down and tries to sleep. When he lays down flat he feels a heaviness in his chest with some mild shortness of breath. He denies any symptoms of chest discomfort or shortness of breath with exertion. He has had some intermittent diarrhea. 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 He had no symptoms of chest discomfort throughout the day. The next morning he woke up and went out to breakfast and then had an episode of nausea and vomiting. He was concerned with possible ovarian. He came to the emergency department yesterday afternoon to be tested. We have seen and examined resting comfortably in bed in no acute distress. He has no symptoms of chest discomfort or shortness of breath. 05/27/2020 Pt seen and examined sitting up in recliner in no acute distress. He denies chest pain or shortness of breath. He states his sternal site is sore. He had a nose bleed last night that resolved on its own spontaneously. He is concerned today about having a bowel movement. Heart hugger is in place. Chest tube and pacer wires are removed. Chest xray this morning revealed mild left lower lobe pleural effusion with scattered small infiltrates with ongoing improvement. Blood pressure 124/65 heart rate 86 PHYSICAL EXAMINATION CONSTITUTIONAL: No apparent distress. HEENT: Head is normocephalic. Pupils are equal, round. Sclerae anicteric. Mucous membranes of the mouth are moist. No JVD. Left carotid bruit, no bruit on the right. CHEST EXAMINATION: Lungs are clear to auscultation. No chest wall tenderness is noted on palpation or with deep breathing. Left chest tube in place. HEART EXAMINATION: Regular rate and rhythm. S1, S2 heard. Systolic ejection murmur at the base, no gallops or rub. Heart hugger in place. Mid-sternal dressing in place with no significant drainage noted. EXTREMITIES: 2+ peripheral pulses, no lower extremity edema and no calf tenderne ss. ASSESSMENT NSTEMI Coronary artery disease s/p 4V bypass grafting POD#3 TIA Carotid stenosis Acute blood loss anemia Diabetes mellitus Daily alcohol intake Dyslipidemia Valvular heart disease s/p mitral valve repair PLAN Continue current medical regimen. Encourage activity and increasing his ambulation in the halls with assistance as needed. Further discussion with the patient regarding his carotid disease and he would prefer to have this handled as an outpatient by his primary straightening roll operator. Further recommendations to follow based on clinical course. Nurse Practitioner note has been reviewed, I agree with a documented findings and plan of care. Patient was seen and examined. Objective - Vital Signs Vital signs: Vital Signs Temp 98.7 F 05/28/20 07:43 Pulse 86 05/28/20 09:20 Resp 18 05/28/20 08:00 BP 124/65 05/28/20 07:43 Pulse Ox 97 05/28/20 07:43 Intake & Output 05/27/20 05/28/20 05/28/20 18:59 06:59 18:59 Intake Total 400 Output Total 400 500 Balance 0 -500 Weight 90.5 kg Intake: Oral 400 Output: Urine 400 500 Other: Voiding Method Urinal Urinal Urinal ABP, PAP, CO, CI - Last Documented Arterial Blood Pressure 81/54 Pulmonary Artery Pressure 30/15 Cardiac Output 5.3 Cardiac Index 2.6 - Labs CBC & Chem 7: 05/28/20 06:51 05/28/20 06:51 Labs: Abnormal Lab Results - Last 24 Hours (Table) 05/27/20 05/27/20 05/27/20 Range/Units 11:43 16:49 20:12 RBC (4.30-5.90) m/uL Hgb (13.0-17.5) gm/dL Hct (39.0-53.0) % Sodium (137-145) mmol/L Carbon Dioxide (22-30) mmol/L BUN (9-20) mg/dL Glucose (74-99) mg/dL POC Glucose (mg/dL) 173 H 182 H 225 H (75-99) mg/dL Calcium (8.4-10.2) mg/dL 05/28/20 05/28/20 05/28/20 Range/Units 06:51 06:51 07:26 RBC 2.54 L (4.30-5.90) m/uL Hgb 8.1 L (13.0-17.5) gm/dL Hct 23.4 L (39.0-53.0) % Sodium 132 L (137-145) mmol/L Carbon Dioxide 20 L (22-30) mmol/L BUN 23 H (9-20) mg/dL Glucose 176 H (74-99) mg/dL POC Glucose (mg/dL) 189 H (75-99) mg/dL Calcium 7.6 L (8.4-10.2) mg/dL
[2020-05-28 11:53] LABS: Glucose,Whole Blood 223 mg/dL (75-99)
[2020-05-28] MEDS: amLODIPine 2.5 MG TAB PO SCH (12:02)
--- NOTE | 2020-05-28 13:38 | P.PN ---
Subjective Progress Note Date: 05/28/20 Principal diagnosis: Myocardial infarction Patient had slight nosebleed last night, resolved. Had some constipation as well, started on laxatives. Doing well overall, ambulating. Objective - Vital Signs Vital signs: Vital Signs Temp 98.7 F 05/28/20 12:00 Pulse 92 05/28/20 13:27 Resp 18 05/28/20 13:27 BP 132/74 05/28/20 13:27 Pulse Ox 96 05/28/20 12:00 Intake & Output 05/27/20 05/28/20 05/28/20 18:59 06:59 18:59 Intake Total 400 Output Total 400 500 Balance 0 -500 Weight 90.5 kg Intake: Oral 400 Output: Urine 400 500 Other: Voiding Method Urinal Urinal Urinal ABP, PAP, CO, CI - Last Documented Arterial Blood Pressure 81/54 Pulmonary Artery Pressure 30/15 Cardiac Output 5.3 Cardiac Index 2.6 - Exam Gen: No acute distress, extubated HEENT: normocephalic, atraumatic, moist mucous membranes Resp: Clear bilaterally CVS: good distal perfusion x 4, regular rate and rhythm without murmurs GI: soft, NTTP, ND, appropriate bowel sounds : no SPT, no CVAT, scott catheter is present MSK: no pitting edema, no clubbing Neuro: non-focal, moving all extremities - Labs CBC & Chem 7: 05/28/20 06:51 05/28/20 06:51 Labs: Abnormal Lab Results - Last 24 Hours (Table) 05/27/20 05/27/20 05/28/20 Range/Units 16:49 20:12 06:51 RBC 2.54 L (4.30-5.90) m/uL Hgb 8.1 L (13.0-17.5) gm/dL Hct 23.4 L (39.0-53.0) % Sodium (137-145) mmol/L Carbon Dioxide (22-30) mmol/L BUN (9-20) mg/dL Glucose (74-99) mg/dL POC Glucose (mg/dL) 182 H 225 H (75-99) mg/dL Calcium (8.4-10.2) mg/dL 05/28/20 05/28/20 05/28/20 Range/Units 06:51 07:26 11:51 RBC (4.30-5.90) m/uL Hgb (13.0-17.5) gm/dL Hct (39.0-53.0) % Sodium 132 L (137-145) mmol/L Carbon Dioxide 20 L (22-30) mmol/L BUN 23 H (9-20) mg/dL Glucose 176 H (74-99) mg/dL POC Glucose (mg/dL) 189 H 223 H (75-99) mg/dL Calcium 7.6 L (8.4-10.2) mg/dL Assessment and Plan Plan: NSTEMI S/P [id number] 05/23 -Cardio and CT surgery following -Telemetry monitoring. -Continue daily aspirin, atorvastatin, and metoprolol. -Lipid profile revealed elevation of triglycerides 200, cholesterol 241, LDL 164, HDL of 37. Atorvastatin increased to 80 mg nightly. TIA -Resolved -Neurology consulted, recommending left carotid stenosis fix within a week. Follow up arranged. -Continue aspirin, switch plavix to brilinta Insulin-dependent diabetes mellitus type II -Blood sugars slightly high, will increase lantus to 25 units daily. -Continue SSI -Hemoglobin A1c = 8.2% CODE STATUS: Full code DVT prophylaxis: Heparin Discussed with: Patient Anticipated discharge date: Tomorrow Anticipated discharge place: Home
--- NOTE | 2020-05-28 15:37 | P.ARTDOP ---
Arterial Doppler Bilateral radial artery testing: Reason for study: Preop CABG Date of study: 05/20/2020 Findings: With Doppler assessment we find no significant right to left or segmental pressure gradients. Using digital plethysmography with radial artery compression, we see no significant pressure changes. On imaging the right radial is 3.7 x 3.0 mm distally, 3.6 x 3.6 mm mid, and 4.2 x 3.3 mm proximally. Left radial is 3.6 x 3.1 mm distally, 3.9 x 3.6 mm mid, and 3.5 x 3.6 mm proximally. Impression: Both radial arteries meet criterion for use.
[2020-05-28 16:48] LABS: Glucose,Whole Blood 167 mg/dL (75-99)
[2020-05-28 20:06] LABS: Glucose,Whole Blood 258 mg/dL (75-99)
[2020-05-28 20:49] VITALS: RESP 16
[2020-05-28] MEDS ORDERED: INSULIN DETEMIR (LEVEMIR) 100 UNIT/ML SYR SQ SCH (21:00)
[2020-05-28] MEDS: SENNOSIDES-DOCUSATE SODIUM 1 EACH TAB PO SCH (21:38)
[2020-05-29] MEDS: HYDROcodone/APAP 7.5-325MG 1 EACH TAB PO PRN (03:49)
[2020-05-29] MEDS ORDERED: HYDROcodone/APAP 7.5-325MG 1 EACH TAB PO PRN (07:06)
[2020-05-29 07:28] LABS: Glucose,Whole Blood 229 mg/dL (75-99)
[2020-05-29] MEDS: TICAGRELOR 90 MG TAB PO SCH (07:41)
[2020-05-29] MEDS: INSULIN ASPART (NovoLOG) 100 UNIT/ML VIAL SQ SCH ×4 (07:41→13:18)
[2020-05-29] MEDS: ASPIRIN 81 MG PO SCH (07:41)
[2020-05-29] MEDS: PANTOPRAZOLE 40 MG TABLET PO SCH (07:41)
[2020-05-29] MEDS: THIAMINE 100 MG TAB PO SCH (07:41)
[2020-05-29] MEDS: FOLIC ACID 1 MG TAB PO SCH (07:41)
[2020-05-29] MEDS: ATORVASTATIN 80 MG TAB PO SCH (07:41)
[2020-05-29] MEDS: HEPARIN SODIUM,PORCINE 5,000 UNIT/ML 1 ML VIAL SQ SCH (07:44)
[2020-05-29] MEDS ORDERED: SENNOSIDES-DOCUSATE SODIUM 1 EACH TAB PO PRN (08:25)
--- NOTE | 2020-05-29 08:43 | P.PN ---
Subjective Progress Note Date: 05/29/20 Principal diagnosis: Triple vessel diffuse coronary artery disease, moderate to severe mitral regurgitation, moderate left ventricular dysfunction. Previous medical history of insulin-dependent diabetes, family history of premature coronary artery disease, EtOH use most days without history of withdrawal, and newly diagnosed hyperlipidemia and severe left carotid stenosis. Preop nasal swab positive for MSSA POD #6 coronary artery bypass grafting 4 vessels with the left internal mammary artery to the left anterior descending artery, reverse saphenous vein graft from the aorta to the first diagonal artery, left radial artery taken proximally from the previous vein graft and anastomosed distally to the distal circumflex artery, reverse saphenous vein graft from the aorta to the right coronary artery, mitral valve repair with posterior annuloplasty using a #28 incomplete AnnuloFlex ring, exclusion of the left atrial appendage with a 35 mm AtriClip, graft flow measurements using the [employer]stim system, endoscopic harvesting of the left radial artery, endoscopic harvesting of the left greater saphenous vein from the groin to just below the knee level, intraoperative transesophageal echocardiogram and epi-aortic scanning. Postoperative acute blood loss anemia, expected given hemodilution and cardiopulmonary bypass pump Facial droop, slurred speech, right arm weakness with resolution less than 3 hours, likely TIA with no residual and no further occurrence of symptoms Patient currently sitting up in a recliner on the cardiac stepdown unit no acute distress. Complains of postoperative chest pain controlled with current medication regimen, actively using incentive spirometry, strong productive cough. Remains in sinus rhythm, hemodynamically stable. Remains completely neurologically intact, no facial droop is present, he is oriented 3, his speech is appropriate and he has equal strength bilaterally, no further incidence of previous TIA symptoms. He did ambulate in the hallway yesterday with standby assist. He has been tolerating diet. He does need encouragement to use his incentive spirometer and ambulate in the hallway. Had bowel movement and received first postoperative shower yesterday. He does complain of a bit of numbness to his right lateral thigh, he is able to feel light touch and ambulate without difficulty. Objective - Vital Signs Vital signs: Vital Signs Temp 97.8 F 05/29/20 04:00 Pulse 96 05/29/20 04:00 Resp 16 05/29/20 04:00 BP 140/80 05/29/20 04:00 Pulse Ox 99 05/29/20 04:00 Intake & Output 05/28/20 05/29/20 05/29/20 18:59 06:59 18:59 Output Total 500 Balance -500 Weight 89.9 kg Output: Urine 500 Other: Voiding Method Urinal Urinal # Voids 1 # Bowel Movements 1 ABP, PAP, CO, CI - Last Documented Arterial Blood Pressure 81/54 Pulmonary Artery Pressure 30/15 Cardiac Output 5.3 Cardiac Index 2.6 - Exam CONSTITUTIONAL: Appears comfortable, cooperative, no acute distress RESPIRATORY: Lungs sounds diminished bilaterally. Respirations even, nonlabored. Currently on room air with oxygen saturation 99%. Able to achieve 1000 mL on incentive spirometry with encouragement. Strong productive cough. CARDIOVASCULAR: S1, S2 present. Regular rate and rhythm, sinus rhythm on telemetry. Sternum stable. Palpable peripheral pulses bilaterally. Trace upper extremity edema present. No calf pain or tenderness noted. Heart hugger in place with patient demonstrating appropriate use. Antiembolism stockings, SCDs present. GASTROINTESTINAL: Abdomen soft, nontender, nondistended. Active bowel sounds present 4 quadrants. Positive bowel movement GENITOURINARY: Continues to void INTEGUMENTARY: Skin is warm and dry with evidence of good perfusion. Anterior chest incision well approximated. EVH site well approximated without redness or drainage. Left radial artery harvest site well approximated, patient denies numbness or tingling, able to wiggle all fingers and visitor information assistant appropriately, good cap refill. NEUROLOGIC: Cranial nerves II through XII intact MUSKULOSKELETAL: Able to move all extremities, strength equal bilaterally PSYCHIATRIC: Alert and oriented to person place and time, appropriate affect, intact judgment and insight - Labs CBC & Chem 7: 05/28/20 06:51 05/28/20 06:51 Labs: Abnormal Lab Results - Last 24 Hours (Table) 05/28/20 05/28/20 05/28/20 Range/Units 11:51 16:46 20:05 POC Glucose (mg/dL) 223 H 167 H 258 H (75-99) mg/dL 05/29/20 Range/Units 07:25 POC Glucose (mg/dL) 229 H (75-99) mg/dL - Imaging and Cardiology Chest x-ray: image reviewed (labs still pending) Assessment and Plan Assessment: 1. Triple-vessel diffuse coronary artery disease, non-STEMI this admission, status post four-vessel CABG 2. Moderate to severe predominantly centrally directed mitral regurgitation, status post mitral valve repair 3. Uncontrolled insulin-dependent diabetes with hyperglycemia, hemoglobin A1c 8.2% 4. Hyperlipidemia, cholesterol 241, triglyceride 200, LDL 164 5. Left internal carotid artery stenosis, greater than 70% per carotid Doppler, greater than 90% per neck CTA 6. Lifelong nonsmoker with FEV1 58% of predicted 7. Family history of premature coronary artery disease, father and 2 brothers diagnosed with CAD with subsequent CABG in their early to mid 50s 8. EtOH use most days without history of withdrawal 9. Preop nasal swab positive for MSSA 10. Postoperative acute blood loss anemia, expected 11. TIA with symptom resolution less than 3 hours and no recurrence Plan: 1. Continue aspirin, statin, Brilinta, beta holly therapy. 2. Encourage incentive spirometry use 10 times every hour while awake 3. Increase activity, ambulate as tolerated, out of bed to chair for breakfast until bedtime. PT/OT/cardiac rehab following. 4. Will monitor daily labs and x-rays. Electrolyte replacement per protocol. 5. GI/DVT prophylaxis 6. Pain control with current medication regimen 7. Insulin management per primary care service. Needs tight blood sugar control for healing. Proper diet discussed with patient by dietitian, internal medicine, and cardiothoracic to make better meal choices 8. [facility] protocol to monitor for alcohol withdrawal. Continue thiamine, folic acid 9. Left carotid stenosis intervention to be completed in the future, neurology recommending within the next week. Avoid hypotension 10. Continue neuro checks every 4 hours 11. MRI not recommended per Dr. Dominguez in view of risk of dislodging recent clips on conduits as well as no academic benefit 12. Strict accurate intake and output. Daily weights. 13. Discharge planning in progress. Anticipate discharge to home with home care this afternoon. Patient to follow-up with Dr. Santos next 06/03/2010 for management of left ICA stenosis Time with Patient: Greater than 30
--- NOTE | 2020-05-29 08:55 | P.PN ---
Subjective Progress Note Date: 05/29/20 Principal diagnosis: Myocardial infarction Feeling well, no complaints. No pain or sob. Objective - Vital Signs Vital signs: Vital Signs Temp 97.8 F 05/29/20 04:00 Pulse 96 05/29/20 04:00 Resp 16 05/29/20 04:00 BP 140/80 05/29/20 04:00 Pulse Ox 99 05/29/20 04:00 Intake & Output 05/28/20 05/29/20 05/29/20 18:59 06:59 18:59 Output Total 500 Balance -500 Weight 89.9 kg Output: Urine 500 Other: Voiding Method Urinal Urinal # Voids 1 # Bowel Movements 1 ABP, PAP, CO, CI - Last Documented Arterial Blood Pressure 81/54 Pulmonary Artery Pressure 30/15 Cardiac Output 5.3 Cardiac Index 2.6 - Exam Gen: No acute distress, extubated HEENT: normocephalic, atraumatic, moist mucous membranes Resp: Clear bilaterally CVS: good distal perfusion x 4, regular rate and rhythm without murmurs GI: soft, NTTP, ND, appropriate bowel sounds : no SPT, no CVAT, scott catheter is present MSK: no pitting edema, no clubbing Neuro: non-focal, moving all extremities - Labs CBC & Chem 7: 05/28/20 06:51 05/28/20 06:51 Labs: Abnormal Lab Results - Last 24 Hours (Table) 05/28/20 05/28/20 05/28/20 Range/Units 11:51 16:46 20:05 POC Glucose (mg/dL) 223 H 167 H 258 H (75-99) mg/dL 05/29/20 Range/Units 07:25 POC Glucose (mg/dL) 229 H (75-99) mg/dL Assessment and Plan Plan: NSTEMI S/P [id number] 05/23 -Cardio and CT surgery following -Telemetry monitoring. -Continue daily aspirin, atorvastatin, and metoprolol. -Lipid profile revealed elevation of triglycerides 200, cholesterol 241, LDL 164, HDL of 37. Atorvastatin increased to 80 mg nightly. TIA -Resolved -Neurology consulted, recommending left carotid stenosis fix within a week. Follow up arranged. -Continue aspirin, switch plavix to brilinta Insulin-dependent diabetes mellitus type II -Blood sugars slightly high, will increase lantus to 25 units daily. -Will also increase aspart to 12 units tid. -Continue SSI -Hemoglobin A1c = 8.2% CODE STATUS: Full code DVT prophylaxis: Heparin Discussed with: Patient Anticipated discharge date: Tomorrow Anticipated discharge place: Home
[2020-05-29] MEDS ORDERED: METOPROLOL TARTRATE 25 MG TAB PO SCH (09:00)
[2020-05-29] MEDS: IPRATROPIUM-ALBUTEROL 3 ML NEB INHALATION SCH ×2 (09:21→12:02)
[2020-05-29 09:25] VITALS: TEMP 98
--- NOTE | 2020-05-29 09:40 | XR ---
EXAMINATION TYPE: XR chest 2V DATE OF EXAM: 05/29/2020 COMPARISON: 05/29/2019 INDICATION: Postcardiac surgery TECHNIQUE: Frontal and lateral views of the chest are obtained. FINDINGS: The heart size is enlarged. The pulmonary vasculature is normal. Mild left lower lobe infiltrate is present. Small effusion may be present on the left IMPRESSION: 1. Small left pleural effusion and/or left lower lobe infiltrate slightly increased from comparison
[2020-05-29] MEDS: KETOROLAC 15 MG/ML 1 ML VIAL IVP SCH (11:31)
[2020-05-29 11:38] LABS: HCT 25.7 % (39.0-53.0); HGB 8.8 gm/dL (13.0-17.5); Hypochromasia Slight; MCH 31.5 pg (25.0-35.0); MCHC 34.1 g/dL (31.0-37.0); MCV 92.3 fL (80.0-100.0); Mean Platelet Volume 7.2; Platelet Count 278 k/uL (150-450); Poikilocytosis Slight; RBC 2.78 m/uL (4.30-5.90); RDW 13.4 % (11.5-15.5); WBC 5.4 k/uL (3.8-10.6)
[2020-05-29 11:54] LABS: African American GFR (CKD) >90 (>60 ml/min/1.73 sqM); Anion Gap 7 mmol/L; Blood Urea Nitrogen 18 mg/dL (9-20); Calcium 7.9 mg/dL (8.4-10.2); Carbon Dioxide 25 mmol/L (22-30); Chloride 101 mmol/L (98-107); Glucose 176 mg/dL (74-99); Magnesium 2.6 mg/dL (1.6-2.3); Non-African American GFR(CKD) >90 (>60 ml/min/1.73 sqM); Potassium 4.5 mmol/L (3.5-5.1); Sodium 133 mmol/L (137-145)
[2020-05-29 12:04] LABS: Glucose,Whole Blood 156 mg/dL (75-99)
--- NOTE | 2020-05-29 12:26 | P.DS ---
Providers Date of admission: 05/19/20 12:54 Expected date of discharge: 05/29/20 Attending physician: Kati Dominguez Consults: 05/19/20 12:39 Consult Physician Urgent Consulting Provider: [facility] Consult Reason/Comments: NSTEMI Do you want consulting provider notified?: Yes 05/20/20 10:20 Consult Physician Routine Consulting Provider: Lizandro Luan Consult Reason/Comments: nstemi, cad, 3+MR Do you want consulting provider notified?: Already Contacted 05/21/20 06:45 Consult Physician Routine Consulting Provider: Miguel Gallardo Consult Reason/Comments: preop cab/mvr Do you want consulting provider notified?: Already Contacted 05/22/20 07:37 Consult to Anesthesia Routine Consulting Provider: Anesthesia,Services Consult Reason/Comments: Cardiac Surgery Pre-Op 05/23/20 16:02 Consult Physician Routine Consulting Provider: Gloria House Consult Reason/Comments: med mgmt Do you want consulting provider notified?: Already Contacted 05/26/20 04:21 Consult Physician Stat Consulting Provider: Jada Castro Consult Reason/Comments: code stroke Do you want consulting provider notified?: Yes Primary care physician: Physician Nonstaff Hospital Course: FINAL DIAGNOSIS: 1. Triple-vessel diffuse coronary artery disease, non-STEMI this admission 2. Moderate to severe predominantly centrally directed mitral regurgitation 3. Uncontrolled insulin for diabetes with hyperglycemia, hemoglobin A1c 8.2% 4. Hyperlipidemia, cholesterol 241, triglyceride 200, LDL 164 5. Left internal carotid artery stenosis, greater than 90% per neck CTA 6. Lifelong nonsmoker with FEV1 58% of predicted 7. Family history of premature coronary artery disease 8. EtOH use most days without history of withdrawal 9. Preoperative nasal swab positive for MSSA, treated 10. Postoperative acute blood loss anemia, expected 11. TIA with symptom resolution less than 3 hours and no recurrence PRINCIPAL PROCEDURE: 1. Urgent coronary artery bypass grafting 4 vessels with the left internal mammary artery to the left anterior descending artery, reverse saphenous vein graft from the aorta to the first diagonal artery, left radial artery taken proximally from the previous vein graft and anastomosed distally to the distal circumflex artery, reverse saphenous vein graft from the aorta to the right coronary artery 2. Mitral valve repair with posterior annuloplasty using a #28 incomplete AnnuloFlex ring 3. Exclusion of the left atrial appendage with a 35 mm AtriClip 4. Graft flow measurements using the Medistim system 5. Endoscopic harvesting of the left radial artery 6. Endoscopic harvesting of the left greater saphenous vein from the groin to just below the knee level 7. Intraoperative transesophageal echocardiogram and epi-aortic scanning HISTORY OF PRESENT ILLNESS: This is a 55-year-old active gentleman who follows on an outpatient basis with Dr. Tino Ontiveros for primary care and Dr. Donovan Santos for cardiology. Apparently he began experiencing chest heaviness when laying down at night with resolution upon sitting up. He was pretty active during the day. Subsequently he began to experience generalized malaise and fatigue, diaphoresis, nausea, chills, body aches along with diarrhea. His symptoms did resolve for a couple of days and then returned. He was due to go to [place] and was concerned that he might have Covid so he came into the emergency room for testing which was negative. He did, however, have EKG changes with T-wave inversion in lead 3 and aVF. Troponins were elevated at 3.1 with Max troponin 7.8 and he was ruled in for non-STEMI. The patient was started on IV heparin and was admitted for evaluation treatment with consultation placed to cardiology. He was recommended to undergo heart catheterization which demonstrated ostial LAD stenosis 85%, mid LAD stenosis 60- 70%, first diagonal stenosis 80%, second diagonal stenosis 90%, mid RCA stenosis 95% followed by 100% distal RCA stenosis, and mid circumflex stenosis 50% with left to right collaterals to the PLV. Transesophageal echocardiogram was also completed demonstrating mild posterior leaflet tethering of the mitral valve f rom inferior hypokinesis, moderate to severe predominantly centrally directed mitral regurgitation with additional smaller secondary posteriorly directed regurgitant jet related to the posterior leaflet tethering. Vena contracted of 0.67 m, piece estimated 0.397 cm. There was basal and, inferior, and anteroseptal hypokinesis with EF 40-45%. Due to these findings consultation was placed to cardiothoracic surgery. He was recommended to undergo urgent coronary artery bypass along with mitral valve repair. The usual perioperative course was discussed in detail with the patient and his mother, all risks and benefits were explained, all questions were answered, the patient's primary special order jeweler was updated by Dr. Dominguez, and consent was obtained to proceed with surgery. The patient was kept inpatient due to the nature of his disease process. HOSPITAL COURSE: The patient was brought to the preoperative area, prepared in the usual fashion, and subsequently taken to the operating room where Dr. Dominguez performed four-vessel CABG along with mitral valve repair. Upon completion of surgery the patient was transferred to the cardiovascular intensive care unit where he was recovered and monitored hemodynamically. He was extubated, all lines, tubes, and drips were discontinued when appropriate, and he was transferred to 3 S. cardiac stepdown unit for further monitoring and rehabilita tion. He did have a brief episode of right-sided facial droop, slurred speech, and right arm weakness. CT scan of the brain and CTA of the neck were completed, neither revealed any acute process. The patient's symptoms resolved without any repeat occurrences. Neurology was consulted and did recommend left carotid stenting soon, the patient prefered to be evaluated on an outpatient basis by his own special order jeweler. His oxygen was titrated down, he continued to work with physical and occupational therapy, he was tolerating oral diet, his pain was controlled, and he was ready to be discharged to home with [facility] care on postoperative day #6. He received written and verbal instruction regarding his medications, activity restrictions, signs and symptoms requiring physician notification, and follow-up appointments. He is to keep a record of his blood sugars to take to his primary care physician office. He will see his primary special order jeweler next week for planning regarding left carotid stenting. COMPLICATIONS: The patient experienced postoperative acute blood loss anemia and TIA which were treated accordingly. Patient Condition at Discharge: Serious Plan - Discharge Summary Discharge Rx Participant: No New Discharge Prescriptions: New Aspirin 81 mg PO DAILY #30 chew HYDROcodone/APAP 7.5-325MG [[place] 7.5-325] 1 each PO Q6H PRN #28 tab PRN Reason: Pain amLODIPine [Norvasc] 2.5 mg PO DAILY@1200 #30 tab Sennosides-Docusate Sodium [Senokot-S] 2 each PO HS PRN tab PRN Reason: Constipation Acetaminophen Tab [Tylenol] 650 mg PO Q4HR PRN tab PRN Reason: Fever And/ Or Pain Ticagrelor [Brilinta] 90 mg PO BID #60 tab Folic Acid 1 mg PO DAILY #30 tab Atorvastatin [Lipitor] 80 mg PO DAILY #30 tab Metoprolol Tartrate [Lopressor] 25 mg PO BID #60 tab Pantoprazole [Protonix] 40 mg PO AC-BRKFST #30 tablet. Thiamine [Vitamin B-1] 100 mg PO DAILY #30 tab Changed Insulin Glargine,Hum.rec.anlog [Lantus Solostar] 25 unit SQ DAILY #1 pen Insulin Aspart [NovoLOG Flexpen] 12 units SQ AC-TID #2 pen Discharge Medication List Acetaminophen Tab [Tylenol] 650 mg PO Q4HR PRN tab 05/29/20 [Rx] Aspirin 81 mg PO DAILY #30 chew 05/29/20 [Rx] Atorvastatin [Lipitor] 80 mg PO DAILY #30 tab 05/29/20 [Rx] Folic Acid 1 mg PO DAILY #30 tab 05/29/20 [Rx] HYDROcodone/APAP 7.5-325MG [[place] 7.5-325] 1 each PO Q6H PRN #28 tab 05/29/20 [Rx] Insulin Aspart [NovoLOG Flexpen] 12 units SQ AC-TID #2 pen 05/29/20 [Rx] Insulin Glargine,Hum.rec.anlog [Lantus Solostar] 25 unit SQ DAILY #1 pen 05/29/20 [Rx] Metoprolol Tartrate [Lopressor] 25 mg PO BID #60 tab 05/29/20 [Rx] Pantoprazole [Protonix] 40 mg PO AC-BRKFST #30 tablet. 05/29/20 [Rx] Sennosides-Docusate Sodium [Senokot-S] 2 each PO HS PRN tab 05/29/20 [Rx] Thiamine [Vitamin B-1] 100 mg PO DAILY #30 tab 05/29/20 [Rx] Ticagrelor [Brilinta] 90 mg PO BID #60 tab 05/29/20 [Rx] amLODIPine [Norvasc] 2.5 mg PO DAILY@1200 #30 tab 05/29/20 [Rx] Follow up Appointment(s)/Referral(s): Donovan Santos MD [REFERRING] - 06/03/20 3:40 pm Kati Dominguez MD [STAFF PHYSICIAN] - 4 Weeks (Office will call with appointment ) Paris Connelly NPC [Nurse Practitioner] - 06/25/20 2:30 pm [facility], [NON-STAFF] - Nonstaff,Physician [Primary Care Provider] - 06/04/20 11:00 am (Dr. Tino Ontiveros) Ambulatory/Diagnostic Orders: Complete Blood Count w/diff [LAB.AMB] Time Frame: 3 Days, Location: None Selected Comprehensive Metabolic Panel [LAB.AMB] Time Frame: 3 Days, Location: None Selected Activity/Diet/Wound Care/Special Instructions: DISCHARGE INSTRUCTIONS: 1. No driving for 4 weeks, or until physician gives their ok. 2. The patient should sleep in their own bed, no medical bed needed. 3. Stairs are not an issue. If the bedroom is upstairs, it is advised that the patient go up at night and down in the morning for the first week. Go slowly, using handrail and take 1 step at a time. 4. TATI hose are to be worn for 30 days or until physician discontinues. 5. Heart hugger is to be worn 100% of the time until physician discontinues.(except when showering) 6. No lifting, pushing, or pulling more than 10 pounds for 12 weeks. The physician will advise of any restriction changes. 7. The patient is expected to continue the prescribed walking program. 8. Continue pain control per as needed orders. 9. Continue with incentive spirometry and splinting/heart hugger until otherwise directed by the physician. 10. Must shower daily using liquid antibacterial soap and a separate white washcloth for each individual incision. 11. Routine sternal incision care. No powders, lotions, ointments on incisions. No dressings are necessary on incisions unless they are draining. Dermabond tape is to remain on sternal incision until surgeon follow-up. 12. Please call surgeon/CHEMICAL DEPENDENCY THERAPIST for temp greater than 101 F or purulent drainage from incisions. 13. Narcotic medications were discussed with the patient, including the potential for misuse, addiction, and abuse. Opiod Start Talking form was reviewed with the patient. 14. All prescriptions given by surgeon for 30 days. Refills need to be filled through special order jeweler/primary care physician. 15. A Red armband has been placed on the patient. It should be worn for 30 days post surgery and will be removed by the cardiac surgeons. If an ER visit is necessary, please make sure the number on the Red armband is called. 16. Please keep a record of your blood sugars and take with you to your appointment with Dr. Ontiveros 17. You have been referred to and are expected to begin Cardiac Rehab in approximately 4-6 weeks. HOME HEALTH SERVICES TO PROVIDE: RN SKILLED HOME CARE SERVICES FOR POST-OP SURGICAL PATIENTS WITH THE FOLLOWING: Coronary Artery Bypass Surgery (CABG), Mitral Valve Replacement/Repair ( MVR), Aortic Valve Replacement/Repair (AVR) RN TO CONTINUE EDUCATION FROM ``ROAD TO A HEALTH HEART PATIENT EDUCATION MANUAL (GIVEN TO PATIENT IN THE HOSPITAL) MEDICATION RECONCILIATION WITH EDUCATION NEEDED ON FIRST HOME VISIT EMPHASIZE IMPORTANCE OF WEARING BREAST SUPPORT/HEART HUGGER ENCOURAGE USE OF INCENTIVE SPIROMETER 10 X EVERY HOUR WHILE AWAKE ENCOURAGE UTILIZATION OF LOWER EXTREMITY COMPRESSION STOCKINGS/TATI HOSE and ELEVATE LEGS ABOVE LEVEL OF HEART WHILE AT REST. ENCOURAGE AMBULATION 3-5x/day INCREASING TOLERATES, WHILE AVOIDING EXTREMES IN TEMPERATURE FREQUENCY: RN TO OPEN THE PATIENT WITHIN 24 HOURS OF DISCHARGE FROM THE HOSPITAL WITH TELEHEALTH INSTALLED AT [facility], RN TO VISIT 2-3 X A WEEK FOR 4 WEEKS ESTABLISHED BY PATIENT NEEDS. LABORATORY: CBC, CMP TO BE DRAWN ON THE THIRD DAY HOME, (RAN STAT) FAX RESULTS TO [phone]. TELEHEALTH PARAMETERS: WEIGHT: NOTIFY MD OF WEIGHT GAIN OF 2 LBS IN 24 HOURS OR 5 LBS IN ONE WEEK HR: NOTIFY MD OF HR <55 BPM OR HR>100 BPM BP: NOTIFY MD IF BP <90/55 OR BP>140/100 O2 SAT: NOTIFY MD IF PO2<93% ON ROOM AIR SEND TELEHEALTH REPORT TO FLOORWORKER DISTRIBUTOR AND CARDIOVASCULAR SURGEON THE FIRST WEEK OF CARE AND THEN BI-WEEKLY. PLEASE ADDITIONALLY COMMUNICATE ANY ABNORMALS AND NEW FINDINGS TO THE SURGEONS OFFICE. For any questions or concerns please call geophysical prospecting surveyor Concepcion @ or Don @
[2020-05-29] MEDS: amLODIPine 2.5 MG TAB PO SCH (13:17)
[2020-05-29 13:48] VITALS: BP 121/74; PULSE 87
--- NOTE | 2020-05-29 14:48 | P.PN ---
Subjective Progress Note Date: 05/29/20 HISTORY OF PRESENT ILLNESS: 05/24/2020 Patient is status post CABG 4: left internal mammary artery to the left anterior descending artery, left radial artery to the distal circumflex, reverse saphenous vein graft from the aorta to the first diagonal artery, reverse saphenous vein graft from the aorta to the right coronary artery. patient examined this morning the intensive care unit. Patient was extubated yesterday. He is currently sitting up in the chair. Patient did become slightly hypotensive this morning and is on vasopressors. Patient reports mild surgical discomfort in the chest. He states his breathing does not feel labored. He does not get short of breath. Patient does report difficulty taking a deep breath due to pain. He is pulling 5007 150 mL on his incentive spirometer. he is maintaining sinus mechanism on telemetry. 05/25/2020 Patient examined this morning in the intensive care unit. Patient is sitting up in the chair. He continues to report post surgical pain but states it is tolerable at this time. He reports using his incentive spirometer and pulling 879216 mL. He remains in sinus mechanism on telemetry. He has been weaned off of his vasopressors. 05/29/2020 patient examined this morning the bedside. He denies chest pain or pressure. He denies shortness of breath. He states he is pulling 1000cc on incentive spirometry. He states he is being discharged home this afternoon. PHYSICAL EXAM: VITAL SIGNS: Reviewed. GENERAL: Well-developed in no acute distress. NECK: Supple. No JVD or thyromegaly LUNGS: Respirations even and unlabored. Lung sounds diminished bilaterally HEART: Regular rate and rhythm. S1 and S2 heard. EXTREMITIES: Normal range of motion. No clubbing or cyanosis. Peripheral pulses intact. No lower extremity edema ASSESSMENT: Non-STEMI, triple vessel coronary artery disease status post CABG 4 Moderate to severe mitral regurgitation, status post mitral valve repair TIA Left internal carotid artery stenosis, greater than 70% per carotid Doppler, greater than 90% per neck CTA Diabetes mellitus Daily alcohol intake Dyslipidemia Family history of premature coronary artery disease Acute blood loss anemia PLAN: Continue postoperative management per CTS Continue current cardiac medications Multiple discussions were had with patient regarding carotid disease. Patient declining any inpatient intervention to be performed and requesting to have this handled by his primary manager cath lab, Dr. Santos. Patient may be discharged home today from a cardiac perspective Patient to follow up with his manager cath lab, Dr. Santos Nurse practitioner note has been reviewed by physician. Signing provider agrees with the documented findings, assessment, and plan of care. Objective - Vital Signs Vital signs: Vital Signs Temp 98.0 F 05/29/20 08:00 Pulse 88 05/29/20 12:22 Resp 16 05/29/20 08:00 BP 121/74 05/29/20 12:00 Pulse Ox 96 05/29/20 12:00 Intake & Output 05/28/20 05/29/20 05/29/20 18:59 06:59 18:59 Intake Total 460 Output Total 500 Balance -500 460 Weight 89.9 kg Intake: Oral 460 Output: Urine 500 Other: Voiding Method Urinal Urinal Urinal # Voids 1 # Bowel Movements 1 ABP, PAP, CO, CI - Last Documented Arterial Blood Pressure 81/54 Pulmonary Artery Pressure 30/15 Cardiac Output 5.3 Cardiac Index 2.6 - Labs CBC & Chem 7: 05/29/20 09:58 05/29/20 09:58 Labs: Abnormal Lab Results - Last 24 Hours (Table) 05/28/20 05/28/20 05/29/20 Range/Units 16:46 20:05 07:25 RBC (4.30-5.90) m/uL Hgb (13.0-17.5) gm/dL Hct (39.0-53.0) % Sodium (137-145) mmol/L Glucose (74-99) mg/dL POC Glucose (mg/dL) 167 H 258 H 229 H (75-99) mg/dL Calcium (8.4-10.2) mg/dL Magnesium (1.6-2.3) mg/dL 05/29/20 05/29/20 05/29/20 Range/Units 09:58 09:58 11:59 RBC 2.78 L (4.30-5.90) m/uL Hgb 8.8 L (13.0-17.5) gm/dL Hct 25.7 L (39.0-53.0) % Sodium 133 L (137-145) mmol/L Glucose 176 H (74-99) mg/dL POC Glucose (mg/dL) 156 H (75-99) mg/dL Calcium 7.9 L (8.4-10.2) mg/dL Magnesium 2.6 H (1.6-2.3) mg/dL
[2020-05-29] MEDS ORDERED: HEPARIN SODIUM,PORCINE/PF 5,000 UNIT/0.5 ML SYRINGE SQ SCH (16:00)
== END 2020-05-29 14:19 | disposition home health service (06) | DRG 216 ==
LOC: EC 10:29 → 3SCARD 12:54 → 2SICU 05-23 08:36 → 3SCARD 05-25 16:19
PROVIDERS: ADMIT Internal Medicine; ATTEND Surgery
PROC: B2111ZZ Fluoroscopy of Multiple Coronary Arteries using Low Osmolar Contrast (ICD-10-PCS; 2020-05-19)
PROC: 4A023N7 Measurement of Cardiac Sampling and Pressure, Left Heart, Percutaneous Approach (ICD-10-PCS; 2020-05-19)
PROC: B246ZZ4 Ultrasonography of Right and Left Heart, Transesophageal (ICD-10-PCS; 2020-05-21)
PROC: B54DZZZ Ultrasonography of Bilateral Lower Extremity Veins (ICD-10-PCS; 2020-05-21)
PROC: 06BQ4ZZ Excision of Left Saphenous Vein, Percutaneous Endoscopic Approach (ICD-10-PCS; principal; 2020-05-23 08:00)
PROC: 021009W Bypass Coronary Artery, One Artery from Aorta with Autologous Venous Tissue, Open Approach (ICD-10-PCS; principal; 2020-05-23 08:00)
PROC: 02100Z9 Bypass Coronary Artery, One Artery from Left Internal Mammary, Open Approach (ICD-10-PCS; principal; 2020-05-23 08:00)
PROC: 03BC4ZZ Excision of Left Radial Artery, Percutaneous Endoscopic Approach (ICD-10-PCS; principal; 2020-05-23 08:00)
PROC: 02UG0JZ Supplement Mitral Valve with Synthetic Substitute, Open Approach (ICD-10-PCS; principal; 2020-05-23 08:00)
PROC: 02100AW Bypass Coronary Artery, One Artery from Aorta with Autologous Arterial Tissue, Open Approach (ICD-10-PCS; principal; 2020-05-23 08:00)
PROC: 02L70CK Occlusion of Left Atrial Appendage with Extraluminal Device, Open Approach (ICD-10-PCS; principal; 2020-05-23 08:00)
PROC: 4A0305C Measurement of Arterial Flow, Coronary, Open Approach (ICD-10-PCS; principal; 2020-05-23 08:00)
PROC: 5A1221Z Performance of Cardiac Output, Continuous (ICD-10-PCS; principal; 2020-05-23 08:00)
PROC: B24BZZ4 Ultrasonography of Heart with Aorta, Transesophageal (ICD-10-PCS; principal; 2020-05-23 08:00)
PROC: B34KZZZ Ultrasonography of Bilateral Upper Extremity Arteries (ICD-10-PCS; 2020-05-28)
DX: I21.4 Non-ST elevation (NSTEMI) myocardial infarction (principal); I50.23 Acute on chronic systolic (congestive) heart failure; D62 Acute posthemorrhagic anemia; G45.9 Transient cerebral ischemic attack, unspecified; J98.11 Atelectasis; N17.9 Acute kidney failure, unspecified; I27.20 Pulmonary hypertension, unspecified; E11.65 Type 2 diabetes mellitus with hyperglycemia; Z79.4 Long term (current) use of insulin; Z20.822 Contact with and (suspected) exposure to COVID-19; I34.0 Nonrheumatic mitral (valve) insufficiency; I25.5 Ischemic cardiomyopathy; I25.10 Atherosclerotic heart disease of native coronary artery without angina pectoris; E78.5 Hyperlipidemia, unspecified; E78.1 Pure hyperglyceridemia; R19.7 Diarrhea, unspecified; M81.0 Age-related osteoporosis without current pathological fracture; K59.00 Constipation, unspecified; R04.0 Epistaxis; Z72.89 Other problems related to lifestyle; Z90.89 Acquired absence of other organs; Z98.890 Other specified postprocedural states; Z22.321 Carrier or suspected carrier of Methicillin susceptible Staphylococcus aureus; Z82.49 Family history of ischemic heart disease and other diseases of the circulatory system
CPT/HCPCS: 36415; 70450; 70496; 70498; 71045; 71046; 80048; 80053; 80061; 80074; 81003; 82330; 82805; 83036; 83735; 83880; 84443; 84484; 85025; 85027; 85379; 85610; 85730; 86850; 86891; 86900; 86901; 86920; 87070; 87635; 93005; 93306; 93308; 93312; 93320; 93325; 93458; 93880; 93923; 93930; 93970; 94002; 94150; 94640; 94760; 96374; 99285

== ENCOUNTER → 2020-06-20 | Outpatient (CLI) | payer BC ==
--- NOTE | 2020-06-20 15:26 | XR ---
EXAMINATION TYPE: XR chest 2V DATE OF EXAM: 06/20/2020 COMPARISON: 05/29/2020 HISTORY: 55-year-old male R07.9, chest pain TECHNIQUE: Frontal and lateral views FINDINGS: Median sternotomy wires are present with post CABG clips. Generator device overlies the left side of the chest. There is a residual small left effusion with adjacent opacity at the left base. Right lung and pleural space are clear. Findings are relatively similar to prior exam. IMPRESSION: Small left effusion with adjacent atelectasis and/or consolidation, similar to prior exam.
== END | disposition home or self-care (01) ==
LOC: RADXRMAIN 11:02
PROVIDERS: ATTEND Nurse Practitioner Acute Care
DX: J90 Pleural effusion, not elsewhere classified (principal); J98.11 Atelectasis
CPT/HCPCS: 71046